=== PATIENT | female | born 1940 | race Caucasian/White ===

== ENCOUNTER 2017-05-05 10:28 | Emergency (ER) | payer MEDICARE ==
[2017-05-05 10:38] VITALS: BP 167/73
--- NOTE | 2017-05-05 14:04 | RAD ---
Indication: Cough. 2 views of the chest including dual energy PA views demonstrates cardiomegaly. Lung garza demonstrate no pleural fluid, pneumonia or pneumothorax. No changes noted since June 25, 2015. IMPRESSION: Cardiomegaly without evidence of active cardiopulmonary disease.
[2017-05-05 17:38] LABS: Calcium 8.8 mg/dL (8.6-10.3); EGFR African American 89.7 (>60); EGFR Non-African American 69.7 (>60); Potassium 3.8 mmol/L (3.5-5.0)
--- NOTE | 2017-05-16 18:06 | UC ---
Tree [employer] Angela, scribed for Sherrie Oneil DO on 05/05/17 at 1049 . General HPI - HPI Summary HPI Summary: This pt is a 76 y/o female presenting to [facility] c/o cough since last late Spring, for months. Pt reports her cough was worse yesterday and it wasn't too bad 2 days ago. Pt notes her cough is aggravated when talking and after eating. She has some productive cough with clear sputum, non-bloody. Pt states sometimes her cough wakes her up at night. She reports it can be worse when lying down at night. She notes she sneezes a lot after her cough. Pt denies sore throat, eye discharge, chest pain, SOB, nausea, vomiting, headache, rash. She notes her ankles are swollen specially during the evenings. Pt has taken diuretics in the past. Pt states she has chronic rosacea. She denies any reflux. Pt reports she had a "bad cough" 2 years ago and couldn't sleep or lay down secondary to cough. She notes she was given diuretics which alleviated her cough. PMHx includes atrial fibrillation, HTN. Pt is on anticoagulants, metoprolol. Pt' s PCP is Dr. Donohue. - History of Current Complaint Chief Complaint: UCRespiratory Stated Complaint: COUGH Time Seen by Provider: 05/05/17 10:44 Hx Obtained From: Patient Onset/Duration: Lasting Days, Still Present Timing: Constant Character: clear sputum Aggravating: talking and after eating Associated Signs & Symptoms: Positive: Cough, Edema - in bilateral ankles, Other - NEG: sore throat, eye discharge, headache, rash. Negative: Abdominal Pain, Chest Pain, Headache, Nausea, SOB, Vomiting - Allergy/Home Medications Allergies/Adverse Reactions: Allergies Allergy/AdvReac Type Severity Reaction Status Date / Time No Known Allergies Allergy Verified 05/05/17 10:30 Home Medications: Home Medications traZODone TAB* [Desyrel TAB*] 50 mg PO DAILY 05/05/17 [History Confirmed ] PMH/Surg Hx/FS Hx/Imm Hx Other Endocrine History: DENIES: diabetes Cardiovascular History: Hypertension, Atrial Fibrillation - Surgical History Surgical History: None - Family History Known Family History: Positive: Cardiac Disease - Social History Alcohol Use: Rare Substance Use Type: None Smoking Status (MU): Never Smoked Tobacco Review of Systems Constitutional: Negative Skin: Other - chronic rosacea Eyes: Negative ENT: Negative Respiratory: Cough Cardiovascular: Negative Gastrointestinal: Negative Genitourinary: Negative Motor: Negative Neurovascular: Negative Musculoskeletal: Edema - in bilateral ankles Neurological: Negative Psychological: Negative Is Patient Immunocompromised?: No All Other Systems Reviewed And Are Negative: Yes Physical Exam Triage Information Reviewed: Yes Appearance: Well-Appearing, No Pain Distress, Well-Nourished Vital Signs: Initial Vital Signs Temp 98.6 F 05/05/17 10:36 Pulse 50 05/05/17 10:36 Resp 16 05/05/17 10:36 BP 167/73 05/05/17 10:36 Pulse Ox 100 05/05/17 10:36 Vital Signs Reviewed: Yes Eyes: Positive: Conjunctiva Clear. Negative: Discharge ENT: Positive: Hearing grossly normal, TMs normal, Other - nasal mucosa is pale and boggy. Negative: Tonsillar swelling, Tonsillar exudate, Trismus, Muffled voice, Hoarse voice Neck exam: Normal Neck: Positive: Supple Respiratory: Positive: Lungs clear, Normal breath sounds, No respiratory distress, No accessory muscle use Cardiovascular: Positive: RRR, No Murmur Musculoskeletal Exam: Normal Musculoskeletal: Positive: No Edema Neurological: Positive: Alert, Muscle Tone Normal Psychological Exam: Normal Psychological: Positive: Age Appropriate Behavior Skin Exam: Normal, Other - Warm, dy, normal color Diagnostics - Radiology Chest XR Xray Interpretation: No Acute Changes - IMPRESSION: cardiomegaly without evidence of active cardiopulmonary disease. ED physician has reviewed this radiology report and agrees. Radiology Interpretation Completed By: ED Physician - Chest XR is negative, per physician., Radiologist Course/Dx - Course Course Of Treatment: Medications reviewed this visit. High blood pressure noted. Chest XR, as read by me, is negative. Pt will be discharged home and was recommended to follow up with her PCP tomorrow. - Differential Dx - Multi-Symptom Provider Diagnoses: Chronic cough Discharge - Discharge Plan Condition: Stable Disposition: HOME Patient Education Materials: Chronic Cough (ED) Referrals: Garo Donohue MD [Primary Care Provider] - 1 Day Additional Instructions: I DID NOT SEE ANY EVIDENCE OF HEART FAILURE EXACERBATION OR LUNG INFECTION ON YOUR CHEST XRAY. YOUR COUGH IS LIKELY THE RESULT OF ALLERGIES OR GASTROESOPHAGEAL REFLUX. TO BE SAFE WE HAVE DRAWN LABS. YOU SHOULD FOLLOW UP WITH YOUR PCP TOMORROW TO GO OVER YOUR LABS AND FOR FURTHER EVALUATION OF YOUR CHRONIC COUGH. The documentation as recorded by the [employer] Angela accurately reflects the service I personally performed and the decisions made by , Sherrie Oneil DO.
== END 2017-05-05 12:51 | disposition home or self-care (01) ==
LOC: UCEAST 10:28
DX: R05 Cough (principal); R60.0 Localized edema; I51.7 Cardiomegaly; I10 Essential (primary) hypertension; I48.91 Unspecified atrial fibrillation
CPT/HCPCS: 36415; 71020; 80048; 83880; 99211; G0463

== ENCOUNTER 2018-05-22 11:16 | Emergency (ER) | payer MEDICARE ==
[2018-05-22 11:36] VITALS: BP 139/69
--- NOTE | 2018-05-22 12:04 | UC ---
Abdominal Pain Female HPI - HPI Summary HPI Summary: Patient presents to urgent care reporting 24 hours of urinary frequency, and stream burning, and hematuria yesterday. Patient states no hematuria today. Patient denies nausea vomiting. No back pain. No fevers, chills, rash. No vaginal discharge, itching, odor. Patient states she's had UTIs in the past and this feels similar. Patient without any recent antibiotics. Patient without any other complaints. Of note, patient is on warfarin and digoxin for A. fib. Patient's medications reviewed this visit - History of Current Complaint Chief Complaint: UCGU Stated Complaint: URINARY FREQUENCY Time Seen by Provider: 05/22/18 11:42 Hx Obtained From: Patient Onset/Duration: Sudden Onset Pain Intensity: 2 Allergies/Adverse Reactions: Allergies Allergy/AdvReac Type Severity Reaction Status Date / Time No Known Allergies Allergy Verified 05/22/18 11:36 Home Medications: Home Medications Amlodipine Besylate [Amlodipine 2.5 mg tab] 2.5 mg PO DAILY 05/22/18 [History Confirmed 05/22/18] PMH/Surg Hx/FS Hx/Imm Hx Cardiovascular History: Hypertension, Atrial Fibrillation - Surgical History Surgical History: Yes Surgery Procedure, Year, and Place: anal polyp removal. Tonsil removal - Family History Known Family History: Positive: Cardiac Disease, Non-Contributory - Social History Lives: With Family Alcohol Use: None Substance Use Type: None Smoking Status (MU): Never Smoked Tobacco Review of Systems All Other Systems Reviewed And Are Negative: Yes Constitutional: Positive: Negative Skin: Positive: Negative Genitourinary: Positive: Dysuria, Hematuria, Frequency, Urgency. Negative: Vaginal/Penile Discharge Physical Exam - Summary Physical Exam Summary: Vital Signs Reviewed: Yes A+Ox3, no distress Eyes: Conjunctiva Clear ENT: Hearing grossly normal neck: supple Respiratory: Positive: No respiratory distress, No accessory muscle use, CTA throughout - no w/r no increased WOB Cardiovascular: skin color reflect adequate perfusion, RRR nl s1 s2 no m/r abd soft + BS n o guarding no rebound no CVA Musculoskeletal Exam: CARO x 4 without difficulty Neurological: Positive: Alert, ambulatory without difficulty Psychological: Positive: Normal Response To Family Skin: Positive: no rash, no ecchymosis Triage Information Reviewed: Yes Vital Signs: Initial Vital Signs Temp 98.8 F 05/22/18 11:30 Pulse 63 05/22/18 11:30 Resp 18 05/22/18 11:30 BP 139/69 05/22/18 11:30 Pulse Ox 96 05/22/18 11:30 Abd Pain Female Course/Dx - Course Course Of Treatment: Patient presents for 24 hours with urinary frequency, and urine dysuria, and hematuria. Patient without other complaints. urinalysis reviewed. culture pending. rx keflex. pt states gets yeast infection - will rx diflucan x 1 dose prn. return precautions - Differential Dx/Diagnosis Provider Diagnosis: UTI (urinary tract infection) Discharge - Sign-Out/Discharge Documenting (check all that apply): Patient Departure All imaging exams completed and their final reports reviewed: No Studies - Discharge Plan Condition: Stable Disposition: HOME Prescriptions: Cephalexin CAP* [Keflex 500 CAP*] 500 mg PO BID #14 cap Fluconazole [Diflucan 150 MG (NF)] 150 mg PO ONCE PRN #1 tab PRN Reason: vaginal yeast infection Patient Education Materials: Urinary Tract Infection in Women (ED) Referrals: Garo Donohue MD [Primary Care Provider] - Additional Instructions: - stay well hydrated - drink plenty of non-alcoholic, non caffinated beverages - your urine will be further tested - if you require any changes to your treatment, we will contact you - this usually take 2 days - Contact your primary doctor to arrange a follow-up appointment next week. Contact your doctor or return with questions or concerns - Take your antibiotics exactly as prescribed until gone - you have been given the 1 time treatment for vaginal yeast infection - okay to take if you develop a yeast infection following the antibiotic use. - Okay to take Tylenol every 6-8 hours for as needed for pain. Take with food - Call your doctor or return with questions or concerns - Billing Disposition and Condition Condition: STABLE Disposition: Home
--- NOTE | 2018-05-23 15:34 | UC ---
- Progress Note Progress Note: 05/23/2018 Uirne culture positive for E.coli Pt Rx Keflex PO awaiting for final sensitivity report No Change. Belén Michelle PA-C Course/Dx - Diagnoses Provider Diagnoses: UTI (urinary tract infection) Discharge - Sign-Out/Discharge Documenting (check all that apply): Patient Departure - d/c home All imaging exams completed and their final reports reviewed: No Studies - Discharge Plan Condition: Stable Disposition: HOME Prescriptions: Cephalexin CAP* [Keflex 500 CAP*] 500 mg PO BID #14 cap Fluconazole [Diflucan 150 MG (NF)] 150 mg PO ONCE PRN #1 tab PRN Reason: vaginal yeast infection Patient Education Materials: Urinary Tract Infection in Women (ED) Referrals: Garo Donohue MD [Primary Care Provider] - Additional Instructions: - stay well hydrated - drink plenty of non-alcoholic, non caffinated beverages - your urine will be further tested - if you require any changes to your treatment, we will contact you - this usually take 2 days - Contact your primary doctor to arrange a follow-up appointment next week. Contact your doctor or return with questions or concerns - Take your antibiotics exactly as prescribed until gone - you have been given the 1 time treatment for vaginal yeast infection - okay to take if you develop a yeast infection following the antibiotic use. - Okay to take Tylenol every 6-8 hours for as needed for pain. Take with food - Call your doctor or return with questions or concerns - Billing Disposition and Condition Condition: STABLE Disposition: Home
== END 2018-05-22 12:20 | disposition home or self-care (01) ==
LOC: UCEAST 11:16
DX: N39.0 Urinary tract infection, site not specified (principal); B96.20 Unspecified Escherichia coli [E. coli] as the cause of diseases classified elsewhere; Z16.11 Resistance to penicillins; Z79.01 Long term (current) use of anticoagulants; I10 Essential (primary) hypertension
CPT/HCPCS: 81003; 87077; 87086; 87186; 99212; G0463

== ENCOUNTER 2018-07-11 05:42 | Inpatient (IN) | payer MEDICARE ==
--- NOTE | 2018-07-05 12:48 | HP ---
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 HISTORY OF PRESENT ILLNESS: Ms. Cummins is a 78-year-old female who has been followed by Dr. Mahajan for ongoing pain in the right knee due to osteoarthritis. She has failed conservative treatment including cortisone injections, activity modification, physical therapy, and anti-inflammatories. She is interested in surgical intervention at this time for correction of the problem. PAST MEDICAL HISTORY: Atrial fibrillation and hypertension. PAST SURGICAL HISTORY: Pilonidal cyst excision, D and C x2, tonsillectomy. She reports no complications with anesthesia with any of those procedures. CURRENT MEDICATIONS: 1. Digoxin 250 mcg 1 tablet p.o. daily. 2. Losartan potassium 50 mg 1 tablet p.o. daily. 3. Metoprolol tartrate 100 mg 1 p.o. b.i.d. 4. Trazodone 50 mg 1 tablet at bedtime. 5. Warfarin 5 mg as directed by primary care. 6. Amlodipine besylate 2.5 mg daily. ALLERGIES: No known drug allergies. FAMILY HISTORY: Noncontributory. SOCIAL HISTORY: The patient is retired. She lives with her . She denies tobacco or alcoholic beverage use. She exercises occasionally. REVIEW OF SYSTEMS: Constitutional: Negative for recent hospitalizations, fevers, chills, night sweats or unexplained weight loss. Head: Negative for headaches, lightheadedness, or balance problems. Cardiovascular: Negative for chest or arm pain with exertion, history of heart attack, heart murmur. Positive for heart palpitations due to atrial fibrillation. Positive for high blood pressure. Negative for embolism or deep vein thrombosis. Respiratory: Negative for chronic cough, shortness of breath with exertion, asthma or COPD. Gastrointestinal: Negative for recent heartburn, nausea, vomiting, diarrhea, constipation. Negative for history of GERD. Genitourinary: Positive for recent urinary tract infections treated in May. Negative for urinary frequency or kidney problems. Musculoskeletal: Negative for chronic back or neck pain or recent fractures. Skin: Negative for rashes, lesions, lumps, or sores. Neurologic: Negative for seizure, stroke, epilepsy, depression, or anxiety. Endocrine: Negative for diabetes or thyroid problems. Hematology: Positive for easy bleeding and bruising due to the warfarin. Negative for history of DVT. PHYSICAL EXAMINATION GENERAL: She is a well-developed, well-nourished pleasant female, in no acute distress at rest. She is alert and oriented x3 with appropriate mood and affect. VITAL SIGNS: The patient is 5 feet 3 inches, 188 pounds. Blood pressure 118/70 , pulse 68, temperature 98.4. HEENT: Normocephalic, atraumatic. Her hearing and vision are grossly intact. NECK: Her trachea is midline. RESPIRATORY: Lungs are clear to auscultation bilaterally. No wheezes, rales, or rhonchi. CARDIOVASCULAR: Irregular rate and irregular rhythm. No murmurs, rubs, or gallops. ABDOMEN: Soft, nondistended, nontender. Normal bowel sounds. EXTREMITIES: Exam of the right lower extremity: Skin is intact without abrasions or open wounds. She has a mild joint effusion with an overall valgus alignment. She has 0 to 100 degrees of motion. She has diffuse tenderness to the anterior medial and lateral joint lines. There is slight instability of the MCL. She is nontender in the posterior aspect of the knee. Her thigh and calves are soft and nontender. She has full dorsiflexion and plantarflexion strength at the ankle. Her sensation to light touch is intact. She has a 2+ dorsalis pedis pulse. IMPRESSION: Severe osteoarthritis of the right knee. PLAN: The patient is to undergo a right total knee arthroplasty by Dr. Mahajan on 07/11/18. The risks, benefits, and postoperative course were discussed with the patient at length and she would like to proceed. The patient was cleared by Dr. Ellsworth in Cardiology and we will stop her Coumadin 5 days preoperatively with a Lovenox bridging not felt to be necessary. She will restart her Coumadin postoperatively. All of the patient's questions were answered to her full satisfaction. She will follow up in the office in the postoperative phase. JUS HAY [id number]/[facility] #: [id number] DARYL
[~2018-07-11 05:42] MED LIST: Buffered Lidocaine 1% SYRIN* 1 ML/SYRINGE INTRADERM ONE; Tranexamic Acid 1,000 MG in NS 0.9% 50 ML* (outpatient use) IV SCH
--- OUTSIDE RECORDS SUMMARY | 2018-07-11 05:46 | XMS REPORT | Continuity of Care Document ---
:1940 External Reference #:[id number] Author Name Garo Donohue M.D. 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 Active Onset: 02/06/2016 Persistent atrial fibrillation Garo Donohue M.D. Active Onset: 02/06/2016 Rosacea Garo Donohue M.D. Active Onset: 02/06/2016 History of polyp of colon Garo Donohue M.D. Active Onset: 02/06/2016 Adult health examination Garo Donohue M.D. Active Onset: 02/06/2016 Cardiomyopathy Garo Donohue M.D. Active Onset: 08/24/2016 Persistent insomnia Garo Donohue M.D. Active Onset: 12/14/2016 Symptom of skin and integumentary Garo Donohue M.D. Active tissue Onset: 06/16/2017 Cough Garo Donohue M.D. Active Onset: 12/15/2017 Allergic arthritis Garo Donohue M.D. Active Family History Date Family Member(s) Problem(s) Comments Father Cancer Mother Cardiomyopathy Grandfather Lung Cancer Uncle Breast Cancer Aunt Breast Cancer Social History Type Date Description Comments Sex Unknown Tobacco Use Start: Unknown Never Smoked Cigarettes ETOH Use Never used alcohol Tobacco Use Start: Unknown Nonsmoker Smoking Status Reviewed: 08/24/16 Nonsmoker Allergies, Adverse Reactions, Alerts Description No Known Drug Allergies Medications Medication Date Status Form Strength Qnty SIG Indications Ordering Provider Jantoven Active Tablets 5mg 90tabs 1 po qd Garo F. 019 Toney Donohue Mometasone Active Cream 0.1% 45gm apply Garo F. Furoate 019 three Shallish, times a M.D. day as needed Amlodipine Active Tablets 2.5mg 90tabs 1 by mouth Garo F. Besylate 018 daily Toney Donohue Losartan Active Tablets 50mg 90tabs take 1 tab Anna Potassium 017 daily [facility] Trazodone HCL Active Tablets 50mg 180tabs 2 po qhs Garo F. 017 Toney Donohue Metoprolol Active Tablets 100mg 180tabs 1 by mouth Anna Tartrate 000 twice a [facility], [facility] day Digoxin Active Tablets 250mcg 90tabs 1 by mouth Garo F. 000 every day Toney Donohue Furosemide Hx Tablets 20mg 90tabs 1 by mouth Garo F. 017 - every day Gardeniaish Toney 018 Losartan Hx Tablets 100mg 90tabs take 1 Garo F. Potassium 017 - tablet by Jayde, mouth one JamelDYessenia 017 time daily Losartan Hx Tablets 50mg 1 by mouth Unknown Potassium 000 - every day 017 Warfarin Hx Tablets 5mg 90tabs 1 by mouth Garo F. Sodium 000 - every day Jayde, Toney 019 Furosemide Hx Tablets 40mg 1 by mouth Unknown 000 - every morning 016 Vitamin B-12 /0 Hx Tablets 1 by mouth Unknown 000 - every day 017 Immunizations CPT Code Status Date Vaccine Lot # [id number] Given 02/19/2018 High-Dose, Influenza Virus Vacccine-fluzone 65 and older [id number] Given 06/16/2017 Pneumococcal Immunization [id number] Given 03/03/2017 High-Dose, Influenza Virus Vacccine-fluzone 65 and [id number] older 58134 Given 02/06/2016 Tdap Tetanus, W Pertussis [id number] 86157 Given 02/06/2016 Pneumococcal Conjugate Vacc-13 [id number] 62904 Given 02/06/2016 High-Dose, Influenza Virus Vacccine-fluzone 65 and [id number] older Vital Signs Date Vital Result Comment 06/15/2018 4:14pm BP Systolic 130 mmHg BP Diastolic 74 mmHg Heart Rate 58 /min Body Temperature 98.4 F Respiratory Rate 16 /min Height 63 inches 5'3" Weight 187.00 lb BMI (Body Mass Index) 33.1 kg/m2 05/08/2018 10:30am BP Systolic 140 mmHg BP Diastolic 84 mmHg Heart Rate 68 /min Body Temperature 99.0 F Respiratory Rate 16 /min Height 63 inches 5'3" Weight 182.00 lb BMI (Body Mass Index) 32.2 kg/m2 03/29/2018 10:25am BP Systolic 152 mmHg BP Diastolic 78 mmHg Heart Rate 64 /min Body Temperature 97.9 F Respiratory Rate 14 /min Height 63 inches 5'3" Weight 167.00 lb BMI (Body Mass Index) 29.6 kg/m2 12/15/2017 11:39am BP Systolic 172 mmHg BP Diastolic 82 mmHg Heart Rate 60 /min Irr Body Temperature 97.7 F Height 63 inches 5'3" Weight 188.00 lb BMI (Body Mass Index) 33.3 kg/m2 06/16/2017 10:08am BP Systolic 138 mmHg BP Diastolic 78 mmHg Heart Rate 64 /min Body Temperature 99.0 F Height 63 inches 5'3" Weight 189.38 lb BMI (Body Mass Index) 33.5 kg/m2 12/14/2016 6:39pm BP Systolic 146 mmHg BP Diastolic 86 mmHg Heart Rate 74 /min Body Temperature 99.0 F Respiratory Rate 16 /min Height 62.75 inches 5'2.75" Weight 192.00 lb BMI (Body Mass Index) 34.3 kg/m2 09/07/2016 8:06pm BP Systolic 138 mmHg BP Diastolic 84 mmHg Heart Rate 60 /min Body Temperature 99.3 F Respiratory Rate 16 /min Height 62.75 inches 5'2.75" Weight 194.00 lb BMI (Body Mass Index) 34.6 kg/m2 08/24/2016 8:14pm BP Systolic 150 mmHg BP Diastolic 80 mmHg Heart Rate 60 /min Body Temperature 98.1 F Height 62.75 inches 5'2.75" Weight 193.00 lb BMI (Body Mass Index) 34.5 kg/m2 02/06/2016 8:01am BP Systolic 120 mmHg BP Diastolic 80 mmHg Heart Rate 60 /min Body Temperature 98.3 F Respiratory Rate 16 /min Height 62.75 inches 5'2.75" Weight 187.00 lb BMI (Body Mass Index) 33.4 kg/m2 Results Test Date Facility Test Result H/L Range Note Laboratory test [facility] ([facility]) 2.0 2.0-3.0 finding 9 (607)- - Laboratory test [facility] ([facility]) 2.2 High 0.9-1.1 finding 8 (607)- - Urine Culture And [facility] Urine SEE RESULT 1, 2 Sensitivities 8 Culture BELOW Poc Urinalysis [facility] Poc Glucose, Trace Abnormal Negative 8 Urine Poc Bilirubin, Urine Negative Negative Poc Ketone, Urine Negative Negative Poc Specific [place], Urine 1.015 N 1.010-1.030 Poc Blood, Urine 2+ Abnormal Negative Poc pH, Urine 5.5 N 5-9 Poc Protein, Urine 2+ Abnormal Negative Poc Urobilinogen, Urine 1.0 Negative Poc Nitrite, Urine Positive Abnormal Negative Poc Leukocytes, Urine Trace Abnormal Negative Poc Color, Urine Yellow Poc Clarity, Urine Clear 3 Laboratory test 05/17/2018 [facility] ([facility]) 1.7 Low 2.0-3.0 finding (607)- - Laboratory test 05/11/2018 [facility] Surgical SEE RESULT 4, 5 finding Interface BELOW Order Laboratory test 05/08/2018 [facility] ([facility]) 1.8 Low 2.0-3.0 finding (607)- - Laboratory test 04/06/2018 [facility] Medicine Inr (Fma) 3.1 High 2-3 finding (607)- - Laboratory test 03/02/2018 [facility] (a) 2.6 2.0-3.0 finding (607)- - Laboratory test 01/26/2018 [facility] (a) 2.4 2-3 finding (607)- - Laboratory test 01/05/2018 [facility] ([facility]) 1.7 Low 2.0-3.0 finding (607)- - Comprehensive 12/15/2017 Tenorio Janice ([facility]) Sodium 136 mEq/L 134-149 Metabolic Prof Potassium 3.9 mEq/L 3.6-5.5 Chloride 101 mEq/L 94-112 Carbon Dioxide 30 mEq/L 21-32 Glucose 93 mg/dL 70-105 BUN 13 mg/dL 6-26 Creatinine 0.8 mg/dL 0.6-1.4 BUN/Creat Ratio 16.3 CALC 8.0-36.0 Calcium 9.2 mg/dL 8.6-10.2 Total Protein 7.0 g/dL 6.4-8.3 Albumin 4.3 g/dL 3.8-5.5 Globulin 2.7 g/dL 2.0-4.8 A/G Ratio 1.6 CALC 0.6-2.3 Alk. Phosphatase 67 U/L 30-110 Alt (SGPT) 25 U/L 7-35 Ast (Sgot) 21 U/L 5-34 Total Bilirubin 1.1 mg/dL 0.2-1.3 GFR Non- >60 ml/min/1.73m^ >=60 GFR >60 ml/min/1.73m^ >=60 Laboratory test 12/15/2017 Tenorio Janice ([facility]) Free T4 1.13 ng/dL 0.75- 1.54 finding Lipid Profile 12/15/2017 Tenorio Janice (a) Cholesterol 174 mg/dL 120- 200 Triglycerides 113 mg/dL 30-200 HDL Cholesterol 44 mg/dL 30-85 LDL (Calculated) 107 CALC 0-129 VLDL Cholesterol 23 mg/dL 0-50 HDL Risk Factor 4.0 CALC 0.0-4.4 CBC Electronic [facility]ma 12/15/2017 Ten[facility] Janice (a) WBC 8.8 x10^3/UL 4.0- 10.0 RBC 5.12 x10^6/UL 3.93-6.00 HGB 16.4 g/dL 12.0-17.0 HCT 48 % 35-50 MCV 93.6 fL 80.0-95.0 MCH 32.0 pg 25.6-32.2 MCHC 34.2 g/dL 32.2-36.0 RDW-CV 12.6 % 11.6-14.4 PLT 225 x10^3/UL 163-400 MPV 11.5 fL 9.4-12.4 Kateryna# 5.66 x10^3/UL 1.56-6.13 Lymph# 2.34 x10^3/UL 1.18-3.74 [place]# 0.62 x10^3/UL 0.24-0.82 Eos # 0.1 x10^3/UL 0.0-0.5 Baso # 0.04 x10^3/UL 0.01-0.08 Kateryna% 64.3 % 34.0-70.0 Lymph % 26.6 % 20.0-52.0 [place]% 7.1 % 5.0-12.0 Eos% 1.4 % 0.7-7.0 Baso% 0.5 % 0.1-1.2 Laboratory test 12/15/2017 [facility] Digoxin, Serum 0.8 ng/mL 0.5-0.9 6, 7 finding [address] [place] [address] (607)- - Laboratory test 12/01/2017 [facility] ([facility]ma) 1.9 Low 2-3 finding (607)- - Laboratory test 11/03/2017 [facility] ([facility]) 2.0 2.0-3.0 finding (607)- - Laboratory test 10/20/2017 [facility] ([facility]) 1.6 Low 2-3 finding (607)- - Ict Hemoccult 09/09/2017 Family Medicine Ict Hemoccult 08/16/17 (Fma) (607)- - (1) neg Ict Hemoccult-(2) 08/20/17 neg Ict-Hemoccult (3) 08/22/17 neg Laboratory test 09/08/2017 [facility] ([facility]) 2.1 2-3 finding (607)- - Laboratory test 08/11/2017 [facility] ([facility]) 2.0 2-3 finding (607)- - Laboratory test 07/14/2017 [facility] ([facility]) 1.8 Low 2.0-3.0 finding (607)- - Complete Blood Count 06/16/2017 Jona Camacho ([facility]) WBC 9.2 x10^3/UL 3.6-9.6 RBC 5.13 x10^6/UL 3.90-5.70 HGB 16.5 g/dL 12.1-17.2 HCT 49 % 36-50 MCV 96.0 fL 82.2-97.4 MCH 32.2 pg 27.6-33.3 MCHC 33.5 g/dL 33.0-35.5 RDW 14.0 % High 11.6-13.7 PLT 222 x10^3/UL 150-400 MPV 8.7 fL 7.4-10.4 Gran # 6.2 x10^3/UL 1.5-7.2 Lymph# 2.6 x10^3/UL 0.7-4.9 [place]# 0.4 x10^3/UL 0.1-0.9 Gran % 66.6 % 42.2-75.2 Lymph % 28.5 % 20.5-51.1 [place]% 4.9 % 1.7-9.3 Comprehensive Metabolic 06/16/2017 Tenorio Flora ([facility]) Sodium 143 mEq/L 134-149 Prof Potassium 4.1 mEq/L 3.6-5.5 Chloride 103 mEq/L 94-112 Carbon Dioxide 31 mEq/L 21-32 Glucose 95 mg/dL 70-105 BUN 16 mg/dL 6-26 Creatinine 0.7 mg/dL 0.6-1.4 BUN/Creat Ratio 22.9 CALC 8.0-36.0 Calcium 9.0 mg/dL 8.6-10.2 Total Protein 6.8 g/dL 6.4-8.3 Albumin 4.2 g/dL 3.8-5.5 Globulin 2.6 g/dL 2.0-4.8 A/G Ratio 1.6 CALC 0.6-2.3 Alk. Phosphatase 61 U/L 30-110 Alt (SGPT) 20 U/L 7-35 Ast (Sgot) 20 U/L 5-34 Total Bilirubin 1.0 mg/dL 0.2-1.3 GFR Non- >60 ml/min/1.73m^ >=60 GFR >60 ml/min/1.73m^ >=60 Lipid Profile 06/16/2017 Jona Camacho (a) Cholesterol 160 mg/dL 120- 200 Triglycerides 116 mg/dL 30-200 HDL Cholesterol 45 mg/dL 30-85 LDL (Calculated) 92 CALC 0-129 VLDL Cholesterol 23 mg/dL 0-50 HDL Risk Factor 3.6 CALC 0.0-4.4 Laboratory test 06/16/2017 Jona Camacho (a) Free T4 1.21 ng/dL 0.75- 1.54 finding TSH 2.25 mIU/L 0.50-6.00 Ua - Non Micro (a) 06/16/2017 [facility] Medicine Appearance clear (607)- - Color yellow Glucose, Urine ([facility]/CTX) neg Bilirubin neg Ketones neg SP Grav 1.020 Blood neg PH 7.0 Protein ssa neg Urobil 2.0 Nitrite neg Leukocytes (a/[facility]/Centrex) neg Laboratory test 06/16/2017 [facility] Digoxin 0.8 ng/ml N 0.8-2.0 8 finding Laboratory test 2017 [facility] (a) 2.2 2.0-3.0 finding (607)- - Laboratory test 05/05/2017 [facility] (a) 1.9 Low 2.0-3.0 finding (607)- - Laboratory test 05/05/2017 [facility] B-Type 146 pg/mL High 9 finding Natriuretic Peptide BNP Basic Metabolic 05/05/2017 [facility] Sodium 140 mmol/L N 133-145 Panel Potassium 3.8 mmol/L N 3.5-5.0 Chloride 100 mmol/L Low 101-111 Co2 Carbon Dioxide 34 mmol/L High 22-32 Anion Gap 6 mmol/L N 2-11 Glucose 94 mg/dL N 70-100 Blood Urea Nitrogen 16 mg/dL N 6-24 Creatinine 0.80 mg/dL N 0.51-0.95 BUN/Creatinine Ratio 20.0 N 8-20 Calcium 8.8 mg/dL N 8.6-10.3 Egfr Non- 69.7 >60 Egfr 89.7 >60 10 Laboratory test finding 03/31/2017 [facility] ([facility]) 2.0 2.0- 3.0 (607)- - Laboratory test finding 03/03/2017 [facility] ([facility]) 2.1 2.0- 3.0 (607)- - Laboratory test finding 02/03/2017 [facility] ([facility]) 2.4 2.0- 3.0 (607)- - Laboratory test finding 01/13/2017 [facility] ([facility]) 2.8 2.0- 3.0 (607)- - Laboratory test finding 12/23/2016 [facility] ([facility]) 1.8 Low 2.0- 3.0 (607)- - Laboratory test finding 12/09/2016 [facility] ([facility]) 1.5 Low 2.0- 3.0 (607)- - Laboratory test finding 11/04/2016 [facility] ([facility]) 1.9 Low 2.0- 3.0 (607)- - Laboratory test finding 09/30/2016 [facility] ([facility]) 2.0 2-3 (607)- - Laboratory test finding 08/26/2016 [facility] ([facility]) 2.1 2.0- 3.0 (607)- - Laboratory test finding 07/22/2016 [facility] ([facility]) 2.5 2.0- 3.0 (607)- - Laboratory test finding 06/17/2016 [facility] ([facility]) 2.3 2-3 (607)- - Laboratory test finding 05/13/2016 [facility] ([facility]) 2.2 2.0- 3.0 (607)- - Laboratory test finding 04/08/2016 [facility] ([facility]ma) 2.1 2-3 (607)- - Laboratory test finding 03/04/2016 [facility] ([facility]ma) 2.1 2-3 (607)- - Laboratory test finding 02/06/2016 [facility] ([facility]) 1.8 Low 2.0- 3.0 (607)- - Ua - Non Micro (Fma) 02/06/2016 [facility] Appearance CLEAR (607)- - Color YELLOW Glucose, Urine ([facility]/CTX) NEG Bilirubin NEG Ketones NEG SP Grav >=1.030 Blood NEG PH 6.0 Protein NEG Urobil 0.2 Nitrite NEG Leukocytes ([facility]/Centrex) NEG Laboratory test 02/06/2016 [facility] Digoxin, Serum 0.8 ng/mL Low 0.9-2.0 11 finding [address] [place] [address] (889)- - PDF [id number] SEE IMAGE Laboratory test 02/06/2016 Tenorio Flora ([facility]) Free T4 0.94 ng/dL 0.75- 1.54 finding TSH 1.71 mIU/L 0.50-6.00 Complete Blood Count 02/06/2016 Tenorio Flora ([facility]) WBC 8.7 x10^3/UL 3.6-9.6 RBC 4.95 x10^6/UL 3.90-5.70 HGB 16.4 g/dL 12.1-17.2 HCT 48 % 36-50 MCV 97.0 fL 82.2-97.4 MCH 33.1 pg 27.6-33.3 MCHC 34.0 g/dL 33.0-35.5 RDW 13.7 % 11.6-13.7 PLT 200 x10^3/UL 150-400 MPV 8.7 fL 7.4-10.4 Gran # 6.2 x10^3/UL 1.5-7.2 Lymph# 2.1 x10^3/UL 0.7-4.9 [place]# 0.4 x10^3/UL 0.1-0.9 Gran % 70.5 % 42.2-75.2 Lymph % 24.8 % 20.5-51.1 [place]% 4.7 % 1.7-9.3 Lipid Profile 02/06/2016 Tenorio Flora (a) Cholesterol 154 mg/dL 120- 200 Triglycerides 114 mg/dL 30-200 HDL Cholesterol 49 mg/dL 30-85 LDL (Calculated) 82 CALC 0-129 VLDL Cholesterol 23 mg/dL 0-50 HDL Risk Factor 3.1 CALC 0.0-4.4 Comprehensive Metabolic 02/06/2016 Tenorio Flora ([facility]) Sodium 139 mEq/L 134-149 Prof Potassium 3.6 mEq/L 3.6-5.5 Chloride 99 mEq/L 94-112 Carbon Dioxide 26 mEq/L 21-32 Glucose 88 mg/dL 70-105 BUN 19 mg/dL 6-26 Creatinine 0.7 mg/dL 0.6-1.4 BUN/Creat Ratio 27.1 CALC 8.0-36.0 Calcium 8.6 mg/dL 8.6-10.2 Total Protein 7.0 g/dL 6.4-8.3 Albumin 4.2 g/dL 3.8-5.5 Globulin 2.8 g/dL 2.0-4.8 A/G Ratio 1.5 CALC 0.6-2.3 Alk. Phosphatase 58 U/L 30-110 Alt (SGPT) 22 U/L 7-35 Ast (Sgot) 27 U/L 5-34 Total Bilirubin 0.9 mg/dL 0.2-1.3 GFR Non- >60 ml/min/1.73m^ >=60 GFR >60 ml/min/1.73m^ >=60 Laboratory test 01/16/2016 [facility] Surgical Interface SEE RESULT BELOW , 13 finding Order 1 [id number] SEE RESULT BELOW Name: NANCY CUMMINS Angel : [address]: Debbie Luciano MD Acct: [id number] Unit: [id number] AGE: 77 Location: [facility] Re05/22/18 SEX: F Status: DEP ER SPEC: [id number] MINDY: 05/22/18-[address]: Debbie Luciano MD REQ: [id number] RECD: 05/22/18 STATUS: COMP OTHR DR: Garo Donohue MD _ SOURCE: URINE [facility]: ORDERED: Urine Culture COMMENTS: [id number] Procedure Result Reported Site Urine Culture Final 05/24/18- 0758 ML Organism 1 ESCHERICHIA COLI [place] Count >100,000 (Many) CFU/ML 1. ESCHERICHIA COLI M.I.C. RX --------- ------ Ampicillin >=32 R Cefazolin <=4 S Cefepime <=1 S Ceftriaxone <=1 S Ciprofloxacin <=0.25 S Gentamicin <=1 S Levofloxacin <=0.12 S Meropenem <=0.25 S Nitrofurantoin <=16 S Tetracycline <=1 S Pipercillin/Tazobactam <=4 S Trimethoprim/Sulfamethoxazole <=20 S Amoxicillin/Clavulanic Acid 16 I Aztreonam <=1 S Contact the Microbiology Department for any additional antibiotic reporting. * ML - Main Lab . END OF REPORT DEPARTMENT OF PATHOLOGY, [address] [place] [address] Oswald Coto M.D. Director [facility] # [id number] Clinical Massage Therapist: [id number] SEE RESULT BELOW Name: NANCY CUMMINS : [address]: Odalys Greer MD Acct: [id number] Unit: [id number] AGE: 77 Location: [facility] Re05/11/18 SEX: F Status: DEP REF SPEC: [id number] MINDY: 05/11/18-[address] [facility] [address]: Odalys Dominguez MD REQ: [id number] RECD: 05/11/18-161 STATUS: MATHEW SUMNER DR: Garo Donohue MD _ ORDERED: LEVEL 4 COMMENTS: [id number] FINAL DIAGNOSIS Colon, hepatic flexure, biopsy: -- Tubular adenomas. -- No high grade dysplasia or malignancy. CLINICAL HISTORY History of polyps POST-OPERATIVE DIAGNOSIS Colonoscopy: cecal polyp 3 mm - tip of snare; hepatic flexure - (3) 1 to 1.5 cm status post snare cautery clip (4); diverticulosis; small internal hemorrhoids GROSS DESCRIPTION The specimen is received in formalin labeled, Hepatic Flexure Polyps, and consists of a 1.2 x 0.8 x 0.3 cm aggregate of torre-pink irregular to polypoid soft tissue fragments which is submitted entirely in one cassette. Signed by and Reported on: Anna John MD 05/12/18 1658 END OF REPORT DEPARTMENT OF PATHOLOGY, [address] [place] [address] Oswald Coto M.D. Director [facility] # [id number] 6 1 POURED OFF SERUM FROM RE D TOP TUBE 7 Concentrations above 2.0 ng/mL are generally considered toxic. Some overlap of toxic and non-toxic values have been reported. Detection Limit=0.4 ng/mL Therapeutic range is derived from 2013 ACCF/AHA Guidelines for the Management of Heart Failure. 8 1 SERUM POUR OFF FROM RED TOP 9 >100 to <200 pg/mL: likely compensated congestive heart failure (CHF) 200 to 400 pg/mL: likely moderate CHF >400 pg/mL: likely moderate to severe CHF 10 Because ethnic data is not always readily available, this report includes an eGFR for both -Americans and non- Americans. The National Kidney Disease Education Program (NKDEP) does not endorse the use of the MDRD equation for patients that are not between the ages of 18 and 70, are , have extremes of body size, muscle mass, or nutritional status, or are non- or non-. According to the National Kidney Foundation, irrespective of diagnosis, the stage of the disease is based on the level of kidney function: Stage Description GFR(mL/min/1.73 m(2)) 1 Kidney damage with normal or decreased GFR 90 2 Kidney damage with mild decrease in GFR 60-89 3 Moderate decrease in GFR 30-59 4 Severe decrease in GFR 15-29 5 Kidney failure <15 (or dialysis) 11 Concentrations above 2.0 ng/mL are generally considered toxic. Some overlap of toxic and non-toxic values have been reported. Detection Limit=0.4 ng/mL 12 [id number] 13 SEE RESULT BELOW Name: NANCY CUMMINS : [address]: Jose Li MD Acct: [id number] Unit: [id number] AGE: 75 Location: [facility] Re01/16/16 SEX: F Status: REG REF SPEC: [id number] MINDY: 01/16/16-[address] [facility] [address]: Jose Li MD REQ: [id number] RECD: 01/16/16160 STATUS: MATHEW SUMNER DR: Garo Donohue MD _ ORDERED: LEVEL IV/2 COMMENTS: [id number] FINAL DIAGNOSIS 1. Colon, cecum, biopsy: -- Tubulovillous adenomas. -- No high-grade dysplasia identified. 2. Colon, ascending, biopsy: -- Tubular adenomas. -- No high grade dysplasia or malignancy. CLINICAL HISTORY History of colon polyps 2010 PRE-OPERATIVE DIAGNOSIS I POST-OPERATIVE DIAGNOSIS Colonoscopy to cecum - tortuous sigmoid with divertics; 4 small colon polyps - 2 in cecum, 2 in ascending colon snare cautery polypectomies with hemostatic clip applicated x2 otherwise negative. Conclusions/Plan: Colon polyps, diverticules; repeat colonoscopy 2 years GROSS DESCRIPTION 1. The specimen is received in formalin labeled, Cecal Polyps, and consists of a 1.0 x 0.7 x 0.5 cm torre-brown sessile polyp, which is inked and serially sectioned. Received separately in the same container is a 0.8 x 0.8 x 0.1 cm aggregate of torre- white irregular to polypoid soft tissue fragments. The specimen is entirely submitted in one cassette. 2. The specimen is received in formalin labeled, Ascending Colon Polyps, and consists of a 1.6 x 0.8 x 0.3 cm aggregate of torre-white irregular to polypoid soft tissue fragments, which CONTINUED ON NEXT PAGE * ML=Testing performed at Main Lab DEPARTMENT OF PATHOLOGY, [address] [place] [address] Oswald Coto M.D. Director [facility] # [id number] RUN DATE: 01/19/16 [facility] LAB LIVE PAGE 2 Patient: TASHINANCY Angel [id number] (Continued) GROSS DESCRIPTION (Continued) GROSS DESCRIPTION (Continued) is entirely submitted in one cassette. Signed (signature on file) Oswald Coto MD 1500 END OF REPORT * ML=Testing performed at Main Lab DEPARTMENT OF PATHOLOGY, [address] [place] [address] Oswald Coto M.D. Director [facility] # [id number] Procedures Date Code Description Status 05/06/2019 [id number] Colonoscopy Completed 05/27/2018 92123 Finger Or Heel Stick Completed 05/17/2018 66033 Finger Or Heel Stick Completed 05/11/2018 [id number] Colonoscopy Completed 05/08/2018 83424 Finger Or Heel Stick Completed 04/06/2018 02121 Finger Or Heel Stick Completed 03/27/2018 [id number] Mammogram Completed 03/02/2018 75394 Finger Or Heel Stick Completed 01/26/2018 39999 Finger Or Heel Stick Completed 01/05/2018 09609 Finger Or Heel Stick Completed 12/01/2017 05659 Finger Or Heel Stick Completed 11/03/2017 37885 Finger Or Heel Stick Completed 10/20/2017 89739 Finger Or Heel Stick Completed 09/08/2017 29397 Finger Or Heel Stick Completed 08/11/2017 06386 Finger Or Heel Stick Completed 07/14/2017 91285 Finger Or Heel Stick Completed 2017 78485 Finger Or Heel Stick Completed 05/05/2017 82259 Finger Or Heel Stick Completed 03/31/2017 20365 Finger Or Heel Stick Completed 03/18/2017 [id number] Mammogram Completed 03/03/2017 21976 Finger Or Heel Stick Completed 02/03/2017 57073 Finger Or Heel Stick Completed 01/13/2017 78643 Finger Or Heel Stick Completed 12/23/2016 83208 Finger Or Heel Stick Completed 12/09/2016 25933 Finger Or Heel Stick Completed 11/04/2016 26629 Finger Or Heel Stick Completed 09/30/2016 21780 Finger Or Heel Stick Completed 08/26/2016 68653 Finger Or Heel Stick Completed 07/22/2016 42568 Finger Or Heel Stick Completed 06/17/2016 86467 Finger Or Heel Stick Completed 05/13/2016 49677 Finger Or Heel Stick Completed 04/08/2016 84169 Finger Or Heel Stick Completed 03/04/2016 34064 Finger Or Heel Stick Completed 02/11/2016 [id number] Mammogram Completed Encounters Type Date Location Provider Dx Diagnosis Office Visit 05/08/2018 [facility] Office Anna I10 Essential (primary) 10:15a GRZEGORZ Skinner hypertension Office Visit 05/08/2018 [facility] Office Garo Bustos 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 (primary) hypertension Office Visit 03/29/2018 10:30a [facility] Office Anna I10 Essential GRZEGORZ Skinner (primary) hypertension Office Visit 12/15/2017 11:00a Main Office Garo Bustos I48.1 Persistent atrial Toney Donohue fibrillation Z86.010 Personal history of colonic polyps M13.861 Other specified arthritis, right knee I10 Essential (primary) hypertension Office Visit 06/16/2017 10:00a Main Office Garo Donohue I48.1 Persistent atrial M.D. fibrillation L71.8 Other rosacea R23.8 Other skin changes G47.09 Other insomnia Z86.010 Personal history of colonic polyps Z00.00 Encntr for general adult medical exam w/o abnormal findings R05 Cough Z23 Encounter for immunization I10 Essential (primary) hypertension Office Visit 12/14/2016 6:00p Main Office Garo Donohue I48.1 Persistent atrial M.D. fibrillation I10 Essential (primary) hypertension G47.09 Other insomnia R23.8 Other skin changes Office Visit 09/07/2016 7:20p Main Office Garo Bustos I42.8 Other cardiomyopathies Toney Donohue I48.1 Persistent atrial fibrillation L71.8 Other rosacea I10 Essential (primary) hypertension Office Visit 08/24/2016 7:40p Main Office Garo Donohue I10 Essential (primary) M.DYessenia hypertension I48.1 Persistent atrial fibrillation G47.09 Other insomnia Office Visit 02/06/2016 8:00a [facility] Garo MylesYessenia ElielJohn Essential ( primary) Toney Donohue hypertension I48.1 Persistent atrial fibrillation L71.8 Other rosacea Z86.010 Personal history of colonic polyps I42.8 Other cardiomyopathies Z00.00 Encntr for general adult medical exam w/o abnormal findings Z23 Encounter for immunization Z79.01 [facility] (current) use of anticoagulants Plan of Treatment 06/15/2018 - Garo Donohue M.D.I48.1 Persistent atrial fibrillationNew Labs: CBC Electronic-[facility], Ordered: 06/15/18Comp Metabolic-[facility] , Ordered: 06/15/18Free T4 ([facility]), Ordered: 06/15/18TSH ([facility]ma/[facility]) , Ordered: 06/15/18Digoxin, Ordered: 06/15/18Comments:Patient to continue present medication and continue followup with cardiology , patient to obtain preoperative lab work at [facility], I told the patient she would need to hold her warfarin 5 days prior to the procedure, in the past for a colonoscopy Dr. Ellsworth did not feel that she needed Lovenox [id number] Essential (primary) hypertensionNew Labs:CBC Electronic-[facility], Ordered: 06/15/18Comp Metabolic-[facility], Ordered: 06/15/18Free T4 ([facility]), Ordered: 03/24TSH ([facility]), Ordered: 06/15/18Lipid Panel-[facility], Ordered: 06/15/18Comments:continue current medication, call if bp elevation is persistent above 150/90 , to call with blood pressure odftvohfK23.010 Personal history of colonic polypsComments:Repeat colonoscopy in one yearM13.861 Other specified arthritis, right kneeComments:I feel the patient is medically clear for the planned total knee replacement by Dr. MahajanR23.8 Other skin changesComments:continue with DhgypipojmrQ84.818 Encounter for other preprocedural examinationAllNew Medication:Jantoven 5 mg - 1 po qdMometasone Furoate 0.1 % - apply three times a day as needed
--- OUTSIDE RECORDS SUMMARY | 2018-07-11 05:46 | XMS REPORT | Continuity of Care Document ---
:1940 External Reference #:[id number] Author Name Lynette Villatoro Care Team Providers Name Role Phone Garo Donohue MD Primary Care Physician Unavailable Payers Type Date Identification Numbers Payment Provider Subscriber Policy Number: [id number] [employer] Nancy Cummins Group Number: [id number] [address] PayID: [id number] [place] [address] Effective: 2005 Policy Number: [id number] Medicare Nancy Cummins Expires: 2016 PayID: [id number] [address] [place] [address] Expires: 2016 Policy Number: [id number] [employer] Nancy Cummins Group Number: [id number] [address] Group Name: [place] [address] PayID: [id number] Advance Directives Description No Information Available Problems Date Description Provider Status Onset: 06/21/2018 Essential hypertension Davonte Ellsworth M.D., [facility], Active CADY Onset: 09/24/2015 Dyspnea Davonte Ellsworth M.D., [facility], Active FASGISELA Onset: 03/19/2015 Chronic atrial fibrillation Davonte Ellsworth M.D., [facility], Active CADY Onset: 02/18/2014 Atrial fibrillation Davonte Ellsworth M.D., [facility], Active CADY Family History Description No Information Available Social History Type Date Description Comments Sex Unknown Marital Status Occupation Retired Tobacco Use Start: Unknown Never Smoked Cigarettes Pt denies ever smoking cigar, pipe, e-cigarettes, or using chewing tobacco. Smoking Status Reviewed: 06/28/18 Never Smoked Cigarettes Pt denies ever smoking cigar, pipe, e-cigarettes, or using chewing tobacco. ETOH Use Denies alcohol use Tobacco Use Start: Unknown Patient has never smoked Recreational Drug Use Denies Drug Use Exercise Type/Frequency Exercises rarely Allergies, Adverse Reactions, Alerts Description No Known Drug Allergies Medications Medication Date Status Form Strength Qnty SIG Indications Ordering Provider Lasix Active Tablets 20mg 30tabs 1 by mouth Other 019 every day Ordering prn Provider Digoxin Active Tablets 250mcg 90tabs 1 tab by Davonte Guido 014 mouth Ellsworth, every day M.D., FACC, FASNC Losartan Active Tablets 50mg 90tabs 1 tab by Davonte Guido Potassium 013 mouth Ellsworth, every day M.D., FACC, FASNC Metoprolol Active Tablets 100mg 180tab 1 tab by Davonte Guido Tartrate 013 s mouth Seng, twice a M.D., day FACC, FASNC Trazodone HCL Active Tablets 50mg 1 tablet Unknown 000 at bedtime as needed Jantoven Active Tablets 5mg as Unknown [address] donohue Amlodipine Active Tablets 2.5mg 1 by mouth Unknown Besylate 000 every day Furosemide Hx Tablets 20mg one by Davonte Guido 017 - mouth Ellsworth, every day M.D., 019 prn FACC, FASNC Furosemide Hx Tablets 40mg 90tabs 1 by mouth Davonte Guido 016 - every Ellsworth, morning M.D., 019 prn FACC, FASNC Magnesium Hx Tablets 250mg 30tabs 1 by mouth Davonte Guido Oxide 016 - every day Ellsworth, prn (pt M.D., 018 takes only FACC, with FASNC furosemide ) Klor-Con M20 Hx Tablets ER 20Meq 180tab 1 by mouth Davonte Guido 016 - s twice Ellsworth, daily prn M.D., 019 (Pt states FACC, she takes FASNC only when taking furosemide , which is rare) Digoxin Hx Tablets 0.25mg 30tabs 1 po qd Davonte Guido 013 - Ellsworth, M.D., 014 FACC, FASNC Coumadin /0 Hx 5mg as Unknown 000 - directed 017 Zolpidem 0 Hx Tablets 5mg 10tabs 1 tab at Unknown Tartrate 000 - bedtime as needed for 015 sleep Melatonin 0 Hx Capsules 3mg 1 by mouth Unknown 000 - every night as 017 needed for sleep Vitamin B 12 0 Hx 3 times Unknown 000 - per week 018 Furosemide 0 Hx Tablets 20mg 1 by mouth Unknown 000 - every morning as 016 needed Medications Administered in Office Medication Date Status Form Strength Qnty SIG Indications Ordering Provider Inj, Administered Injection Davonte Guido Regadenoson, 019 Ellsworth, 0.1 MG M.D., FACC, FASNC Technetium TC Administered Injection Davonte Guido 99M 019 Bony Ellsworth M.D., FACC, Per Unit Dose FASNC Up To 40 Millicuries No Injection Administered Injection Dirk Keyshawn, 018 M.D. Depomedrol Administered Injection Dirk Keyshawn, 40MG 018 M.D. Inj, Administered Injection Davonte Guido Regadenoson, 016 Ellsworth, 0.1 MG M.D., FACC, FASNC Technetium TC Administered Injection Davonte Guido 99M 016 Bony Ellsworth M.D., FACC, Per Unit Dose FASNC Up To 40 Millicuries Technetium TC Administered Injection Davontesammy Guido 99M 013 Bony Ellsworth M.D., FACC, Per Unit Dose FASNC Up To 40 Millicuries Immunizations Description No Information Available Vital Signs Date Vital Result Comment 06/28/2018 9:35am Height 64 inches 5'4" Weight 188.00 lb Heart Rate 68 /min BP Systolic 118 mmHg BP Diastolic 70 mmHg Respiratory Rate 12 /min Body Temperature 98.4 F Pain Level 0 BMI (Body Mass Index) 32.3 kg/m2 06/21/2018 10:52am Height 64 inches 5'4" Weight 186.00 lb no shoes Heart Rate 68 /min BP Systolic Sitting 118 mmHg lue reg cuff BP Diastolic Sitting 68 mmHg lue reg cuff BP Systolic Standing 136 mmHg lue reg cuff BP Diastolic Standing 70 mmHg lue reg cuff BMI (Body Mass Index) 31.9 kg/m2 Ejection Fraction 60-65% echo. 05/23/18 04/17/2018 11:09am Height 64 inches 5'4" Heart Rate 61 /min BP Systolic 122 mmHg BP Diastolic 68 mmHg Respiratory Rate 18 /min Body Temperature 98.3 F Pain Level 5 03/01/2018 1:57pm Heart Rate 56 /min BP Systolic Sitting 166 mmHg BP Diastolic Sitting 90 mmHg Respiratory Rate 18 /min Pain Level 6 01/02/2018 3:29pm Height 64 inches 5'4" Weight 189.00 lb Heart Rate 63 /min BP Systolic 146 mmHg BP Diastolic 86 mmHg Body Temperature 97.7 F BMI (Body Mass Index) 32.4 kg/m2 11/16/2017 10:31am Height 63 inches 5'3" Weight 188.00 lb Heart Rate 60 /min BP Systolic Sitting 122 mmHg BP Diastolic Sitting 82 mmHg Respiratory Rate 17 /min BMI (Body Mass Index) 33.3 kg/m2 Ejection Fraction 60-65% 08/22/2015 echo 11/23/2016 12:52pm Height 63 inches 5'3" Weight 192.00 lb Heart Rate 56 /min BP Systolic Sitting 142 mmHg Lue large cuff BP Diastolic Sitting 88 mmHg Lue large cuff BP Systolic Standing 140 mmHg Lue BP Diastolic Standing 90 mmHg Lue Respiratory Rate 16 /min BMI (Body Mass Index) 34.0 kg/m2 Ejection Fraction 60-65% 08/22/15 11/26/2015 10:29am Height 63 inches 5'3" Weight 189.00 lb w/o shoes Heart Rate 54 /min irreg BP Systolic Sitting 150 mmHg Lue, lg cuff BP Diastolic Sitting 90 mmHg Lue, lg cuff BP Systolic Standing 146 mmHg Lue BP Diastolic Standing 94 mmHg Lue Respiratory Rate 16 /min BMI (Body Mass Index) 33.5 kg/m2 Ejection Fraction 60-65% as of 08/22/15 echo 09/24/2015 10:05am Height 63 inches 5'3" Weight 189.31 lb without shoes Heart Rate 62 /min BP Systolic Sitting 146 mmHg Ra reg cuff BP Diastolic Sitting 90 mmHg Ra reg cuff BP Systolic Standing 146 mmHg Ra reg cuff BP Diastolic Standing 94 mmHg Ra reg cuff Respiratory Rate 16 /min BMI (Body Mass Index) 33.5 kg/m2 Ejection Fraction 60-65% date 08/22/15 ECHO 03/19/2015 10:06am Height 63 inches 5'3" Weight 192.00 lb w/o shoes Heart Rate 64 /min BP Systolic Sitting 146 mmHg Lue, reg cuff BP Diastolic Sitting 98 mmHg Lue, reg cuff BP Systolic Standing 146 mmHg Lue BP Diastolic Standing 102 mmHg Lue Respiratory Rate 18 /min BMI (Body Mass Index) 34.0 kg/m2 Ejection Fraction 60-65% as of 02/25/15 echo 02/18/2014 1:35pm Height 63 inches 5'3" Weight 197.00 lb with shoes Heart Rate 70 /min BP Systolic Sitting 134 mmHg Ra lg cuff BP Diastolic Sitting 96 mmHg Ra lg cuff BP Systolic Standing 122 mmHg Ra lg cuff BP Diastolic Standing 90 mmHg Ra lg cuff Respiratory Rate 16 /min BMI (Body Mass Index) 34.9 kg/m2 Results Test Date Facility Test Result H/L Range Note Laboratory test 06/22/2016 [facility] Magnesium 1.9 mg/dL N 1.9-2.7 finding [address] [place] [address] [phone] Digoxin 0.8 ng/ml N 0.8-2.0 Basic Metabolic Panel 06/22/2016 [facility] Sodium 140 mmol/L N 133-145 [address] [place] [address] [phone] Potassium 3.8 mmol/L N 3.5-5.0 Chloride 102 mmol/L N 101-111 Co2 Carbon Dioxide 34 mmol/L High 22-32 Anion Gap 4 mmol/L N 2-11 Glucose 89 mg/dL N 70-100 Blood Urea Nitrogen 20 mg/dL N 6-24 Creatinine 0.79 mg/dL N 0.51-0.95 BUN/Creatinine Ratio 25.3 High 8-20 Calcium 8.9 mg/dL N 8.6-10.3 Egfr Non- 70.8 N >60 Egfr 91.0 N >60 1 Laboratory test 10/10/2015 [facility] Magnesium 2.0 mg/dL N 1.9-2.7 2 finding [address] [place] [address] [phone] Basic Metabolic 10/10/2015 [facility] Sodium 138 mmol/L N 133- 145 Panel [address] [place] [address] [phone] Potassium 4.4 mmol/L N 3.5-5.0 Chloride 105 mmol/L N 101-111 Co2 Carbon Dioxide 28 mmol/L N 22-32 Anion Gap 5 mmol/L N 2-11 Glucose 84 mg/dL N 70-100 Blood Urea Nitrogen 20 mg/dL N 6-24 Creatinine 0.72 mg/dL N 0.51-0.95 BUN/Creatinine Ratio 27.8 High 8-20 Calcium 9.0 mg/dL N 8.6-10.3 Egfr Non- 79.0 N >60 Egfr 101.6 N >60 3 Order 09/22/2015 [facility] In-House Stress Test, <pending> Exercise Nuclear Laboratory test 09/15/2015 [facility] Magnesium 1.9 mg/dL N 1.9-2.7 4 finding [address] [place] [address] [phone] Basic Metabolic 09/15/2015 [facility] Sodium 140 mmol/L N 133- 145 Panel [address] [place] [address] [phone] Potassium 4.1 mmol/L N 3.5-5.0 Chloride 103 mmol/L N 101-111 Co2 Carbon Dioxide 34 mmol/L High 22-32 Anion Gap 3 mmol/L N 2-11 Glucose 88 mg/dL N 70-100 Blood Urea Nitrogen 22 mg/dL N 6-24 Creatinine 0.84 mg/dL N 0.51-0.95 BUN/Creatinine Ratio 26.2 High 8-20 Calcium 9.1 mg/dL N 8.6-10.3 Egfr Non- 66.1 N >60 Egfr 85.0 N >60 5 Laboratory test 08/27/2015 [facility] Magnesium 1.9 mg/dL N 1.9-2.7 finding [address] [place] [address] [phone] Basic Metabolic 08/27/2015 [facility] Sodium 140 mmol/L N 133- 145 Panel [address] [place] [address] [phone] Potassium 3.9 mmol/L N 3.5-5.0 Chloride 102 mmol/L N 101-111 Co2 Carbon Dioxide 33 mmol/L High 22-32 Anion Gap 5 mmol/L N 2-11 Glucose 117 mg/dL High 70-100 Blood Urea Nitrogen 21 mg/dL N 6-24 Creatinine 0.79 mg/dL N 0.51-0.95 BUN/Creatinine Ratio 26.6 High 8-20 Calcium 8.9 mg/dL N 8.6-10.3 Egfr Non- 70.9 N >60 Egfr 91.2 N >60 6 Laboratory test 08/06/2015 [facility] B-Type 119 pg/mL High [address] [place] [address] Peptide BNP [phone] Laboratory test 05/08/2015 [facility] Digoxin 0.7 ng/ml Low 0.8- 8, [address] [place] [address] [phone] Basic Metabolic 05/08/2015 [facility] Sodium 142 mmol/L N 133 - Panel [address] [place] [address] [phone] Potassium 4.0 mmol/L N 3.5-5.0 Chloride 103 mmol/L N 101-111 Co2 Carbon Dioxide 33 mmol/L High 22-32 Anion Gap 6 mmol/L N 2-11 Glucose 101 mg/dL High 70-100 Blood Urea Nitrogen 17 mg/dL N 6-24 Creatinine 0.77 mg/dL N 0.51-0.95 BUN/Creatinine Ratio 22.1 High 8-20 Calcium 8.9 mg/dL N 8.6-10.3 Egfr Non- 73.3 N >60 Egfr 94.2 N >60 10 Basic Metabolic Panel 04/18/2014 [facility] Sodium 141 mmol/L N 133-[address] [place] [address] [phone] Potassium 3.9 mmol/L N 3.5-5.0 11 Chloride 102 mmol/L N 101-111 Co2 Carbon Dioxide 33 mmol/L High 22-32 Anion Gap 6 mmol/L N 2-11 Glucose 98 mg/dL N 70-100 Blood Urea Nitrogen 18 mg/dL N 6-24 Creatinine 0.75 mg/dL N 0.51-0.95 BUN/Creatinine Ratio 24.0 High 8-20 Calcium 8.9 mg/dL N 8.6-10.3 Egfr Non- 75.7 N >60 Egfr 97.4 N >60 12 Laboratory test 12/10/2013 Digoxin 0.7 ng/ml Low 0.8-2.0 13, 14 finding Basic Metabolic 12/22/2012 [facility] Sodium 139 mmol/L 133- 145 Panel [address] [place] [address] [phone] Potassium 4.3 mmol/L 3.5-5.0 Chloride 103 mmol/L 101-111 Co2 Carbon Dioxide 32.0 mmol/L 22-32 Anion Gap 4.0 mmol/L 2-11 Glucose 89 mg/dL 70-100 Blood Urea Nitrogen 16 mg/dL 6-24 Creatinine 0.70 mg/dL 0.50-1.40 BUN/Creatinine Ratio 22.9 High 8-20 Calcium 8.8 mg/dL 8.1-9.9 Egfr Non- 82.3 >60 Egfr 105.8 >60 15 Laboratory test 12/22/2012 [facility] Digoxin 0.6 ng/mL 0.5- 1.5 16 finding [address] [place] [address] [phone] 1 Because ethnic data is not always readily [...] 15-29 5 Kidney failure <15 (or dialysis) 2 do in one week 3 Because ethnic data is not always readily [...] 15-29 5 Kidney failure <15 (or dialysis) 4 draw in 3 weeks 5 Because ethnic data is not always readily [...] 15-29 5 Kidney failure <15 (or dialysis) 6 Because ethnic data is not always readily [...] 15-29 5 Kidney failure <15 (or dialysis) 7 >100 to <200 pg/mL: likely compensated congestive heart failure (CHF) 200 to 400 pg/mL: likely moderate CHF >400 pg/mL: likely moderate to severe CHF 8 Draw 1-2 hours prior to digoxin use 9 Draw 1-2 hours prior to digoxin use 10 Because ethnic data is not always [...] 5 Kidney failure <15 (or dialysis) 11 Potassium reference range changed effective 04/07/14 12 Because ethnic data is not always readily [...] 15-29 5 Kidney failure <15 (or dialysis) 13 draw within 4-6 hours of last dose of Digoxin 14 draw within 4-6 hours of last dose of Digoxin 15 Because ethnic data is not always readily [...] 15-29 5 Kidney failure <15 (or dialysis) 16 Levels at the lower end of the range may be needed for symptomatic heart failure and levels at the higher end of the range for rate control. Procedures Date Code Description Status 06/21/2018 46425 EKG Tracing & Interpretation Completed 06/12/2018 62617 Stress Test Completed 06/12/2018 03330 Myocardial Perfusion Imaging Tomographic (Spect) Multiple Completed Studies 05/23/2018 94737 ECHO Transthoracic, Real-Time 2D With Doppler And Color Completed Flow 05/23/2018 45281 ECHO Transthoracic, Real-Time 2D With Doppler And Color Completed Flow 03/01/2018 86255 Inject/Drain Joint/Bursa Major W/O US Completed 11/16/2017 89372 EKG Tracing & Interpretation Completed 11/23/2016 63514 EKG Tracing & Interpretation Completed 09/22/2015 29437 Myocardial Perfusion Imaging Tomographic (Spect) Multiple Completed Studies 09/22/2015 89264 Stress Test Completed 08/22/2015 83097 ECHO Transthoracic, Real-Time 2D With Doppler And Color Completed Flow 03/19/2015 25228 EKG Tracing & Interpretation Completed 02/25/2015 39635 ECHO Transthoracic, Real-Time 2D With Doppler And Color Completed Flow 02/18/2014 32253 EKG Tracing & Interpretation Completed 01/12/2013 88513 Stress Test Completed 01/12/2013 09346 Myocardial Perfusion Imaging Tomographic (Spect) Multiple Completed Studies 01/08/2013 61240 EKG Tracing & Interpretation Completed 01/05/2013 75173 ECHO Transthoracic, Real-Time 2D With Doppler And Color Completed Flow Encounters Type Date Location Provider Dx Diagnosis Office Visit 06/21/2018 [facility] Davonte Hay I48.2 Chronic atrial 11:00a Of Jeannie Ellsworth M.D., fibrillation FACC, FASNC I10 Essential (primary) hypertension Z01.810 Encounter for preprocedural cardiovascular examination M17.11 Unilateral primary osteoarthritis, right knee Office Visit 04/17/2018 Orthopedic Dipak Mahajan, M17.11 Unilateral primary 11:00a Services Of M.DYessenia osteoarthritis, right C.M.A. knee Office Visit 03/01/2018 Orthopedic Dipak Mahajan, M17.11 Unilateral primary 1:45p Services Of M.DYessenia osteoarthritis, right C.M.A. knee M21.061 Valgus deformity, not elsewhere classified, right knee M25.461 Effusion, right knee Office Visit 01/02/2018 Orthopedic Dipak Mahajan, M17.11 Unilateral primary 3:00p Services Of C.Ann Ziegler osteoarthritis, right knee Office Visit 11/16/2017 [facility] Davonte Hay I48.2 Chronic atrial 10:45a Of Jeannie Ellsworth M.D., fibrillation FACC, FASNC Office Visit 11/23/2016 [facility] Davonte Hay I48.2 Chronic atrial 1:00p Of Jeannie Ellsworth M.D., fibrillation FACC, FASNC Office Visit 11/26/2015 [facility] Davonte Hay I48.2 Chronic atrial 10:45a Of Jeannie Ellsworth M.D., fibrillation FACC, FASNC Office Visit 09/24/2015 [facility] Davonte Hay R06.02 Shortness of breath 10:15a Of Jeannie Ellsworth M.D., FACC, FASNC Office Visit 03/19/2015 [facility] Davonte Guido I48.2 Chronic atrial 10:15a Of Jeannie Ellsworth M.D., fibrillation FACC, FASNC Office Visit 02/18/2014 [facility] Davonte Hay 427.31 Atrial Fibrillation 1:30p Of Jeannie Ellsworth M.D., FACC, FASNC Office Visit 01/08/2013 [facility] Davontesammy Guido 425.4 Cardiomyopathy Other 9:45a Of Jeannie Ellsworth M.D., Prim FACC, FASNC Office Visit 02/11/2009 Neurosurgery George Mccullough 847.0 Sprains & Strains 1:00p Services Of Jeannie Ramos M.D. Neck 723.1 Cervicalgia Plan of Treatment Future Appointment(s):08/21/2018 10:15 am - Dipak Mahajan M.D. at [facility].07/11/2018 7:30 am - JUS Segura at [facility].07/11/2018 7:30 am - Dipak Mahajan M.D. at [facility].06/28/2018 - Dipak Mahajan M.D.M17.11 Unilateral primary osteoarthritis, right kneeFollow up:6 weeks post op
[2018-07-11] MEDS ORDERED: Acetaminophen TAB* 325 MG PO ONE (06:00)
[2018-07-11] MEDS ORDERED: Gabapentin CAP(*) 300 MG PO ONE (06:00)
[2018-07-11] MEDS ORDERED: Famotidine IV* 10 MG/ML 2 ML (20 mg) IV ONE (06:00)
[2018-07-11] MEDS ORDERED: Lactated Ringers 1000 ML Bag* 1,000 ML IV SCH ×2 (06:00→12:00)
[2018-07-11] MEDS ORDERED: Gabapentin CAP(*) 300 MG ONE (06:08)
[2018-07-11] MEDS ORDERED: ceFAZolin 2 GM PREMIX in ORs 2 GM/50 ML BAG IVPB ONE (06:08)
[2018-07-11] MEDS ORDERED: Acetaminophen TAB* 325 MG ONE (06:08)
[2018-07-11] MEDS ORDERED: Famotidine IV* 10 MG/ML 2 ML (20 mg) ONE (06:08)
[2018-07-11] MEDS ORDERED: Lidocaine 2% PF * 5 ML VIAL ONE ×2 (06:43→08:14)
[2018-07-11] MEDS ORDERED: fentaNYL* 50 MCG/ML 2 ML VIAL (100 MCG VIAL) ONE (06:43)
[2018-07-11] MEDS ORDERED: Ondansetron INJ* 2 MG/ML VIAL ONE (06:43)
[2018-07-11] MEDS ORDERED: ROPIVACAINE 5 MG/ML 30 ML BTL (0.5%) ONE ×2 (06:43→06:49)
[2018-07-11] MEDS ORDERED: Propofol* 10 MG/ML 20 ML BTL ONE (06:43)
[2018-07-11] MEDS ORDERED: Dexamethasone IV* 4 MG/ML 1 ML (4 MG) ONE (06:43)
[2018-07-11] MEDS ORDERED: Ketorolac INJ* 30 MG/ML 1 ML VIAL ONE (06:43)
[2018-07-11] MEDS ORDERED: KETAMINE HCL* 50 MG/ML 10 ML VIAL ONE (06:44)
[2018-07-11] MEDS ORDERED: Midazolam* 1 MG/ML 10 ML VIAL (10 MG) ONE (06:44)
[2018-07-11] MEDS ORDERED: Phenylephrine INJ* 10 MG/ML 1 ML VIAL (10 MG) ONE (06:44)
[2018-07-11 06:56] LABS: Activated Partial Thrombo Time 26.1 seconds (26.0-36.3); INR 1.02 (0.77-1.02)
[2018-07-11] MEDS ORDERED: Bupivacaine 0.5% W/EPI SDV* 30 ML VIAL ONE (07:10)
[2018-07-11] MEDS ORDERED: fentaNYL* 50 MCG/ML 5 ML VIAL (250 MCG VIAL) ONE (08:10)
[2018-07-11] MEDS ORDERED: Propofol* 500 MG/50 ML BTL ONE (08:15)
[2018-07-11] MEDS ORDERED: traMADol TAB* 50 MG PO PRN ×2 (11:15→12:38)
[2018-07-11] MEDS ORDERED: diPHENhydraMINE PO* 25 MG PO PRN (11:15)
[2018-07-11] MEDS ORDERED: Morphine INJ* 2 MG/ML 1 ML SYRINGE (TWO MG - NEW SYRINGE VERSION) IV PRN (11:15)
[2018-07-11] MEDS ORDERED: Ondansetron INJ* 2 MG/ML VIAL IV PRN ×2 (11:15→11:35)
[2018-07-11] MEDS ORDERED: oxyCODONE TAB* 5 MG TAB PO PRN ×2 (11:15→12:38)
[2018-07-11] MEDS ORDERED: Ondansetron ODT TAB* 4 MG PO PRN (11:15)
[2018-07-11] MEDS ORDERED: Magnesium Hydroxide LIQ* 30 ML UDC PO PRN (11:15)
[2018-07-11] MEDS ORDERED: Docusate CAP* 100 MG PO PRN (11:15)
[2018-07-11] MEDS ORDERED: diPHENhydraMINE IV* 50 MG/ML 1 ml VIAL (BENADRYL) IV PRN (11:15)
[2018-07-11] MEDS ORDERED: Cyclobenzaprine TAB* 10 MG PO PRN (11:15)
[2018-07-11] MEDS ORDERED: Fluconazole 150 MG TAB PO PRN (11:22)
[2018-07-11] MEDS ORDERED: Magnesium Oxide TAB* 400 MG PO PRN (11:22)
[2018-07-11] MEDS ORDERED: Potassium Chlor TAB* 20 MEQ TAB.ER PO PRN (11:22)
[2018-07-11] MEDS ORDERED: Melatonin 3 MG TAB PO PRN (11:22)
[2018-07-11] MEDS ORDERED: Zolpidem TAB* 5 MG PO PRN (11:22)
[2018-07-11] MEDS ORDERED: Naloxone* 0.4 MG/ML 1 ML VIAL IV PRN (11:35)
[2018-07-11] MEDS ORDERED: fentaNYL* 50 MCG/ML 2 ML VIAL (100 MCG VIAL) IV PRN (11:35)
[2018-07-11] MEDS ORDERED: Warfarin TAB(*) 1 MG PO SCH (12:00)
[2018-07-11] MEDS ORDERED: Warfarin TAB(*) 5 MG PO SCH ×2 (12:00→17:00)
[2018-07-11] MEDS ORDERED: celeCOXIB CAP* 200 MG PO PRN (12:38)
--- NOTE | 2018-07-11 12:43 | OP ---
DATE OF OPERATION: 07/11/18 - ROOM #333 DATE OF : 40 SURGEON: Dr. Mahajan. LINE PREP COOK: Monique Davis, the assistant athletic trainer; and Vincenzo, the registered nurse , was our second assist. ANESTHESIOLOGIST: Dr. Horace Cifuentes. ANESTHESIA: Right femoral block and LMA general. PRE-OP DIAGNOSIS: Severe arthritis of the right knee with valgus malalignment and instability. POST-OP DIAGNOSIS: Severe arthritis of the right knee with valgus malalignment and instability. OPERATIVE PROCEDURE: Right total knee replacement. Marjorie Persona knee was utilized with the adjustment for more stability for the medial collateral ligament with a larger Cam on the tibial articular surface and a little larger cutout on the femoral box. COMPLICATIONS: There were no complications. DRAINS: Two drains, right knee, at the end of the case. Tourniquet control was utilized just in the cleanup and cementing phase of the case for about 30 minutes. CONDITION: Stable to recovery room. INDICATIONS: Severe arthritis of the right knee with a valgus instability. DESCRIPTION OF PROCEDURE: The patient was brought to the operating room and placed on the operating table in a supine position following the administration of the anesthetic. The right proximal thigh was wrapped with a tourniquet. The right leg was then given a preliminary chlorhexidine prep and then prepped and draped formally from the tourniquet to the tips of the toes with ChloraPrep. After prepping, draping, and sealing off, we did our universal protocol time-out confirming Nancy Stolow and a plan for right total knee replacement. We all agreed and we proceeded. The surgical care was done with hip and knee acutely, flexed with the right foot on a padded foot piece. The skin incision went from the medial aspect of the tibial tubercle to 2 fingerbreadths proximal to the superior pole of the patella. Skin and subQ divided down to the prepatellar bursa. The prepatellar bursa was traversed. The knee was then entered medial parapatellar, dividing the quad tendon at the junction of the rectus femoris and the vastus medialis, staying as close to the vastus medialis as possible and then anteromedial soft tissues on the tibia were divided down to the bone 2 cm medial to the tibial tubercle going up to the joint line. The medial tissues on the tibia were elevated subperiosteally going around to the deep MCL. The remains of the anterior horn of medial meniscus and some of the anteromedial synovium was excised. The patella was made so it could be everted. The inferior patellar fat pad was removed. The lateral meniscus was carefully excised. The intercondylar osteophytes were removed and the ACL and PCL were uplifted from their femoral origins. The tibia was made so that it could be subluxated forward more to the femur. The distal anterior femur was exposed subperiosteally for referencing and measuring. The knee had no flexion contracture. The proximal tibial cut was made first in this. Our goal with this cut was to have a tibial surface that would have a slight posterior slope and be perpendicular to the long axis of the tibia. Later in the case, when we were tight in extension and flexion, the tibia was recut by 4 mm. After this, the femoral intramedullary drill was utilized and the femoral canal was re-suctioned to discourage embolization. The distal femoral cutting guide was applied on 0 with 6 degrees of valgus and the distal femoral cut was completed. We were tight on our extension gap at this stage. The femur was measured for a size 7. The anterior, posterior, and chamfering cuts were completed. We then finished removal of the posterior horn of lateral meniscus, PCL, posterior horn medial meniscus, and at this stage, we were tight in flexion as well, so the tibia was recut. After recutting, we had nice ligamentous balance in full extension and 90 degrees of flexion with a 10 mm block. The femur was completed with the intercondylar cutout for the more constrained articular surface and we decided to use a narrow femur. The tibia was completed for a size D. The knee was articulated and extended with a size D tibia, 10 articular surface, and the size 7 femur and this was done after cleaning the femoral canal x7 with saline and suctioning it empty and inserting a bone block. With the trial components in place, full knee extension and stable ligaments on extension and stable ligaments at 90 degrees of flexion. The patella was cut flat, a 32 we had chosen. Three drill holes were made. These were undercut and a lateral release was not necessary. The knee was cleaned in extension with several liters of pulse saline irrigation. The leg was exsanguinated. The tourniquet was elevated to 275 and the knee was then cleaned in flexion with pulse saline and all surfaces were dried. The cement was mixed and the components were cemented into the position in the patella followed by the tibia, followed by the femur. Each was impacted. Excess cement was removed and the knee was articulated and extended during the final hardening. After hardening, the tourniquet was deflated, hemostasis checked and achieved using electrocautery during closure. We utilized Marcaine with epinephrine posteromedially, approximately 15 to 20 mL and medially and laterally. We then proceeded with a careful closure. We irrigated with saline several times during closure. The quad mechanism closed with interrupted figure -of-eight #1 Vicryl sutures. The same with the immediate retinaculum, more distally we used 0 Vicryl. Deep subQ and deep fascia closed with interrupted 0 Vicryl, superficial subQ closed with 3-0 Vicryl, and the skin was closed with trenton. The skin was washed and dried and then covered with Betadine-soaked release followed by sterile gauze, sterile Webril, cryotherapy cuff. Two drains were brought out the superolateral suprapatellar pouch. These were incorporated into the dressing and that will be removed on 07/12/18. The neurovascular flow was intact at the end of the case. We flexed the knee and extended it completely several times during closure, extension 0 and flexion approaching 130. The dressing incorporated with cryotherapy cuff, ABD pads, and a 6-inch Rai bandage, and the patient was returned to the recovery room in stable and satisfactory condition having tolerated the procedure very well. [id number]/[facility] #: [id number] DARYL
[2018-07-11] MEDS: Acetaminophen TAB* 325 MG PO SCH ×2 (14:25→22:12)
--- NOTE | 2018-07-11 15:39 | CONS ---
CONSULTATION REPORT: DATE OF CONSULT: 07/11/18 CONSULTING PROVIDER: Claudio Ba MD. REFERRING PHYSICIAN: Dr. Mahajan, Orthopedics. REASON FOR CONSULT: Medical management of AFib, CHF, hypertension, cardiomyopathy. CHIEF COMPLAINT: End-stage right knee osteoarthritis, now status post total right knee replacement. HISTORY OF PRESENT ILLNESS: Nancy Cummins is a 78-year-old female with past medical history of persistent atrial fibrillation, on Coumadin and digoxin; hypertension; diastolic CHF; osteoarthritis. She has failed conservative treatment with cortisone injections, activity modification, physical therapy, antiinflammatories, and presented today 07/11/18, for elective right total knee replacement. She is recovering well in the PACU currently, currently heavily sedated, not able to contribute to review of systems or HPI. PAST MEDICAL HISTORY: Atrial fibrillation; hypertension; diastolic heart failure; osteoarthritis; left ear hearing loss, followed up with Dr. Ricci; colonic polyps on colonoscopy, May 2019; diffuse actinic keratosis, following up with Dr. Abraham. MEDICATIONS: 1. Digoxin 250 mcg daily. 2. Losartan 50 mg daily. 3. Metoprolol tartrate 100 mg p.o. b.i.d. 4. Trazodone 50 mg daily. 5. Usually on warfarin 5 mg daily, this has been ceased 5 days prior to the surgery. 6. Amlodipine 2.5 mg daily. ALLERGIES: No known drug allergies. FAMILY HISTORY: Not obtainable on at this time, but per Dr. Donohue's outpatient records, mother had cardiopathy, grandfather with lung cancer, aunt with breast cancer, uncle with breast cancer, and father with cancer. SOCIAL HISTORY: Per prior notes, the patient is retired. Denied alcohol or drug use. Lives with her . REVIEW OF SYSTEMS: A 14-point review of systems was not obtainable at this time due to heavy sedation in the PACU. PHYSICAL EXAM: General Appearance: No acute distress, currently asleep, but arouses with strong voice. Vital Signs: Temperature 97.2, pulse rate 61, satting 96% on 3 L, blood pressure 157/82. HEENT: Normocephalic, atraumatic. Moist mucous membranes. Lungs: Anteriorly clear to auscultation bilaterally. Regular rate and rhythm. No murmurs, rubs, or gallops. Distal Extremities: Warm, well perfused. ASSESSMENT AND PLAN: Nancy Cummins is a 78-year-old female with diastolic dysfunction; atrial fibrillation, on Coumadin and digoxin; and hypertension, presented for total right knee replacement, which had no complications. For her atrial fibrillation, we will continue digoxin 0.25 mg daily. She is being restarted on warfarin. We will track INRs daily. For her hypertension, continue the metoprolol tartrate 100 mg p.o. daily (this is also for her atrial fibrillation) along with losartan 50 mg daily, and amlodipine 2.5 mg daily. For DVT prophylaxis, the patient will be started on warfarin. Defer to Orthopedics for Lovenox. She is also getting Lovenox 40 mg q.24 for the bridge until the warfarin (goal 2-3) is therapeutic. We appreciate this interesting consult. We will continue to follow along. [id number]/[facility] #: [id number] MTDGilbert
[2018-07-11] MEDS: ceFAZolin 1 GM ADVAN(*) 1 GM in NS 0.9% 50 ML* 50 ML IVPB SCH (16:50)
[2018-07-11] MEDS ORDERED: Warfarin TAB(*) 6 MG PO ONE (17:00)
[2018-07-11] MEDS ORDERED: Digoxin TAB* 0.25 MG PO SCH (18:00)
[2018-07-11] MEDS: Metoprolol Tartrate TAB* 100 MG TAB PO SCH (22:12)
[2018-07-11] MEDS: traZODone TAB* 50 MG TAB PO SCH (22:13)
[2018-07-12] MEDS: ceFAZolin 1 GM ADVAN(*) 1 GM in NS 0.9% 50 ML* 50 ML IVPB SCH ×2 (00:01→08:47)
[2018-07-12] MEDS: Acetaminophen TAB* 325 MG PO SCH ×4 (06:08→21:09)
[2018-07-12 06:44] LABS: Hematocrit 41 % (35-47); Hemoglobin 13.8 g/dl (12.0-16.0); Mean Platelet Volume 9.3 fL (7.4-10.4); Platelet Count 192 10^3/ul (150-450)
[2018-07-12 06:49] LABS: INR 1.14 (0.77-1.02)
[2018-07-12 07:00] LABS: Calcium 8.2 mg/dL (8.6-10.3); EGFR African American 114.8 (>60); EGFR Non-African American 94.9 (>60); Magnesium 1.7 mg/dL (1.9-2.7); Potassium 3.5 mmol/L (3.5-5.0)
--- NOTE | 2018-07-12 08:24 | PN ---
Progress Note - Progress Note Date of Service: 07/12/18 SOAP: Subjective: []Pt seen at bedside today. She is POD [address] Mahajan 07/11. She feels well without knee pain. Denies CP, SOB, dizziness, nausea. She was also seen by Dr Mahajan this morning and drains were removed. Objective: She is well appearing, thigh is soft, DF/PF intact, Sensation intact to light touch distally, DP2+. Assessment: POD 1 sp RTK Plan []WBAT PT/OT Takes coumadin at home alternating between 2.5 and 5 mg tabs. While achieving therapeutic INR will give 5 mg daily until INR is 1.8. Therafter will resume normal dosing. During the bridge she will take 30 mg sq lovenox POD 1 and 40 mg sq lovenox qd thereafter until therapeutic. Plan for DC tomorrow Vital Signs Temp 98.4 F 07/12/18 07:24 Pulse 71 07/12/18 07:24 Resp 17 07/12/18 07:24 BP 146/66 07/12/18 07:24 Pulse Ox 99 07/12/18 07:24 Intake & Output 07/11/18 07/12/18 07/12/18 18:59 06:59 18:59 Intake Total 1740 895 Output Total 275 2400 Balance 1465 -1505 Intake: IV Fluids 1500 55 ABX - CEFAZOLIN 55 LR 1400 NS 50ML, Cefazolin 2G 50 TRANEXAMIC ACID 1GM IV 50 Oral 240 840 Output: Urine 1100 [place] 275 1300 Other: # Bowel Movements 0 Laboratory Last Values Hgb 13.8 g/dl (12.0-16.0) 07/12/18 06:03 Hct 41 % (35-47) 07/12/18 06:03 Plt Count 192 10^3/ul (150-450) 07/12/18 06:03 MPV 9.3 fL (7.4-10.4) 07/12/18 06:03 INR (Anticoag Therapy) 1.14 (0.77-1.02) H 07/12/18 06:03 APTT 26.1 seconds (26.0-36.3) 07/11/18 06:37 Sodium 139 mmol/L (135-145) 07/12/18 06:00 Potassium 3.5 mmol/L (3.5-5.0) 07/12/18 06:00 Chloride 104 mmol/L (101-111) 07/12/18 06:00 Carbon Dioxide 29 mmol/L (22-32) 07/12/18 06:00 Anion Gap 6 mmol/L (2-11) 07/12/18 06:00 BUN 11 mg/dL (6-24) 07/12/18 06:00 Creatinine 0.61 mg/dL (0.51-0.95) 07/12/18 06:00 Est GFR ( Amer) 114.8 (>60) 07/12/18 06:00 Est GFR (Non-Af Amer) 94.9 (>60) 07/12/18 06:00 BUN/Creatinine Ratio 18.0 (8-20) 07/12/18 06:00 Glucose 142 mg/dL (70-100) H 07/12/18 06:00 Calcium 8.2 mg/dL (8.6-10.3) L 07/12/18 06:00 Magnesium 1.7 mg/dL (1.9-2.7) L 07/12/18 06:00
[2018-07-12] MEDS ORDERED: Furosemide TAB* 20 MG PO SCH (09:00)
[2018-07-12] MEDS: amLODIPine TAB* 5 MG PO SCH (09:01)
[2018-07-12] MEDS: Metoprolol Tartrate TAB* 100 MG TAB PO SCH (09:01)
[2018-07-12] MEDS: Losartan TAB* 25 MG PO SCH (09:02)
--- NOTE | 2018-07-12 11:18 | PN ---
Progress Note - Progress Note Date of Service: 07/12/18 Note: POD #1 VSStable. Hct is 41%. I and O are both about 2700ml. X-ray after surgery all satisfactory. Awake, responsive, cooperative and comfortable appearing. I saw her at 0700 today. Breathing easily. 2 drains removed right knee. Can almost leg raise right. Dressing is dry. Right DP pulse is 2 plus. Exercising both ankles with active movements up, down, in, and out. Impression: Stable. Her Hct of 41% is unusual and could be related to the intraoperative use of tranexamic acid 1 gram at the start of surgery. Plans: Up with the walker, drinking, and using the incentive spirometer.
[2018-07-12] MEDS ORDERED: Magnesium Sulfate 1 GM IV* 1 GM/100 ML BAG IV ONE (11:53)
[2018-07-12] MEDS ORDERED: Enoxaparin(*) 30 MG/0.3 ML SYR SUBCUT ONE (12:00)
--- NOTE | 2018-07-12 12:00 | PN ---
Subjective Date of Service: 07/12/18 Interval History: Pt is doing well, stating that her knee feels "better than expected." States that her pain is well controlled with Tylenol. She denies CP, SOB, cough, fever /chills, abdominal pain, n/v/d/c, extremity pain, weakness, cramping, or calf tenderness. States that her RLE is swollen, but nontender. Objective Active Medications: Acetaminophen (Tylenol Tab*) 975 mg PO Q8H LUZ MRAIA Amlodipine Besylate (Norvasc Tab*) 2.5 mg PO QAM LUZ MARIA Bisacodyl (Dulcolax Supp*) 10 mg [place] DAILY PRN Celecoxib (Celebrex Cap*) 200 mg PO BID PRN Cyclobenzaprine HCl (Flexeril Tab*) 5 mg PO TID PRN Digoxin (Lanoxin Tab*) 0.25 mg PO QPM LUZ MARIA Diphenhydramine HCl (Benadryl Iv*) 25 mg IV Q6H PRN Diphenhydramine HCl (Benadryl Po*) 25 mg PO Q6H PRN Docusate Sodium (Colace Cap*) 100 mg PO BID PRN Enoxaparin Sodium (Lovenox(*)) 30 mg SUBCUT ONCE ONE Enoxaparin Sodium (Lovenox(*)) 40 mg SUBCUT Q24H LUZ MARIA Fluconazole (Diflucan 150 Mg Tab*) 150 mg PO ONCE PRN Furosemide (Lasix Tab*) 20 mg PO QAM [facility] Lactated Ringer's (Lactated Ringers 1000 Ml Bag*) 1,000 mls @ 75 mls/hr IV PER RATE LUZ MARIA Magnesium Sulfate/Dextrose (Magnesium Sulfate 1 Gm Iv*) 1 gm in 100 mls @ 200 mls/hr IV ONCE ONE Losartan Potassium (Cozaar Tab*) 50 mg PO QAM LUZ MARIA Magnesium Hydroxide (Milk Of Magnesia Liq*) 30 ml PO Q6H PRN Magnesium Oxide (Magox 400 Tab*) 400 mg PO DAILY PRN Melatonin (Melatonin) 3 mg PO BEDTIME PRN; Protocol Metoprolol Tartrate (Lopressor Tab*) 100 mg PO BID LUZ MARIA Morphine Sulfate (Morphine Inj ((Syringe))*) 0.5 mg IV Q2H PRN Ondansetron HCl (Zofran Inj*) 4 mg IV Q6H PRN Ondansetron HCl (Zofran Odt Tab*) 4 mg PO Q6H PRN Oxycodone HCl (Roxycodone Tab*) 2.5 mg PO Q4H PRN Potassium Chloride (Klor Con Er Tab*) 20 meq PO DAILY PRN Tramadol HCl (Ultram*) 25 mg PO Q6H PRN Trazodone HCl (Desyrel Tab*) 50 mg PO BEDTIME LUZ MARIA Warfarin Sodium (Coumadin Tab(*)) 5 mg PO ONCE@1700 ONE; Protocol Zolpidem Tartrate (Ambien Tab*) 5 mg PO BEDTIME PRN Vital Signs: Temp Pulse Resp BP Pulse Ox 97.7 F 51 17 134/57 97 07/12/18 11:20 07/12/18 11:20 07/12/18 11:20 07/12/18 11:20 07/12/18 11:20 Oxygen Devices in Use Now: Nasal Cannula Appearance: Pt is sitting up in bed with HOB elevated. She appears comfortable , well, and in no acute distress. Eyes: No Scleral Icterus, PERRLA Ears/Nose/Mouth/Throat: NL Teeth, Lips, Gums, Clear Oropharnyx, Mucous Membranes Moist Neck: NL Appearance and Movements; NL JVP, Trachea Midline Respiratory: Symmetrical Chest Expansion and Respiratory Effort, Clear to Auscultation Cardiovascular: NL Sounds; No Murmurs; No JVD, RRR Abdominal: NL Sounds; No Tenderness; No Distention, No Hepatosplenomegaly Extremities: No Clubbing, Cyanosis, - - RLE slight edema; radial and pedal pulses 2+ b/l Neurological: Alert and Oriented x 3, NL Sensation Result Diagrams: 07/12/18 06:03 07/12/18 06:00 Assess/Plan/Problems-Billing Assessment: Pt is a 78yof with PMHx diastolic HF, AF, HTN who is s/p RTKA. - Patient Problems (1) Status post total right knee replacement Comment: -Management per ortho team (2) Atrial fibrillation Comment: -Tele with rate in 60's, irregular rhythm, and 2 short episodes of mio into 40 's. -Hold metoprolol for now, d/t occasional bradycardia -Lovenox-Coumadin bridge until INR therapeutic -Check INR daily -Continue home medications coumadin, dig (3) Hypertension Comment: -Continue home medications losartan, amlodipine -Metoprolol held d/t bradycardia (4) Hypomagnesemia Comment: -Mg 1g IV given -Recheck in a.m. (5) Diastolic heart failure Comment: -No s/s fluid overload -Continue home medications (6) DVT prophylaxis Comment: -Lovenox-Coumadin bridge (7) Full code status Status and Disposition: Inpatient. Discharge per ortho.
[2018-07-12] MEDS ORDERED: Warfarin TAB(*) 5 MG PO ONE (17:00)
[2018-07-12] MEDS: traZODone TAB* 50 MG TAB PO SCH (21:10)
[2018-07-13] MEDS: Acetaminophen TAB* 325 MG PO SCH ×2 (04:28→13:43)
[2018-07-13 06:21] LABS: Hematocrit 38 % (35-47); Hemoglobin 13.1 g/dl (12.0-16.0); Mean Corpuscular HGB Conc 35 g/dl (31-36); Mean Corpuscular Hemoglobin 33 pg (27-31); Mean Corpuscular Volume 94 fL (80-97); Mean Platelet Volume 9.3 fL (7.4-10.4); Platelet Count 179 10^3/ul (150-450); Red Cell Distribution Width 13 % (10.5-15); White Blood Count 9.8 10^3/ul (3.5-10.8)
[2018-07-13 06:36] LABS: BUN/Creatinine Ratio 23.1 (8-20); Calcium 8.1 mg/dL (8.6-10.3); EGFR African American 106.7 (>60); EGFR Non-African American 88.2 (>60); Magnesium 1.7 mg/dL (1.9-2.7); Potassium 2.9 mmol/L (3.5-5.0)
[2018-07-13 06:40] LABS: INR 1.38 (0.77-1.02)
[2018-07-13] MEDS ORDERED: Magnesium Sulfate IV* 3 GM in NS 0.9% 100 ML* 100 ML IVPB ONE (08:09)
--- NOTE | 2018-07-13 08:27 | PN ---
Subjective Date of Service: 07/13/18 Interval History: Pt is in a little more discomfort today than yesterday, but states it is tolerable. She states that she worked with PT recently. She denies CP, SOB, cough, fever, abd pain, n/v/d/c, numbness/tingling/loss of sensation in extremities. She c/o R knee pain and RLE swelling, which she has had for years. Pt continues to have potassium and magnesium electrolyte abnormalities. She denies palpitations, paresthesias. Overnight telemetry showed 5 beat run of PVC x2 and irregular rhythm, rate controlled- pt has know AF, for which she is being treated. Objective Active Medications: Acetaminophen (Tylenol Tab*) 975 mg PO 0600,1400,2200 LUZ MARIA Amlodipine Besylate (Norvasc Tab*) 2.5 mg PO QAM LUZ MARIA Bisacodyl (Dulcolax Supp*) 10 mg [place] DAILY PRN Celecoxib (Celebrex Cap*) 200 mg PO BID PRN Cyclobenzaprine HCl (Flexeril Tab*) 5 mg PO TID PRN Diphenhydramine HCl (Benadryl Iv*) 25 mg IV Q6H PRN Diphenhydramine HCl (Benadryl Po*) 25 mg PO Q6H PRN Docusate Sodium (Colace Cap*) 100 mg PO BID PRN Enoxaparin Sodium (Lovenox(*)) 40 mg SUBCUT Q24H LUZ MARIA Fluconazole (Diflucan 150 Mg Tab*) 150 mg PO ONCE PRN Lactated Ringer's (Lactated Ringers 1000 Ml Bag*) 1,000 mls @ 75 mls/hr IV PER RATE LUZ MARIA Magnesium Sulfate 3 gm/ Sodium (Chloride) 106 mls @ 53 mls/hr IVPB ONCE ONE Potassium Chloride (Potassium Chloride 20 Meq/100 Ml Ivpremix*) 20 meq in 100 mls @ 50 mls/hr IV Q2H LUZ MARIA Losartan Potassium (Cozaar Tab*) 50 mg PO QAM LUZ MARIA Magnesium Hydroxide (Milk Of Magnesia Liq*) 30 ml PO Q6H PRN Magnesium Oxide (Magox 400 Tab*) 400 mg PO DAILY PRN Melatonin (Melatonin) 3 mg PO BEDTIME PRN; Protocol Morphine Sulfate (Morphine Inj ((Syringe))*) 0.5 mg IV Q2H PRN Ondansetron HCl (Zofran Inj*) 4 mg IV Q6H PRN Ondansetron HCl (Zofran Odt Tab*) 4 mg PO Q6H PRN Oxycodone HCl (Roxycodone Tab*) 2.5 mg PO Q4H PRN Potassium Chloride (Klor Con Er Tab*) 20 meq PO DAILY PRN Tramadol HCl (Ultram*) 25 mg PO Q6H PRN Trazodone HCl (Desyrel Tab*) 50 mg PO BEDTIME LUZ MARIA Zolpidem Tartrate (Ambien Tab*) 5 mg PO BEDTIME PRN Vital Signs: Temp Pulse Resp BP Pulse Ox 98.8 F 66 18 145/50 92 07/13/18 03:44 07/13/18 08:14 07/13/18 08:14 07/13/18 08:14 07/13/18 03:44 Oxygen Devices in Use Now: None Appearance: Pt is sitting up in bed eating breakfast. She appears well, comfortable, and in no acute distress. Eyes: No Scleral Icterus, PERRLA Ears/Nose/Mouth/Throat: NL Teeth, Lips, Gums, Clear Oropharnyx, Mucous Membranes Moist Neck: NL Appearance and Movements; NL JVP, Trachea Midline, No Thyroid Enlargement, Masses Respiratory: Symmetrical Chest Expansion and Respiratory Effort, Clear to Auscultation Cardiovascular: NL Sounds; No Murmurs; No JVD, No Edema - Irregular rhythm, rate controlled Abdominal: NL Sounds; No Tenderness; No Distention, No Hepatosplenomegaly Lymphatic: No Cervical Adenopathy Extremities: No Clubbing, Cyanosis, - - R knee dressing CDI. R LE 1+ pitting edema. B/l calves nontender to palpation, negative Cassie's, pedal pulses 2+, sensation intact to light touch. Neurological: Alert and Oriented x 3, NL Sensation Result Diagrams: 07/13/18 05:43 07/13/18 05:43 Assess/Plan/Problems-Billing Assessment: Pt is a 78yof with PMHx diastolic HF, AF, HTN who is s/p RTKA. - Patient Problems (1) Status post total right knee replacement Comment: -Management per ortho team (2) Electrolyte abnormality Comment: -K 2.9: give 20mEq IV now, 20 mEq PO q2h until discharge -Mg 1.7: give 3g IV now -Recheck K, Mg after replacement -Recheck BMP, Mg in 3-5 days and send results to PCP Jayde (3) Atrial fibrillation Comment: -Tele shows continued irregular rhythm, rate controlled. 5 beat run PVC x2 this morning. -Restart Metoprolol at 50 mg BID (home dose is 100 BID) -Lovenox-Coumadin bridge until INR therapeutic -Check INR daily -Continue home medications coumadin, dig (4) Hypertension Comment: -SBP 128-150 -Continue home medications losartan, amlodipine -Restart metoprolol at 50 (5) Diastolic heart failure Comment: -No s/s fluid overload -Continue home medications (6) DVT prophylaxis Comment: -Lovenox-Coumadin bridge (7) Full code status Status and Disposition: Inpatient. Discharge per ortho.
[2018-07-13] MEDS ORDERED: Metoprolol Tartrate TAB* 100 MG TAB PO SCH (09:00)
[2018-07-13] MEDS ORDERED: Metoprolol Tartrate TAB* 50 mg PO SCH (09:00)
[2018-07-13] MEDS ORDERED: KCL 20 MEQ/100 ML IVPREMIX* 20 MEQ/100 ML BAG IV SCH (09:00)
--- NOTE | 2018-07-13 09:06 | PN ---
Progress Note - Progress Note Date of Service: 07/13/18 Note: POD #2 VSStable Hct 38%. K+ is 2.9 (replacement is ordered) Awake, responsive and cooperative, breathing easily. She can almost straight leg raise on the right. Right knee dressing is bloody and was changed entirely, all washed soap and water. There is one drop of sanguinous drainage at the distal end of the surgery. Redressed with telfa/betadine solution. Impression : Stable and doing well, Hypokalemia for replacement. Continue rehab and home soon.
[2018-07-13] MEDS: Potassium Chlor TAB* 20 MEQ TAB.ER PO SCH ×2 (09:34→13:43)
[2018-07-13] MEDS: Losartan TAB* 25 MG PO SCH (09:34)
[2018-07-13] MEDS: amLODIPine TAB* 5 MG PO SCH (09:34)
[2018-07-13] MEDS ORDERED: Bisacodyl SUPP* 10 MG SUPP PR PRN (11:15)
[2018-07-13] MEDS ORDERED: Enoxaparin(*) 40 MG/0.4 ML SYR SUBCUT SCH (12:00)
[2018-07-13 13:50] VITALS: BP 156/76
[2018-07-13 16:23] LABS: Magnesium 2.3 mg/dL (1.9-2.7); Potassium 3.2 mmol/L (3.5-5.0)
[2018-07-13] MEDS ORDERED: Warfarin TAB(*) 2.5 MG PO SCH (17:00)
--- NOTE | 2018-07-13 17:08 | PN ---
Hospitalist Progress Note Called about patient's electrolyte abnormality. K improved to 3.2 and Magnesium improved to 2.3. This is not a barrier to discharge. Would give her 60mg po kdur tonight before discharge.
[2018-07-13] MEDS ORDERED: Potassium Chlor TAB* 20 MEQ TAB.ER PO ONE (17:10)
--- NOTE | 2018-07-13 20:44 | DS ---
DISCHARGE SUMMARY: DATE OF ADMISSION: 07/11/18 DATE OF DISCHARGE: 07/13/18 PROVIDER: Dr. Dipak Mahajan. * (DICTATED BY JUS JO) PREOPERATIVE DIAGNOSIS: Severe arthritis of the right knee with valgus malalignment and instability. OPERATIVE PROCEDURE: Right total knee replacement. HISTORY: Ms. Cummins is a 78-year-old female with severe right knee arthritis, who has failed conservative management and elected to undergo a right total knee arthroplasty. HOSPITAL COURSE: The patient was admitted to [facility] on . She underwent right total knee arthroplasty without complication. Postop day 1, she was well appearing. Thigh is soft. Dorsiflexion and plantarflexion intact. Sensation is intact to light touch distally. She was seen by our hospitalist service during her stay. She was tele monitored. She did have electrolyte abnormalities including low potassium of 2.9, for which 20 mEq of IV potassium as well as 20 mEq p.o. q.2 hours until discharge were given as well as given 3 g IV magnesium. Labs were redrawn prior to discharge and the patient was instructed to have a repeat BMP and magnesium in 3 days with forwarding to Dr. Donohue. The patient's metoprolol was decreased to 50 mg p.o. b.i.d. The patient will continue home dose of Coumadin with bridging of Lovenox until INR is therapeutic. Dressing was changed on 07/13/18. Incision clean, dry, and intact. There was bloody discharge on the dressing. Knee was washed with soap and water. The patient was deemed to be medically and orthopedically stable for discharge home. Vital Signs: Temperature 99.5, pulse rate 70, respiratory rate 17, oxygen 96% on room air, blood pressure 156/76. Lab Studies: Hemoglobin 13.1, hematocrit 38. INR 1.38. Sodium 140. Potassium 2.9, magnesium 1.7. Potassium and Magnesium will be repeated just before discharge to ensure trending towards normal level DISCHARGE MEDICATIONS: 1. Resume home dose of warfarin, which is 5 mg Tuesday, Tuesday, Tuesday; 2.5 mg Tuesday, , Tuesday, Tuesday. 2. Trazodone 50 to 100 mg p.o. at bedtime. 3. Digoxin 0.25 mg p.o. q.p.m. 4. Furosemide 20 mg p.o. q.a.m. 5. Losartan 50 mg p.o. q.a.m. 6. Amlodipine 2.5 mg p.o. q.a.m. 7. Fluconazole 150 mg once p.r.n. 8. Zolpidem 5 mg at bedtime p.r.n. 9. Melatonin 2 mg p.o. at bedtime p.r.n. 10. Vitamin B12 1 tab every other day. 11. Potassium chloride 20 mEq p.o. daily p.r.n. 12. Magnesium oxide 250 mg p.o. daily p.r.n. 13. Metoprolol 100 mg p.o. b.i.d. 14. Metoprolol tartrate 50 mg p.o. b.i.d. 15. Lovenox 40 mg subcu q.24 hours until INR has reached at least 1.8, optimally between 2 and 3. DISCHARGE PLAN: The patient will be discharged to home. She will be weightbearing as tolerated. She may shower. Do not submerge wound. Visiting nurse to remove trenton in 10 to 12 days and do wound checks. Coumadin, resume home dosing. The patient will take Lovenox 40 mg subcu daily injections until INR is therapeutic between 2 and 3. Values to be sent to [facility], Dr. Mahajan. Additionally, please draw INRs on Mondays and . In addition, the patient will need an INR on 07/15/18 to determine if she continues to need Lovenox. If INR is at least 1.8, Lovenox can be stopped. Needs BMP and magnesium lab draw, 07/16/18. Results to be sent to PCP, Dr. Donohue. Dose of beta-megha decrease, metoprolol tartrate 50 mg every 12 hours. Follow up with PCP within the week. Pain control with Tylenol 650 mg every 4 hours as needed for pain, max 4000 mg from all sources per day. Follow up with Dr. Mahajan in 4 to 6 weeks for first postop appointment, sooner with any concerns. 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 She is discharged to home. JUS JO [id number]/[facility] #: [id number] DARYL
== END 2018-07-13 18:30 | disposition home health service (06) | DRG 470 ==
LOC: AA 05:42 → SSU 13:54
PROVIDERS: ADMIT Orthopaedic Surgery; ATTEND Orthopaedic Surgery
PROC: 0SRC0J9 Replacement of Right Knee Joint with Synthetic Substitute, Cemented, Open Approach (ICD-10-PCS; principal; 2018-07-11 07:30)
DX: M17.11 Unilateral primary osteoarthritis, right knee (principal); I42.9 Cardiomyopathy, unspecified; I48.1 Persistent atrial fibrillation; I50.32 Chronic diastolic (congestive) heart failure; M21.061 Valgus deformity, not elsewhere classified, right knee; M25.761 Osteophyte, right knee; I11.0 Hypertensive heart disease with heart failure; I08.1 Rheumatic disorders of both mitral and tricuspid valves; H91.92 Unspecified hearing loss, left ear; I27.20 Pulmonary hypertension, unspecified; L57.0 Actinic keratosis; H26.9 Unspecified cataract; J45.909 Unspecified asthma, uncomplicated; E66.3 Overweight; I48.2 Chronic atrial fibrillation; I77.819 Aortic ectasia, unspecified site; L71.9 Rosacea, unspecified; G47.00 Insomnia, unspecified; R00.1 Bradycardia, unspecified; E83.42 Hypomagnesemia; E87.6 Hypokalemia; Z86.010 Personal history of colon polyps; Z80.1 Family history of malignant neoplasm of trachea, bronchus and lung; Z80.3 Family history of malignant neoplasm of breast; Z82.49 Family history of ischemic heart disease and other diseases of the circulatory system; Z79.01 Long term (current) use of anticoagulants; Z87.440 Personal history of urinary (tract) infections; Z68.33 Body mass index [BMI] 33.0-33.9, adult
CPT/HCPCS: 36415; 80048; 80162; 83735; 84132; 85014; 85018; 85027; 85049; 85610; 85730; 88305; 88311; A9270-GY; C1776; G8978-GP-CJ; G8979-GP-CI; G8987-GO-CJ; G8988-GO-CJ; G8989-GO-CJ; J0690; J1100; J1650; J1885; J2250; J2405; J2704; J2795; J3010; J3475; J3480

== ENCOUNTER 2019-02-21 09:17 | Day surgery (SDC) | payer MEDICARE ==
[~2019-02-21 09:17] MED LIST changes: -Tranexamic Acid 1,000 MG in NS 0.9% 50 ML* (outpatient use) IV SCH
[2019-02-21] MEDS ORDERED: Neomycin/Polymy/Dex OPTH.SUSP* MAXITROL 0.1% 5 ML ONE (10:43)
[2019-02-21] MEDS ORDERED: Ketorolac 0.5% OPHTH (NF) 0.5 % 5 ML BTL ONE (10:43)
[2019-02-21] MEDS ORDERED: Cyclopentolate 1% OPTH.SOL* 2 ML BTL ONE (10:43)
[2019-02-21] MEDS ORDERED: Phenylephrine OPHTH SOL 2.5%* 2 ML ONE (10:43)
[2019-02-21] MEDS ORDERED: Proparacaine 0.5% OPHTH.SOL* 15 ML BTL ONE (10:43)
[2019-02-21] MEDS ORDERED: Lidocaine 2% w/ EPI 1:200,000* 20 ML SDV VIAL ONE (10:43)
[2019-02-21] MEDS ORDERED: Lidocaine 1% MPF ** 5 ML VIAL ONE (10:43)
[2019-02-21] MEDS ORDERED: acetaZOLAMIDE TAB* 250 MG ONE (10:43)
[2019-02-21] MEDS ORDERED: Povidone Iodine 5% OPTH* 30 ML BTL ONE (10:43)
[2019-02-21] MEDS ORDERED: Midazolam* 1 MG/ML 2 ML VIAL (2 MG) ONE (11:46)
[2019-02-21 12:32] VITALS: BP 147/57
--- NOTE | 2019-02-21 15:40 | OP ---
DATE OF OPERATION: 02/21/19 [facility] DATE OF : 40 SURGEON: Giorgi Jennings M.D. PREOPERATIVE DIAGNOSIS: Cataract right eye. POSTOPERATIVE DIAGNOSIS: Cataract right eye. OPERATIVE PROCEDURE: Extracapsular cataract extraction with intraocular lens implant right eye. DESCRIPTION OF PROCEDURE: The patient was brought to the operating room after being given 1/2% Alcaine with epinephrine drops in the preoperative area. The eye was prepped and draped in the usual sterile fashion. Sterile drape and eyelid speculum were placed. Again, topical 1/2% Alcaine with epinephrine was given. A paracentesis incision was made at the 9 o'clock position with the No.75 blade. Clear cornea incision 2.2 x 2.2-mm was created at the 12 o'clock position starting at the anterior limbus using the 2.2-mm keratome. The anterior chamber was irrigated with 0.4 mL of 1% non-preservative intracameral lidocaine and filled with DisCoVisc. A capsulorrhexis was completed using the cystotome and the Utrata forceps. Hydrodissection was performed with balanced salt solution. The lens nucleus was removed with the Phacoemulsification handpiece without incident. Cortex was removed with the irrigation-aspiration handpiece. The capsular bag was re-inflated using DisCoVisc and an [id number] 16.5 implant was inserted with the shooter. The irrigation-aspiration handpiece was used to remove all residual DisCoVisc. The eye was refilled with balanced salt solution and the wound checked and found to be watertight. Topical Maxitrol drops were given. [id number]/[facility] #: [id number] MTDD
== END 2019-02-21 12:45 | disposition home or self-care (01) ==
LOC: OREAST 09:17
PROVIDERS: ATTEND Specialist
DX: H25.11 Age-related nuclear cataract, right eye (principal); H16.223 Keratoconjunctivitis sicca, not specified as Sjogren's, bilateral; I48.91 Unspecified atrial fibrillation; I10 Essential (primary) hypertension; M19.90 Unspecified osteoarthritis, unspecified site; Z79.01 Long term (current) use of anticoagulants
CPT/HCPCS: A9270-GY; J2250; V2632

== ENCOUNTER 2019-02-28 09:06 | Day surgery (SDC) | payer MEDICARE ==
[~2019-02-28 09:06] MED LIST changes: +Acetaminophen TAB* 325 MG PO PRN
[2019-02-28] MEDS ORDERED: fentaNYL* 50 MCG/ML 2 ML VIAL (100 MCG VIAL) ONE (10:06)
[2019-02-28] MEDS ORDERED: Midazolam* 1 MG/ML 5 ML VIAL (5 MG) ONE (10:06)
[2019-02-28] MEDS ORDERED: Proparacaine 0.5% OPHTH.SOL* 15 ML BTL ONE (12:52)
[2019-02-28] MEDS ORDERED: Cyclopentolate 1% OPTH.SOL* 2 ML BTL ONE (12:52)
[2019-02-28] MEDS ORDERED: Neomycin/Polymy/Dex OPTH.SUSP* MAXITROL 0.1% 5 ML ONE (12:52)
[2019-02-28] MEDS ORDERED: Povidone Iodine 5% OPTH* 30 ML BTL ONE (12:52)
[2019-02-28] MEDS ORDERED: acetaZOLAMIDE TAB* 250 MG ONE (12:52)
[2019-02-28] MEDS ORDERED: Lidocaine 1% MPF ** 5 ML VIAL ONE (12:52)
[2019-02-28] MEDS ORDERED: Lidocaine 2% w/ EPI 1:200,000* 20 ML SDV VIAL ONE (12:52)
[2019-02-28] MEDS ORDERED: Ketorolac 0.5% OPHTH (NF) 0.5 % 5 ML BTL ONE (12:52)
[2019-02-28] MEDS ORDERED: Phenylephrine OPHTH SOL 2.5%* 2 ML ONE (12:52)
[2019-02-28 12:57] VITALS: BP 150/77
--- NOTE | 2019-02-28 20:05 | OP ---
DATE OF OPERATION: 02/28/[address] [facility] DATE OF : 40 SURGEON: Giorgi Jennings M.D. PREOPERATIVE DIAGNOSIS: Cataract, left eye. POSTOPERATIVE DIAGNOSIS: Cataract, left eye. OPERATIVE PROCEDURE: Extracapsular cataract extraction with intraocular lens implant left eye. DESCRIPTION OF PROCEDURE: The patient was brought to the operating room after being given 1/2% Alcaine with epinephrine drops in the preoperative area. The eye was prepped and draped in the usual sterile fashion. Sterile drape and eyelid speculum were placed. Again, topical 1/2% Alcaine with epinephrine was given. A paracentesis incision was made at the 3 o'clock position with the No.75 blade. Clear cornea incision 2.2 x 2.2-mm was created at the 6 o'clock position starting at the anterior limbus using the 2.2-mm keratome. The anterior chamber was irrigated with 0.4 mL of 1% non-preservative intracameral lidocaine and filled with DisCoVisc. A capsulorrhexis was completed using the cystotome and the Utrata forceps. Hydrodissection was performed with balanced salt solution. The lens nucleus was removed with the Phacoemulsification handpiece without incident. Cortex was removed with the irrigation-aspiration handpiece. The capsular bag was re-inflated using DisCoVisc and an [id number] 16 implant was inserted with the shooter. The irrigation-aspiration handpiece was used to remove all residual DisCoVisc. The eye was refilled with balanced salt solution and the wound checked and found to be watertight. Topical Maxitrol drops were given. [id number]/[facility] #: [id number] [facility]
== END 2019-02-28 12:12 | disposition home or self-care (01) ==
LOC: OREAST 09:06
PROVIDERS: ATTEND Specialist
DX: Z01.818 Encounter for other preprocedural examination (principal); H25.12 Age-related nuclear cataract, left eye; H16.223 Keratoconjunctivitis sicca, not specified as Sjogren's, bilateral; Z96.1 Presence of intraocular lens; I48.1 Persistent atrial fibrillation; I10 Essential (primary) hypertension; Z86.010 Personal history of colon polyps; H25.89 Other age-related cataract
CPT/HCPCS: A9270-GY; J2250; J3010; V2632

== ENCOUNTER 2019-04-01 14:24 | Emergency (ER) | payer MEDICARE ==
--- OUTSIDE RECORDS SUMMARY | 2019-04-01 14:39 | XMS REPORT | Continuity of Care Document ---
:1940 External Reference #:[id number] Author Name Giorgi Jennings M.D. Address [address] [place] [address] Care Team Providers Name Role Phone Jose Li M.D. - Gastroenterology Care Team Information [phone] Box Estimator Garo Donohue M.D. - Internal Medicine Care Team Information Box Estimator Dipak Mahajan M.D. - Neuromusculoskeletal Care Team Information Medicine & OMM Box Estimator Davonte Ellsworth M.D. - Cardiovascular Care Team Information [phone] Disease Box Estimator Problems Active Problems Provider Date Atrial fibrillation Onset: Essential hypertension Onset: Arthritis Onset: Presence of intraocular lens Giorgi Jennings M.D. Onset: 02/22/2019 Keratoconjunctivitis sicca (excluding Sjogren Giorgi Jennings M.D. Onset: syndrome) Keratoconjunctivitis sicca (excluding Sjogren Giorgi Jennings M.D. Onset: syndrome) Vitreous degeneration Giorgi Jennings M.D. Onset: 03/11/2015 Nuclear senile cataract Giorgi Jennings M.D. Onset: 03/11/2015 Social History Type Date Description Comments Sex Unknown ETOH Use Denies alcohol use Tobacco Use Start: Unknown Patient has never smoked Recreational Drug Use Denies Drug Use Smoking Status Reviewed: 03/01/19 Patient has never smoked Allergies, Adverse Reactions, Alerts Description No Known Drug Allergies Medications Active Medications SIG Qnty Indications Ordering Provider Date Artificial Tears Giorgi Jennings, 02/21/2019 1-0.3% M.D. Solution Ciprofloxacin HCL 1 drop left eye 5ml Giorgi Jennings, 01/30/2019 0.3% three times a M.D. Solution day Ketorolac Tromethamine 1 drop right 10ml Giorgi Jennings, 01/30/2019 0.5% eye twice a day M.D. Solution left eye three times a day Prednisolone Acetate 1 drop right 10ml Giorgi Jennings, 01/30/2019 1% eye twice a day M.D. Suspension left eye three times a day Digoxin Unknown 250mcg Tablets Amlodipine Besylate Shalldestinee, Garo M.D. 2.5mg Tablets Metoprolol Tartrate Brody, Anna 100mg F.N.P Tablets Losartan Potassium Brody, Anna 50mg F.N.P Tablets Trazodone HCL Shallish, Grao M.D. 50mg Tablets Jantoven Shallish, Garo M.D. 5mg Tablets Immunizations Description No Information Available Vital Signs Description No Information Available Results Description No Information Available Procedures Date Code Description Status 02/28/2019 85244 Extracapsular Cataract Extraction W/Intraocular Lens Completed 02/21/2019 15800 Extracapsular Cataract Extraction W/Intraocular Lens Completed 01/30/2019 23503 Ophthalmic Biometry Completed 01/30/2019 36182 Ophthalmic Biometry Completed 01/30/2019 89321 Scanning Computerized Opthalmic Diagnostic Posterior Seg Completed Retina 01/30/2019 96769 Computerized Corneal Topography Completed 01/30/2019 36619 Est Patient Intermediate Exam Completed 12/29/2018 99197 Est Patient Comprehensive Exam Completed Medical Devices Description No Information Available Encounters Description No Information Available Assessments Date Code Description Provider 03/01/2019 Z96.1 Presence of intraocular lens Giorgi Jennings M.D. 03/01/2019 H16.223 Keratoconjunctivitis sicca, not specified as Giorgi Jennings M.D. Sjogren's, bilateral 02/28/2019 H25.12 Age-related nuclear cataract, left eye Giorgi Jennings M.D. 02/22/2019 H25.12 Age-related nuclear cataract, left eye Giorgi Jennings M.D. 02/22/2019 H16.223 Keratoconjunctivitis sicca, not specified as Giorgi Jennings M.D. Sjogren's, bilateral 02/22/2019 Z96.1 Presence of intraocular lens Giorgi Jennings M.D. 02/21/2019 H25.11 Age-related nuclear cataract, right eye Giorgi Jennings M.D. 01/30/2019 H25.11 Age-related nuclear cataract, right eye Giorgi Jennings M.D. 01/30/2019 H16.223 Keratoconjunctivitis sicca, not specified as Giorgi Jennings M.D. Sjogren's, bilateral 01/30/2019 H25.12 Age-related nuclear cataract, left eye Giorgi Jennings M.D. 12/29/2018 H25.13 Age-related nuclear cataract, bilateral Giorgi Jennings M.D. 12/29/2018 H43.813 Vitreous degeneration, bilateral Giorgi Jennings M.D. Plan of Treatment Future Appointment(s):03/16/2019 10:30 am - Liseth Tenorio O.D. at Giorgi Jennings MD, 03/01/2019 - Giorgi Jennings M.D.Z96.1 Presence of intraocular lensComments:Smoking can increase the risk of developing or worsening any eye related disease, as well as affect your overall health. If you are a smoker, we strongly recommend that you quit.If you are not a smoker, we strongly recommend that you do not start. The artifical lens implant in your left eye appears to be stable. Since this is the first day after surgery, your left eye is still dilated and the vision will still be slightly blurry. The dilation will go down over the next day or two. Continue taking your eye drops as directed on the surgical calendar. If you have any questions, please call our office.H16.223 Keratoconjunctivitis sicca, not specified as Sjogren's, bilateralFollow up:2 Year Follow Up You can expect to have your eyes dilated at your next visit. If Dr. Jennings orders any additional testing, it may require extra time. We recommend that you bring sunglasses, as dilationdrops often make you light sensitive until they wear off. We always recommend you bring someone to drive you home if you are uncomfortable driving with your eyes dilated. If you have any questions before your next visit, feel free to call our office at . Functional Status Description No Information Available Mental Status Description No Information Available Referrals Description No Information Available
--- OUTSIDE RECORDS SUMMARY | 2019-04-01 14:39 | XMS REPORT | Continuity of Care Document ---
:1940 External Reference #:[id number] Author Name Liseth Tenorio O.D. Address [address] [place] [address] Care Team Providers Name Role Phone Jose Li M.D. - Gastroenterology Care Team Information [phone] Crust Sorter Garo Donohue M.D. - Internal Medicine Care Team Information Crust Sorter Dipak Mahajan M.D. - Neuromusculoskeletal Care Team Information Medicine & OMM Crust Sorter Davonte Ellsworth M.D. - Cardiovascular Care Team Information [phone] Disease Crust Sorter Problems Active Problems Provider Date Atrial fibrillation [...] Use Denies Drug Use Smoking Status Reviewed: 03/16/19 Patient has never smoked Allergies, Adverse Reactions, Alerts Description No Known Drug Allergies Medications Active Medications SIG Qnty Indications Ordering Provider Date Artificial Tears Giorgi Jennings M.D. 02/21/2019 1-0.3% Solution Digoxin Unknown 250mcg Tablets Amlodipine Besylate Shallish, Garo M.D. 2.5mg Tablets Metoprolol Tartrate Anna Skinner F.N.P 100mg Tablets Losartan Potassium Anna Skinner F.N.P 50mg Tablets Trazodone HCL Shallish, Garo M.D. 50mg Tablets Jantoven Shallish, Garo M.D. 5mg Tablets History Medications Ciprofloxacin HCL 1 drop left eye 5ml Giorgi Jennings, 01/30/2019 - 0.3% three times a M.D. 03/15/2019 Solution day Ketorolac Tromethamine 1 drop right eye 10ml Giorgi Jennings, 01/30/2019 - 0.5% twice a day left M.D. 03/15/2019 Solution eye three times a day Prednisolone Acetate 1 drop right eye 10ml Giorgi Jennings, 01/30/2019 - 1% twice a day left M.D. 03/15/2019 Suspension eye three times a day Immunizations Description No Information Available Vital Signs Description No Information Available Results Description No Information Available Procedures Date Code Description Status 02/28/2019 69592 Extracapsular Cataract Extraction W/Intraocular Lens Completed 02/21/2019 87913 Extracapsular Cataract Extraction W/Intraocular Lens Completed 01/30/2019 71800 Ophthalmic Biometry Completed 01/30/2019 27549 Ophthalmic Biometry Completed 01/30/2019 58699 Scanning Computerized Opthalmic Diagnostic Posterior Seg Completed Retina 01/30/2019 92944 Computerized Corneal Topography Completed 01/30/2019 68931 Est Patient Intermediate Exam Completed 12/29/2018 67482 Est Patient Comprehensive Exam Completed Medical Devices Description No Information Available Encounters Description No Information Available Assessments Date Code Description Provider 03/16/2019 Z96.1 Presence of intraocular lens Liseth Tenorio O.D. 03/01/2019 Z96.1 Presence of intraocular lens Giorgi [...] sicca, not specified as Giorgi Jennings M.D. Sjogrgalilea's, bilateral 01/30/2019 H25.12 Age-related nuclear cataract, left eye Giorgi Jennings M.D. 12/29/2018 H25.13 Age-related nuclear cataract, bilateral Giorgi Jennings M.D. 12/29/2018 H43.813 Vitreous degeneration, bilateral Giorgi Jennings M.D. Plan of Treatment 03/16/2019 - Liseth Tenorio O.D.Z96.1 Presence of intraocular lensComments: Smoking can increase the risk of developing or worsening any eye related disease , as well as affect your overall health. If you are a smoker, we strongly recommend that you quit.If you are not a smoker, we strongly recommend that you do not start. Your lens implant looks stable in both eyes at this time. You should be done, or almost done with your drops at this time according to your surgical calendar. I have given you a prescription for glasses. If you have any questions, please feel free to call our office at .Follow up: 2 YEARS You can expect to have your eyes dilated at your next visit. If Dr. Tenorio orders any additional testing, it may require extra time. We recommend that you bring sunglasses, as dilation drops often make you light sensitive until they wear off. We always recommend you bring someone to drive youhome if you are uncomfortable driving with your eyes dilated. If you have any questions before your next visit, feel free to call our office at . Functional Status Description No Information Available Mental Status Description No Information Available Referrals Description No Information Available
--- OUTSIDE RECORDS SUMMARY | 2019-04-01 14:39 | XMS REPORT | Continuity of Care Document ---
:1940 External Reference #:[id number] Author Name Giorgi Jennings M.D. Address [address] [place] [address] Care Team Providers Name Role Phone Jose Li M.D. - Gastroenterology Care Team Information [phone] Tennis Ball Cover Cementer Garo Donohue M.D. - Internal Medicine Care Team Information Tennis Ball Cover Cementer Dipak Mahajan M.D. - Neuromusculoskeletal Care Team Information [phone] Medicine & OMM Tennis Ball Cover Cementer Davonte Ellsworth M.D. - Cardiovascular Care Team Information [phone] Disease Tennis Ball Cover Cementer Problems Active Problems Provider Date Atrial fibrillation [...] Use Denies Drug Use Smoking Status Reviewed: 02/22/19 Patient has never smoked Allergies, Adverse Reactions, Alerts Description No Known Drug Allergies Medications Active Medications SIG Qnty Indications Ordering Provider Date Artificial Tears Giorgi Jennings, 02/21/2019 1-0.3% M.D. Solution Ciprofloxacin HCL instill one drop 5ml Giorgi Jennings, 01/30/2019 0.3% in the right eye M.D. Solution three times a day, start the day before surgery Ketorolac Tromethamine use one drop in 10ml Giorgi Jennings, 01/30/2019 the right eye M.D. 0.5% Solution three times a day, start the day before surgery Prednisolone Acetate 1 drops right eye 10ml Giorgi Jennings, 01/30/2019 1% three times a M.D. Suspension day. taper as directed Digoxin Unknown 250mcg Tablets Amlodipine Besylate Shallish, Garo 2.5mg M.D. Tablets Metoprolol Tartrate Brody, Anna 100mg F.N.P Tablets Losartan Potassium Brody, Anna 50mg F.N.P Tablets Trazodone HCL Shallish, Garo 50mg M.D. Tablets Jantoven Shallish, Garo 5mg Tablets M.D. Immunizations Description No Information Available Vital Signs Description No Information Available Results Description No Information Available Procedures Date Code Description Status 02/21/2019 36968 Extracapsular Cataract Extraction W/Intraocular Lens Completed 01/30/2019 25977 Ophthalmic Biometry Completed 01/30/2019 74558 Ophthalmic Biometry Completed 01/30/2019 76467 Scanning Computerized Opthalmic Diagnostic Posterior Seg Completed Retina 01/30/2019 77123 Computerized Corneal Topography Completed 01/30/2019 08631 Est Patient Intermediate Exam Completed 12/29/2018 04637 Est Patient Comprehensive Exam Completed Medical Devices Description No Information Available Encounters Description No Information Available Assessments Date Code Description Provider 02/22/2019 H25.12 Age-related nuclear cataract, left eye [...] Tenorio O.D. at Giorgi Jennings MD, 03/01/2019 10:45 am - Giorgi Jennings M.D. at Giorgi Jennings MD, 02/28/2019 7:00 am - Giorgi Jennings M.D. at Giorgi Jennings MD, 2018 - Giorgi Jennings M.D.H25.12 Age-related nuclear cataract, left eyeComments:Smoking can increase the risk of developing or worsening any eye related disease, as well as affect your overall health. If you are a smoker, we strongly recommend that you quit.If you are not a smoker, we strongly recommend that you do not start. Dense cataract in the left eye.Follow up:For surgery. Please keep post op appointments as scheduled.H16.223 Keratoconjunctivitis sicca, not specified as Sjogren's, [id number] Presence of intraocular lensComments:The artifical lens implant in your right eye appears to be stable. Since this is the first day after surgery, your right eye is still dilated and the vision will still be slightly blurry. The dilation will go down over the next day or two. Continue taking your eye drops as directed on the surgical calendar. If you have any questions, please call our office. Functional Status Description No Information Available Mental Status Description No Information Available Referrals Description No Information Available
--- OUTSIDE RECORDS SUMMARY | 2019-04-01 14:39 | XMS REPORT | Continuity of Care Document ---
:1940 External Reference #:[id number] Author Name Garo Donohue M.D. Address [address] [place] [address] Care Team Providers Name Role Phone Gaor Donohue MD - Family Medicine Care Team Information Emt I/85 [phone] Odalys Greer MD - Care Team Information Emt I/85 [phone] Gastroenterology Problems Active Problems Provider Date Essential hypertension Garo Donohue M.D. Onset: 02/06/2016 Persistent atrial fibrillation Garo Donohue M.D. Onset: 02/06/2016 Rosacea Garo Donohue M.D. Onset: 02/06/2016 History of polyp of colon Garo Donohue M.D. Onset: 02/06/2016 Adult health examination Garo Donohue M.D. Onset: 02/06/2016 Cardiomyopathy Garo Donohue M.D. Onset: 02/06/2016 Persistent insomnia Garo Donohue M.D. Onset: 08/24/2016 Symptom of skin and integumentary tissue Garo Donohue M.D. Onset: 2016 Cough Garo Donohue M.D. Onset: 06/16/2017 Combined form of senile cataract Garo Donohue M.D. Onset: 02/16/2019 Allergic arthritis Garo Donohue M.D. Onset: 12/15/2017 Social History Type Date Description Comments Sex Unknown Tobacco Use Start: Unknown Never Smoked Cigarettes ETOH Use Never used alcohol Tobacco Use Start: Unknown Nonsmoker Smoking Status Reviewed: 02/16/19 Nonsmoker Allergies, Adverse Reactions, Alerts Description No Known Drug Allergies Medications Active Medications SIG Qnty Indications Ordering Provider Date Amoxicillin 4 before dental 8caps Garogolden Donohue, 02/16/2019 500mg cleaning M.D. Capsules Jantoven 1 by mouth every 90tabs Garo Akash Donohue, 06/15/2018 5mg Tablets day M.D. Mometasone Furoate apply three times 45gm Garo Akash Donohue, 06/15/2018 a day as needed M.D. 0.1% Cream Amlodipine Besylate 1 by mouth daily 90tabs Garo MylesYessenia Jayde, 03/29/2018 M.D. 2.5mg Tablets Losartan Potassium take 1 tab daily 90tabs Anna 09/07/2016 Brody, DAIRY EQUIPMENT INSTALLER 50mg Tablets Trazodone HCL 2 by mouth every 180tabs Garo Akash Donohue, 08/24/2016 50mg night at bedtime M.D. Tablets Metoprolol Tartrate 1 by mouth twice 180tabs Anna a day Brody, DAIRY EQUIPMENT INSTALLER 100mg Tablets Digoxin 1 by mouth every 90tabs Garo Akash Donohue, 250mcg day M.D. Tablets Immunizations CPT Code Status Date Vaccine Lot # [id number] Given 02/19/2018 High-Dose, Influenza Virus Vacccine-fluzone 65 and older [id number] Given 06/16/2017 Pneumococcal Immunization [id number] 04125 Given 03/03/2017 High-Dose, Influenza Virus Vacccine-fluzone 65 and [id number] older 09389 Given 02/06/2016 Tdap Tetanus, W Pertussis [id number] 32178 Given 02/06/2016 Pneumococcal Conjugate Vacc-13 [id number] 24654 Given 02/06/2016 High-Dose, Influenza Virus Vacccine-fluzone 65 and [id number] older Vital Signs Date Vital Result Comment 02/16/2019 3:01pm BP Systolic 140 mmHg BP Diastolic 70 mmHg Heart Rate 60 /min Body Temperature 98.1 F Respiratory Rate 12 /min Height 63 inches 5'3" measured Weight 185.00 lb BMI (Body Mass Index) 32.8 kg/m2 06/15/2018 4:14pm BP Systolic 130 mmHg BP Diastolic 74 mmHg Heart Rate 58 /min Body Temperature 98.4 F Respiratory Rate 16 /min Height 63 inches 5'3" Weight 187.00 lb BMI (Body Mass Index) 33.1 kg/m2 Results Test Date Facility Test Result H/L Range Note Laboratory test 02/16/2019 [facility]) Free T4 <pending> 0.75- 1.54 finding TSH <pending> 0.5-5.0 Laboratory test 02/16/2019 [facility] (Fma) 1.5 Low 2.0-3.0 finding (607)- - Laboratory test 01/18/2019 [facility] ([facility]) 1.6 Low 2.0-3.0 finding (607)- - Laboratory test 12/21/2018 [facility] (F[facility]) 2.1 2.0-3.0 finding (607)- - Laboratory test 11/24/2018 [facility] SEE RESULT 1, 2 finding Pathology BELOW Laboratory test 11/21/2018 [facility] (Fma) 2.0 2-3 finding (607)- - Laboratory test 11/02/2018 [facility] (Fma) 2.0 2-3 finding (607)- - Laboratory test 10/12/2018 [facility] Inr (Fma) 1.9 Low 2-3 finding (607)- - Laboratory test 09/14/2018 [facility] Medicine Inr (Fma) 2.2 2.0-3.0 finding (607)- - 1 3854-A:Morphology: pink papule with small telangiectasias. ;DDX: Basal Cell Carcinoma;Location: l 2 SEE RESULT BELOW Name: NANCY CUMMINS : [address]: Cari Montilla MD Acct: [id number] Unit: [id number] AGE: 78 Location: [facility] Re11/24/18 SEX: F Status: REG REF SPEC: [id number] MINDY: 11/24/18-1030 [facility] DR: Cari Montilla MD REQ: [id number] RECD: 11/24/[id number] STATUS: MATHEW SUMNER DR: Garo Donohue MD _ ORDERED: LEVEL 4 COMMENTS: [id number] FINAL DIAGNOSIS Skin, left lower jaw, biopsy: -- Basal cell carcinoma, superficial and nodular type. -- Lesional cells extend to the biopsy base. PRE-OPERATIVE DIAGNOSIS [place]ptos papule with small telangiectasias; basal cell carcinoma GROSS DESCRIPTION The specimen is received in formalin labeled, Left Lower Jaw, and consists of a 0.6 x 0.5 cm torre-white ovoid skin shave with a central 0.4 x 0.3 cm focally erythematous slightly raised lesion with scant adherent red-brown blood clot. The specimen is inked, bisected and submitted entirely in one cassette. Signed by and Reported on: Anna John MD 11/27/18 0958 END OF REPORT DEPARTMENT OF PATHOLOGY, [address] [place] [id number] Oswald Coto M.D. Director [facility] # [id number] Procedures Date Code Description Status 05/06/2019 [id number] Colonoscopy Completed 01/18/2019 80782 Finger Or Heel Stick Completed 12/21/2018 03981 Finger Or Heel Stick Completed 11/21/2018 46458 Finger Or Heel Stick Completed 11/02/2018 99608 Finger Or Heel Stick Completed 10/12/2018 42168 Finger Or Heel Stick Completed 09/14/2018 91803 Finger Or Heel Stick Completed 05/11/2018 [id number] Colonoscopy Completed 03/27/2018 [id number] Mammogram Completed 03/18/2017 [id number] Mammogram Completed 02/11/2016 [id number] Mammogram Completed Medical Devices Description No Information Available Encounters Description No Information Available Assessments Date Code Description Provider 02/16/2019 I48.1 Persistent atrial fibrillation Garo Donohue M.D. 02/16/2019 I10 Essential (primary) hypertension Garo Donohue M.D. 02/16/2019 Z86.010 Personal history of colonic polyps Garo Donohue M.D. 02/16/2019 H25.89 Other age-related cataract Garo Donohue M.D. 02/16/2019 Z01.818 Encounter for other preprocedural Garo Donohue M.D. examination 01/18/2019 Z79.01 technician terminal and repeater (current) use of anticoagulants Garo Donohue M.D. 01/18/2019 I48.1 Persistent atrial fibrillation Garo Donohue M.D. 12/21/2018 Z79.01 residential (current) use of anticoagulants Garo Donohue M.D. 12/21/2018 I48.1 Persistent atrial fibrillation Garo Donohue M.D. 11/21/2018 Z79.01 technician terminal and repeater (current) use of anticoagulants Garo Donohue M.D. 11/21/2018 I48.1 Persistent atrial fibrillation Garo Donohue M.D. 11/02/2018 Z79.01 technician terminal and repeater (current) use of anticoagulants Garo Donohue M.D. 11/02/2018 I48.1 Persistent atrial fibrillation Garo Donohue M.D. 10/12/2018 Z79.01 residential (current) use of anticoagulants Garo Donohue M.D. 10/12/2018 I48.1 Persistent atrial fibrillation Garo Donohue M.D. 09/14/2018 Z79.01 technician terminal and repeater (current) use of anticoagulants Garo Donohue M.D. 09/14/2018 I48.1 Persistent atrial fibrillation Garo Donohue M.D. Plan of Treatment Future Appointment(s):03/02/2019 2:00 pm - Garo Donohue M.D. at [facility] Wkkezy8402/16/2019 - Garo Donohue M.D.I48.1 Persistent atrial fibrillationNew Labs:Digoxin (Fma/CMC/Centrex), Ordered: 02/16/19Comments: Patient to continue present medication and continue followup with cardiology , continue [id number] Essential (primary) hypertensionComments:continue current medication, call if bp elevation is persistent above 150/90 , to call with blood pressure [id number] Personal history of colonic polypsComments: Repeat colonoscopy in 05/2019H25.89 Other age-related cataractComments:I feel she is medically clear for the planned cataract surgery by Dr Shaffer01.818 Encounter for other preprocedural examinationAllNew Medication:Amoxicillin 500 mg - 4 before dental cleaningComments:advised Shingrix vaccine Functional Status Description No Information Available Mental Status Description No Information Available Referrals Description No Information Available
[2019-04-01] MEDS ORDERED: Acetaminophen TAB* 325 MG PO ONE (15:42)
[2019-04-01 16:01] LABS: ABS Basophils 0.1 10^3/ul (0-0.2); ABS Eosinophils 0.2 10^3/ul (0-0.6); ABS Lymphocytes 2.3 10^3/ul (1.0-4.8); ABS Monocytes 0.8 10^3/ul (0-0.8); ABS Neutrophils 6.6 10^3/ul (1.5-7.7); Eosinophil % 1.7 %; Hematocrit 40 % (35-47); Hemoglobin 13.2 g/dL (12.0-16.0); Lymphocyte % 23.2 %; Mean Corpuscular HGB Conc 33 g/dL (31-36); Mean Corpuscular Hemoglobin 32 pg (27-31); Mean Corpuscular Volume 96 fL (80-97); Mean Platelet Volume 9.1 fL (7.4-10.4); Platelet Count 225 10^3/uL (150-450); Red Blood Count 4.15 10^6 /uL (3.70-4.87); Red Cell Distribution Width 14 % (10-15); White Blood Count 9.9 10^3/uL (3.5-10.8)
[2019-04-01 16:08] LABS: Activated Partial Thrombo Time 36.1 seconds (26.0-38.0); INR 1.81 (0.82-1.09)
--- NOTE | 2019-04-01 17:10 | ED ---
Lower Extremity - HPI Summary HPI Summary: 78 year old female presents to the ED with a chief complaint of right knee pain. 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 The knee pain has gotten worse and worse over the last several days (pain severity 7/10 now), and now has back discomfort as well as difficulty ambulating. She walks with a limp. She reports ecchymosis around her knee that has worsened severely since 6 days ago. She denies recent falls, fever , chills, diaphoresis, erythema of eyes, sore throat, CP, SOB, cough, abdominal pain, N/V, dysuria, hematuria, rash, or dizziness. Patient takes Warfarin. - History of Current Complaint Chief Complaint: EDExtremityLower Stated Complaint: RT KNEE PAIN PER PT Time Seen by Provider: 04/01/19 15:31 Hx Obtained From: Patient Mechanism Of Injury: Unknown Onset of Pain: Days Onset/Duration: Still Present Severity Initially: Mild Severity Currently: Severe Pain Intensity: 7 Pain Scale Used: 0-10 Numeric Timing: Constant, Lasting Days Location: Is Discrete @ - right knee Associated Signs And Symptoms: Positive: Bruising, Knee Pain Able to Bear Weight: Yes - Allergies/Home Medications Allergies/Adverse Reactions: Allergies Allergy/AdvReac Type Severity Reaction Status Date / Time No Known Allergies Allergy Verified 04/01/19 15:41 PMH/Surg Hx/FS Hx/Imm Hx Previously Healthy: Yes Endocrine/Hematology History: Denies: Hx Diabetes, Hx Thyroid Disease Cardiovascular History: Reports: Hx Congestive Heart Failure - 8 yrs ago, Hx Coronary Artery Disease, Hx Hypertension, Other Cardiovascular Problems/ Disorders - a fib Denies: Hx Pacemaker/ICD Respiratory History: Denies: Hx Asthma, Hx Chronic Obstructive Pulmonary Disease (COPD), Hx Pulmonary Embolism, Other Respiratory Problems/Disorders GI History: Denies: Hx Ulcer Musculoskeletal History: Reports: Hx Arthritis - right knee, Hx Osteoporosis Denies: Other Musculoskeletal History Sensory History: Reports: Hx Cataracts - BILAT, Hx Contacts or Glasses - glasses Denies: Hx Glaucoma, Hx Hearing Aid Opthamlomology History: Reports: Hx Cataracts - BILAT, Hx Contacts or Glasses - glasses Denies: Hx Glaucoma Neurological History: Denies: Other Neuro Impairments/Disorders Psychiatric History: Denies: Other Psychiatric Issues/Disorders - Surgical History Surgery Procedure, Year, and Place: anal polyp removal. Tonsil removal Hx Anesthesia Reactions: No Infectious Disease History: No Infectious Disease History: Denies: Hx Clostridium Difficile, Hx Hepatitis, Hx Human Immunodeficiency Virus (HIV), Hx of Known/Suspected MRSA, Hx Shingles, Hx Tuberculosis, Hx Known/ Suspected VRE, Hx Known/Suspected VRSA, History Other Infectious Disease, Traveled Outside the [place] in Last 30 Days - Family History Known Family History: Positive: None, Cardiac Disease, Non-Contributory - Social History Alcohol Use: None Alcohol Amount: 2 drinks per year Substance Use Type: Reports: None Smoking Status (MU): Never Smoked Tobacco Review of Systems Negative: Fever, Chills, Skin Diaphoresis Negative: Erythema Negative: Sore Throat Negative: Chest Pain Negative: Shortness Of Breath, Cough Negative: Abdominal Pain, Vomiting, Nausea Negative: dysuria, hematuria Positive: Arthralgia, Myalgia - back discomfort Positive: Bruising. Negative: Rash Neurological: Negative - neg dizziness All Other Systems Reviewed And Are Negative: Yes Physical Exam - Summary Physical Exam Summary: Constitutional: Well-developed, Well-nourished, Alert. (-) Distressed Skin: Warm, Dry. Ecchymosis 15 cm x 5 cm on right medial thigh. HENT: Normocephalic; Atraumatic Eyes: Conjunctiva normal Neck: Musculoskeletal ROM normal neck. (-) JVD, (-) Stridor, (-) Tracheal deviation Cardio: Rhythm regular, rate normal, Heart sounds normal; Intact distal pulses; The pedal pulses are 2+ and symmetric. Radial pulses are 2+ and symmetric. (-) Murmur Pulmonary/Chest wall: Effort normal. (-) Respiratory distress, (-) Wheezes, (-) Rales Abd: Soft, (-) tenderness, (-) Distension, (-) Guarding, (-) Rebound Musculoskeletal: (-) Edema. Full ROM on right knee joint. No knee tenderness or effusion. Lymph: (-) Cervical adenopathy Neuro: Alert, Oriented x3 Psych: Mood and affect Normal Triage Information Reviewed: Yes Vital Signs On Initial Exam: Initial Vitals Temp Pulse Resp BP Pulse Ox 98.3 F 72 16 141/72 98 04/01/19 14:28 04/01/19 14:28 04/01/19 14:28 04/01/19 14:28 04/01/19 14:28 Vital Signs Reviewed: Yes Procedures - Sedation Patient Received Moderate/Deep Sedation with Procedure: No Diagnostics - Vital Signs Vital Signs Temp Pulse Resp BP Pulse Ox 04/01/19 14:28 98.3 F 72 16 141/72 98 - Laboratory Lab Results: Lab Results 04/01/19 04/01/19 Range/Units 15:44 15:44 WBC 9.9 (3.5-10.8) 10^3/uL RBC 4.15 (3.70-4.87) 10^6 /uL Hgb 13.2 (12.0-16.0) g/dL Hct 40 (35-47) % MCV 96 (80-97) fL MCH 32 H (27-31) pg MCHC 33 (31-36) g/dL RDW 14 (10-15) % Plt Count 225 (150-450) 10^3/uL MPV 9.1 (7.4-10.4) fL Neut % (Auto) 66.6 % Lymph % (Auto) 23.2 % [place] % (Auto) 7.9 % Eos % (Auto) 1.7 % Baso % (Auto) 0.6 % Absolute Neuts (auto) 6.6 (1.5-7.7) 10^3/ul Absolute Lymphs (auto) 2.3 (1.0-4.8) 10^3/ul Absolute Monos (auto) 0.8 (0-0.8) 10^3/ul Absolute Eos (auto) 0.2 (0-0.6) 10^3/ul Absolute Basos (auto) 0.1 (0-0.2) 10^3/ul Absolute Nucleated RBC 0.0 10^3/ul Nucleated RBC % 0.0 INR (Anticoag Therapy) 1.81 H (0.82-1.09) APTT 36.1 (26.0-38.0) seconds Result Diagrams: 04/01/19 15:44 04/01/19 15:44 Lab Statement: Any lab studies that have been ordered have been reviewed, and results considered in the medical decision making process. - Radiology Knee XR Radiology Interpretation Completed By: Radiologist Summary of Radiographic Findings: STATUS POST RIGHT KNEE ARTHROPLASTY. NO ACUTE OSSEOUS INJURY. IF SYMPTOMS PERSIST, RECOMMEND REPEAT IMAGING. An ED physician has reviewed this report. Re-Evaluation - Re-Evaluation First Eval Re-Evaluation Time: 18:54 Change: Improved Comment: Discussed with patient the remote possibility of infection. Her labs do not support this. A strain is much more likely. No evidence of DVT no joint effusion. Significant relief with Tylenol. 1-2 day follow up with PCP and ortho. Lower Extremity Course/Dx - Course Course Of Treatment: 78 year old female reports to the ED with right knee pain and bruising. She had a knee replacement in July but did not have pain until 6 days ago. She takes Warfarin, and reports no recent falls or trauma. She also reports back discomfort and difficulty ambulating. Physical exam is normal except ecchymosis 15 cm x 5 cm on right medial thigh. Full ROM of knee joint. No knee tenderness or effusion. Knee XR shows the following: STATUS POST RIGHT KNEE ARTHROPLASTY. NO ACUTE OSSEOUS INJURY. Lab results show MCH 32 , INR 1.81, BUN/creatinine ratio 25.3, total bilirubin 1.10, and C-reactive protein 26.11. Diagnosis is right knee strain. At 18:54 I discussed with the patient the remote possibility of an infection, secondary to her concern for an infection. Her labs do not support this. It is far more likely to be a strain. No evidence of DVT no joint effusion. Significant relief with Tylenol. I recommended her to follow up with her PCP and Dr. Underwood, Ortho, in 1-2 days. She should return to the ED if symptoms worsen. Patient will be discharged - Diagnoses Provider Diagnoses: Strain of knee and leg, right Discharge ED - Sign-Out/Discharge Documenting (check all that apply): Patient Departure - discharge - Discharge Plan Condition: Stable Disposition: HOME Patient Education Materials: Knee Pain (ED) Referrals: Garo Donohue MD [Primary Care Provider] - Elizabeth Underwood MD [Medical Doctor] - Additional Instructions: Follow up with your primary care provider and Dr. Underwood, Orthopedics, in 1-2 days. Return to the Emergency department if symptoms worsen or change. - Attestation Statements Document Initiated by Scribe: Yes Documenting Scribe: Rickie Jerry Provider For Whom Scribe is Documenting (Include Credential): Lazarus Moreno MD. Scribe Attestation: I, Rickie Jerry, scribed for Lazarus Moreno MD. on 04/01/19 at 1900. Status of Scribe Document: Ready
[2019-04-01 17:21] LABS: Albumin 3.9 g/dL (3.2-5.2); Albumin/Globulin Ratio 1.4 (1-3); BUN/Creatinine Ratio 25.3 (8-20); C Reactive Protein 26.11 mg/L (<8.01); EGFR African American 90.4 (>60); EGFR Non-African American 74.7 (>60); Globulin 2.8 g/dL (2-4); Potassium 4.2 mmol/L (3.5-5.0); Total Bilirubin 1.1 mg/dL (0.2-1.0); Total Protein 6.7 g/dL (6.4-8.9)
[2019-04-01 19:09] VITALS: BP 148/76
== END 2019-04-01 19:08 | disposition home or self-care (01) ==
LOC: ED 14:24
DX: S86.911A Strain of unspecified muscle(s) and tendon(s) at lower leg level, right leg, initial encounter (principal); S70.11XA Contusion of right thigh, initial encounter; X58.XXXA Exposure to other specified factors, initial encounter; Y92.9 Unspecified place or not applicable; I25.10 Atherosclerotic heart disease of native coronary artery without angina pectoris; I11.0 Hypertensive heart disease with heart failure; I48.91 Unspecified atrial fibrillation; Z79.01 Long term (current) use of anticoagulants; Z96.651 Presence of right artificial knee joint
CPT/HCPCS: 36415; 80053; 83605; 85025; 85610; 85730; 86140; 99283; A9270-GY

== ENCOUNTER 2019-05-19 20:38 | Emergency (ER) | payer MEDICARE ==
--- OUTSIDE RECORDS SUMMARY | 2019-05-19 20:50 | XMS REPORT ---
:1940 Author Organization [facility] Care Team Providers Name Role Phone Unavailable Unavailable Unavailable Problems This patient has no known problems. Allergies, Adverse Reactions, Alerts Allergy Allergy Type Status Severity Reaction(s) Onset Inactive Treating Comments Name Date Date Clinician latex Base Active Unknown Reaction 2018-07 Interface Ingredient Medications Ordered Filled Start Stop Current Ordering Indication Dosage Frequency Signature Comments Components Medication Medication Date Date Medication? Clinician (SIG) Name Name Warfarin Warfarin No Unknown Unknown Unknown Sodium Sodium 07-21 Warfarin Warfarin No Unknown Unknown Unknown Tab(*) Tab(*) 01-15 traZODone traZODone 2016-06 No Unknown Unknown Unknown 50 mg 50 mg - tablet tablet digoxin 250 digoxin 250 2017-06 No Unknown Unknown Unknown mcg tablet mcg tablet 07-09 furosemide furosemide 2017-06 No Unknown Unknown Unknown 20 mg 20 mg 2-03 tablet tablet losartan 25 losartan 25 2017-06 No Unknown Unknown Unknown mg tablet mg tablet 07-12 Fluconazole Fluconazole 2017-06 No Unknown Unknown Unknown 07-23 Amlodipine Amlodipine 2017-06 No Unknown Unknown Unknown Besylate Besylate 07-23 Potassium Potassium No Unknown Unknown Unknown Chlor Tab* Chlor Tab* 06-28 zolpidem 5 zolpidem 5 No Unknown Unknown Unknown mg tablet mg tablet 06-28 metoprolol metoprolol No Unknown Unknown Unknown tartrate tartrate 06-28 100 mg 100 mg tablet tablet Magnesium Magnesium No Unknown Unknown Unknown Oxide Oxide 06-28 Melatonin Melatonin No Unknown Unknown Unknown 06-28 Vitamin B12 Vitamin B12 No Unknown Unknown Unknown TAB* TAB* 06-28 Vital Signs Vital Name Observation Time Observation Value Comments SYSTOLIC mm[Hg] 2019-01-17 18:07:19 134 mm[Hg] mm[Hg] Method: Sit DIASTOLIC mm[Hg] 2019-01-17 18:07:19 57 mm[Hg] mm[Hg] Method: Sit PULSE 2019-01-17 18:07:19 51 /min /min RESP RATE 2019-01-17 18:07:19 17 /min /min TEMP 2019-01-17 18:07:19 97.7 [degF] Procedures This patient has no known procedures. Results Test Description Test Time Test Comments Text Results Atomic Results Result Comments Laboratory Studies 2018-07-12 06:03:00 Identifier [id number] Result Time Unknown 2018-07-12 06:03:00 Test Item Value Reference Range Comments Unknown (test code = 19776-3) 1.14 Unknown 0.77-1.02 F Ordering Physician UnknownLaboratory Wtfzhra1470-12-95 06:03:00Identifier [id number]- 6 Result Time 2018-07-12 06:03:00Unknown Test Item Value Reference Range Comments Unknown (test code = 777-3) 192 10^3/ul Unknown 150-450 F Ordering Physician UnknownLaboratory Hwravkm4214-81-21 06:03:00Identifier 67789- 6 Result Time 2018-07-12 06:03:00Unknown Test Item Value Reference Range Comments Unknown (test code = 17307-9) 9.3 fL Unknown 7.4-10.4 F Ordering Physician UnknownLaboratory Vnqfsxv5718-58-50 06:03:00Identifier 33664- 6 Result Time 2018-07-12 06:03:00Unknown Test Item Value Reference Range Comments Unknown (test code = 718-7) 13.8 g/dl Unknown 12.0-16.0 F Ordering Physician UnknownLaboratory Xzmzjno0433-21-81 06:03:00Identifier 35064- 6 Result Time 2018-07-12 06:03:00Unknown Test Item Value Reference Range Comments Unknown (test code = 4544-3) 41 % Unknown 35-47 F Ordering Physician UnknownLaboratory Wqbypqd0544-10-96 06:00:00Identifier 08474- 6 Result Time 2018-07-12 06:00:00Unknown Test Item Value Reference Range Comments Unknown (test code = 2951-2) 139 mmol/L Unknown 135-145 F Ordering Physician UnknownLaboratory Oegekge0610-21-10 06:00:00Identifier 11412- 6 Result Time 2018-07-12 06:00:00Unknown Test Item Value Reference Range Comments Unknown (test code = 2823-3) 3.5 mmol/L Unknown 3.5-5.0 F Ordering Physician UnknownLaboratory Achpghe3836-49-67 06:00:00Identifier 86839- 6 Result Time 2018-07-12 06:00:00Unknown Test Item Value Reference Range Comments Unknown (test code = 52016-6) 1.7 mg/dL Unknown 1.9-2.7 F Ordering Physician UnknownLaboratory Vlqvjad2891-90-67 06:00:00Identifier 93885- 6 Result Time 2018-07-12 06:00:00Unknown Test Item Value Reference Range Comments Unknown (test code = 2345-7) 142 mg/dL Unknown 70-100 F Ordering Physician UnknownLaboratory Nnbjbce0796-16-64 06:00:00Identifier 57429- 6 Result Time 2018-07-12 06:00:00Unknown Test Item Value Reference Range Comments Unknown (test code = 75097-0) 94.9 Unknown Unknown F Ordering Physician UnknownLaboratory Ekkasza1737-76-73 06:00:00Identifier 46365- 6 Result Time 2018-07-12 06:00:00Unknown Test Item Value Reference Range Comments Unknown (test code = NullTestCode) 114.8 Unknown Unknown F Ordering Physician UnknownLaboratory Jcqnzso8819-91-45 06:00:00Identifier 94294- 6 Result Time 2018-07-12 06:00:00Unknown Test Item Value Reference Range Comments Unknown (test code = 2160-0) 0.61 mg/dL Unknown 0.51-0.95 F Ordering Physician UnknownLaboratory Pfwuvkr1117-86-56 06:00:00Identifier 79392- 6 Result Time 2018-07-12 06:00:00Unknown Test Item Value Reference Range Comments Unknown (test code = 2075-0) 104 mmol/L Unknown 101-111 F Ordering Physician UnknownLaboratory Pqhoaku2472-51-73 06:00:00Identifier 72477- 6 Result Time 2018-07-12 06:00:00Unknown Test Item Value Reference Range Comments Unknown (test code = 2028-9) 29 mmol/L Unknown 22-32 F Ordering Physician UnknownLaboratory Psjkyja8507-97-11 06:00:00Identifier 87086- 6 Result Time 2018-07-12 06:00:00Unknown Test Item Value Reference Range Comments Unknown (test code = 41686-1) 8.2 mg/dL Unknown 8.6-10.3 F Ordering Physician UnknownLaboratory Rdhklxo6542-60-73 06:00:00Identifier 33157- 6 Result Time 2018-07-12 06:00:00Unknown Test Item Value Reference Range Comments Unknown (test code = 3094-0) 11 mg/dL Unknown 6-24 F Ordering Physician UnknownLaboratory Waupaxw6022-82-07 06:00:00Identifier 16870- 6 Result Time 2018-07-12 06:00:00Unknown Test Item Value Reference Range Comments Unknown (test code = 3097-3) 18.0 Unknown 8-20 F Ordering Physician UnknownLaboratory Ompvrce3792-13-53 06:00:00Identifier 10822- 6 Result Time 2018-07-12 06:00:00Unknown Test Item Value Reference Range Comments Unknown (test code = 17250-9) 6 mmol/L Unknown 2-11 F Ordering Physician UnknownLaboratory Erbkvhw5205-19-95 06:37:00Identifier 34456- 6 Result Time 2018-07-11 06:37:00Unknown Test Item Value Reference Range Comments Unknown (test code = 63695-2) 26.1 seconds Unknown 26.0-36.3 F Ordering Physician UnknownLaboratory Fekzxtr4740-05-67 12:51:00Identifier 25518- 6 Result Time 2018-06-28 12:51:00Unknown Test Item Value Reference Range Comments Unknown (test code = 3024-7) 0.82 ng/dL Unknown 0.61-1.12 F Ordering Physician UnknownLaboratory Egqvhfv9188-94-35 12:51:00Identifier 77142- 6 Result Time 2018-06-28 12:51:00Unknown Test Item Value Reference Range Comments Unknown (test code = 3016-3) 2.01 mcIU/mL Unknown 0.34-5.60 F Ordering Physician UnknownLaboratory Vyqucul2432-00-25 12:51:00Identifier 23762- 6 Result Time 2018-06-28 12:51:00Unknown Test Item Value Reference Range Comments Unknown (test code = 58212-1) 0.7 ng/ml Unknown 0.8-2.0 F Ordering Physician UnknownLaboratory Hrursfq2093-08-39 12:51:00Identifier 91496- 6 Result Time 2018-06-28 12:51:00Unknown Test Item Value Reference Range Comments Unknown (test code = 2571-8) 113 mg/dL Unknown Unknown F Ordering Physician UnknownLaboratory Aujtvun4640-96-98 12:51:00Identifier 42551- 6 Result Time 2018-06-28 12:51:00Unknown Test Item Value Reference Range Comments Unknown (test code = 2885-2) 6.6 g/dL Unknown 6.4-8.9 F Ordering Physician UnknownLaboratory Jtozbsk7012-47-97 12:51:00Identifier 49972- 6 Result Time 2018-06-28 12:51:00Unknown Test Item Value Reference Range Comments Unknown (test code = 1975-2) 0.80 mg/dL Unknown 0.2-1.0 F Ordering Physician UnknownLaboratory Bmyigog6558-41-59 12:51:00Identifier 86459- 6 Result Time 2018-06-28 12:51:00Unknown Test Item Value Reference Range Comments Unknown (test code = 2089-1) 97 mg/dL Unknown Unknown F Ordering Physician UnknownLaboratory Fyfclzc0511-07-58 12:51:00Identifier 32812- 6 Result Time 2018-06-28 12:51:00Unknown Test Item Value Reference Range Comments Unknown (test code = 2085-9) 45.9 mg/dL Unknown Unknown F Ordering Physician UnknownLaboratory Jgezpsw6652-66-00 12:51:00Identifier 62440- 6 Result Time 2018-06-28 12:51:00Unknown Test Item Value Reference Range Comments Unknown (test code = NullTestCode) 2.7 g/dL Unknown 2-4 F Ordering Physician UnknownLaboratory Cvzukbf4187-61-54 12:51:00Identifier 21303- 6 Result Time 2018-06-28 12:51:00Unknown Test Item Value Reference Range Comments Unknown (test code = 2093-3) 165 mg/dL Unknown Unknown F Ordering Physician UnknownLaboratory Wyvkbnf5107-26-56 12:51:00Identifier 52965- 6 Result Time 2018-06-28 12:51:00Unknown Test Item Value Reference Range Comments Unknown (test code = 1920-8) 20 U/L Unknown 13-39 F Ordering Physician UnknownLaboratory Hdlurzc1599-29-81 12:51:00Identifier 05990- 6 Result Time 2018-06-28 12:51:00Unknown Test Item Value Reference Range Comments Unknown (test code = 6768-6) 72 U/L Unknown 34-104 F Ordering Physician UnknownLaboratory Ltpckdj7139-76-77 12:51:00Identifier 54957- 6 Result Time 2018-06-28 12:51:00Unknown Test Item Value Reference Range Comments Unknown (test code = 1759-0) 1.4 Unknown 1-3 F Ordering Physician UnknownLaboratory Ewkftar8684-65-02 12:51:00Identifier 00953- 6 Result Time 2018-06-28 12:51:00Unknown Test Item Value Reference Range Comments Unknown (test code = 44016-0) 3.9 g/dL Unknown 3.2-5.2 F Ordering Physician UnknownLaboratory Pcbyajc3856-68-89 12:51:00Identifier 54727- 6 Result Time 2018-06-28 12:51:00Unknown Test Item Value Reference Range Comments Unknown (test code = 1742-6) 18 U/L Unknown 7-52 F Ordering Physician UnknownLaboratory Dcfxctd9217-58-81 12:51:00Identifier 90779- 6 Result Time 2018-06-28 12:51:00Unknown Test Item Value Reference Range Comments Unknown (test code = NullTestCode) 6.0 Unknown 5-9 F Ordering Physician UnknownLaboratory Mqlywmm7692-11-86 12:51:00Identifier 23293- 6 Result Time 2018-06-28 12:51:00Unknown Test Item Value Reference Range Comments Unknown (test code = 65606-2) 1.020 Unknown 1.010-1.030 F Ordering Physician UnknownLaboratory Pjwzbwy6684-61-07 12:51:00Identifier 60498- 6 Result Time 2018-06-28 12:51:00Unknown Test Item Value Reference Range Comments Unknown (test code = 99158-1) 9.5 10^3/ul Unknown 3.5-10.8 F Ordering Physician UnknownLaboratory Tqxldnl6094-43-95 12:51:00Identifier 92464- 6 Result Time 2018-06-28 12:51:00Unknown Test Item Value Reference Range Comments Unknown (test code = 788-0) 13 % Unknown 10.5-15 F Ordering Physician UnknownLaboratory Ubfwlhg1071-21-82 12:51:00Identifier 89607- 6 Result Time 2018-06-28 12:51:00Unknown Test Item Value Reference Range Comments Unknown (test code = 789-8) 4.97 10^6/ul Unknown 4.00-5.40 F Ordering Physician UnknownLaboratory Lbpwbbx0112-21-66 12:51:00Identifier 40603- 6 Result Time 2018-06-28 12:51:00Unknown Test Item Value Reference Range Comments Unknown (test code = 40276-7) 0 Unknown Unknown F Ordering Physician UnknownLaboratory Agmzgmx7801-49-83 12:51:00Identifier 04320- 6 Result Time 2018-06-28 12:51:00Unknown Test Item Value Reference Range Comments Unknown (test code = 771-6) 0 10^3/ul Unknown Unknown F Ordering Physician UnknownLaboratory Resvdef6181-96-81 12:51:00Identifier 75296- 6 Result Time 2018-06-28 12:51:00Unknown Test Item Value Reference Range Comments Unknown (test code = 770-8) 64.5 % Unknown Unknown F Ordering Physician UnknownLaboratory Mltgpmi7930-49-31 12:51:00Identifier 98006- 6 Result Time 2018-06-28 12:51:00Unknown Test Item Value Reference Range Comments Unknown (test code = 5905-5) 6.6 % Unknown Unknown F Ordering Physician UnknownLaboratory Llqwavg3458-84-84 12:51:00Identifier 74135- 6 Result Time 2018-06-28 12:51:00Unknown Test Item Value Reference Range Comments Unknown (test code = 787-2) 94 fL Unknown 80-97 F Ordering Physician UnknownLaboratory Dtcoehl8238-15-99 12:51:00Identifier 73477- 6 Result Time 2018-06-28 12:51:00Unknown Test Item Value Reference Range Comments Unknown (test code = 786-4) 34 g/dl Unknown 31-36 F Ordering Physician UnknownLaboratory Vdvkrcl6789-05-52 12:51:00Identifier 32052- 6 Result Time 2018-06-28 12:51:00Unknown Test Item Value Reference Range Comments Unknown (test code = 785-6) 32 pg Unknown 27-31 F Ordering Physician UnknownLaboratory Cofgqzv4506-42-27 12:51:00Identifier 59451- 6 Result Time 2018-06-28 12:51:00Unknown Test Item Value Reference Range Comments Unknown (test code = 736-9) 27.1 % Unknown Unknown F Ordering Physician UnknownLaboratory Spvrsot7052-67-73 12:51:00Identifier 35515- 6 Result Time 2018-06-28 12:51:00Unknown Test Item Value Reference Range Comments Unknown (test code = 713-8) 1.3 % Unknown Unknown F Ordering Physician UnknownLaboratory Zixsdcl1656-44-74 12:51:00Identifier 76711- 6 Result Time 2018-06-28 12:51:00Unknown Test Item Value Reference Range Comments Unknown (test code = 706-2) 0.5 % Unknown Unknown F Ordering Physician UnknownLaboratory Vaoxrfk0543-49-95 12:51:00Identifier 84149- 6 Result Time 2018-06-28 12:51:00Unknown Test Item Value Reference Range Comments Unknown (test code = 751-8) 6.1 10^3/ul Unknown 1.5-7.7 F Ordering Physician UnknownLaboratory Dxmippi7413-91-23 12:51:00Identifier 38242- 6 Result Time 2018-06-28 12:51:00Unknown Test Item Value Reference Range Comments Unknown (test code = 742-7) 0.6 10^3/ul Unknown 0-0.8 F Ordering Physician UnknownLaboratory Efxwlbx4891-10-75 12:51:00Identifier 43657- 6 Result Time 2018-06-28 12:51:00Unknown Test Item Value Reference Range Comments Unknown (test code = 731-0) 2.6 10^3/ul Unknown 1.0-4.8 F Ordering Physician UnknownLaboratory Xkgsnnb4204-82-43 12:51:00Identifier 21689- 6 Result Time 2018-06-28 12:51:00Unknown Test Item Value Reference Range Comments Unknown (test code = 711-2) 0.1 10^3/ul Unknown 0-0.6 F Ordering Physician UnknownLaboratory Kbjutui4445-12-17 12:51:00Identifier 55177- 6 Result Time 2018-06-28 12:51:00Unknown Test Item Value Reference Range Comments Unknown (test code = 704-7) 0 10^3/ul Unknown 0-0.2 F Ordering Physician Unknown
--- OUTSIDE RECORDS SUMMARY | 2019-05-19 20:50 | XMS REPORT ---
:1940 Author Organization [facility] Care Team Providers Name Role Phone Unavailable [...] Result Comments Laboratory Studies 2018-07-12 06:03:00 Identifier [id number] Result Time Unknown 2018-07-12 06:03:00 Test Item Value Reference Range Comments Unknown (test code = 42010-5) 1.14 Unknown 0.77-1.02 F Ordering Physician UnknownLaboratory Glnqsib9899-53-13 06:03:00Identifier 29714- 6 Result Time 2018-07-12 06:03:00Unknown Test Item Value Reference Range Comments Unknown (test code = 777-3) 192 10^3/ul Unknown 150-450 F Ordering Physician UnknownLaboratory Omwnznk2248-37-58 06:03:00Identifier 13116- 6 Result Time 2018-07-12 06:03:00Unknown Test Item Value Reference Range Comments Unknown (test code = 83695-4) 9.3 fL Unknown 7.4-10.4 F Ordering Physician UnknownLaboratory Dxrpvvb7419-24-20 06:03:00Identifier 36038- 6 Result Time 2018-07-12 06:03:00Unknown Test Item Value Reference Range Comments Unknown (test code = 718-7) 13.8 g/dl Unknown 12.0-16.0 F Ordering Physician UnknownLaboratory Kceyrrt7359-31-16 06:03:00Identifier 01041- 6 Result Time 2018-07-12 06:03:00Unknown Test Item Value Reference Range Comments Unknown (test code = 4544-3) 41 % Unknown 35-47 F Ordering Physician UnknownLaboratory Fhyqxjf7833-29-20 06:00:00Identifier 14796- 6 Result Time 2018-07-12 06:00:00Unknown Test Item Value Reference Range Comments Unknown (test code = 2951-2) 139 mmol/L Unknown 135-145 F Ordering Physician UnknownLaboratory Qwllekl3989-35-37 06:00:00Identifier 99927- 6 Result Time 2018-07-12 06:00:00Unknown Test Item Value Reference Range Comments Unknown (test code = 2823-3) 3.5 mmol/L Unknown 3.5-5.0 F Ordering Physician UnknownLaboratory Veqbqcx5769-26-82 06:00:00Identifier 21116- 6 Result Time 2018-07-12 06:00:00Unknown Test Item Value Reference Range Comments Unknown (test code = 92769-2) 1.7 mg/dL Unknown 1.9-2.7 F Ordering Physician UnknownLaboratory Bevnidw3580-04-50 06:00:00Identifier 61462- 6 Result Time 2018-07-12 06:00:00Unknown Test Item Value Reference Range Comments Unknown (test code = 2345-7) 142 mg/dL Unknown 70-100 F Ordering Physician UnknownLaboratory Qkctmor0504-25-59 06:00:00Identifier 45534- 6 Result Time 2018-07-12 06:00:00Unknown Test Item Value Reference Range Comments Unknown (test code = 57850-8) 94.9 Unknown Unknown F Ordering Physician UnknownLaboratory Gxfgoag2186-01-43 06:00:00Identifier 05877- 6 Result Time 2018-07-12 06:00:00Unknown Test Item Value Reference Range Comments Unknown (test code = NullTestCode) 114.8 Unknown Unknown F Ordering Physician UnknownLaboratory Etmveox9108-39-58 06:00:00Identifier 30763- 6 Result Time 2018-07-12 06:00:00Unknown Test Item Value Reference Range Comments Unknown (test code = 2160-0) 0.61 mg/dL Unknown 0.51-0.95 F Ordering Physician UnknownLaboratory Xhcqeeh3798-07-18 06:00:00Identifier 96061- 6 Result Time 2018-07-12 06:00:00Unknown Test Item Value Reference Range Comments Unknown (test code = 2075-0) 104 mmol/L Unknown 101-111 F Ordering Physician UnknownLaboratory Agztaza6212-66-31 06:00:00Identifier 00660- 6 Result Time 2018-07-12 06:00:00Unknown Test Item Value Reference Range Comments Unknown (test code = 2028-9) 29 mmol/L Unknown 22-32 F Ordering Physician UnknownLaboratory Wiybvwv7283-64-38 06:00:00Identifier 69780- 6 Result Time 2018-07-12 06:00:00Unknown Test Item Value Reference Range Comments Unknown (test code = 72729-7) 8.2 mg/dL Unknown 8.6-10.3 F Ordering Physician UnknownLaboratory Oiljgmw7254-78-42 06:00:00Identifier 12278- 6 Result Time 2018-07-12 06:00:00Unknown Test Item Value Reference Range Comments Unknown (test code = 3094-0) 11 mg/dL Unknown 6-24 F Ordering Physician UnknownLaboratory Spnlssx1927-99-28 06:00:00Identifier 64651- 6 Result Time 2018-07-12 06:00:00Unknown Test Item Value Reference Range Comments Unknown (test code = 3097-3) 18.0 Unknown 8-20 F Ordering Physician UnknownLaboratory Yqhvhrq4830-77-24 06:00:00Identifier 22035- 6 Result Time 2018-07-12 06:00:00Unknown Test Item Value Reference Range Comments Unknown (test code = 14344-5) 6 mmol/L Unknown 2-11 F Ordering Physician UnknownLaboratory Eatqlfc3759-07-68 06:37:00Identifier 84520- 6 Result Time 2018-07-11 06:37:00Unknown Test Item Value Reference Range Comments Unknown (test code = 75787-6) 26.1 seconds Unknown 26.0-36.3 F Ordering Physician UnknownLaboratory Fiivxhy9238-17-78 12:51:00Identifier 75416- 6 Result Time 2018-06-28 12:51:00Unknown Test Item Value Reference Range Comments Unknown (test code = 3024-7) 0.82 ng/dL Unknown 0.61-1.12 F Ordering Physician UnknownLaboratory Uhtqryi0116-70-38 12:51:00Identifier 94329- 6 Result Time 2018-06-28 12:51:00Unknown Test Item Value Reference Range Comments Unknown (test code = 3016-3) 2.01 mcIU/mL Unknown 0.34-5.60 F Ordering Physician UnknownLaboratory Cuonhnd6305-09-55 12:51:00Identifier 67339- 6 Result Time 2018-06-28 12:51:00Unknown Test Item Value Reference Range Comments Unknown (test code = 74390-0) 0.7 ng/ml Unknown 0.8-2.0 F Ordering Physician UnknownLaboratory Brvamfe0695-84-77 12:51:00Identifier 06586- 6 Result Time 2018-06-28 12:51:00Unknown Test Item Value Reference Range Comments Unknown (test code = 2571-8) 113 mg/dL Unknown Unknown F Ordering Physician UnknownLaboratory Bxpecdn1660-23-53 12:51:00Identifier 78189- 6 Result Time 2018-06-28 12:51:00Unknown Test Item Value Reference Range Comments Unknown (test code = 2885-2) 6.6 g/dL Unknown 6.4-8.9 F Ordering Physician UnknownLaboratory Gdmqxfy7251-88-20 12:51:00Identifier 78902- 6 Result Time 2018-06-28 12:51:00Unknown Test Item Value Reference Range Comments Unknown (test code = 1975-2) 0.80 mg/dL Unknown 0.2-1.0 F Ordering Physician UnknownLaboratory Umulceq3528-20-34 12:51:00Identifier 98571- 6 Result Time 2018-06-28 12:51:00Unknown Test Item Value Reference Range Comments Unknown (test code = 2089-1) 97 mg/dL Unknown Unknown F Ordering Physician UnknownLaboratory Zhfdqgd3737-60-58 12:51:00Identifier 22381- 6 Result Time 2018-06-28 12:51:00Unknown Test Item Value Reference Range Comments Unknown (test code = 2085-9) 45.9 mg/dL Unknown Unknown F Ordering Physician UnknownLaboratory Jgdrmxx4186-30-81 12:51:00Identifier 05365- 6 Result Time 2018-06-28 12:51:00Unknown Test Item Value Reference Range Comments Unknown (test code = NullTestCode) 2.7 g/dL Unknown 2-4 F Ordering Physician UnknownLaboratory Taguhmu3450-97-15 12:51:00Identifier 57234- 6 Result Time 2018-06-28 12:51:00Unknown Test Item Value Reference Range Comments Unknown (test code = 2093-3) 165 mg/dL Unknown Unknown F Ordering Physician UnknownLaboratory Jgfbaye5943-38-61 12:51:00Identifier 04678- 6 Result Time 2018-06-28 12:51:00Unknown Test Item Value Reference Range Comments Unknown (test code = 1920-8) 20 U/L Unknown 13-39 F Ordering Physician UnknownLaboratory Zanejof0137-05-82 12:51:00Identifier 21304- 6 Result Time 2018-06-28 12:51:00Unknown Test Item Value Reference Range Comments Unknown (test code = 6768-6) 72 U/L Unknown 34-104 F Ordering Physician UnknownLaboratory Kzlgfes6443-58-97 12:51:00Identifier 35530- 6 Result Time 2018-06-28 12:51:00Unknown Test Item Value Reference Range Comments Unknown (test code = 1759-0) 1.4 Unknown 1-3 F Ordering Physician UnknownLaboratory Ndrtqjj1104-61-37 12:51:00Identifier 37879- 6 Result Time 2018-06-28 12:51:00Unknown Test Item Value Reference Range Comments Unknown (test code = 34229-3) 3.9 g/dL Unknown 3.2-5.2 F Ordering Physician UnknownLaboratory Ztazoyv3656-92-41 12:51:00Identifier 81711- 6 Result Time 2018-06-28 12:51:00Unknown Test Item Value Reference Range Comments Unknown (test code = 1742-6) 18 U/L Unknown 7-52 F Ordering Physician UnknownLaboratory Ktwuwzv6728-39-16 12:51:00Identifier 23016- 6 Result Time 2018-06-28 12:51:00Unknown Test Item Value Reference Range Comments Unknown (test code = NullTestCode) 6.0 Unknown 5-9 F Ordering Physician UnknownLaboratory Xuoeaic3423-93-18 12:51:00Identifier 40046- 6 Result Time 2018-06-28 12:51:00Unknown Test Item Value Reference Range Comments Unknown (test code = 05114-7) 1.020 Unknown 1.010-1.030 F Ordering Physician UnknownLaboratory Vqrihef3308-04-37 12:51:00Identifier 47861- 6 Result Time 2018-06-28 12:51:00Unknown Test Item Value Reference Range Comments Unknown (test code = 38426-4) 9.5 10^3/ul Unknown 3.5-10.8 F Ordering Physician UnknownLaboratory Qvlmuez1956-66-36 12:51:00Identifier 45181- 6 Result Time 2018-06-28 12:51:00Unknown Test Item Value Reference Range Comments Unknown (test code = 788-0) 13 % Unknown 10.5-15 F Ordering Physician UnknownLaboratory Xmoejyu2477-65-17 12:51:00Identifier 51215- 6 Result Time 2018-06-28 12:51:00Unknown Test Item Value Reference Range Comments Unknown (test code = 789-8) 4.97 10^6/ul Unknown 4.00-5.40 F Ordering Physician UnknownLaboratory Pgbdghm8592-25-30 12:51:00Identifier 56260- 6 Result Time 2018-06-28 12:51:00Unknown Test Item Value Reference Range Comments Unknown (test code = 72482-0) 0 Unknown Unknown F Ordering Physician UnknownLaboratory Jzgpobx0460-25-26 12:51:00Identifier 83478- 6 Result Time 2018-06-28 12:51:00Unknown Test Item Value Reference Range Comments Unknown (test code = 771-6) 0 10^3/ul Unknown Unknown F Ordering Physician UnknownLaboratory Xycynxj8638-89-14 12:51:00Identifier 25029- 6 Result Time 2018-06-28 12:51:00Unknown Test Item Value Reference Range Comments Unknown (test code = 770-8) 64.5 % Unknown Unknown F Ordering Physician UnknownLaboratory Umanuyn8817-10-06 12:51:00Identifier 00684- 6 Result Time 2018-06-28 12:51:00Unknown Test Item Value Reference Range Comments Unknown (test code = 5905-5) 6.6 % Unknown Unknown F Ordering Physician UnknownLaboratory Wrotuam9696-85-94 12:51:00Identifier 96857- 6 Result Time 2018-06-28 12:51:00Unknown Test Item Value Reference Range Comments Unknown (test code = 787-2) 94 fL Unknown 80-97 F Ordering Physician UnknownLaboratory Tgoboum2336-82-61 12:51:00Identifier 30222- 6 Result Time 2018-06-28 12:51:00Unknown Test Item Value Reference Range Comments Unknown (test code = 786-4) 34 g/dl Unknown 31-36 F Ordering Physician UnknownLaboratory Uiardgq7885-49-61 12:51:00Identifier 49757- 6 Result Time 2018-06-28 12:51:00Unknown Test Item Value Reference Range Comments Unknown (test code = 785-6) 32 pg Unknown 27-31 F Ordering Physician UnknownLaboratory Qkwhofu3711-95-71 12:51:00Identifier 91976- 6 Result Time 2018-06-28 12:51:00Unknown Test Item Value Reference Range Comments Unknown (test code = 736-9) 27.1 % Unknown Unknown F Ordering Physician UnknownLaboratory Ptnvewv6461-92-85 12:51:00Identifier 48962- 6 Result Time 2018-06-28 12:51:00Unknown Test Item Value Reference Range Comments Unknown (test code = 713-8) 1.3 % Unknown Unknown F Ordering Physician UnknownLaboratory Sxvlxip6106-58-71 12:51:00Identifier 88566- 6 Result Time 2018-06-28 12:51:00Unknown Test Item Value Reference Range Comments Unknown (test code = 706-2) 0.5 % Unknown Unknown F Ordering Physician UnknownLaboratory Grtyxem8814-71-06 12:51:00Identifier 87246- 6 Result Time 2018-06-28 12:51:00Unknown Test Item Value Reference Range Comments Unknown (test code = 751-8) 6.1 10^3/ul Unknown 1.5-7.7 F Ordering Physician UnknownLaboratory Wcbnhuf9820-36-09 12:51:00Identifier 34137- 6 Result Time 2018-06-28 12:51:00Unknown Test Item Value Reference Range Comments Unknown (test code = 742-7) 0.6 10^3/ul Unknown 0-0.8 F Ordering Physician UnknownLaboratory Awxyxrt4923-54-33 12:51:00Identifier 83506- 6 Result Time 2018-06-28 12:51:00Unknown Test Item Value Reference Range Comments Unknown (test code = 731-0) 2.6 10^3/ul Unknown 1.0-4.8 F Ordering Physician UnknownLaboratory Kixwwll3719-05-51 12:51:00Identifier 98232- 6 Result Time 2018-06-28 12:51:00Unknown Test Item Value Reference Range Comments Unknown (test code = 711-2) 0.1 10^3/ul Unknown 0-0.6 F Ordering Physician UnknownLaboratory Znzgych8484-52-03 12:51:00Identifier 57027- 6 Result Time 2018-06-28 12:51:00Unknown Test Item Value Reference Range Comments Unknown (test code = 704-7) 0 10^3/ul Unknown 0-0.2 F Ordering Physician Unknown
--- OUTSIDE RECORDS SUMMARY | 2019-05-19 20:50 | XMS REPORT ---
:1940 Author Organization [facility] Care Team Providers Name Role Phone Unavailable [...] Result Comments Laboratory Studies 2018-07-12 06:03:00 Identifier 81376-3 Result Time Unknown 2018-07-12 06:03:00 Test Item Value Reference Range Comments Unknown (test code = 21807-4) 1.14 Unknown 0.77-1.02 F Ordering Physician UnknownLaboratory Gtnkmrq5709-64-94 06:03:00Identifier 38260- 6 Result Time 2018-07-12 06:03:00Unknown Test Item Value Reference Range Comments Unknown (test code = 777-3) 192 10^3/ul Unknown 150-450 F Ordering Physician UnknownLaboratory Jaxuhoo8311-97-10 06:03:00Identifier 40223- 6 Result Time 2018-07-12 06:03:00Unknown Test Item Value Reference Range Comments Unknown (test code = 21220-6) 9.3 fL Unknown 7.4-10.4 F Ordering Physician UnknownLaboratory Qiybdcb1015-49-06 06:03:00Identifier 29581- 6 Result Time 2018-07-12 06:03:00Unknown Test Item Value Reference Range Comments Unknown (test code = 718-7) 13.8 g/dl Unknown 12.0-16.0 F Ordering Physician UnknownLaboratory Uzrxacu4177-82-74 06:03:00Identifier 05082- 6 Result Time 2018-07-12 06:03:00Unknown Test Item Value Reference Range Comments Unknown (test code = 4544-3) 41 % Unknown 35-47 F Ordering Physician UnknownLaboratory Ppvglza8447-67-23 06:00:00Identifier 96382- 6 Result Time 2018-07-12 06:00:00Unknown Test Item Value Reference Range Comments Unknown (test code = 2951-2) 139 mmol/L Unknown 135-145 F Ordering Physician UnknownLaboratory Dlgecop4416-86-09 06:00:00Identifier 86037- 6 Result Time 2018-07-12 06:00:00Unknown Test Item Value Reference Range Comments Unknown (test code = 2823-3) 3.5 mmol/L Unknown 3.5-5.0 F Ordering Physician UnknownLaboratory Jlftnmt5883-40-08 06:00:00Identifier 69339- 6 Result Time 2018-07-12 06:00:00Unknown Test Item Value Reference Range Comments Unknown (test code = 29460-6) 1.7 mg/dL Unknown 1.9-2.7 F Ordering Physician UnknownLaboratory Irxnetj9781-57-88 06:00:00Identifier 87201- 6 Result Time 2018-07-12 06:00:00Unknown Test Item Value Reference Range Comments Unknown (test code = 2345-7) 142 mg/dL Unknown 70-100 F Ordering Physician UnknownLaboratory Arsgnll4429-70-60 06:00:00Identifier 54455- 6 Result Time 2018-07-12 06:00:00Unknown Test Item Value Reference Range Comments Unknown (test code = 47045-2) 94.9 Unknown Unknown F Ordering Physician UnknownLaboratory Ofknvsv2546-43-33 06:00:00Identifier 56005- 6 Result Time 2018-07-12 06:00:00Unknown Test Item Value Reference Range Comments Unknown (test code = NullTestCode) 114.8 Unknown Unknown F Ordering Physician UnknownLaboratory Mgkeqym6216-54-60 06:00:00Identifier 73262- 6 Result Time 2018-07-12 06:00:00Unknown Test Item Value Reference Range Comments Unknown (test code = 2160-0) 0.61 mg/dL Unknown 0.51-0.95 F Ordering Physician UnknownLaboratory Hmflbsu0529-97-77 06:00:00Identifier 45205- 6 Result Time 2018-07-12 06:00:00Unknown Test Item Value Reference Range Comments Unknown (test code = 2075-0) 104 mmol/L Unknown 101-111 F Ordering Physician UnknownLaboratory Lcqkvsp7294-34-81 06:00:00Identifier 60755- 6 Result Time 2018-07-12 06:00:00Unknown Test Item Value Reference Range Comments Unknown (test code = 2028-9) 29 mmol/L Unknown 22-32 F Ordering Physician UnknownLaboratory Ffjyfyz8396-62-76 06:00:00Identifier 75661- 6 Result Time 2018-07-12 06:00:00Unknown Test Item Value Reference Range Comments Unknown (test code = 62744-4) 8.2 mg/dL Unknown 8.6-10.3 F Ordering Physician UnknownLaboratory Wdstxom4346-36-44 06:00:00Identifier 64335- 6 Result Time 2018-07-12 06:00:00Unknown Test Item Value Reference Range Comments Unknown (test code = 3094-0) 11 mg/dL Unknown 6-24 F Ordering Physician UnknownLaboratory Xpbbjrp3747-46-97 06:00:00Identifier 45084- 6 Result Time 2018-07-12 06:00:00Unknown Test Item Value Reference Range Comments Unknown (test code = 3097-3) 18.0 Unknown 8-20 F Ordering Physician UnknownLaboratory Ihlbwju8632-63-13 06:00:00Identifier 09761- 6 Result Time 2018-07-12 06:00:00Unknown Test Item Value Reference Range Comments Unknown (test code = 46593-9) 6 mmol/L Unknown 2-11 F Ordering Physician UnknownLaboratory Evtyryz0674-90-44 06:37:00Identifier 13568- 6 Result Time 2018-07-11 06:37:00Unknown Test Item Value Reference Range Comments Unknown (test code = 73531-2) 26.1 seconds Unknown 26.0-36.3 F Ordering Physician UnknownLaboratory Nozlnoy3695-48-32 12:51:00Identifier 24020- 6 Result Time 2018-06-28 12:51:00Unknown Test Item Value Reference Range Comments Unknown (test code = 3024-7) 0.82 ng/dL Unknown 0.61-1.12 F Ordering Physician UnknownLaboratory Fccrmlt3101-87-34 12:51:00Identifier 89602- 6 Result Time 2018-06-28 12:51:00Unknown Test Item Value Reference Range Comments Unknown (test code = 3016-3) 2.01 mcIU/mL Unknown 0.34-5.60 F Ordering Physician UnknownLaboratory Pjabhpw7480-98-12 12:51:00Identifier 04188- 6 Result Time 2018-06-28 12:51:00Unknown Test Item Value Reference Range Comments Unknown (test code = 71822-0) 0.7 ng/ml Unknown 0.8-2.0 F Ordering Physician UnknownLaboratory Btmnbhh6013-13-55 12:51:00Identifier 82473- 6 Result Time 2018-06-28 12:51:00Unknown Test Item Value Reference Range Comments Unknown (test code = 2571-8) 113 mg/dL Unknown Unknown F Ordering Physician UnknownLaboratory Nhnfrxz0684-13-70 12:51:00Identifier 07434- 6 Result Time 2018-06-28 12:51:00Unknown Test Item Value Reference Range Comments Unknown (test code = 2885-2) 6.6 g/dL Unknown 6.4-8.9 F Ordering Physician UnknownLaboratory Qoeqokh4125-92-20 12:51:00Identifier 19701- 6 Result Time 2018-06-28 12:51:00Unknown Test Item Value Reference Range Comments Unknown (test code = 1975-2) 0.80 mg/dL Unknown 0.2-1.0 F Ordering Physician UnknownLaboratory Xtrqqdc4939-77-59 12:51:00Identifier 92013- 6 Result Time 2018-06-28 12:51:00Unknown Test Item Value Reference Range Comments Unknown (test code = 2089-1) 97 mg/dL Unknown Unknown F Ordering Physician UnknownLaboratory Fosqetd4099-66-25 12:51:00Identifier 48215- 6 Result Time 2018-06-28 12:51:00Unknown Test Item Value Reference Range Comments Unknown (test code = 2085-9) 45.9 mg/dL Unknown Unknown F Ordering Physician UnknownLaboratory Qfcxwza8671-75-62 12:51:00Identifier 75230- 6 Result Time 2018-06-28 12:51:00Unknown Test Item Value Reference Range Comments Unknown (test code = NullTestCode) 2.7 g/dL Unknown 2-4 F Ordering Physician UnknownLaboratory Zyluqne9779-76-84 12:51:00Identifier 39540- 6 Result Time 2018-06-28 12:51:00Unknown Test Item Value Reference Range Comments Unknown (test code = 2093-3) 165 mg/dL Unknown Unknown F Ordering Physician UnknownLaboratory Kecrsjy5260-79-17 12:51:00Identifier 71060- 6 Result Time 2018-06-28 12:51:00Unknown Test Item Value Reference Range Comments Unknown (test code = 1920-8) 20 U/L Unknown 13-39 F Ordering Physician UnknownLaboratory Fpgpttu2108-47-87 12:51:00Identifier 52385- 6 Result Time 2018-06-28 12:51:00Unknown Test Item Value Reference Range Comments Unknown (test code = 6768-6) 72 U/L Unknown 34-104 F Ordering Physician UnknownLaboratory Xujgugy2821-20-16 12:51:00Identifier 05304- 6 Result Time 2018-06-28 12:51:00Unknown Test Item Value Reference Range Comments Unknown (test code = 1759-0) 1.4 Unknown 1-3 F Ordering Physician UnknownLaboratory Ajtdxme6793-48-67 12:51:00Identifier 36007- 6 Result Time 2018-06-28 12:51:00Unknown Test Item Value Reference Range Comments Unknown (test code = 63929-5) 3.9 g/dL Unknown 3.2-5.2 F Ordering Physician UnknownLaboratory Blfacnf2448-24-46 12:51:00Identifier 33880- 6 Result Time 2018-06-28 12:51:00Unknown Test Item Value Reference Range Comments Unknown (test code = 1742-6) 18 U/L Unknown 7-52 F Ordering Physician UnknownLaboratory Mstqhxf7327-73-75 12:51:00Identifier 69074- 6 Result Time 2018-06-28 12:51:00Unknown Test Item Value Reference Range Comments Unknown (test code = NullTestCode) 6.0 Unknown 5-9 F Ordering Physician UnknownLaboratory Ezgddwh8447-37-97 12:51:00Identifier 92979- 6 Result Time 2018-06-28 12:51:00Unknown Test Item Value Reference Range Comments Unknown (test code = 72073-9) 1.020 Unknown 1.010-1.030 F Ordering Physician UnknownLaboratory Ssqqfbq1824-10-22 12:51:00Identifier 46599- 6 Result Time 2018-06-28 12:51:00Unknown Test Item Value Reference Range Comments Unknown (test code = 59222-1) 9.5 10^3/ul Unknown 3.5-10.8 F Ordering Physician UnknownLaboratory Xbejlyy4863-94-41 12:51:00Identifier 96283- 6 Result Time 2018-06-28 12:51:00Unknown Test Item Value Reference Range Comments Unknown (test code = 788-0) 13 % Unknown 10.5-15 F Ordering Physician UnknownLaboratory Dmayfpc9303-86-22 12:51:00Identifier 85809- 6 Result Time 2018-06-28 12:51:00Unknown Test Item Value Reference Range Comments Unknown (test code = 789-8) 4.97 10^6/ul Unknown 4.00-5.40 F Ordering Physician UnknownLaboratory Rxrdrfn7862-53-79 12:51:00Identifier 56139- 6 Result Time 2018-06-28 12:51:00Unknown Test Item Value Reference Range Comments Unknown (test code = 35211-9) 0 Unknown Unknown F Ordering Physician UnknownLaboratory Rrzqokz9964-30-01 12:51:00Identifier 88852- 6 Result Time 2018-06-28 12:51:00Unknown Test Item Value Reference Range Comments Unknown (test code = 771-6) 0 10^3/ul Unknown Unknown F Ordering Physician UnknownLaboratory Fgvtvtj4431-22-21 12:51:00Identifier 16312- 6 Result Time 2018-06-28 12:51:00Unknown Test Item Value Reference Range Comments Unknown (test code = 770-8) 64.5 % Unknown Unknown F Ordering Physician UnknownLaboratory Kmfgfti9557-99-42 12:51:00Identifier 99592- 6 Result Time 2018-06-28 12:51:00Unknown Test Item Value Reference Range Comments Unknown (test code = 5905-5) 6.6 % Unknown Unknown F Ordering Physician UnknownLaboratory Ssoqfge4795-75-04 12:51:00Identifier 87935- 6 Result Time 2018-06-28 12:51:00Unknown Test Item Value Reference Range Comments Unknown (test code = 787-2) 94 fL Unknown 80-97 F Ordering Physician UnknownLaboratory Dumgqwq9579-02-59 12:51:00Identifier 16581- 6 Result Time 2018-06-28 12:51:00Unknown Test Item Value Reference Range Comments Unknown (test code = 786-4) 34 g/dl Unknown 31-36 F Ordering Physician UnknownLaboratory Osulbpl7635-51-42 12:51:00Identifier 57785- 6 Result Time 2018-06-28 12:51:00Unknown Test Item Value Reference Range Comments Unknown (test code = 785-6) 32 pg Unknown 27-31 F Ordering Physician UnknownLaboratory Hrvkezf2546-94-67 12:51:00Identifier 19922- 6 Result Time 2018-06-28 12:51:00Unknown Test Item Value Reference Range Comments Unknown (test code = 736-9) 27.1 % Unknown Unknown F Ordering Physician UnknownLaboratory Kwjbgnv5378-79-91 12:51:00Identifier 07291- 6 Result Time 2018-06-28 12:51:00Unknown Test Item Value Reference Range Comments Unknown (test code = 713-8) 1.3 % Unknown Unknown F Ordering Physician UnknownLaboratory Bmjjnhq7320-13-46 12:51:00Identifier 04489- 6 Result Time 2018-06-28 12:51:00Unknown Test Item Value Reference Range Comments Unknown (test code = 706-2) 0.5 % Unknown Unknown F Ordering Physician UnknownLaboratory Zeaepwx8876-82-23 12:51:00Identifier 71681- 6 Result Time 2018-06-28 12:51:00Unknown Test Item Value Reference Range Comments Unknown (test code = 751-8) 6.1 10^3/ul Unknown 1.5-7.7 F Ordering Physician UnknownLaboratory Cfeofjn3591-43-66 12:51:00Identifier 79766- 6 Result Time 2018-06-28 12:51:00Unknown Test Item Value Reference Range Comments Unknown (test code = 742-7) 0.6 10^3/ul Unknown 0-0.8 F Ordering Physician UnknownLaboratory Wxeeijj2786-22-69 12:51:00Identifier 17374- 6 Result Time 2018-06-28 12:51:00Unknown Test Item Value Reference Range Comments Unknown (test code = 731-0) 2.6 10^3/ul Unknown 1.0-4.8 F Ordering Physician UnknownLaboratory Dpddlbb7102-96-65 12:51:00Identifier 10411- 6 Result Time 2018-06-28 12:51:00Unknown Test Item Value Reference Range Comments Unknown (test code = 711-2) 0.1 10^3/ul Unknown 0-0.6 F Ordering Physician UnknownLaboratory Iborwpr7680-97-38 12:51:00Identifier 73666- 6 Result Time 2018-06-28 12:51:00Unknown Test Item Value Reference Range Comments Unknown (test code = 704-7) 0 10^3/ul Unknown 0-0.2 F Ordering Physician Unknown
--- OUTSIDE RECORDS SUMMARY | 2019-05-19 20:50 | XMS REPORT ---
:1940 Author Organization [facility] Care Team Providers Name Role Phone Unavailable [...] Result Comments Laboratory Studies 2018-07-12 06:03:00 Identifier [id number] Result Time Unknown 2018-07-12 06:03:00 Test Item Value Reference Range Comments Unknown (test code = 31877-1) 1.14 Unknown 0.77-1.02 F Ordering Physician UnknownLaboratory Uhrtauy3529-27-74 06:03:00Identifier 86388- 6 Result Time 2018-07-12 06:03:00Unknown Test Item Value Reference Range Comments Unknown (test code = 777-3) 192 10^3/ul Unknown 150-450 F Ordering Physician UnknownLaboratory Bzeagem6609-79-79 06:03:00Identifier 90285- 6 Result Time 2018-07-12 06:03:00Unknown Test Item Value Reference Range Comments Unknown (test code = 83359-0) 9.3 fL Unknown 7.4-10.4 F Ordering Physician UnknownLaboratory Tebmbqq0764-39-23 06:03:00Identifier 68128- 6 Result Time 2018-07-12 06:03:00Unknown Test Item Value Reference Range Comments Unknown (test code = 718-7) 13.8 g/dl Unknown 12.0-16.0 F Ordering Physician UnknownLaboratory Yuzxkjp5304-72-59 06:03:00Identifier 10110- 6 Result Time 2018-07-12 06:03:00Unknown Test Item Value Reference Range Comments Unknown (test code = 4544-3) 41 % Unknown 35-47 F Ordering Physician UnknownLaboratory Vksandw3574-64-58 06:00:00Identifier 96042- 6 Result Time 2018-07-12 06:00:00Unknown Test Item Value Reference Range Comments Unknown (test code = 2951-2) 139 mmol/L Unknown 135-145 F Ordering Physician UnknownLaboratory Wqnclwq7810-83-53 06:00:00Identifier 92123- 6 Result Time 2018-07-12 06:00:00Unknown Test Item Value Reference Range Comments Unknown (test code = 2823-3) 3.5 mmol/L Unknown 3.5-5.0 F Ordering Physician UnknownLaboratory Nlejhfx4466-76-37 06:00:00Identifier 37298- 6 Result Time 2018-07-12 06:00:00Unknown Test Item Value Reference Range Comments Unknown (test code = 07089-7) 1.7 mg/dL Unknown 1.9-2.7 F Ordering Physician UnknownLaboratory Xcgaioc5545-52-78 06:00:00Identifier 43293- 6 Result Time 2018-07-12 06:00:00Unknown Test Item Value Reference Range Comments Unknown (test code = 2345-7) 142 mg/dL Unknown 70-100 F Ordering Physician UnknownLaboratory Hwpwnot4176-79-53 06:00:00Identifier 58094- 6 Result Time 2018-07-12 06:00:00Unknown Test Item Value Reference Range Comments Unknown (test code = 66765-3) 94.9 Unknown Unknown F Ordering Physician UnknownLaboratory Wurasfr9013-85-33 06:00:00Identifier 82597- 6 Result Time 2018-07-12 06:00:00Unknown Test Item Value Reference Range Comments Unknown (test code = NullTestCode) 114.8 Unknown Unknown F Ordering Physician UnknownLaboratory Nnhkecv7264-74-01 06:00:00Identifier 51672- 6 Result Time 2018-07-12 06:00:00Unknown Test Item Value Reference Range Comments Unknown (test code = 2160-0) 0.61 mg/dL Unknown 0.51-0.95 F Ordering Physician UnknownLaboratory Kxcjtya4946-25-40 06:00:00Identifier 21498- 6 Result Time 2018-07-12 06:00:00Unknown Test Item Value Reference Range Comments Unknown (test code = 2075-0) 104 mmol/L Unknown 101-111 F Ordering Physician UnknownLaboratory Jmizgxk9241-56-37 06:00:00Identifier 84126- 6 Result Time 2018-07-12 06:00:00Unknown Test Item Value Reference Range Comments Unknown (test code = 2028-9) 29 mmol/L Unknown 22-32 F Ordering Physician UnknownLaboratory Nridvhb1947-14-55 06:00:00Identifier 53796- 6 Result Time 2018-07-12 06:00:00Unknown Test Item Value Reference Range Comments Unknown (test code = 49405-6) 8.2 mg/dL Unknown 8.6-10.3 F Ordering Physician UnknownLaboratory Jfblxbq1077-57-78 06:00:00Identifier 72051- 6 Result Time 2018-07-12 06:00:00Unknown Test Item Value Reference Range Comments Unknown (test code = 3094-0) 11 mg/dL Unknown 6-24 F Ordering Physician UnknownLaboratory Gkptwub9838-57-84 06:00:00Identifier 53301- 6 Result Time 2018-07-12 06:00:00Unknown Test Item Value Reference Range Comments Unknown (test code = 3097-3) 18.0 Unknown 8-20 F Ordering Physician UnknownLaboratory Fafivgq6134-87-65 06:00:00Identifier 97444- 6 Result Time 2018-07-12 06:00:00Unknown Test Item Value Reference Range Comments Unknown (test code = 37171-2) 6 mmol/L Unknown 2-11 F Ordering Physician UnknownLaboratory Asqydqz9518-85-47 06:37:00Identifier 23780- 6 Result Time 2018-07-11 06:37:00Unknown Test Item Value Reference Range Comments Unknown (test code = 09990-4) 26.1 seconds Unknown 26.0-36.3 F Ordering Physician UnknownLaboratory Gbngpgy8843-62-23 12:51:00Identifier 08629- 6 Result Time 2018-06-28 12:51:00Unknown Test Item Value Reference Range Comments Unknown (test code = 3024-7) 0.82 ng/dL Unknown 0.61-1.12 F Ordering Physician UnknownLaboratory Dppvbns6157-05-69 12:51:00Identifier 17066- 6 Result Time 2018-06-28 12:51:00Unknown Test Item Value Reference Range Comments Unknown (test code = 3016-3) 2.01 mcIU/mL Unknown 0.34-5.60 F Ordering Physician UnknownLaboratory Lbedqrh7118-17-34 12:51:00Identifier 86715- 6 Result Time 2018-06-28 12:51:00Unknown Test Item Value Reference Range Comments Unknown (test code = 71937-9) 0.7 ng/ml Unknown 0.8-2.0 F Ordering Physician UnknownLaboratory Ehjcqif0388-62-54 12:51:00Identifier 21054- 6 Result Time 2018-06-28 12:51:00Unknown Test Item Value Reference Range Comments Unknown (test code = 2571-8) 113 mg/dL Unknown Unknown F Ordering Physician UnknownLaboratory Ietdksv5266-89-11 12:51:00Identifier 11595- 6 Result Time 2018-06-28 12:51:00Unknown Test Item Value Reference Range Comments Unknown (test code = 2885-2) 6.6 g/dL Unknown 6.4-8.9 F Ordering Physician UnknownLaboratory Avwknvp3380-41-67 12:51:00Identifier 07152- 6 Result Time 2018-06-28 12:51:00Unknown Test Item Value Reference Range Comments Unknown (test code = 1975-2) 0.80 mg/dL Unknown 0.2-1.0 F Ordering Physician UnknownLaboratory Cijpqrx2517-94-87 12:51:00Identifier 51156- 6 Result Time 2018-06-28 12:51:00Unknown Test Item Value Reference Range Comments Unknown (test code = 2089-1) 97 mg/dL Unknown Unknown F Ordering Physician UnknownLaboratory Qoulogh3932-73-06 12:51:00Identifier 96101- 6 Result Time 2018-06-28 12:51:00Unknown Test Item Value Reference Range Comments Unknown (test code = 2085-9) 45.9 mg/dL Unknown Unknown F Ordering Physician UnknownLaboratory Epxjsge4258-02-22 12:51:00Identifier 38400- 6 Result Time 2018-06-28 12:51:00Unknown Test Item Value Reference Range Comments Unknown (test code = NullTestCode) 2.7 g/dL Unknown 2-4 F Ordering Physician UnknownLaboratory Zhlfwrm2433-68-78 12:51:00Identifier 77774- 6 Result Time 2018-06-28 12:51:00Unknown Test Item Value Reference Range Comments Unknown (test code = 2093-3) 165 mg/dL Unknown Unknown F Ordering Physician UnknownLaboratory Sdkxahb8189-82-99 12:51:00Identifier 70791- 6 Result Time 2018-06-28 12:51:00Unknown Test Item Value Reference Range Comments Unknown (test code = 1920-8) 20 U/L Unknown 13-39 F Ordering Physician UnknownLaboratory Vgptiva8792-80-19 12:51:00Identifier 35802- 6 Result Time 2018-06-28 12:51:00Unknown Test Item Value Reference Range Comments Unknown (test code = 6768-6) 72 U/L Unknown 34-104 F Ordering Physician UnknownLaboratory Wlrxsax8939-08-29 12:51:00Identifier 50129- 6 Result Time 2018-06-28 12:51:00Unknown Test Item Value Reference Range Comments Unknown (test code = 1759-0) 1.4 Unknown 1-3 F Ordering Physician UnknownLaboratory Agavaxd7267-71-02 12:51:00Identifier 09710- 6 Result Time 2018-06-28 12:51:00Unknown Test Item Value Reference Range Comments Unknown (test code = 84216-3) 3.9 g/dL Unknown 3.2-5.2 F Ordering Physician UnknownLaboratory Wpgzfuh2405-33-52 12:51:00Identifier 12945- 6 Result Time 2018-06-28 12:51:00Unknown Test Item Value Reference Range Comments Unknown (test code = 1742-6) 18 U/L Unknown 7-52 F Ordering Physician UnknownLaboratory Yhkiaqw9749-92-93 12:51:00Identifier 74919- 6 Result Time 2018-06-28 12:51:00Unknown Test Item Value Reference Range Comments Unknown (test code = NullTestCode) 6.0 Unknown 5-9 F Ordering Physician UnknownLaboratory Wytsbys7552-55-89 12:51:00Identifier 91180- 6 Result Time 2018-06-28 12:51:00Unknown Test Item Value Reference Range Comments Unknown (test code = 05517-2) 1.020 Unknown 1.010-1.030 F Ordering Physician UnknownLaboratory Sdxvsvm7302-94-70 12:51:00Identifier 96899- 6 Result Time 2018-06-28 12:51:00Unknown Test Item Value Reference Range Comments Unknown (test code = 33867-2) 9.5 10^3/ul Unknown 3.5-10.8 F Ordering Physician UnknownLaboratory Gjamkwz8516-01-20 12:51:00Identifier 40774- 6 Result Time 2018-06-28 12:51:00Unknown Test Item Value Reference Range Comments Unknown (test code = 788-0) 13 % Unknown 10.5-15 F Ordering Physician UnknownLaboratory Etvfekb4844-45-32 12:51:00Identifier 66864- 6 Result Time 2018-06-28 12:51:00Unknown Test Item Value Reference Range Comments Unknown (test code = 789-8) 4.97 10^6/ul Unknown 4.00-5.40 F Ordering Physician UnknownLaboratory Kywliya3388-80-10 12:51:00Identifier 32522- 6 Result Time 2018-06-28 12:51:00Unknown Test Item Value Reference Range Comments Unknown (test code = 46706-7) 0 Unknown Unknown F Ordering Physician UnknownLaboratory Ukvxtoa8392-52-54 12:51:00Identifier 72412- 6 Result Time 2018-06-28 12:51:00Unknown Test Item Value Reference Range Comments Unknown (test code = 771-6) 0 10^3/ul Unknown Unknown F Ordering Physician UnknownLaboratory Mjuqtnu8477-17-79 12:51:00Identifier 37166- 6 Result Time 2018-06-28 12:51:00Unknown Test Item Value Reference Range Comments Unknown (test code = 770-8) 64.5 % Unknown Unknown F Ordering Physician UnknownLaboratory Otsrbdw3343-44-64 12:51:00Identifier 88807- 6 Result Time 2018-06-28 12:51:00Unknown Test Item Value Reference Range Comments Unknown (test code = 5905-5) 6.6 % Unknown Unknown F Ordering Physician UnknownLaboratory Xywgwyn0389-60-36 12:51:00Identifier 29283- 6 Result Time 2018-06-28 12:51:00Unknown Test Item Value Reference Range Comments Unknown (test code = 787-2) 94 fL Unknown 80-97 F Ordering Physician UnknownLaboratory Igprbry2024-84-84 12:51:00Identifier 29430- 6 Result Time 2018-06-28 12:51:00Unknown Test Item Value Reference Range Comments Unknown (test code = 786-4) 34 g/dl Unknown 31-36 F Ordering Physician UnknownLaboratory Ainxdae0597-34-00 12:51:00Identifier 27237- 6 Result Time 2018-06-28 12:51:00Unknown Test Item Value Reference Range Comments Unknown (test code = 785-6) 32 pg Unknown 27-31 F Ordering Physician UnknownLaboratory Wefucoa8314-19-14 12:51:00Identifier 38928- 6 Result Time 2018-06-28 12:51:00Unknown Test Item Value Reference Range Comments Unknown (test code = 736-9) 27.1 % Unknown Unknown F Ordering Physician UnknownLaboratory Vpuwnga5243-56-96 12:51:00Identifier 92534- 6 Result Time 2018-06-28 12:51:00Unknown Test Item Value Reference Range Comments Unknown (test code = 713-8) 1.3 % Unknown Unknown F Ordering Physician UnknownLaboratory Elgclfy7916-23-65 12:51:00Identifier 05566- 6 Result Time 2018-06-28 12:51:00Unknown Test Item Value Reference Range Comments Unknown (test code = 706-2) 0.5 % Unknown Unknown F Ordering Physician UnknownLaboratory Iqoyhjq2978-36-94 12:51:00Identifier 55143- 6 Result Time 2018-06-28 12:51:00Unknown Test Item Value Reference Range Comments Unknown (test code = 751-8) 6.1 10^3/ul Unknown 1.5-7.7 F Ordering Physician UnknownLaboratory Hocvzqe0305-08-89 12:51:00Identifier 22794- 6 Result Time 2018-06-28 12:51:00Unknown Test Item Value Reference Range Comments Unknown (test code = 742-7) 0.6 10^3/ul Unknown 0-0.8 F Ordering Physician UnknownLaboratory Ohvikpg9516-92-07 12:51:00Identifier 65852- 6 Result Time 2018-06-28 12:51:00Unknown Test Item Value Reference Range Comments Unknown (test code = 731-0) 2.6 10^3/ul Unknown 1.0-4.8 F Ordering Physician UnknownLaboratory Yxkqnii5569-10-83 12:51:00Identifier 45720- 6 Result Time 2018-06-28 12:51:00Unknown Test Item Value Reference Range Comments Unknown (test code = 711-2) 0.1 10^3/ul Unknown 0-0.6 F Ordering Physician UnknownLaboratory Kgbfwdd2192-76-53 12:51:00Identifier 80079- 6 Result Time 2018-06-28 12:51:00Unknown Test Item Value Reference Range Comments Unknown (test code = 704-7) 0 10^3/ul Unknown 0-0.2 F Ordering Physician Unknown
--- OUTSIDE RECORDS SUMMARY | 2019-05-19 20:50 | XMS REPORT ---
:1940 Author Organization [facility] Care Team Providers Name Role Phone Unavailable [...] Unknown Unknown Unknown 20 mg 20 mg 203 tablet tablet losartan 25 losartan 25 2017-06 [...] Result Comments Laboratory Studies 2018-07-12 06:03:00 Identifier [id number] Result Time Unknown 2018-07-12 06:03:00 Test Item Value Reference Range Comments Unknown (test code = 24546-1) 1.14 Unknown 0.77-1.02 F Ordering Physician UnknownLaboratory Gmbkxhs9402-42-59 06:03:00Identifier 74713- 6 Result Time 2018-07-12 06:03:00Unknown Test Item Value Reference Range Comments Unknown (test code = 777-3) 192 10^3/ul Unknown 150-450 F Ordering Physician UnknownLaboratory Xsleesi6375-60-95 06:03:00Identifier 27011- 6 Result Time 2018-07-12 06:03:00Unknown Test Item Value Reference Range Comments Unknown (test code = 15210-4) 9.3 fL Unknown 7.4-10.4 F Ordering Physician UnknownLaboratory Eomcwwy6696-44-83 06:03:00Identifier 56028- 6 Result Time 2018-07-12 06:03:00Unknown Test Item Value Reference Range Comments Unknown (test code = 718-7) 13.8 g/dl Unknown 12.0-16.0 F Ordering Physician UnknownLaboratory Upxbiqq4480-63-43 06:03:00Identifier 37671- 6 Result Time 2018-07-12 06:03:00Unknown Test Item Value Reference Range Comments Unknown (test code = 4544-3) 41 % Unknown 35-47 F Ordering Physician UnknownLaboratory Ergnxxg2243-76-85 06:00:00Identifier 60328- 6 Result Time 2018-07-12 06:00:00Unknown Test Item Value Reference Range Comments Unknown (test code = 2951-2) 139 mmol/L Unknown 135-145 F Ordering Physician UnknownLaboratory Pucvvot0158-35-27 06:00:00Identifier 81040- 6 Result Time 2018-07-12 06:00:00Unknown Test Item Value Reference Range Comments Unknown (test code = 2823-3) 3.5 mmol/L Unknown 3.5-5.0 F Ordering Physician UnknownLaboratory Sizejzd8653-30-69 06:00:00Identifier 07954- 6 Result Time 2018-07-12 06:00:00Unknown Test Item Value Reference Range Comments Unknown (test code = 30079-6) 1.7 mg/dL Unknown 1.9-2.7 F Ordering Physician UnknownLaboratory Onasmvu0571-71-87 06:00:00Identifier 20377- 6 Result Time 2018-07-12 06:00:00Unknown Test Item Value Reference Range Comments Unknown (test code = 2345-7) 142 mg/dL Unknown 70-100 F Ordering Physician UnknownLaboratory Mvwbjgm6128-38-77 06:00:00Identifier 75422- 6 Result Time 2018-07-12 06:00:00Unknown Test Item Value Reference Range Comments Unknown (test code = 61800-2) 94.9 Unknown Unknown F Ordering Physician UnknownLaboratory Ztaccaa7609-73-50 06:00:00Identifier 46078- 6 Result Time 2018-07-12 06:00:00Unknown Test Item Value Reference Range Comments Unknown (test code = NullTestCode) 114.8 Unknown Unknown F Ordering Physician UnknownLaboratory Bcbaegy9349-75-46 06:00:00Identifier 04687- 6 Result Time 2018-07-12 06:00:00Unknown Test Item Value Reference Range Comments Unknown (test code = 2160-0) 0.61 mg/dL Unknown 0.51-0.95 F Ordering Physician UnknownLaboratory Ydmcmos9638-23-23 06:00:00Identifier 49910- 6 Result Time 2018-07-12 06:00:00Unknown Test Item Value Reference Range Comments Unknown (test code = 2075-0) 104 mmol/L Unknown 101-111 F Ordering Physician UnknownLaboratory Cwmzdkf6238-55-33 06:00:00Identifier 37930- 6 Result Time 2018-07-12 06:00:00Unknown Test Item Value Reference Range Comments Unknown (test code = 2028-9) 29 mmol/L Unknown 22-32 F Ordering Physician UnknownLaboratory Tiqpdbd9884-15-83 06:00:00Identifier 39931- 6 Result Time 2018-07-12 06:00:00Unknown Test Item Value Reference Range Comments Unknown (test code = 31409-0) 8.2 mg/dL Unknown 8.6-10.3 F Ordering Physician UnknownLaboratory Ptrtbkz8601-61-21 06:00:00Identifier 17817- 6 Result Time 2018-07-12 06:00:00Unknown Test Item Value Reference Range Comments Unknown (test code = 3094-0) 11 mg/dL Unknown 6-24 F Ordering Physician UnknownLaboratory Qwpnegf7647-12-37 06:00:00Identifier 14847- 6 Result Time 2018-07-12 06:00:00Unknown Test Item Value Reference Range Comments Unknown (test code = 3097-3) 18.0 Unknown 8-20 F Ordering Physician UnknownLaboratory Awfglii3055-35-49 06:00:00Identifier 32833- 6 Result Time 2018-07-12 06:00:00Unknown Test Item Value Reference Range Comments Unknown (test code = 50082-2) 6 mmol/L Unknown 2-11 F Ordering Physician UnknownLaboratory Lbegsmr8279-53-47 06:37:00Identifier 72048- 6 Result Time 2018-07-11 06:37:00Unknown Test Item Value Reference Range Comments Unknown (test code = 23699-8) 26.1 seconds Unknown 26.0-36.3 F Ordering Physician UnknownLaboratory Cvtzqmg4726-40-80 12:51:00Identifier 24730- 6 Result Time 2018-06-28 12:51:00Unknown Test Item Value Reference Range Comments Unknown (test code = 3024-7) 0.82 ng/dL Unknown 0.61-1.12 F Ordering Physician UnknownLaboratory Tppidcp5587-24-39 12:51:00Identifier 00154- 6 Result Time 2018-06-28 12:51:00Unknown Test Item Value Reference Range Comments Unknown (test code = 3016-3) 2.01 mcIU/mL Unknown 0.34-5.60 F Ordering Physician UnknownLaboratory Aesnkxb8214-86-60 12:51:00Identifier 68160- 6 Result Time 2018-06-28 12:51:00Unknown Test Item Value Reference Range Comments Unknown (test code = 51838-3) 0.7 ng/ml Unknown 0.8-2.0 F Ordering Physician UnknownLaboratory Mlyhllx6713-88-37 12:51:00Identifier 06002- 6 Result Time 2018-06-28 12:51:00Unknown Test Item Value Reference Range Comments Unknown (test code = 2571-8) 113 mg/dL Unknown Unknown F Ordering Physician UnknownLaboratory Yvdrxty8940-02-04 12:51:00Identifier 55455- 6 Result Time 2018-06-28 12:51:00Unknown Test Item Value Reference Range Comments Unknown (test code = 2885-2) 6.6 g/dL Unknown 6.4-8.9 F Ordering Physician UnknownLaboratory Vakuioc0742-88-62 12:51:00Identifier 51840- 6 Result Time 2018-06-28 12:51:00Unknown Test Item Value Reference Range Comments Unknown (test code = 1975-2) 0.80 mg/dL Unknown 0.2-1.0 F Ordering Physician UnknownLaboratory Pvtunzh8458-61-11 12:51:00Identifier 13852- 6 Result Time 2018-06-28 12:51:00Unknown Test Item Value Reference Range Comments Unknown (test code = 2089-1) 97 mg/dL Unknown Unknown F Ordering Physician UnknownLaboratory Sxyaozj1185-82-88 12:51:00Identifier 50762- 6 Result Time 2018-06-28 12:51:00Unknown Test Item Value Reference Range Comments Unknown (test code = 2085-9) 45.9 mg/dL Unknown Unknown F Ordering Physician UnknownLaboratory Yohppjm4042-68-04 12:51:00Identifier 12499- 6 Result Time 2018-06-28 12:51:00Unknown Test Item Value Reference Range Comments Unknown (test code = NullTestCode) 2.7 g/dL Unknown 2-4 F Ordering Physician UnknownLaboratory Jzaprcd4619-70-09 12:51:00Identifier 09415- 6 Result Time 2018-06-28 12:51:00Unknown Test Item Value Reference Range Comments Unknown (test code = 2093-3) 165 mg/dL Unknown Unknown F Ordering Physician UnknownLaboratory Jdqxcyp5771-16-79 12:51:00Identifier 94761- 6 Result Time 2018-06-28 12:51:00Unknown Test Item Value Reference Range Comments Unknown (test code = 1920-8) 20 U/L Unknown 13-39 F Ordering Physician UnknownLaboratory Qswybvc2968-70-02 12:51:00Identifier 85334- 6 Result Time 2018-06-28 12:51:00Unknown Test Item Value Reference Range Comments Unknown (test code = 6768-6) 72 U/L Unknown 34-104 F Ordering Physician UnknownLaboratory Cwzqagh8310-75-30 12:51:00Identifier 45739- 6 Result Time 2018-06-28 12:51:00Unknown Test Item Value Reference Range Comments Unknown (test code = 1759-0) 1.4 Unknown 1-3 F Ordering Physician UnknownLaboratory Pzisihy4424-72-26 12:51:00Identifier 39296- 6 Result Time 2018-06-28 12:51:00Unknown Test Item Value Reference Range Comments Unknown (test code = 24407-7) 3.9 g/dL Unknown 3.2-5.2 F Ordering Physician UnknownLaboratory Fwqvhje0109-58-53 12:51:00Identifier 33469- 6 Result Time 2018-06-28 12:51:00Unknown Test Item Value Reference Range Comments Unknown (test code = 1742-6) 18 U/L Unknown 7-52 F Ordering Physician UnknownLaboratory Mvdkcrh4189-23-98 12:51:00Identifier 16642- 6 Result Time 2018-06-28 12:51:00Unknown Test Item Value Reference Range Comments Unknown (test code = NullTestCode) 6.0 Unknown 5-9 F Ordering Physician UnknownLaboratory Dpckazv8844-34-64 12:51:00Identifier 10467- 6 Result Time 2018-06-28 12:51:00Unknown Test Item Value Reference Range Comments Unknown (test code = 07176-9) 1.020 Unknown 1.010-1.030 F Ordering Physician UnknownLaboratory Hlrsgrv0799-60-25 12:51:00Identifier 36642- 6 Result Time 2018-06-28 12:51:00Unknown Test Item Value Reference Range Comments Unknown (test code = 54479-9) 9.5 10^3/ul Unknown 3.5-10.8 F Ordering Physician UnknownLaboratory Tubklmw0434-84-88 12:51:00Identifier 28361- 6 Result Time 2018-06-28 12:51:00Unknown Test Item Value Reference Range Comments Unknown (test code = 788-0) 13 % Unknown 10.5-15 F Ordering Physician UnknownLaboratory Xzxtkoq1384-35-38 12:51:00Identifier 90349- 6 Result Time 2018-06-28 12:51:00Unknown Test Item Value Reference Range Comments Unknown (test code = 789-8) 4.97 10^6/ul Unknown 4.00-5.40 F Ordering Physician UnknownLaboratory Pbsigyj5540-38-96 12:51:00Identifier 27392- 6 Result Time 2018-06-28 12:51:00Unknown Test Item Value Reference Range Comments Unknown (test code = 77150-2) 0 Unknown Unknown F Ordering Physician UnknownLaboratory Tkznkiy3125-69-03 12:51:00Identifier 54560- 6 Result Time 2018-06-28 12:51:00Unknown Test Item Value Reference Range Comments Unknown (test code = 771-6) 0 10^3/ul Unknown Unknown F Ordering Physician UnknownLaboratory Ddxgbag1342-95-03 12:51:00Identifier 55438- 6 Result Time 2018-06-28 12:51:00Unknown Test Item Value Reference Range Comments Unknown (test code = 770-8) 64.5 % Unknown Unknown F Ordering Physician UnknownLaboratory Yrbrxue5424-23-04 12:51:00Identifier 26800- 6 Result Time 2018-06-28 12:51:00Unknown Test Item Value Reference Range Comments Unknown (test code = 5905-5) 6.6 % Unknown Unknown F Ordering Physician UnknownLaboratory Csrhvvg8424-62-82 12:51:00Identifier 01985- 6 Result Time 2018-06-28 12:51:00Unknown Test Item Value Reference Range Comments Unknown (test code = 787-2) 94 fL Unknown 80-97 F Ordering Physician UnknownLaboratory Ziufyfr2494-02-91 12:51:00Identifier 01159- 6 Result Time 2018-06-28 12:51:00Unknown Test Item Value Reference Range Comments Unknown (test code = 786-4) 34 g/dl Unknown 31-36 F Ordering Physician UnknownLaboratory Prtqwja7273-52-71 12:51:00Identifier 32188- 6 Result Time 2018-06-28 12:51:00Unknown Test Item Value Reference Range Comments Unknown (test code = 785-6) 32 pg Unknown 27-31 F Ordering Physician UnknownLaboratory Ncftrva8171-22-84 12:51:00Identifier 43536- 6 Result Time 2018-06-28 12:51:00Unknown Test Item Value Reference Range Comments Unknown (test code = 736-9) 27.1 % Unknown Unknown F Ordering Physician UnknownLaboratory Klbfxeo5995-27-58 12:51:00Identifier 36566- 6 Result Time 2018-06-28 12:51:00Unknown Test Item Value Reference Range Comments Unknown (test code = 713-8) 1.3 % Unknown Unknown F Ordering Physician UnknownLaboratory Sfkqnea3697-96-26 12:51:00Identifier 92499- 6 Result Time 2018-06-28 12:51:00Unknown Test Item Value Reference Range Comments Unknown (test code = 706-2) 0.5 % Unknown Unknown F Ordering Physician UnknownLaboratory Jgjlbia0010-57-36 12:51:00Identifier 39659- 6 Result Time 2018-06-28 12:51:00Unknown Test Item Value Reference Range Comments Unknown (test code = 751-8) 6.1 10^3/ul Unknown 1.5-7.7 F Ordering Physician UnknownLaboratory Hqycbrn4711-19-81 12:51:00Identifier 12023- 6 Result Time 2018-06-28 12:51:00Unknown Test Item Value Reference Range Comments Unknown (test code = 742-7) 0.6 10^3/ul Unknown 0-0.8 F Ordering Physician UnknownLaboratory Voyjtia8250-75-31 12:51:00Identifier 08150- 6 Result Time 2018-06-28 12:51:00Unknown Test Item Value Reference Range Comments Unknown (test code = 731-0) 2.6 10^3/ul Unknown 1.0-4.8 F Ordering Physician UnknownLaboratory Crkiyny8462-78-02 12:51:00Identifier 21136- 6 Result Time 2018-06-28 12:51:00Unknown Test Item Value Reference Range Comments Unknown (test code = 711-2) 0.1 10^3/ul Unknown 0-0.6 F Ordering Physician UnknownLaboratory Vjwoncw4527-57-44 12:51:00Identifier 18530- 6 Result Time 2018-06-28 12:51:00Unknown Test Item Value Reference Range Comments Unknown (test code = 704-7) 0 10^3/ul Unknown 0-0.2 F Ordering Physician Unknown
--- OUTSIDE RECORDS SUMMARY | 2019-05-19 20:50 | XMS REPORT ---
:1940 Author Organization [facility] Care Team Providers Name Role Phone Unavailable [...] Unknown Unknown Unknown 20 mg 20 mg 2- tablet tablet losartan 25 losartan 25 2017-06 [...] Result Comments Laboratory Studies 2018-07-12 06:03:00 Identifier [id number] Result Time Unknown 2018-07-12 06:03:00 Test Item Value Reference Range Comments Unknown (test code = 47014-1) 1.14 Unknown 0.77-1.02 F Ordering Physician UnknownLaboratory Krxosjv4994-54-71 06:03:00Identifier 14220- 6 Result Time 2018-07-12 06:03:00Unknown Test Item Value Reference Range Comments Unknown (test code = 777-3) 192 10^3/ul Unknown 150-450 F Ordering Physician UnknownLaboratory Edcdjix7318-41-88 06:03:00Identifier 67702- 6 Result Time 2018-07-12 06:03:00Unknown Test Item Value Reference Range Comments Unknown (test code = 16603-2) 9.3 fL Unknown 7.4-10.4 F Ordering Physician UnknownLaboratory Vrvered4021-11-59 06:03:00Identifier 04836- 6 Result Time 2018-07-12 06:03:00Unknown Test Item Value Reference Range Comments Unknown (test code = 718-7) 13.8 g/dl Unknown 12.0-16.0 F Ordering Physician UnknownLaboratory Gfesbbs9041-23-37 06:03:00Identifier 09723- 6 Result Time 2018-07-12 06:03:00Unknown Test Item Value Reference Range Comments Unknown (test code = 4544-3) 41 % Unknown 35-47 F Ordering Physician UnknownLaboratory Nudyozp6959-07-93 06:00:00Identifier 83883- 6 Result Time 2018-07-12 06:00:00Unknown Test Item Value Reference Range Comments Unknown (test code = 2951-2) 139 mmol/L Unknown 135-145 F Ordering Physician UnknownLaboratory Fjdnewr0348-58-25 06:00:00Identifier 88246- 6 Result Time 2018-07-12 06:00:00Unknown Test Item Value Reference Range Comments Unknown (test code = 2823-3) 3.5 mmol/L Unknown 3.5-5.0 F Ordering Physician UnknownLaboratory Rjuyqrn9160-18-59 06:00:00Identifier 58665- 6 Result Time 2018-07-12 06:00:00Unknown Test Item Value Reference Range Comments Unknown (test code = 16604-8) 1.7 mg/dL Unknown 1.9-2.7 F Ordering Physician UnknownLaboratory Ngsxcuf3575-98-04 06:00:00Identifier 80197- 6 Result Time 2018-07-12 06:00:00Unknown Test Item Value Reference Range Comments Unknown (test code = 2345-7) 142 mg/dL Unknown 70-100 F Ordering Physician UnknownLaboratory Oqzdxoy8615-17-25 06:00:00Identifier 86094- 6 Result Time 2018-07-12 06:00:00Unknown Test Item Value Reference Range Comments Unknown (test code = 00505-3) 94.9 Unknown Unknown F Ordering Physician UnknownLaboratory Oiutqtx5561-69-92 06:00:00Identifier 00942- 6 Result Time 2018-07-12 06:00:00Unknown Test Item Value Reference Range Comments Unknown (test code = NullTestCode) 114.8 Unknown Unknown F Ordering Physician UnknownLaboratory Edqkbmc0640-89-93 06:00:00Identifier 39230- 6 Result Time 2018-07-12 06:00:00Unknown Test Item Value Reference Range Comments Unknown (test code = 2160-0) 0.61 mg/dL Unknown 0.51-0.95 F Ordering Physician UnknownLaboratory Kxhiirh1632-25-53 06:00:00Identifier 41319- 6 Result Time 2018-07-12 06:00:00Unknown Test Item Value Reference Range Comments Unknown (test code = 2075-0) 104 mmol/L Unknown 101-111 F Ordering Physician UnknownLaboratory Eyjcfac3804-10-21 06:00:00Identifier 29664- 6 Result Time 2018-07-12 06:00:00Unknown Test Item Value Reference Range Comments Unknown (test code = 2028-9) 29 mmol/L Unknown 22-32 F Ordering Physician UnknownLaboratory Rdhbotc7023-31-25 06:00:00Identifier 52609- 6 Result Time 2018-07-12 06:00:00Unknown Test Item Value Reference Range Comments Unknown (test code = 32824-4) 8.2 mg/dL Unknown 8.6-10.3 F Ordering Physician UnknownLaboratory Gijjjwf3759-97-86 06:00:00Identifier 21291- 6 Result Time 2018-07-12 06:00:00Unknown Test Item Value Reference Range Comments Unknown (test code = 3094-0) 11 mg/dL Unknown 6-24 F Ordering Physician UnknownLaboratory Hjuoryq9177-87-88 06:00:00Identifier 09585- 6 Result Time 2018-07-12 06:00:00Unknown Test Item Value Reference Range Comments Unknown (test code = 3097-3) 18.0 Unknown 8-20 F Ordering Physician UnknownLaboratory Ozmptst9971-22-64 06:00:00Identifier 28819- 6 Result Time 2018-07-12 06:00:00Unknown Test Item Value Reference Range Comments Unknown (test code = 97506-6) 6 mmol/L Unknown 2-11 F Ordering Physician UnknownLaboratory Canyyuu4696-40-54 06:37:00Identifier 54207- 6 Result Time 2018-07-11 06:37:00Unknown Test Item Value Reference Range Comments Unknown (test code = 98043-8) 26.1 seconds Unknown 26.0-36.3 F Ordering Physician UnknownLaboratory Xuggdap9187-17-95 12:51:00Identifier 67299- 6 Result Time 2018-06-28 12:51:00Unknown Test Item Value Reference Range Comments Unknown (test code = 3024-7) 0.82 ng/dL Unknown 0.61-1.12 F Ordering Physician UnknownLaboratory Yzdklnk2441-26-26 12:51:00Identifier 79797- 6 Result Time 2018-06-28 12:51:00Unknown Test Item Value Reference Range Comments Unknown (test code = 3016-3) 2.01 mcIU/mL Unknown 0.34-5.60 F Ordering Physician UnknownLaboratory Ljkxpil0044-03-47 12:51:00Identifier 59983- 6 Result Time 2018-06-28 12:51:00Unknown Test Item Value Reference Range Comments Unknown (test code = 24250-4) 0.7 ng/ml Unknown 0.8-2.0 F Ordering Physician UnknownLaboratory Zyaxwip4237-56-81 12:51:00Identifier 55184- 6 Result Time 2018-06-28 12:51:00Unknown Test Item Value Reference Range Comments Unknown (test code = 2571-8) 113 mg/dL Unknown Unknown F Ordering Physician UnknownLaboratory Iemyqfn5273-05-17 12:51:00Identifier 85946- 6 Result Time 2018-06-28 12:51:00Unknown Test Item Value Reference Range Comments Unknown (test code = 2885-2) 6.6 g/dL Unknown 6.4-8.9 F Ordering Physician UnknownLaboratory Nxqazmv9004-34-13 12:51:00Identifier 84753- 6 Result Time 2018-06-28 12:51:00Unknown Test Item Value Reference Range Comments Unknown (test code = 1975-2) 0.80 mg/dL Unknown 0.2-1.0 F Ordering Physician UnknownLaboratory Jcxccie8986-66-83 12:51:00Identifier 44768- 6 Result Time 2018-06-28 12:51:00Unknown Test Item Value Reference Range Comments Unknown (test code = 2089-1) 97 mg/dL Unknown Unknown F Ordering Physician UnknownLaboratory Lfsbuor0107-74-70 12:51:00Identifier 50926- 6 Result Time 2018-06-28 12:51:00Unknown Test Item Value Reference Range Comments Unknown (test code = 2085-9) 45.9 mg/dL Unknown Unknown F Ordering Physician UnknownLaboratory Blctwuf8989-77-21 12:51:00Identifier 13677- 6 Result Time 2018-06-28 12:51:00Unknown Test Item Value Reference Range Comments Unknown (test code = NullTestCode) 2.7 g/dL Unknown 2-4 F Ordering Physician UnknownLaboratory Ycyrfus5298-91-34 12:51:00Identifier 54880- 6 Result Time 2018-06-28 12:51:00Unknown Test Item Value Reference Range Comments Unknown (test code = 2093-3) 165 mg/dL Unknown Unknown F Ordering Physician UnknownLaboratory Mgvtcgh5363-09-96 12:51:00Identifier 04981- 6 Result Time 2018-06-28 12:51:00Unknown Test Item Value Reference Range Comments Unknown (test code = 1920-8) 20 U/L Unknown 13-39 F Ordering Physician UnknownLaboratory Yjubgtz0483-23-31 12:51:00Identifier 29723- 6 Result Time 2018-06-28 12:51:00Unknown Test Item Value Reference Range Comments Unknown (test code = 6768-6) 72 U/L Unknown 34-104 F Ordering Physician UnknownLaboratory Iugxvnl2951-23-19 12:51:00Identifier 35734- 6 Result Time 2018-06-28 12:51:00Unknown Test Item Value Reference Range Comments Unknown (test code = 1759-0) 1.4 Unknown 1-3 F Ordering Physician UnknownLaboratory Abzkazo5896-90-29 12:51:00Identifier 88876- 6 Result Time 2018-06-28 12:51:00Unknown Test Item Value Reference Range Comments Unknown (test code = 71219-1) 3.9 g/dL Unknown 3.2-5.2 F Ordering Physician UnknownLaboratory Yptqaap4010-20-12 12:51:00Identifier 49062- 6 Result Time 2018-06-28 12:51:00Unknown Test Item Value Reference Range Comments Unknown (test code = 1742-6) 18 U/L Unknown 7-52 F Ordering Physician UnknownLaboratory Ggiuvvm4783-73-42 12:51:00Identifier 22562- 6 Result Time 2018-06-28 12:51:00Unknown Test Item Value Reference Range Comments Unknown (test code = NullTestCode) 6.0 Unknown 5-9 F Ordering Physician UnknownLaboratory Vucjyyw1020-98-24 12:51:00Identifier 98185- 6 Result Time 2018-06-28 12:51:00Unknown Test Item Value Reference Range Comments Unknown (test code = 89008-1) 1.020 Unknown 1.010-1.030 F Ordering Physician UnknownLaboratory Cybjgoq4736-46-59 12:51:00Identifier 47224- 6 Result Time 2018-06-28 12:51:00Unknown Test Item Value Reference Range Comments Unknown (test code = 35554-7) 9.5 10^3/ul Unknown 3.5-10.8 F Ordering Physician UnknownLaboratory Pipeqmg9421-45-15 12:51:00Identifier 62704- 6 Result Time 2018-06-28 12:51:00Unknown Test Item Value Reference Range Comments Unknown (test code = 788-0) 13 % Unknown 10.5-15 F Ordering Physician UnknownLaboratory Dxzzvxq2199-87-48 12:51:00Identifier 26792- 6 Result Time 2018-06-28 12:51:00Unknown Test Item Value Reference Range Comments Unknown (test code = 789-8) 4.97 10^6/ul Unknown 4.00-5.40 F Ordering Physician UnknownLaboratory Qbqjhal3559-61-30 12:51:00Identifier 85279- 6 Result Time 2018-06-28 12:51:00Unknown Test Item Value Reference Range Comments Unknown (test code = 31932-2) 0 Unknown Unknown F Ordering Physician UnknownLaboratory Jqhincd8018-03-48 12:51:00Identifier 98295- 6 Result Time 2018-06-28 12:51:00Unknown Test Item Value Reference Range Comments Unknown (test code = 771-6) 0 10^3/ul Unknown Unknown F Ordering Physician UnknownLaboratory Gxrszxm8141-89-84 12:51:00Identifier 78852- 6 Result Time 2018-06-28 12:51:00Unknown Test Item Value Reference Range Comments Unknown (test code = 770-8) 64.5 % Unknown Unknown F Ordering Physician UnknownLaboratory Teisqox2596-53-48 12:51:00Identifier 62174- 6 Result Time 2018-06-28 12:51:00Unknown Test Item Value Reference Range Comments Unknown (test code = 5905-5) 6.6 % Unknown Unknown F Ordering Physician UnknownLaboratory Fqplplj1228-20-64 12:51:00Identifier 94501- 6 Result Time 2018-06-28 12:51:00Unknown Test Item Value Reference Range Comments Unknown (test code = 787-2) 94 fL Unknown 80-97 F Ordering Physician UnknownLaboratory Locsqxt0733-62-75 12:51:00Identifier 28357- 6 Result Time 2018-06-28 12:51:00Unknown Test Item Value Reference Range Comments Unknown (test code = 786-4) 34 g/dl Unknown 31-36 F Ordering Physician UnknownLaboratory Fbojmfq8217-36-07 12:51:00Identifier 38961- 6 Result Time 2018-06-28 12:51:00Unknown Test Item Value Reference Range Comments Unknown (test code = 785-6) 32 pg Unknown 27-31 F Ordering Physician UnknownLaboratory Zxyvcjw3295-27-67 12:51:00Identifier 24967- 6 Result Time 2018-06-28 12:51:00Unknown Test Item Value Reference Range Comments Unknown (test code = 736-9) 27.1 % Unknown Unknown F Ordering Physician UnknownLaboratory Amozxni7606-38-05 12:51:00Identifier 85036- 6 Result Time 2018-06-28 12:51:00Unknown Test Item Value Reference Range Comments Unknown (test code = 713-8) 1.3 % Unknown Unknown F Ordering Physician UnknownLaboratory Egvmpgk4255-15-45 12:51:00Identifier 56263- 6 Result Time 2018-06-28 12:51:00Unknown Test Item Value Reference Range Comments Unknown (test code = 706-2) 0.5 % Unknown Unknown F Ordering Physician UnknownLaboratory Douwonm2286-55-10 12:51:00Identifier 14036- 6 Result Time 2018-06-28 12:51:00Unknown Test Item Value Reference Range Comments Unknown (test code = 751-8) 6.1 10^3/ul Unknown 1.5-7.7 F Ordering Physician UnknownLaboratory Fsbfcbp4536-81-45 12:51:00Identifier 17085- 6 Result Time 2018-06-28 12:51:00Unknown Test Item Value Reference Range Comments Unknown (test code = 742-7) 0.6 10^3/ul Unknown 0-0.8 F Ordering Physician UnknownLaboratory Sgnjieh5494-46-97 12:51:00Identifier 83390- 6 Result Time 2018-06-28 12:51:00Unknown Test Item Value Reference Range Comments Unknown (test code = 731-0) 2.6 10^3/ul Unknown 1.0-4.8 F Ordering Physician UnknownLaboratory Cbbojas6422-56-98 12:51:00Identifier 17703- 6 Result Time 2018-06-28 12:51:00Unknown Test Item Value Reference Range Comments Unknown (test code = 711-2) 0.1 10^3/ul Unknown 0-0.6 F Ordering Physician UnknownLaboratory Nyiehof7491-48-24 12:51:00Identifier 36799- 6 Result Time 2018-06-28 12:51:00Unknown Test Item Value Reference Range Comments Unknown (test code = 704-7) 0 10^3/ul Unknown 0-0.2 F Ordering Physician Unknown
--- OUTSIDE RECORDS SUMMARY | 2019-05-19 20:50 | XMS REPORT ---
:1940 Author Organization [facility] Care Team Providers Name Role Phone Unavailable [...] Result Comments Laboratory Studies 2018-07-12 06:03:00 Identifier [id number] Result Time Unknown 2018-07-12 06:03:00 Test Item Value Reference Range Comments Unknown (test code = 84789-0) 1.14 Unknown 0.77-1.02 F Ordering Physician UnknownLaboratory Vmoozda1503-04-04 06:03:00Identifier 00365- 6 Result Time 2018-07-12 06:03:00Unknown Test Item Value Reference Range Comments Unknown (test code = 777-3) 192 10^3/ul Unknown 150-450 F Ordering Physician UnknownLaboratory Tfiyxve1144-79-82 06:03:00Identifier 51444- 6 Result Time 2018-07-12 06:03:00Unknown Test Item Value Reference Range Comments Unknown (test code = 72961-0) 9.3 fL Unknown 7.4-10.4 F Ordering Physician UnknownLaboratory Rdoppoa7779-18-42 06:03:00Identifier 99830- 6 Result Time 2018-07-12 06:03:00Unknown Test Item Value Reference Range Comments Unknown (test code = 718-7) 13.8 g/dl Unknown 12.0-16.0 F Ordering Physician UnknownLaboratory Hyrvpdk9882-93-81 06:03:00Identifier 94275- 6 Result Time 2018-07-12 06:03:00Unknown Test Item Value Reference Range Comments Unknown (test code = 4544-3) 41 % Unknown 35-47 F Ordering Physician UnknownLaboratory Oxfkgur4854-65-36 06:00:00Identifier 58721- 6 Result Time 2018-07-12 06:00:00Unknown Test Item Value Reference Range Comments Unknown (test code = 2951-2) 139 mmol/L Unknown 135-145 F Ordering Physician UnknownLaboratory Yehtvjd3267-31-72 06:00:00Identifier 37799- 6 Result Time 2018-07-12 06:00:00Unknown Test Item Value Reference Range Comments Unknown (test code = 2823-3) 3.5 mmol/L Unknown 3.5-5.0 F Ordering Physician UnknownLaboratory Dmxvwgv4230-24-38 06:00:00Identifier 10243- 6 Result Time 2018-07-12 06:00:00Unknown Test Item Value Reference Range Comments Unknown (test code = 11475-2) 1.7 mg/dL Unknown 1.9-2.7 F Ordering Physician UnknownLaboratory Illofrn1500-67-64 06:00:00Identifier 18721- 6 Result Time 2018-07-12 06:00:00Unknown Test Item Value Reference Range Comments Unknown (test code = 2345-7) 142 mg/dL Unknown 70-100 F Ordering Physician UnknownLaboratory Uxeeavs5554-98-65 06:00:00Identifier 51591- 6 Result Time 2018-07-12 06:00:00Unknown Test Item Value Reference Range Comments Unknown (test code = 77556-5) 94.9 Unknown Unknown F Ordering Physician UnknownLaboratory Loajxmm7892-27-12 06:00:00Identifier 11310- 6 Result Time 2018-07-12 06:00:00Unknown Test Item Value Reference Range Comments Unknown (test code = NullTestCode) 114.8 Unknown Unknown F Ordering Physician UnknownLaboratory Kxczqeo5711-62-02 06:00:00Identifier 09343- 6 Result Time 2018-07-12 06:00:00Unknown Test Item Value Reference Range Comments Unknown (test code = 2160-0) 0.61 mg/dL Unknown 0.51-0.95 F Ordering Physician UnknownLaboratory Ucqfuah6363-63-88 06:00:00Identifier 90482- 6 Result Time 2018-07-12 06:00:00Unknown Test Item Value Reference Range Comments Unknown (test code = 2075-0) 104 mmol/L Unknown 101-111 F Ordering Physician UnknownLaboratory Ktnbfdn3044-00-72 06:00:00Identifier 19639- 6 Result Time 2018-07-12 06:00:00Unknown Test Item Value Reference Range Comments Unknown (test code = 2028-9) 29 mmol/L Unknown 22-32 F Ordering Physician UnknownLaboratory Ljueeii1202-70-89 06:00:00Identifier 19217- 6 Result Time 2018-07-12 06:00:00Unknown Test Item Value Reference Range Comments Unknown (test code = 44944-4) 8.2 mg/dL Unknown 8.6-10.3 F Ordering Physician UnknownLaboratory Itiiwlv0561-09-09 06:00:00Identifier 54964- 6 Result Time 2018-07-12 06:00:00Unknown Test Item Value Reference Range Comments Unknown (test code = 3094-0) 11 mg/dL Unknown 6-24 F Ordering Physician UnknownLaboratory Iuzqdzv8097-45-51 06:00:00Identifier 63828- 6 Result Time 2018-07-12 06:00:00Unknown Test Item Value Reference Range Comments Unknown (test code = 3097-3) 18.0 Unknown 8-20 F Ordering Physician UnknownLaboratory Ghixkfo4451-05-72 06:00:00Identifier 27748- 6 Result Time 2018-07-12 06:00:00Unknown Test Item Value Reference Range Comments Unknown (test code = 56700-1) 6 mmol/L Unknown 2-11 F Ordering Physician UnknownLaboratory Qwynftb0043-60-96 06:37:00Identifier 76834- 6 Result Time 2018-07-11 06:37:00Unknown Test Item Value Reference Range Comments Unknown (test code = 55232-3) 26.1 seconds Unknown 26.0-36.3 F Ordering Physician UnknownLaboratory Ethxehi4082-23-58 12:51:00Identifier 86886- 6 Result Time 2018-06-28 12:51:00Unknown Test Item Value Reference Range Comments Unknown (test code = 3024-7) 0.82 ng/dL Unknown 0.61-1.12 F Ordering Physician UnknownLaboratory Arfvemc4789-89-48 12:51:00Identifier 26830- 6 Result Time 2018-06-28 12:51:00Unknown Test Item Value Reference Range Comments Unknown (test code = 3016-3) 2.01 mcIU/mL Unknown 0.34-5.60 F Ordering Physician UnknownLaboratory Exqshyg8189-25-33 12:51:00Identifier 87826- 6 Result Time 2018-06-28 12:51:00Unknown Test Item Value Reference Range Comments Unknown (test code = 97393-0) 0.7 ng/ml Unknown 0.8-2.0 F Ordering Physician UnknownLaboratory Abvgaiy7950-19-10 12:51:00Identifier 38438- 6 Result Time 2018-06-28 12:51:00Unknown Test Item Value Reference Range Comments Unknown (test code = 2571-8) 113 mg/dL Unknown Unknown F Ordering Physician UnknownLaboratory Ebzzyol2026-48-87 12:51:00Identifier 17523- 6 Result Time 2018-06-28 12:51:00Unknown Test Item Value Reference Range Comments Unknown (test code = 2885-2) 6.6 g/dL Unknown 6.4-8.9 F Ordering Physician UnknownLaboratory Rzscemd7389-84-75 12:51:00Identifier 76955- 6 Result Time 2018-06-28 12:51:00Unknown Test Item Value Reference Range Comments Unknown (test code = 1975-2) 0.80 mg/dL Unknown 0.2-1.0 F Ordering Physician UnknownLaboratory Qksuhvn2480-33-83 12:51:00Identifier 00038- 6 Result Time 2018-06-28 12:51:00Unknown Test Item Value Reference Range Comments Unknown (test code = 2089-1) 97 mg/dL Unknown Unknown F Ordering Physician UnknownLaboratory Ifkgfdx8219-25-26 12:51:00Identifier 79414- 6 Result Time 2018-06-28 12:51:00Unknown Test Item Value Reference Range Comments Unknown (test code = 2085-9) 45.9 mg/dL Unknown Unknown F Ordering Physician UnknownLaboratory Sfliihm7245-55-22 12:51:00Identifier 94468- 6 Result Time 2018-06-28 12:51:00Unknown Test Item Value Reference Range Comments Unknown (test code = NullTestCode) 2.7 g/dL Unknown 2-4 F Ordering Physician UnknownLaboratory Wfhhmgj0687-69-96 12:51:00Identifier 51376- 6 Result Time 2018-06-28 12:51:00Unknown Test Item Value Reference Range Comments Unknown (test code = 2093-3) 165 mg/dL Unknown Unknown F Ordering Physician UnknownLaboratory Looaznm6299-53-03 12:51:00Identifier 31835- 6 Result Time 2018-06-28 12:51:00Unknown Test Item Value Reference Range Comments Unknown (test code = 1920-8) 20 U/L Unknown 13-39 F Ordering Physician UnknownLaboratory Hfczaag4510-41-70 12:51:00Identifier 46534- 6 Result Time 2018-06-28 12:51:00Unknown Test Item Value Reference Range Comments Unknown (test code = 6768-6) 72 U/L Unknown 34-104 F Ordering Physician UnknownLaboratory Pmvmydj2231-46-16 12:51:00Identifier 63551- 6 Result Time 2018-06-28 12:51:00Unknown Test Item Value Reference Range Comments Unknown (test code = 1759-0) 1.4 Unknown 1-3 F Ordering Physician UnknownLaboratory Ubrqmua1116-39-65 12:51:00Identifier 66952- 6 Result Time 2018-06-28 12:51:00Unknown Test Item Value Reference Range Comments Unknown (test code = 20358-5) 3.9 g/dL Unknown 3.2-5.2 F Ordering Physician UnknownLaboratory Xwguuna8439-90-95 12:51:00Identifier 85446- 6 Result Time 2018-06-28 12:51:00Unknown Test Item Value Reference Range Comments Unknown (test code = 1742-6) 18 U/L Unknown 7-52 F Ordering Physician UnknownLaboratory Xqlppdk7628-37-40 12:51:00Identifier 07815- 6 Result Time 2018-06-28 12:51:00Unknown Test Item Value Reference Range Comments Unknown (test code = NullTestCode) 6.0 Unknown 5-9 F Ordering Physician UnknownLaboratory Exewuxt2360-73-51 12:51:00Identifier 58732- 6 Result Time 2018-06-28 12:51:00Unknown Test Item Value Reference Range Comments Unknown (test code = 97331-0) 1.020 Unknown 1.010-1.030 F Ordering Physician UnknownLaboratory Auplamd9203-74-32 12:51:00Identifier 05708- 6 Result Time 2018-06-28 12:51:00Unknown Test Item Value Reference Range Comments Unknown (test code = 20026-2) 9.5 10^3/ul Unknown 3.5-10.8 F Ordering Physician UnknownLaboratory Nfezmjp6221-71-81 12:51:00Identifier 26829- 6 Result Time 2018-06-28 12:51:00Unknown Test Item Value Reference Range Comments Unknown (test code = 788-0) 13 % Unknown 10.5-15 F Ordering Physician UnknownLaboratory Mvickbd1419-90-29 12:51:00Identifier 18379- 6 Result Time 2018-06-28 12:51:00Unknown Test Item Value Reference Range Comments Unknown (test code = 789-8) 4.97 10^6/ul Unknown 4.00-5.40 F Ordering Physician UnknownLaboratory Fxffbqo3865-71-82 12:51:00Identifier 63896- 6 Result Time 2018-06-28 12:51:00Unknown Test Item Value Reference Range Comments Unknown (test code = 73694-9) 0 Unknown Unknown F Ordering Physician UnknownLaboratory Ifdzxcr6919-73-43 12:51:00Identifier 41307- 6 Result Time 2018-06-28 12:51:00Unknown Test Item Value Reference Range Comments Unknown (test code = 771-6) 0 10^3/ul Unknown Unknown F Ordering Physician UnknownLaboratory Onhzfzv6152-67-19 12:51:00Identifier 33172- 6 Result Time 2018-06-28 12:51:00Unknown Test Item Value Reference Range Comments Unknown (test code = 770-8) 64.5 % Unknown Unknown F Ordering Physician UnknownLaboratory Psglere1934-37-15 12:51:00Identifier 24513- 6 Result Time 2018-06-28 12:51:00Unknown Test Item Value Reference Range Comments Unknown (test code = 5905-5) 6.6 % Unknown Unknown F Ordering Physician UnknownLaboratory Ezuksjm4680-96-66 12:51:00Identifier 69236- 6 Result Time 2018-06-28 12:51:00Unknown Test Item Value Reference Range Comments Unknown (test code = 787-2) 94 fL Unknown 80-97 F Ordering Physician UnknownLaboratory Piqupse9976-74-57 12:51:00Identifier 59447- 6 Result Time 2018-06-28 12:51:00Unknown Test Item Value Reference Range Comments Unknown (test code = 786-4) 34 g/dl Unknown 31-36 F Ordering Physician UnknownLaboratory Ihsstdk5562-20-58 12:51:00Identifier 81574- 6 Result Time 2018-06-28 12:51:00Unknown Test Item Value Reference Range Comments Unknown (test code = 785-6) 32 pg Unknown 27-31 F Ordering Physician UnknownLaboratory Bqcfsxi8192-52-91 12:51:00Identifier 35060- 6 Result Time 2018-06-28 12:51:00Unknown Test Item Value Reference Range Comments Unknown (test code = 736-9) 27.1 % Unknown Unknown F Ordering Physician UnknownLaboratory Buygnis4202-07-09 12:51:00Identifier 23495- 6 Result Time 2018-06-28 12:51:00Unknown Test Item Value Reference Range Comments Unknown (test code = 713-8) 1.3 % Unknown Unknown F Ordering Physician UnknownLaboratory Plcgayn6377-67-02 12:51:00Identifier 66770- 6 Result Time 2018-06-28 12:51:00Unknown Test Item Value Reference Range Comments Unknown (test code = 706-2) 0.5 % Unknown Unknown F Ordering Physician UnknownLaboratory Sbwprvx9122-39-58 12:51:00Identifier 35734- 6 Result Time 2018-06-28 12:51:00Unknown Test Item Value Reference Range Comments Unknown (test code = 751-8) 6.1 10^3/ul Unknown 1.5-7.7 F Ordering Physician UnknownLaboratory Aagyavz0571-36-42 12:51:00Identifier 70681- 6 Result Time 2018-06-28 12:51:00Unknown Test Item Value Reference Range Comments Unknown (test code = 742-7) 0.6 10^3/ul Unknown 0-0.8 F Ordering Physician UnknownLaboratory Bsthjjd1982-69-70 12:51:00Identifier 22914- 6 Result Time 2018-06-28 12:51:00Unknown Test Item Value Reference Range Comments Unknown (test code = 731-0) 2.6 10^3/ul Unknown 1.0-4.8 F Ordering Physician UnknownLaboratory Uuisbky5899-25-40 12:51:00Identifier 18798- 6 Result Time 2018-06-28 12:51:00Unknown Test Item Value Reference Range Comments Unknown (test code = 711-2) 0.1 10^3/ul Unknown 0-0.6 F Ordering Physician UnknownLaboratory Eozbhvx4895-80-69 12:51:00Identifier 00771- 6 Result Time 2018-06-28 12:51:00Unknown Test Item Value Reference Range Comments Unknown (test code = 704-7) 0 10^3/ul Unknown 0-0.2 F Ordering Physician Unknown
--- OUTSIDE RECORDS SUMMARY | 2019-05-19 20:50 | XMS REPORT ---
:1940 Author Organization [facility] Care Team Providers Name Role Phone Unavailable [...] Unknown Unknown Unknown 20 mg 20 mg 2 tablet tablet losartan 25 losartan 25 2017-06 [...] Result Comments Laboratory Studies 2018-07-12 06:03:00 Identifier [id number] Result Time Unknown 2018-07-12 06:03:00 Test Item Value Reference Range Comments Unknown (test code = 45671-8) 1.14 Unknown 0.77-1.02 F Ordering Physician UnknownLaboratory Azbqhlt6750-56-69 06:03:00Identifier 16286- 6 Result Time 2018-07-12 06:03:00Unknown Test Item Value Reference Range Comments Unknown (test code = 777-3) 192 10^3/ul Unknown 150-450 F Ordering Physician UnknownLaboratory Infwyeh7788-18-56 06:03:00Identifier 38414- 6 Result Time 2018-07-12 06:03:00Unknown Test Item Value Reference Range Comments Unknown (test code = 67904-7) 9.3 fL Unknown 7.4-10.4 F Ordering Physician UnknownLaboratory Jdxevya1069-38-09 06:03:00Identifier 20308- 6 Result Time 2018-07-12 06:03:00Unknown Test Item Value Reference Range Comments Unknown (test code = 718-7) 13.8 g/dl Unknown 12.0-16.0 F Ordering Physician UnknownLaboratory Wercllw6595-44-95 06:03:00Identifier 20449- 6 Result Time 2018-07-12 06:03:00Unknown Test Item Value Reference Range Comments Unknown (test code = 4544-3) 41 % Unknown 35-47 F Ordering Physician UnknownLaboratory Vcitjlh1902-31-77 06:00:00Identifier 12250- 6 Result Time 2018-07-12 06:00:00Unknown Test Item Value Reference Range Comments Unknown (test code = 2951-2) 139 mmol/L Unknown 135-145 F Ordering Physician UnknownLaboratory Txmjwhf1402-78-07 06:00:00Identifier 41050- 6 Result Time 2018-07-12 06:00:00Unknown Test Item Value Reference Range Comments Unknown (test code = 2823-3) 3.5 mmol/L Unknown 3.5-5.0 F Ordering Physician UnknownLaboratory Slgduoo8882-28-57 06:00:00Identifier 70821- 6 Result Time 2018-07-12 06:00:00Unknown Test Item Value Reference Range Comments Unknown (test code = 92690-7) 1.7 mg/dL Unknown 1.9-2.7 F Ordering Physician UnknownLaboratory Qkekbhm1185-85-26 06:00:00Identifier 19319- 6 Result Time 2018-07-12 06:00:00Unknown Test Item Value Reference Range Comments Unknown (test code = 2345-7) 142 mg/dL Unknown 70-100 F Ordering Physician UnknownLaboratory Nvbwhjy5582-63-26 06:00:00Identifier 13637- 6 Result Time 2018-07-12 06:00:00Unknown Test Item Value Reference Range Comments Unknown (test code = 00965-4) 94.9 Unknown Unknown F Ordering Physician UnknownLaboratory Onngpdv3177-21-66 06:00:00Identifier 84204- 6 Result Time 2018-07-12 06:00:00Unknown Test Item Value Reference Range Comments Unknown (test code = NullTestCode) 114.8 Unknown Unknown F Ordering Physician UnknownLaboratory Xvjyici4423-06-99 06:00:00Identifier 83821- 6 Result Time 2018-07-12 06:00:00Unknown Test Item Value Reference Range Comments Unknown (test code = 2160-0) 0.61 mg/dL Unknown 0.51-0.95 F Ordering Physician UnknownLaboratory Cguuqnp2454-03-19 06:00:00Identifier 44052- 6 Result Time 2018-07-12 06:00:00Unknown Test Item Value Reference Range Comments Unknown (test code = 2075-0) 104 mmol/L Unknown 101-111 F Ordering Physician UnknownLaboratory Kxwjatt0542-93-83 06:00:00Identifier 36743- 6 Result Time 2018-07-12 06:00:00Unknown Test Item Value Reference Range Comments Unknown (test code = 2028-9) 29 mmol/L Unknown 22-32 F Ordering Physician UnknownLaboratory Pwpqyqz0388-51-72 06:00:00Identifier 52800- 6 Result Time 2018-07-12 06:00:00Unknown Test Item Value Reference Range Comments Unknown (test code = 62722-6) 8.2 mg/dL Unknown 8.6-10.3 F Ordering Physician UnknownLaboratory Eegfrxc2725-69-27 06:00:00Identifier 21253- 6 Result Time 2018-07-12 06:00:00Unknown Test Item Value Reference Range Comments Unknown (test code = 3094-0) 11 mg/dL Unknown 6-24 F Ordering Physician UnknownLaboratory Cnlytzr3358-10-56 06:00:00Identifier 83347- 6 Result Time 2018-07-12 06:00:00Unknown Test Item Value Reference Range Comments Unknown (test code = 3097-3) 18.0 Unknown 8-20 F Ordering Physician UnknownLaboratory Hnperxz4199-25-15 06:00:00Identifier 99674- 6 Result Time 2018-07-12 06:00:00Unknown Test Item Value Reference Range Comments Unknown (test code = 39463-4) 6 mmol/L Unknown 2-11 F Ordering Physician UnknownLaboratory Ycouxla3803-90-51 06:37:00Identifier 77096- 6 Result Time 2018-07-11 06:37:00Unknown Test Item Value Reference Range Comments Unknown (test code = 73378-8) 26.1 seconds Unknown 26.0-36.3 F Ordering Physician UnknownLaboratory Waworif7141-07-42 12:51:00Identifier 91461- 6 Result Time 2018-06-28 12:51:00Unknown Test Item Value Reference Range Comments Unknown (test code = 3024-7) 0.82 ng/dL Unknown 0.61-1.12 F Ordering Physician UnknownLaboratory Wxvzcrq0978-32-53 12:51:00Identifier 92844- 6 Result Time 2018-06-28 12:51:00Unknown Test Item Value Reference Range Comments Unknown (test code = 3016-3) 2.01 mcIU/mL Unknown 0.34-5.60 F Ordering Physician UnknownLaboratory Txlttgm2770-09-49 12:51:00Identifier 21388- 6 Result Time 2018-06-28 12:51:00Unknown Test Item Value Reference Range Comments Unknown (test code = 92065-2) 0.7 ng/ml Unknown 0.8-2.0 F Ordering Physician UnknownLaboratory Qugrzdy4695-16-34 12:51:00Identifier 85776- 6 Result Time 2018-06-28 12:51:00Unknown Test Item Value Reference Range Comments Unknown (test code = 2571-8) 113 mg/dL Unknown Unknown F Ordering Physician UnknownLaboratory Iqltqll3516-88-54 12:51:00Identifier 69933- 6 Result Time 2018-06-28 12:51:00Unknown Test Item Value Reference Range Comments Unknown (test code = 2885-2) 6.6 g/dL Unknown 6.4-8.9 F Ordering Physician UnknownLaboratory Bpeqayq1341-00-62 12:51:00Identifier 39235- 6 Result Time 2018-06-28 12:51:00Unknown Test Item Value Reference Range Comments Unknown (test code = 1975-2) 0.80 mg/dL Unknown 0.2-1.0 F Ordering Physician UnknownLaboratory Pajsmxm9972-86-07 12:51:00Identifier 62973- 6 Result Time 2018-06-28 12:51:00Unknown Test Item Value Reference Range Comments Unknown (test code = 2089-1) 97 mg/dL Unknown Unknown F Ordering Physician UnknownLaboratory Oswizor7531-20-65 12:51:00Identifier 63123- 6 Result Time 2018-06-28 12:51:00Unknown Test Item Value Reference Range Comments Unknown (test code = 2085-9) 45.9 mg/dL Unknown Unknown F Ordering Physician UnknownLaboratory Jpwxcoz5604-64-30 12:51:00Identifier 88912- 6 Result Time 2018-06-28 12:51:00Unknown Test Item Value Reference Range Comments Unknown (test code = NullTestCode) 2.7 g/dL Unknown 2-4 F Ordering Physician UnknownLaboratory Lfumfub3706-04-81 12:51:00Identifier 10577- 6 Result Time 2018-06-28 12:51:00Unknown Test Item Value Reference Range Comments Unknown (test code = 2093-3) 165 mg/dL Unknown Unknown F Ordering Physician UnknownLaboratory Srvxynw8186-55-57 12:51:00Identifier 79063- 6 Result Time 2018-06-28 12:51:00Unknown Test Item Value Reference Range Comments Unknown (test code = 1920-8) 20 U/L Unknown 13-39 F Ordering Physician UnknownLaboratory Bhifwhu7127-50-46 12:51:00Identifier 80208- 6 Result Time 2018-06-28 12:51:00Unknown Test Item Value Reference Range Comments Unknown (test code = 6768-6) 72 U/L Unknown 34-104 F Ordering Physician UnknownLaboratory Qmafoxn0220-10-38 12:51:00Identifier 96604- 6 Result Time 2018-06-28 12:51:00Unknown Test Item Value Reference Range Comments Unknown (test code = 1759-0) 1.4 Unknown 1-3 F Ordering Physician UnknownLaboratory Gejwroe5039-23-04 12:51:00Identifier 25141- 6 Result Time 2018-06-28 12:51:00Unknown Test Item Value Reference Range Comments Unknown (test code = 55885-9) 3.9 g/dL Unknown 3.2-5.2 F Ordering Physician UnknownLaboratory Yyizafh4557-19-32 12:51:00Identifier 94486- 6 Result Time 2018-06-28 12:51:00Unknown Test Item Value Reference Range Comments Unknown (test code = 1742-6) 18 U/L Unknown 7-52 F Ordering Physician UnknownLaboratory Inultaa2888-49-62 12:51:00Identifier 69410- 6 Result Time 2018-06-28 12:51:00Unknown Test Item Value Reference Range Comments Unknown (test code = NullTestCode) 6.0 Unknown 5-9 F Ordering Physician UnknownLaboratory Fmpgere5812-67-87 12:51:00Identifier 58033- 6 Result Time 2018-06-28 12:51:00Unknown Test Item Value Reference Range Comments Unknown (test code = 28165-7) 1.020 Unknown 1.010-1.030 F Ordering Physician UnknownLaboratory Dvezlyx3562-83-82 12:51:00Identifier 78226- 6 Result Time 2018-06-28 12:51:00Unknown Test Item Value Reference Range Comments Unknown (test code = 46645-0) 9.5 10^3/ul Unknown 3.5-10.8 F Ordering Physician UnknownLaboratory Iocubvd9604-39-25 12:51:00Identifier 82132- 6 Result Time 2018-06-28 12:51:00Unknown Test Item Value Reference Range Comments Unknown (test code = 788-0) 13 % Unknown 10.5-15 F Ordering Physician UnknownLaboratory Inkqzmv8888-89-05 12:51:00Identifier 55426- 6 Result Time 2018-06-28 12:51:00Unknown Test Item Value Reference Range Comments Unknown (test code = 789-8) 4.97 10^6/ul Unknown 4.00-5.40 F Ordering Physician UnknownLaboratory Kumovky5750-71-93 12:51:00Identifier 67373- 6 Result Time 2018-06-28 12:51:00Unknown Test Item Value Reference Range Comments Unknown (test code = 16145-6) 0 Unknown Unknown F Ordering Physician UnknownLaboratory Zzdipuv8175-85-59 12:51:00Identifier 17385- 6 Result Time 2018-06-28 12:51:00Unknown Test Item Value Reference Range Comments Unknown (test code = 771-6) 0 10^3/ul Unknown Unknown F Ordering Physician UnknownLaboratory Myqornr6801-37-49 12:51:00Identifier 18519- 6 Result Time 2018-06-28 12:51:00Unknown Test Item Value Reference Range Comments Unknown (test code = 770-8) 64.5 % Unknown Unknown F Ordering Physician UnknownLaboratory Nacwtwt3289-59-03 12:51:00Identifier 98900- 6 Result Time 2018-06-28 12:51:00Unknown Test Item Value Reference Range Comments Unknown (test code = 5905-5) 6.6 % Unknown Unknown F Ordering Physician UnknownLaboratory Fkjmuhp0951-40-58 12:51:00Identifier 80828- 6 Result Time 2018-06-28 12:51:00Unknown Test Item Value Reference Range Comments Unknown (test code = 787-2) 94 fL Unknown 80-97 F Ordering Physician UnknownLaboratory Mmefjxx6412-04-23 12:51:00Identifier 15070- 6 Result Time 2018-06-28 12:51:00Unknown Test Item Value Reference Range Comments Unknown (test code = 786-4) 34 g/dl Unknown 31-36 F Ordering Physician UnknownLaboratory Cwmgdop6809-34-21 12:51:00Identifier 45978- 6 Result Time 2018-06-28 12:51:00Unknown Test Item Value Reference Range Comments Unknown (test code = 785-6) 32 pg Unknown 27-31 F Ordering Physician UnknownLaboratory Fsdited8300-53-55 12:51:00Identifier 34724- 6 Result Time 2018-06-28 12:51:00Unknown Test Item Value Reference Range Comments Unknown (test code = 736-9) 27.1 % Unknown Unknown F Ordering Physician UnknownLaboratory Oidhtmn0521-72-19 12:51:00Identifier 91641- 6 Result Time 2018-06-28 12:51:00Unknown Test Item Value Reference Range Comments Unknown (test code = 713-8) 1.3 % Unknown Unknown F Ordering Physician UnknownLaboratory Bhrunno9200-44-04 12:51:00Identifier 45435- 6 Result Time 2018-06-28 12:51:00Unknown Test Item Value Reference Range Comments Unknown (test code = 706-2) 0.5 % Unknown Unknown F Ordering Physician UnknownLaboratory Jktjrrd6653-78-80 12:51:00Identifier 24154- 6 Result Time 2018-06-28 12:51:00Unknown Test Item Value Reference Range Comments Unknown (test code = 751-8) 6.1 10^3/ul Unknown 1.5-7.7 F Ordering Physician UnknownLaboratory Eyaneep1064-03-77 12:51:00Identifier 83669- 6 Result Time 2018-06-28 12:51:00Unknown Test Item Value Reference Range Comments Unknown (test code = 742-7) 0.6 10^3/ul Unknown 0-0.8 F Ordering Physician UnknownLaboratory Hiawkvr9369-09-25 12:51:00Identifier 84716- 6 Result Time 2018-06-28 12:51:00Unknown Test Item Value Reference Range Comments Unknown (test code = 731-0) 2.6 10^3/ul Unknown 1.0-4.8 F Ordering Physician UnknownLaboratory Wshyucx8702-16-55 12:51:00Identifier 32438- 6 Result Time 2018-06-28 12:51:00Unknown Test Item Value Reference Range Comments Unknown (test code = 711-2) 0.1 10^3/ul Unknown 0-0.6 F Ordering Physician UnknownLaboratory Yothcgo0375-53-63 12:51:00Identifier 12995- 6 Result Time 2018-06-28 12:51:00Unknown Test Item Value Reference Range Comments Unknown (test code = 704-7) 0 10^3/ul Unknown 0-0.2 F Ordering Physician Unknown
--- OUTSIDE RECORDS SUMMARY | 2019-05-19 20:50 | XMS REPORT ---
:1940 Author Organization [facility] Care Team Providers Name Role Phone Unavailable [...] Result Comments Laboratory Studies 2018-07-12 06:03:00 Identifier [id number] Result Time Unknown 2018-07-12 06:03:00 Test Item Value Reference Range Comments Unknown (test code = 16245-8) 1.14 Unknown 0.77-1.02 F Ordering Physician UnknownLaboratory Uubwmyu9683-93-85 06:03:00Identifier 68587- 6 Result Time 2018-07-12 06:03:00Unknown Test Item Value Reference Range Comments Unknown (test code = 777-3) 192 10^3/ul Unknown 150-450 F Ordering Physician UnknownLaboratory Akxorzj7718-59-33 06:03:00Identifier 73200- 6 Result Time 2018-07-12 06:03:00Unknown Test Item Value Reference Range Comments Unknown (test code = 90949-0) 9.3 fL Unknown 7.4-10.4 F Ordering Physician UnknownLaboratory Zdjvrjc3499-29-61 06:03:00Identifier 55541- 6 Result Time 2018-07-12 06:03:00Unknown Test Item Value Reference Range Comments Unknown (test code = 718-7) 13.8 g/dl Unknown 12.0-16.0 F Ordering Physician UnknownLaboratory Ygbndyr8839-84-57 06:03:00Identifier 60631- 6 Result Time 2018-07-12 06:03:00Unknown Test Item Value Reference Range Comments Unknown (test code = 4544-3) 41 % Unknown 35-47 F Ordering Physician UnknownLaboratory Tvsqluv7496-39-99 06:00:00Identifier 32957- 6 Result Time 2018-07-12 06:00:00Unknown Test Item Value Reference Range Comments Unknown (test code = 2951-2) 139 mmol/L Unknown 135-145 F Ordering Physician UnknownLaboratory Mqtupzv4896-74-45 06:00:00Identifier 12397- 6 Result Time 2018-07-12 06:00:00Unknown Test Item Value Reference Range Comments Unknown (test code = 2823-3) 3.5 mmol/L Unknown 3.5-5.0 F Ordering Physician UnknownLaboratory Bcpficb4205-92-38 06:00:00Identifier 84111- 6 Result Time 2018-07-12 06:00:00Unknown Test Item Value Reference Range Comments Unknown (test code = 35883-3) 1.7 mg/dL Unknown 1.9-2.7 F Ordering Physician UnknownLaboratory Caiqtto0854-61-57 06:00:00Identifier 24846- 6 Result Time 2018-07-12 06:00:00Unknown Test Item Value Reference Range Comments Unknown (test code = 2345-7) 142 mg/dL Unknown 70-100 F Ordering Physician UnknownLaboratory Pziyefw8676-87-27 06:00:00Identifier 16106- 6 Result Time 2018-07-12 06:00:00Unknown Test Item Value Reference Range Comments Unknown (test code = 26537-9) 94.9 Unknown Unknown F Ordering Physician UnknownLaboratory Eybqdqv2640-14-95 06:00:00Identifier 89505- 6 Result Time 2018-07-12 06:00:00Unknown Test Item Value Reference Range Comments Unknown (test code = NullTestCode) 114.8 Unknown Unknown F Ordering Physician UnknownLaboratory Teyylps5704-49-08 06:00:00Identifier 16117- 6 Result Time 2018-07-12 06:00:00Unknown Test Item Value Reference Range Comments Unknown (test code = 2160-0) 0.61 mg/dL Unknown 0.51-0.95 F Ordering Physician UnknownLaboratory Bgqmudf0978-27-13 06:00:00Identifier 13716- 6 Result Time 2018-07-12 06:00:00Unknown Test Item Value Reference Range Comments Unknown (test code = 2075-0) 104 mmol/L Unknown 101-111 F Ordering Physician UnknownLaboratory Watwfpr7261-96-52 06:00:00Identifier 90336- 6 Result Time 2018-07-12 06:00:00Unknown Test Item Value Reference Range Comments Unknown (test code = 2028-9) 29 mmol/L Unknown 22-32 F Ordering Physician UnknownLaboratory Wlpcwuf7455-39-92 06:00:00Identifier 63414- 6 Result Time 2018-07-12 06:00:00Unknown Test Item Value Reference Range Comments Unknown (test code = 08653-9) 8.2 mg/dL Unknown 8.6-10.3 F Ordering Physician UnknownLaboratory Vbutaxj4270-70-92 06:00:00Identifier 16399- 6 Result Time 2018-07-12 06:00:00Unknown Test Item Value Reference Range Comments Unknown (test code = 3094-0) 11 mg/dL Unknown 6-24 F Ordering Physician UnknownLaboratory Pagpcjy3293-55-50 06:00:00Identifier 38689- 6 Result Time 2018-07-12 06:00:00Unknown Test Item Value Reference Range Comments Unknown (test code = 3097-3) 18.0 Unknown 8-20 F Ordering Physician UnknownLaboratory Drgzvez3928-57-50 06:00:00Identifier 72126- 6 Result Time 2018-07-12 06:00:00Unknown Test Item Value Reference Range Comments Unknown (test code = 12383-5) 6 mmol/L Unknown 2-11 F Ordering Physician UnknownLaboratory Avgjvee9359-10-19 06:37:00Identifier 09739- 6 Result Time 2018-07-11 06:37:00Unknown Test Item Value Reference Range Comments Unknown (test code = 96972-6) 26.1 seconds Unknown 26.0-36.3 F Ordering Physician UnknownLaboratory Nvzusvd8624-96-83 12:51:00Identifier 97253- 6 Result Time 2018-06-28 12:51:00Unknown Test Item Value Reference Range Comments Unknown (test code = 3024-7) 0.82 ng/dL Unknown 0.61-1.12 F Ordering Physician UnknownLaboratory Nrjeyas6444-14-92 12:51:00Identifier 09015- 6 Result Time 2018-06-28 12:51:00Unknown Test Item Value Reference Range Comments Unknown (test code = 3016-3) 2.01 mcIU/mL Unknown 0.34-5.60 F Ordering Physician UnknownLaboratory Eyalfgf6764-09-82 12:51:00Identifier 26381- 6 Result Time 2018-06-28 12:51:00Unknown Test Item Value Reference Range Comments Unknown (test code = 10632-2) 0.7 ng/ml Unknown 0.8-2.0 F Ordering Physician UnknownLaboratory Hjdxbnj3550-40-54 12:51:00Identifier 05417- 6 Result Time 2018-06-28 12:51:00Unknown Test Item Value Reference Range Comments Unknown (test code = 2571-8) 113 mg/dL Unknown Unknown F Ordering Physician UnknownLaboratory Bymrkqv5741-68-87 12:51:00Identifier 57778- 6 Result Time 2018-06-28 12:51:00Unknown Test Item Value Reference Range Comments Unknown (test code = 2885-2) 6.6 g/dL Unknown 6.4-8.9 F Ordering Physician UnknownLaboratory Tfzxdmd9551-97-91 12:51:00Identifier 29801- 6 Result Time 2018-06-28 12:51:00Unknown Test Item Value Reference Range Comments Unknown (test code = 1975-2) 0.80 mg/dL Unknown 0.2-1.0 F Ordering Physician UnknownLaboratory Gsgfyzs2248-48-66 12:51:00Identifier 54044- 6 Result Time 2018-06-28 12:51:00Unknown Test Item Value Reference Range Comments Unknown (test code = 2089-1) 97 mg/dL Unknown Unknown F Ordering Physician UnknownLaboratory Dfjeiju6148-37-76 12:51:00Identifier 76224- 6 Result Time 2018-06-28 12:51:00Unknown Test Item Value Reference Range Comments Unknown (test code = 2085-9) 45.9 mg/dL Unknown Unknown F Ordering Physician UnknownLaboratory Nvgmgjq9468-13-48 12:51:00Identifier 64242- 6 Result Time 2018-06-28 12:51:00Unknown Test Item Value Reference Range Comments Unknown (test code = NullTestCode) 2.7 g/dL Unknown 2-4 F Ordering Physician UnknownLaboratory Xmqnmpo1331-80-73 12:51:00Identifier 16712- 6 Result Time 2018-06-28 12:51:00Unknown Test Item Value Reference Range Comments Unknown (test code = 2093-3) 165 mg/dL Unknown Unknown F Ordering Physician UnknownLaboratory Jrymata7171-09-55 12:51:00Identifier 00590- 6 Result Time 2018-06-28 12:51:00Unknown Test Item Value Reference Range Comments Unknown (test code = 1920-8) 20 U/L Unknown 13-39 F Ordering Physician UnknownLaboratory Pqfzatg9933-22-64 12:51:00Identifier 88172- 6 Result Time 2018-06-28 12:51:00Unknown Test Item Value Reference Range Comments Unknown (test code = 6768-6) 72 U/L Unknown 34-104 F Ordering Physician UnknownLaboratory Zfrazrw8771-76-27 12:51:00Identifier 80904- 6 Result Time 2018-06-28 12:51:00Unknown Test Item Value Reference Range Comments Unknown (test code = 1759-0) 1.4 Unknown 1-3 F Ordering Physician UnknownLaboratory Eqplpys4708-70-44 12:51:00Identifier 55659- 6 Result Time 2018-06-28 12:51:00Unknown Test Item Value Reference Range Comments Unknown (test code = 98132-7) 3.9 g/dL Unknown 3.2-5.2 F Ordering Physician UnknownLaboratory Ywbhycw4690-42-93 12:51:00Identifier 14429- 6 Result Time 2018-06-28 12:51:00Unknown Test Item Value Reference Range Comments Unknown (test code = 1742-6) 18 U/L Unknown 7-52 F Ordering Physician UnknownLaboratory Telyyxi3096-54-30 12:51:00Identifier 37603- 6 Result Time 2018-06-28 12:51:00Unknown Test Item Value Reference Range Comments Unknown (test code = NullTestCode) 6.0 Unknown 5-9 F Ordering Physician UnknownLaboratory Evxswmy6077-06-99 12:51:00Identifier 65094- 6 Result Time 2018-06-28 12:51:00Unknown Test Item Value Reference Range Comments Unknown (test code = 52696-0) 1.020 Unknown 1.010-1.030 F Ordering Physician UnknownLaboratory Phepluo4937-85-52 12:51:00Identifier 12483- 6 Result Time 2018-06-28 12:51:00Unknown Test Item Value Reference Range Comments Unknown (test code = 44023-1) 9.5 10^3/ul Unknown 3.5-10.8 F Ordering Physician UnknownLaboratory Raudreb9329-56-72 12:51:00Identifier 78180- 6 Result Time 2018-06-28 12:51:00Unknown Test Item Value Reference Range Comments Unknown (test code = 788-0) 13 % Unknown 10.5-15 F Ordering Physician UnknownLaboratory Tbvzztq2757-54-46 12:51:00Identifier 52295- 6 Result Time 2018-06-28 12:51:00Unknown Test Item Value Reference Range Comments Unknown (test code = 789-8) 4.97 10^6/ul Unknown 4.00-5.40 F Ordering Physician UnknownLaboratory Emdtgaz1977-24-16 12:51:00Identifier 59182- 6 Result Time 2018-06-28 12:51:00Unknown Test Item Value Reference Range Comments Unknown (test code = 20592-3) 0 Unknown Unknown F Ordering Physician UnknownLaboratory Oxmruia1698-59-07 12:51:00Identifier 25651- 6 Result Time 2018-06-28 12:51:00Unknown Test Item Value Reference Range Comments Unknown (test code = 771-6) 0 10^3/ul Unknown Unknown F Ordering Physician UnknownLaboratory Mpvazeg7323-97-72 12:51:00Identifier 66002- 6 Result Time 2018-06-28 12:51:00Unknown Test Item Value Reference Range Comments Unknown (test code = 770-8) 64.5 % Unknown Unknown F Ordering Physician UnknownLaboratory Khgdyxo8406-93-72 12:51:00Identifier 14188- 6 Result Time 2018-06-28 12:51:00Unknown Test Item Value Reference Range Comments Unknown (test code = 5905-5) 6.6 % Unknown Unknown F Ordering Physician UnknownLaboratory Upjnhcz4738-52-62 12:51:00Identifier 06482- 6 Result Time 2018-06-28 12:51:00Unknown Test Item Value Reference Range Comments Unknown (test code = 787-2) 94 fL Unknown 80-97 F Ordering Physician UnknownLaboratory Pquoosk6486-46-16 12:51:00Identifier 05498- 6 Result Time 2018-06-28 12:51:00Unknown Test Item Value Reference Range Comments Unknown (test code = 786-4) 34 g/dl Unknown 31-36 F Ordering Physician UnknownLaboratory Jakbjwx0245-10-15 12:51:00Identifier 59112- 6 Result Time 2018-06-28 12:51:00Unknown Test Item Value Reference Range Comments Unknown (test code = 785-6) 32 pg Unknown 27-31 F Ordering Physician UnknownLaboratory Cgtgrno3576-23-45 12:51:00Identifier 89050- 6 Result Time 2018-06-28 12:51:00Unknown Test Item Value Reference Range Comments Unknown (test code = 736-9) 27.1 % Unknown Unknown F Ordering Physician UnknownLaboratory Uzdmghl5294-90-93 12:51:00Identifier 41242- 6 Result Time 2018-06-28 12:51:00Unknown Test Item Value Reference Range Comments Unknown (test code = 713-8) 1.3 % Unknown Unknown F Ordering Physician UnknownLaboratory Shofalm5503-25-18 12:51:00Identifier 89502- 6 Result Time 2018-06-28 12:51:00Unknown Test Item Value Reference Range Comments Unknown (test code = 706-2) 0.5 % Unknown Unknown F Ordering Physician UnknownLaboratory Ctehcrb2148-64-38 12:51:00Identifier 39542- 6 Result Time 2018-06-28 12:51:00Unknown Test Item Value Reference Range Comments Unknown (test code = 751-8) 6.1 10^3/ul Unknown 1.5-7.7 F Ordering Physician UnknownLaboratory Gsjvzba6011-54-01 12:51:00Identifier 79594- 6 Result Time 2018-06-28 12:51:00Unknown Test Item Value Reference Range Comments Unknown (test code = 742-7) 0.6 10^3/ul Unknown 0-0.8 F Ordering Physician UnknownLaboratory Kfxxojh9119-13-22 12:51:00Identifier 18232- 6 Result Time 2018-06-28 12:51:00Unknown Test Item Value Reference Range Comments Unknown (test code = 731-0) 2.6 10^3/ul Unknown 1.0-4.8 F Ordering Physician UnknownLaboratory Ckggzow0858-07-52 12:51:00Identifier 96516- 6 Result Time 2018-06-28 12:51:00Unknown Test Item Value Reference Range Comments Unknown (test code = 711-2) 0.1 10^3/ul Unknown 0-0.6 F Ordering Physician UnknownLaboratory Zghwtuc1656-25-67 12:51:00Identifier 37049- 6 Result Time 2018-06-28 12:51:00Unknown Test Item Value Reference Range Comments Unknown (test code = 704-7) 0 10^3/ul Unknown 0-0.2 F Ordering Physician Unknown
--- OUTSIDE RECORDS SUMMARY | 2019-05-19 20:50 | XMS REPORT ---
:1940 Author Organization [facility] Care Team Providers Name Role Phone Unavailable [...] Result Comments Laboratory Studies 2018-07-12 06:03:00 Identifier [id number] Result Time Unknown 2018-07-12 06:03:00 Test Item Value Reference Range Comments Unknown (test code = 08623-4) 1.14 Unknown 0.77-1.02 F Ordering Physician UnknownLaboratory Xozbosr6976-84-56 06:03:00Identifier 40830- 6 Result Time 2018-07-12 06:03:00Unknown Test Item Value Reference Range Comments Unknown (test code = 777-3) 192 10^3/ul Unknown 150-450 F Ordering Physician UnknownLaboratory Ofxysje1446-46-67 06:03:00Identifier 31163- 6 Result Time 2018-07-12 06:03:00Unknown Test Item Value Reference Range Comments Unknown (test code = 16443-0) 9.3 fL Unknown 7.4-10.4 F Ordering Physician UnknownLaboratory Rgdkjgv4496-26-11 06:03:00Identifier 33671- 6 Result Time 2018-07-12 06:03:00Unknown Test Item Value Reference Range Comments Unknown (test code = 718-7) 13.8 g/dl Unknown 12.0-16.0 F Ordering Physician UnknownLaboratory Hnfcgan1852-82-56 06:03:00Identifier 44630- 6 Result Time 2018-07-12 06:03:00Unknown Test Item Value Reference Range Comments Unknown (test code = 4544-3) 41 % Unknown 35-47 F Ordering Physician UnknownLaboratory Mwlemoy2799-81-28 06:00:00Identifier 20538- 6 Result Time 2018-07-12 06:00:00Unknown Test Item Value Reference Range Comments Unknown (test code = 2951-2) 139 mmol/L Unknown 135-145 F Ordering Physician UnknownLaboratory Rchntqd6960-67-22 06:00:00Identifier 77932- 6 Result Time 2018-07-12 06:00:00Unknown Test Item Value Reference Range Comments Unknown (test code = 2823-3) 3.5 mmol/L Unknown 3.5-5.0 F Ordering Physician UnknownLaboratory Utjjhxy0956-93-05 06:00:00Identifier 01835- 6 Result Time 2018-07-12 06:00:00Unknown Test Item Value Reference Range Comments Unknown (test code = 07733-9) 1.7 mg/dL Unknown 1.9-2.7 F Ordering Physician UnknownLaboratory Ajtkxbm0451-03-48 06:00:00Identifier 11934- 6 Result Time 2018-07-12 06:00:00Unknown Test Item Value Reference Range Comments Unknown (test code = 2345-7) 142 mg/dL Unknown 70-100 F Ordering Physician UnknownLaboratory Dhmrzje7963-18-74 06:00:00Identifier 81321- 6 Result Time 2018-07-12 06:00:00Unknown Test Item Value Reference Range Comments Unknown (test code = 95058-6) 94.9 Unknown Unknown F Ordering Physician UnknownLaboratory Oifafwn3590-55-43 06:00:00Identifier 80615- 6 Result Time 2018-07-12 06:00:00Unknown Test Item Value Reference Range Comments Unknown (test code = NullTestCode) 114.8 Unknown Unknown F Ordering Physician UnknownLaboratory Uazprgo9492-40-90 06:00:00Identifier 46638- 6 Result Time 2018-07-12 06:00:00Unknown Test Item Value Reference Range Comments Unknown (test code = 2160-0) 0.61 mg/dL Unknown 0.51-0.95 F Ordering Physician UnknownLaboratory Ukevzfs6716-16-89 06:00:00Identifier 32694- 6 Result Time 2018-07-12 06:00:00Unknown Test Item Value Reference Range Comments Unknown (test code = 2075-0) 104 mmol/L Unknown 101-111 F Ordering Physician UnknownLaboratory Jtzdyqn5553-76-65 06:00:00Identifier 38951- 6 Result Time 2018-07-12 06:00:00Unknown Test Item Value Reference Range Comments Unknown (test code = 2028-9) 29 mmol/L Unknown 22-32 F Ordering Physician UnknownLaboratory Gehuiwn5055-51-40 06:00:00Identifier 65485- 6 Result Time 2018-07-12 06:00:00Unknown Test Item Value Reference Range Comments Unknown (test code = 25044-5) 8.2 mg/dL Unknown 8.6-10.3 F Ordering Physician UnknownLaboratory Pllrftj4387-30-44 06:00:00Identifier 28437- 6 Result Time 2018-07-12 06:00:00Unknown Test Item Value Reference Range Comments Unknown (test code = 3094-0) 11 mg/dL Unknown 6-24 F Ordering Physician UnknownLaboratory Fatfhvc0266-63-22 06:00:00Identifier 24013- 6 Result Time 2018-07-12 06:00:00Unknown Test Item Value Reference Range Comments Unknown (test code = 3097-3) 18.0 Unknown 8-20 F Ordering Physician UnknownLaboratory Qmbkoim4413-13-41 06:00:00Identifier 78638- 6 Result Time 2018-07-12 06:00:00Unknown Test Item Value Reference Range Comments Unknown (test code = 84636-5) 6 mmol/L Unknown 2-11 F Ordering Physician UnknownLaboratory Vnvcvoo4909-70-70 06:37:00Identifier 27783- 6 Result Time 2018-07-11 06:37:00Unknown Test Item Value Reference Range Comments Unknown (test code = 07669-5) 26.1 seconds Unknown 26.0-36.3 F Ordering Physician UnknownLaboratory Fstrdnw5068-44-31 12:51:00Identifier 28516- 6 Result Time 2018-06-28 12:51:00Unknown Test Item Value Reference Range Comments Unknown (test code = 3024-7) 0.82 ng/dL Unknown 0.61-1.12 F Ordering Physician UnknownLaboratory Knvoiol3421-00-30 12:51:00Identifier 84491- 6 Result Time 2018-06-28 12:51:00Unknown Test Item Value Reference Range Comments Unknown (test code = 3016-3) 2.01 mcIU/mL Unknown 0.34-5.60 F Ordering Physician UnknownLaboratory Hbzckwu4221-92-20 12:51:00Identifier 87007- 6 Result Time 2018-06-28 12:51:00Unknown Test Item Value Reference Range Comments Unknown (test code = 08690-2) 0.7 ng/ml Unknown 0.8-2.0 F Ordering Physician UnknownLaboratory Oyumypm1711-79-74 12:51:00Identifier 67807- 6 Result Time 2018-06-28 12:51:00Unknown Test Item Value Reference Range Comments Unknown (test code = 2571-8) 113 mg/dL Unknown Unknown F Ordering Physician UnknownLaboratory Fpjplxh0135-05-52 12:51:00Identifier 44720- 6 Result Time 2018-06-28 12:51:00Unknown Test Item Value Reference Range Comments Unknown (test code = 2885-2) 6.6 g/dL Unknown 6.4-8.9 F Ordering Physician UnknownLaboratory Hukuiec6923-08-51 12:51:00Identifier 45514- 6 Result Time 2018-06-28 12:51:00Unknown Test Item Value Reference Range Comments Unknown (test code = 1975-2) 0.80 mg/dL Unknown 0.2-1.0 F Ordering Physician UnknownLaboratory Vwxweju0121-19-68 12:51:00Identifier 26708- 6 Result Time 2018-06-28 12:51:00Unknown Test Item Value Reference Range Comments Unknown (test code = 2089-1) 97 mg/dL Unknown Unknown F Ordering Physician UnknownLaboratory Gtspeez9018-48-78 12:51:00Identifier 29489- 6 Result Time 2018-06-28 12:51:00Unknown Test Item Value Reference Range Comments Unknown (test code = 2085-9) 45.9 mg/dL Unknown Unknown F Ordering Physician UnknownLaboratory Cctkoch6320-27-89 12:51:00Identifier 38601- 6 Result Time 2018-06-28 12:51:00Unknown Test Item Value Reference Range Comments Unknown (test code = NullTestCode) 2.7 g/dL Unknown 2-4 F Ordering Physician UnknownLaboratory Nizryxu9813-36-36 12:51:00Identifier 22944- 6 Result Time 2018-06-28 12:51:00Unknown Test Item Value Reference Range Comments Unknown (test code = 2093-3) 165 mg/dL Unknown Unknown F Ordering Physician UnknownLaboratory Apiwsen4393-82-46 12:51:00Identifier 99955- 6 Result Time 2018-06-28 12:51:00Unknown Test Item Value Reference Range Comments Unknown (test code = 1920-8) 20 U/L Unknown 13-39 F Ordering Physician UnknownLaboratory Lxdpqaa7296-50-45 12:51:00Identifier 25309- 6 Result Time 2018-06-28 12:51:00Unknown Test Item Value Reference Range Comments Unknown (test code = 6768-6) 72 U/L Unknown 34-104 F Ordering Physician UnknownLaboratory Wbzgnbq3012-59-87 12:51:00Identifier 71615- 6 Result Time 2018-06-28 12:51:00Unknown Test Item Value Reference Range Comments Unknown (test code = 1759-0) 1.4 Unknown 1-3 F Ordering Physician UnknownLaboratory Xhzneee1618-08-93 12:51:00Identifier 73898- 6 Result Time 2018-06-28 12:51:00Unknown Test Item Value Reference Range Comments Unknown (test code = 93792-1) 3.9 g/dL Unknown 3.2-5.2 F Ordering Physician UnknownLaboratory Lbvloxe7218-41-54 12:51:00Identifier 60761- 6 Result Time 2018-06-28 12:51:00Unknown Test Item Value Reference Range Comments Unknown (test code = 1742-6) 18 U/L Unknown 7-52 F Ordering Physician UnknownLaboratory Jbpuoyg1652-65-63 12:51:00Identifier 38301- 6 Result Time 2018-06-28 12:51:00Unknown Test Item Value Reference Range Comments Unknown (test code = NullTestCode) 6.0 Unknown 5-9 F Ordering Physician UnknownLaboratory Fsbarry8300-49-37 12:51:00Identifier 84276- 6 Result Time 2018-06-28 12:51:00Unknown Test Item Value Reference Range Comments Unknown (test code = 88998-1) 1.020 Unknown 1.010-1.030 F Ordering Physician UnknownLaboratory Qsiomsv0796-11-89 12:51:00Identifier 06120- 6 Result Time 2018-06-28 12:51:00Unknown Test Item Value Reference Range Comments Unknown (test code = 72138-5) 9.5 10^3/ul Unknown 3.5-10.8 F Ordering Physician UnknownLaboratory Bfvocvd6481-16-09 12:51:00Identifier 84422- 6 Result Time 2018-06-28 12:51:00Unknown Test Item Value Reference Range Comments Unknown (test code = 788-0) 13 % Unknown 10.5-15 F Ordering Physician UnknownLaboratory Myktfwk1445-54-21 12:51:00Identifier 59156- 6 Result Time 2018-06-28 12:51:00Unknown Test Item Value Reference Range Comments Unknown (test code = 789-8) 4.97 10^6/ul Unknown 4.00-5.40 F Ordering Physician UnknownLaboratory Oglpqar5143-67-61 12:51:00Identifier 91203- 6 Result Time 2018-06-28 12:51:00Unknown Test Item Value Reference Range Comments Unknown (test code = 42105-4) 0 Unknown Unknown F Ordering Physician UnknownLaboratory Sqzxjih4372-45-16 12:51:00Identifier 67721- 6 Result Time 2018-06-28 12:51:00Unknown Test Item Value Reference Range Comments Unknown (test code = 771-6) 0 10^3/ul Unknown Unknown F Ordering Physician UnknownLaboratory Hbpovjm7349-96-33 12:51:00Identifier 07651- 6 Result Time 2018-06-28 12:51:00Unknown Test Item Value Reference Range Comments Unknown (test code = 770-8) 64.5 % Unknown Unknown F Ordering Physician UnknownLaboratory Mcmgnyp7486-24-25 12:51:00Identifier 42945- 6 Result Time 2018-06-28 12:51:00Unknown Test Item Value Reference Range Comments Unknown (test code = 5905-5) 6.6 % Unknown Unknown F Ordering Physician UnknownLaboratory Jeqxmom5606-33-72 12:51:00Identifier 03258- 6 Result Time 2018-06-28 12:51:00Unknown Test Item Value Reference Range Comments Unknown (test code = 787-2) 94 fL Unknown 80-97 F Ordering Physician UnknownLaboratory Osmgjxl2412-67-19 12:51:00Identifier 16539- 6 Result Time 2018-06-28 12:51:00Unknown Test Item Value Reference Range Comments Unknown (test code = 786-4) 34 g/dl Unknown 31-36 F Ordering Physician UnknownLaboratory Qbjlzkg0306-07-08 12:51:00Identifier 51555- 6 Result Time 2018-06-28 12:51:00Unknown Test Item Value Reference Range Comments Unknown (test code = 785-6) 32 pg Unknown 27-31 F Ordering Physician UnknownLaboratory Vmyubrz0220-41-41 12:51:00Identifier 46794- 6 Result Time 2018-06-28 12:51:00Unknown Test Item Value Reference Range Comments Unknown (test code = 736-9) 27.1 % Unknown Unknown F Ordering Physician UnknownLaboratory Asamwbx2891-80-42 12:51:00Identifier 15055- 6 Result Time 2018-06-28 12:51:00Unknown Test Item Value Reference Range Comments Unknown (test code = 713-8) 1.3 % Unknown Unknown F Ordering Physician UnknownLaboratory Zpalaei4283-32-49 12:51:00Identifier 96551- 6 Result Time 2018-06-28 12:51:00Unknown Test Item Value Reference Range Comments Unknown (test code = 706-2) 0.5 % Unknown Unknown F Ordering Physician UnknownLaboratory Mtvwpff0173-34-77 12:51:00Identifier 01119- 6 Result Time 2018-06-28 12:51:00Unknown Test Item Value Reference Range Comments Unknown (test code = 751-8) 6.1 10^3/ul Unknown 1.5-7.7 F Ordering Physician UnknownLaboratory Inznzuz3796-72-50 12:51:00Identifier 12815- 6 Result Time 2018-06-28 12:51:00Unknown Test Item Value Reference Range Comments Unknown (test code = 742-7) 0.6 10^3/ul Unknown 0-0.8 F Ordering Physician UnknownLaboratory Htboapf1720-08-97 12:51:00Identifier 33787- 6 Result Time 2018-06-28 12:51:00Unknown Test Item Value Reference Range Comments Unknown (test code = 731-0) 2.6 10^3/ul Unknown 1.0-4.8 F Ordering Physician UnknownLaboratory Lxxljvk3714-90-97 12:51:00Identifier 93702- 6 Result Time 2018-06-28 12:51:00Unknown Test Item Value Reference Range Comments Unknown (test code = 711-2) 0.1 10^3/ul Unknown 0-0.6 F Ordering Physician UnknownLaboratory Pvrkugj8010-94-01 12:51:00Identifier 19887- 6 Result Time 2018-06-28 12:51:00Unknown Test Item Value Reference Range Comments Unknown (test code = 704-7) 0 10^3/ul Unknown 0-0.2 F Ordering Physician Unknown
--- OUTSIDE RECORDS SUMMARY | 2019-05-19 20:50 | XMS REPORT ---
:1940 Author Organization [facility] Care Team Providers Name Role Phone Unavailable [...] Result Comments Laboratory Studies 2018-07-12 06:03:00 Identifier [id number] Result Time Unknown 2018-07-12 06:03:00 Test Item Value Reference Range Comments Unknown (test code = 70533-3) 1.14 Unknown 0.77-1.02 F Ordering Physician UnknownLaboratory Gmogyml1786-94-62 06:03:00Identifier 82958- 6 Result Time 2018-07-12 06:03:00Unknown Test Item Value Reference Range Comments Unknown (test code = 777-3) 192 10^3/ul Unknown 150-450 F Ordering Physician UnknownLaboratory Kazuwff0724-47-45 06:03:00Identifier 03128- 6 Result Time 2018-07-12 06:03:00Unknown Test Item Value Reference Range Comments Unknown (test code = 65180-9) 9.3 fL Unknown 7.4-10.4 F Ordering Physician UnknownLaboratory Tpqcknv1898-43-23 06:03:00Identifier 45327- 6 Result Time 2018-07-12 06:03:00Unknown Test Item Value Reference Range Comments Unknown (test code = 718-7) 13.8 g/dl Unknown 12.0-16.0 F Ordering Physician UnknownLaboratory Pwnrdmh2465-74-37 06:03:00Identifier 45650- 6 Result Time 2018-07-12 06:03:00Unknown Test Item Value Reference Range Comments Unknown (test code = 4544-3) 41 % Unknown 35-47 F Ordering Physician UnknownLaboratory Wxgmtiz8424-59-93 06:00:00Identifier 46607- 6 Result Time 2018-07-12 06:00:00Unknown Test Item Value Reference Range Comments Unknown (test code = 2951-2) 139 mmol/L Unknown 135-145 F Ordering Physician UnknownLaboratory Tykybjz8157-93-81 06:00:00Identifier 36629- 6 Result Time 2018-07-12 06:00:00Unknown Test Item Value Reference Range Comments Unknown (test code = 2823-3) 3.5 mmol/L Unknown 3.5-5.0 F Ordering Physician UnknownLaboratory Tmbodbx7113-04-83 06:00:00Identifier 67769- 6 Result Time 2018-07-12 06:00:00Unknown Test Item Value Reference Range Comments Unknown (test code = 24242-2) 1.7 mg/dL Unknown 1.9-2.7 F Ordering Physician UnknownLaboratory Frovarp1168-58-71 06:00:00Identifier 25056- 6 Result Time 2018-07-12 06:00:00Unknown Test Item Value Reference Range Comments Unknown (test code = 2345-7) 142 mg/dL Unknown 70-100 F Ordering Physician UnknownLaboratory Vwxzvoj0170-84-86 06:00:00Identifier 59645- 6 Result Time 2018-07-12 06:00:00Unknown Test Item Value Reference Range Comments Unknown (test code = 32090-0) 94.9 Unknown Unknown F Ordering Physician UnknownLaboratory Iqlklvm3425-83-21 06:00:00Identifier 55596- 6 Result Time 2018-07-12 06:00:00Unknown Test Item Value Reference Range Comments Unknown (test code = NullTestCode) 114.8 Unknown Unknown F Ordering Physician UnknownLaboratory Mhxfsga4495-10-47 06:00:00Identifier 89737- 6 Result Time 2018-07-12 06:00:00Unknown Test Item Value Reference Range Comments Unknown (test code = 2160-0) 0.61 mg/dL Unknown 0.51-0.95 F Ordering Physician UnknownLaboratory Izxbxgq6879-29-49 06:00:00Identifier 46007- 6 Result Time 2018-07-12 06:00:00Unknown Test Item Value Reference Range Comments Unknown (test code = 2075-0) 104 mmol/L Unknown 101-111 F Ordering Physician UnknownLaboratory Gbilbbg7296-54-15 06:00:00Identifier 09486- 6 Result Time 2018-07-12 06:00:00Unknown Test Item Value Reference Range Comments Unknown (test code = 2028-9) 29 mmol/L Unknown 22-32 F Ordering Physician UnknownLaboratory Bpcehax9208-09-73 06:00:00Identifier 04388- 6 Result Time 2018-07-12 06:00:00Unknown Test Item Value Reference Range Comments Unknown (test code = 71511-0) 8.2 mg/dL Unknown 8.6-10.3 F Ordering Physician UnknownLaboratory Slqfdnu8608-21-96 06:00:00Identifier 39546- 6 Result Time 2018-07-12 06:00:00Unknown Test Item Value Reference Range Comments Unknown (test code = 3094-0) 11 mg/dL Unknown 6-24 F Ordering Physician UnknownLaboratory Vdqijjo1734-51-13 06:00:00Identifier 18716- 6 Result Time 2018-07-12 06:00:00Unknown Test Item Value Reference Range Comments Unknown (test code = 3097-3) 18.0 Unknown 8-20 F Ordering Physician UnknownLaboratory Rzwbasq4876-28-20 06:00:00Identifier 65664- 6 Result Time 2018-07-12 06:00:00Unknown Test Item Value Reference Range Comments Unknown (test code = 83706-7) 6 mmol/L Unknown 2-11 F Ordering Physician UnknownLaboratory Pirrdpn6769-23-94 06:37:00Identifier 42338- 6 Result Time 2018-07-11 06:37:00Unknown Test Item Value Reference Range Comments Unknown (test code = 77370-4) 26.1 seconds Unknown 26.0-36.3 F Ordering Physician UnknownLaboratory Pxaocar8593-78-07 12:51:00Identifier 35868- 6 Result Time 2018-06-28 12:51:00Unknown Test Item Value Reference Range Comments Unknown (test code = 3024-7) 0.82 ng/dL Unknown 0.61-1.12 F Ordering Physician UnknownLaboratory Vnxwuyr3131-78-51 12:51:00Identifier 38270- 6 Result Time 2018-06-28 12:51:00Unknown Test Item Value Reference Range Comments Unknown (test code = 3016-3) 2.01 mcIU/mL Unknown 0.34-5.60 F Ordering Physician UnknownLaboratory Kcgvdkk5703-65-14 12:51:00Identifier 89588- 6 Result Time 2018-06-28 12:51:00Unknown Test Item Value Reference Range Comments Unknown (test code = 93736-5) 0.7 ng/ml Unknown 0.8-2.0 F Ordering Physician UnknownLaboratory Sayyojl5938-61-03 12:51:00Identifier 30604- 6 Result Time 2018-06-28 12:51:00Unknown Test Item Value Reference Range Comments Unknown (test code = 2571-8) 113 mg/dL Unknown Unknown F Ordering Physician UnknownLaboratory Aljsicw1414-18-33 12:51:00Identifier 61463- 6 Result Time 2018-06-28 12:51:00Unknown Test Item Value Reference Range Comments Unknown (test code = 2885-2) 6.6 g/dL Unknown 6.4-8.9 F Ordering Physician UnknownLaboratory Ubwtsty6098-11-82 12:51:00Identifier 43122- 6 Result Time 2018-06-28 12:51:00Unknown Test Item Value Reference Range Comments Unknown (test code = 1975-2) 0.80 mg/dL Unknown 0.2-1.0 F Ordering Physician UnknownLaboratory Mjaqzcc8071-80-13 12:51:00Identifier 59778- 6 Result Time 2018-06-28 12:51:00Unknown Test Item Value Reference Range Comments Unknown (test code = 2089-1) 97 mg/dL Unknown Unknown F Ordering Physician UnknownLaboratory Gnbtjcu4383-32-31 12:51:00Identifier 26153- 6 Result Time 2018-06-28 12:51:00Unknown Test Item Value Reference Range Comments Unknown (test code = 2085-9) 45.9 mg/dL Unknown Unknown F Ordering Physician UnknownLaboratory Jeomlnz9537-79-95 12:51:00Identifier 23320- 6 Result Time 2018-06-28 12:51:00Unknown Test Item Value Reference Range Comments Unknown (test code = NullTestCode) 2.7 g/dL Unknown 2-4 F Ordering Physician UnknownLaboratory Fayxcmb6412-15-14 12:51:00Identifier 72469- 6 Result Time 2018-06-28 12:51:00Unknown Test Item Value Reference Range Comments Unknown (test code = 2093-3) 165 mg/dL Unknown Unknown F Ordering Physician UnknownLaboratory Katjrhm7050-73-16 12:51:00Identifier 56260- 6 Result Time 2018-06-28 12:51:00Unknown Test Item Value Reference Range Comments Unknown (test code = 1920-8) 20 U/L Unknown 13-39 F Ordering Physician UnknownLaboratory Wllcdny9668-91-54 12:51:00Identifier 86961- 6 Result Time 2018-06-28 12:51:00Unknown Test Item Value Reference Range Comments Unknown (test code = 6768-6) 72 U/L Unknown 34-104 F Ordering Physician UnknownLaboratory Dfiryti0513-52-25 12:51:00Identifier 98781- 6 Result Time 2018-06-28 12:51:00Unknown Test Item Value Reference Range Comments Unknown (test code = 1759-0) 1.4 Unknown 1-3 F Ordering Physician UnknownLaboratory Dcienjr7145-09-06 12:51:00Identifier 16795- 6 Result Time 2018-06-28 12:51:00Unknown Test Item Value Reference Range Comments Unknown (test code = 38541-2) 3.9 g/dL Unknown 3.2-5.2 F Ordering Physician UnknownLaboratory Zequpgs4947-11-61 12:51:00Identifier 82684- 6 Result Time 2018-06-28 12:51:00Unknown Test Item Value Reference Range Comments Unknown (test code = 1742-6) 18 U/L Unknown 7-52 F Ordering Physician UnknownLaboratory Movzzfj5135-35-08 12:51:00Identifier 78834- 6 Result Time 2018-06-28 12:51:00Unknown Test Item Value Reference Range Comments Unknown (test code = NullTestCode) 6.0 Unknown 5-9 F Ordering Physician UnknownLaboratory Bkhczgy2550-20-99 12:51:00Identifier 65329- 6 Result Time 2018-06-28 12:51:00Unknown Test Item Value Reference Range Comments Unknown (test code = 66519-3) 1.020 Unknown 1.010-1.030 F Ordering Physician UnknownLaboratory Tktrgdq4047-93-30 12:51:00Identifier 08723- 6 Result Time 2018-06-28 12:51:00Unknown Test Item Value Reference Range Comments Unknown (test code = 37623-7) 9.5 10^3/ul Unknown 3.5-10.8 F Ordering Physician UnknownLaboratory Ggwpqhu7176-74-62 12:51:00Identifier 63510- 6 Result Time 2018-06-28 12:51:00Unknown Test Item Value Reference Range Comments Unknown (test code = 788-0) 13 % Unknown 10.5-15 F Ordering Physician UnknownLaboratory Pqlniuw8714-17-68 12:51:00Identifier 62535- 6 Result Time 2018-06-28 12:51:00Unknown Test Item Value Reference Range Comments Unknown (test code = 789-8) 4.97 10^6/ul Unknown 4.00-5.40 F Ordering Physician UnknownLaboratory Dsffbka6516-10-75 12:51:00Identifier 65664- 6 Result Time 2018-06-28 12:51:00Unknown Test Item Value Reference Range Comments Unknown (test code = 25015-3) 0 Unknown Unknown F Ordering Physician UnknownLaboratory Pjncazh3670-21-65 12:51:00Identifier 57851- 6 Result Time 2018-06-28 12:51:00Unknown Test Item Value Reference Range Comments Unknown (test code = 771-6) 0 10^3/ul Unknown Unknown F Ordering Physician UnknownLaboratory Clwqmap9133-08-99 12:51:00Identifier 57252- 6 Result Time 2018-06-28 12:51:00Unknown Test Item Value Reference Range Comments Unknown (test code = 770-8) 64.5 % Unknown Unknown F Ordering Physician UnknownLaboratory Mnjuurq2040-26-65 12:51:00Identifier 94828- 6 Result Time 2018-06-28 12:51:00Unknown Test Item Value Reference Range Comments Unknown (test code = 5905-5) 6.6 % Unknown Unknown F Ordering Physician UnknownLaboratory Athlzxt1777-67-94 12:51:00Identifier 87921- 6 Result Time 2018-06-28 12:51:00Unknown Test Item Value Reference Range Comments Unknown (test code = 787-2) 94 fL Unknown 80-97 F Ordering Physician UnknownLaboratory Zyxapas2050-25-78 12:51:00Identifier 48566- 6 Result Time 2018-06-28 12:51:00Unknown Test Item Value Reference Range Comments Unknown (test code = 786-4) 34 g/dl Unknown 31-36 F Ordering Physician UnknownLaboratory Kgauabg2878-96-22 12:51:00Identifier 59519- 6 Result Time 2018-06-28 12:51:00Unknown Test Item Value Reference Range Comments Unknown (test code = 785-6) 32 pg Unknown 27-31 F Ordering Physician UnknownLaboratory Ccjhwap4494-08-62 12:51:00Identifier 76726- 6 Result Time 2018-06-28 12:51:00Unknown Test Item Value Reference Range Comments Unknown (test code = 736-9) 27.1 % Unknown Unknown F Ordering Physician UnknownLaboratory Dkynwzy0540-80-43 12:51:00Identifier 53694- 6 Result Time 2018-06-28 12:51:00Unknown Test Item Value Reference Range Comments Unknown (test code = 713-8) 1.3 % Unknown Unknown F Ordering Physician UnknownLaboratory Pizwpix9628-04-56 12:51:00Identifier 51095- 6 Result Time 2018-06-28 12:51:00Unknown Test Item Value Reference Range Comments Unknown (test code = 706-2) 0.5 % Unknown Unknown F Ordering Physician UnknownLaboratory Rytskhs4278-25-39 12:51:00Identifier 73281- 6 Result Time 2018-06-28 12:51:00Unknown Test Item Value Reference Range Comments Unknown (test code = 751-8) 6.1 10^3/ul Unknown 1.5-7.7 F Ordering Physician UnknownLaboratory Ihuuwjy2002-79-68 12:51:00Identifier 82664- 6 Result Time 2018-06-28 12:51:00Unknown Test Item Value Reference Range Comments Unknown (test code = 742-7) 0.6 10^3/ul Unknown 0-0.8 F Ordering Physician UnknownLaboratory Rwgtefr4035-83-58 12:51:00Identifier 64133- 6 Result Time 2018-06-28 12:51:00Unknown Test Item Value Reference Range Comments Unknown (test code = 731-0) 2.6 10^3/ul Unknown 1.0-4.8 F Ordering Physician UnknownLaboratory Gkulwnn6416-64-26 12:51:00Identifier 19444- 6 Result Time 2018-06-28 12:51:00Unknown Test Item Value Reference Range Comments Unknown (test code = 711-2) 0.1 10^3/ul Unknown 0-0.6 F Ordering Physician UnknownLaboratory Xmsrzhd1135-85-65 12:51:00Identifier 05127- 6 Result Time 2018-06-28 12:51:00Unknown Test Item Value Reference Range Comments Unknown (test code = 704-7) 0 10^3/ul Unknown 0-0.2 F Ordering Physician Unknown
--- OUTSIDE RECORDS SUMMARY | 2019-05-19 20:50 | XMS REPORT ---
:1940 Author Organization [facility] Care Team Providers Name Role Phone Unavailable [...] Result Comments Laboratory Studies 2018-07-12 06:03:00 Identifier 13215-8 Result Time Unknown 2018-07-12 06:03:00 Test Item Value Reference Range Comments Unknown (test code = 66852-1) 1.14 Unknown 0.77-1.02 F Ordering Physician UnknownLaboratory Lnzxfku1965-22-69 06:03:00Identifier 73209- 6 Result Time 2018-07-12 06:03:00Unknown Test Item Value Reference Range Comments Unknown (test code = 777-3) 192 10^3/ul Unknown 150-450 F Ordering Physician UnknownLaboratory Mhlpity5728-16-77 06:03:00Identifier 67347- 6 Result Time 2018-07-12 06:03:00Unknown Test Item Value Reference Range Comments Unknown (test code = 73040-8) 9.3 fL Unknown 7.4-10.4 F Ordering Physician UnknownLaboratory Yigiogi7139-18-72 06:03:00Identifier 01952- 6 Result Time 2018-07-12 06:03:00Unknown Test Item Value Reference Range Comments Unknown (test code = 718-7) 13.8 g/dl Unknown 12.0-16.0 F Ordering Physician UnknownLaboratory Glmaxgd6716-12-90 06:03:00Identifier 64551- 6 Result Time 2018-07-12 06:03:00Unknown Test Item Value Reference Range Comments Unknown (test code = 4544-3) 41 % Unknown 35-47 F Ordering Physician UnknownLaboratory Vxybymj6252-66-28 06:00:00Identifier 50946- 6 Result Time 2018-07-12 06:00:00Unknown Test Item Value Reference Range Comments Unknown (test code = 2951-2) 139 mmol/L Unknown 135-145 F Ordering Physician UnknownLaboratory Dsfhwmj1829-87-90 06:00:00Identifier 03051- 6 Result Time 2018-07-12 06:00:00Unknown Test Item Value Reference Range Comments Unknown (test code = 2823-3) 3.5 mmol/L Unknown 3.5-5.0 F Ordering Physician UnknownLaboratory Rccadiz8028-32-07 06:00:00Identifier 42729- 6 Result Time 2018-07-12 06:00:00Unknown Test Item Value Reference Range Comments Unknown (test code = 87639-7) 1.7 mg/dL Unknown 1.9-2.7 F Ordering Physician UnknownLaboratory Cxwneyy7471-86-88 06:00:00Identifier 28438- 6 Result Time 2018-07-12 06:00:00Unknown Test Item Value Reference Range Comments Unknown (test code = 2345-7) 142 mg/dL Unknown 70-100 F Ordering Physician UnknownLaboratory Rnequuu0899-49-22 06:00:00Identifier 05387- 6 Result Time 2018-07-12 06:00:00Unknown Test Item Value Reference Range Comments Unknown (test code = 54390-0) 94.9 Unknown Unknown F Ordering Physician UnknownLaboratory Yjsueus4090-18-60 06:00:00Identifier 63907- 6 Result Time 2018-07-12 06:00:00Unknown Test Item Value Reference Range Comments Unknown (test code = NullTestCode) 114.8 Unknown Unknown F Ordering Physician UnknownLaboratory Jfkzxdc8057-21-75 06:00:00Identifier 41361- 6 Result Time 2018-07-12 06:00:00Unknown Test Item Value Reference Range Comments Unknown (test code = 2160-0) 0.61 mg/dL Unknown 0.51-0.95 F Ordering Physician UnknownLaboratory Axwurrs0013-18-46 06:00:00Identifier 91616- 6 Result Time 2018-07-12 06:00:00Unknown Test Item Value Reference Range Comments Unknown (test code = 2075-0) 104 mmol/L Unknown 101-111 F Ordering Physician UnknownLaboratory Pgbtfwj2369-65-76 06:00:00Identifier 65337- 6 Result Time 2018-07-12 06:00:00Unknown Test Item Value Reference Range Comments Unknown (test code = 2028-9) 29 mmol/L Unknown 22-32 F Ordering Physician UnknownLaboratory Kgzzpjf2849-52-76 06:00:00Identifier 29639- 6 Result Time 2018-07-12 06:00:00Unknown Test Item Value Reference Range Comments Unknown (test code = 40545-1) 8.2 mg/dL Unknown 8.6-10.3 F Ordering Physician UnknownLaboratory Lxkjprq8981-13-90 06:00:00Identifier 88080- 6 Result Time 2018-07-12 06:00:00Unknown Test Item Value Reference Range Comments Unknown (test code = 3094-0) 11 mg/dL Unknown 6-24 F Ordering Physician UnknownLaboratory Wmflzor4693-91-92 06:00:00Identifier 02997- 6 Result Time 2018-07-12 06:00:00Unknown Test Item Value Reference Range Comments Unknown (test code = 3097-3) 18.0 Unknown 8-20 F Ordering Physician UnknownLaboratory Wqyzcoa0755-21-40 06:00:00Identifier 18823- 6 Result Time 2018-07-12 06:00:00Unknown Test Item Value Reference Range Comments Unknown (test code = 11244-5) 6 mmol/L Unknown 2-11 F Ordering Physician UnknownLaboratory Msjwtrt7059-64-46 06:37:00Identifier 87149- 6 Result Time 2018-07-11 06:37:00Unknown Test Item Value Reference Range Comments Unknown (test code = 21551-0) 26.1 seconds Unknown 26.0-36.3 F Ordering Physician UnknownLaboratory Bbcbsue7907-98-84 12:51:00Identifier 91558- 6 Result Time 2018-06-28 12:51:00Unknown Test Item Value Reference Range Comments Unknown (test code = 3024-7) 0.82 ng/dL Unknown 0.61-1.12 F Ordering Physician UnknownLaboratory Erhuesy0636-61-51 12:51:00Identifier 13275- 6 Result Time 2018-06-28 12:51:00Unknown Test Item Value Reference Range Comments Unknown (test code = 3016-3) 2.01 mcIU/mL Unknown 0.34-5.60 F Ordering Physician UnknownLaboratory Phzsftv1201-76-24 12:51:00Identifier 68558- 6 Result Time 2018-06-28 12:51:00Unknown Test Item Value Reference Range Comments Unknown (test code = 28342-7) 0.7 ng/ml Unknown 0.8-2.0 F Ordering Physician UnknownLaboratory Wzurkvb2890-01-45 12:51:00Identifier 46782- 6 Result Time 2018-06-28 12:51:00Unknown Test Item Value Reference Range Comments Unknown (test code = 2571-8) 113 mg/dL Unknown Unknown F Ordering Physician UnknownLaboratory Nkoqlvo6871-59-97 12:51:00Identifier 19908- 6 Result Time 2018-06-28 12:51:00Unknown Test Item Value Reference Range Comments Unknown (test code = 2885-2) 6.6 g/dL Unknown 6.4-8.9 F Ordering Physician UnknownLaboratory Fzvhyis7379-36-28 12:51:00Identifier 71731- 6 Result Time 2018-06-28 12:51:00Unknown Test Item Value Reference Range Comments Unknown (test code = 1975-2) 0.80 mg/dL Unknown 0.2-1.0 F Ordering Physician UnknownLaboratory Dcyonrn3371-48-28 12:51:00Identifier 58035- 6 Result Time 2018-06-28 12:51:00Unknown Test Item Value Reference Range Comments Unknown (test code = 2089-1) 97 mg/dL Unknown Unknown F Ordering Physician UnknownLaboratory Iwofgxp8714-16-98 12:51:00Identifier 24498- 6 Result Time 2018-06-28 12:51:00Unknown Test Item Value Reference Range Comments Unknown (test code = 2085-9) 45.9 mg/dL Unknown Unknown F Ordering Physician UnknownLaboratory Rczffbu6208-82-89 12:51:00Identifier 25900- 6 Result Time 2018-06-28 12:51:00Unknown Test Item Value Reference Range Comments Unknown (test code = NullTestCode) 2.7 g/dL Unknown 2-4 F Ordering Physician UnknownLaboratory Hcrgthj5449-74-77 12:51:00Identifier 15324- 6 Result Time 2018-06-28 12:51:00Unknown Test Item Value Reference Range Comments Unknown (test code = 2093-3) 165 mg/dL Unknown Unknown F Ordering Physician UnknownLaboratory Efszeme3415-54-97 12:51:00Identifier 88477- 6 Result Time 2018-06-28 12:51:00Unknown Test Item Value Reference Range Comments Unknown (test code = 1920-8) 20 U/L Unknown 13-39 F Ordering Physician UnknownLaboratory Ufzcbfu4936-22-96 12:51:00Identifier 78288- 6 Result Time 2018-06-28 12:51:00Unknown Test Item Value Reference Range Comments Unknown (test code = 6768-6) 72 U/L Unknown 34-104 F Ordering Physician UnknownLaboratory Mdquovm4608-36-81 12:51:00Identifier 11784- 6 Result Time 2018-06-28 12:51:00Unknown Test Item Value Reference Range Comments Unknown (test code = 1759-0) 1.4 Unknown 1-3 F Ordering Physician UnknownLaboratory Hdpwyim0227-83-94 12:51:00Identifier 09077- 6 Result Time 2018-06-28 12:51:00Unknown Test Item Value Reference Range Comments Unknown (test code = 01239-9) 3.9 g/dL Unknown 3.2-5.2 F Ordering Physician UnknownLaboratory Qrpfujq1859-39-53 12:51:00Identifier 04444- 6 Result Time 2018-06-28 12:51:00Unknown Test Item Value Reference Range Comments Unknown (test code = 1742-6) 18 U/L Unknown 7-52 F Ordering Physician UnknownLaboratory Rgqpfox0191-95-39 12:51:00Identifier 69751- 6 Result Time 2018-06-28 12:51:00Unknown Test Item Value Reference Range Comments Unknown (test code = NullTestCode) 6.0 Unknown 5-9 F Ordering Physician UnknownLaboratory Gmjyvhr3910-58-89 12:51:00Identifier 17009- 6 Result Time 2018-06-28 12:51:00Unknown Test Item Value Reference Range Comments Unknown (test code = 11921-4) 1.020 Unknown 1.010-1.030 F Ordering Physician UnknownLaboratory Gnmkbsy2947-49-65 12:51:00Identifier 90901- 6 Result Time 2018-06-28 12:51:00Unknown Test Item Value Reference Range Comments Unknown (test code = 93572-5) 9.5 10^3/ul Unknown 3.5-10.8 F Ordering Physician UnknownLaboratory Fekhqaz3101-58-12 12:51:00Identifier 33098- 6 Result Time 2018-06-28 12:51:00Unknown Test Item Value Reference Range Comments Unknown (test code = 788-0) 13 % Unknown 10.5-15 F Ordering Physician UnknownLaboratory Vulmmbt8358-05-02 12:51:00Identifier 66848- 6 Result Time 2018-06-28 12:51:00Unknown Test Item Value Reference Range Comments Unknown (test code = 789-8) 4.97 10^6/ul Unknown 4.00-5.40 F Ordering Physician UnknownLaboratory Qktkmed9608-35-71 12:51:00Identifier 00058- 6 Result Time 2018-06-28 12:51:00Unknown Test Item Value Reference Range Comments Unknown (test code = 09552-7) 0 Unknown Unknown F Ordering Physician UnknownLaboratory Fcwosxv2913-67-93 12:51:00Identifier 48052- 6 Result Time 2018-06-28 12:51:00Unknown Test Item Value Reference Range Comments Unknown (test code = 771-6) 0 10^3/ul Unknown Unknown F Ordering Physician UnknownLaboratory Jjtdugd9459-58-66 12:51:00Identifier 36527- 6 Result Time 2018-06-28 12:51:00Unknown Test Item Value Reference Range Comments Unknown (test code = 770-8) 64.5 % Unknown Unknown F Ordering Physician UnknownLaboratory Wvcmynz4752-85-18 12:51:00Identifier 17548- 6 Result Time 2018-06-28 12:51:00Unknown Test Item Value Reference Range Comments Unknown (test code = 5905-5) 6.6 % Unknown Unknown F Ordering Physician UnknownLaboratory Mdclqgs2592-69-50 12:51:00Identifier 57538- 6 Result Time 2018-06-28 12:51:00Unknown Test Item Value Reference Range Comments Unknown (test code = 787-2) 94 fL Unknown 80-97 F Ordering Physician UnknownLaboratory Knhmsha6369-39-02 12:51:00Identifier 80450- 6 Result Time 2018-06-28 12:51:00Unknown Test Item Value Reference Range Comments Unknown (test code = 786-4) 34 g/dl Unknown 31-36 F Ordering Physician UnknownLaboratory Uoeslfw4567-85-38 12:51:00Identifier 67161- 6 Result Time 2018-06-28 12:51:00Unknown Test Item Value Reference Range Comments Unknown (test code = 785-6) 32 pg Unknown 27-31 F Ordering Physician UnknownLaboratory Uggfwnm9983-02-26 12:51:00Identifier 57501- 6 Result Time 2018-06-28 12:51:00Unknown Test Item Value Reference Range Comments Unknown (test code = 736-9) 27.1 % Unknown Unknown F Ordering Physician UnknownLaboratory Dnkxmhy6040-43-86 12:51:00Identifier 79600- 6 Result Time 2018-06-28 12:51:00Unknown Test Item Value Reference Range Comments Unknown (test code = 713-8) 1.3 % Unknown Unknown F Ordering Physician UnknownLaboratory Psucqvy4098-87-84 12:51:00Identifier 50486- 6 Result Time 2018-06-28 12:51:00Unknown Test Item Value Reference Range Comments Unknown (test code = 706-2) 0.5 % Unknown Unknown F Ordering Physician UnknownLaboratory Rdvnczv3161-44-64 12:51:00Identifier 37689- 6 Result Time 2018-06-28 12:51:00Unknown Test Item Value Reference Range Comments Unknown (test code = 751-8) 6.1 10^3/ul Unknown 1.5-7.7 F Ordering Physician UnknownLaboratory Euqkfpo0972-59-29 12:51:00Identifier 32084- 6 Result Time 2018-06-28 12:51:00Unknown Test Item Value Reference Range Comments Unknown (test code = 742-7) 0.6 10^3/ul Unknown 0-0.8 F Ordering Physician UnknownLaboratory Zzgldsa3405-65-64 12:51:00Identifier 17295- 6 Result Time 2018-06-28 12:51:00Unknown Test Item Value Reference Range Comments Unknown (test code = 731-0) 2.6 10^3/ul Unknown 1.0-4.8 F Ordering Physician UnknownLaboratory Lhwqvhs6912-83-14 12:51:00Identifier 15698- 6 Result Time 2018-06-28 12:51:00Unknown Test Item Value Reference Range Comments Unknown (test code = 711-2) 0.1 10^3/ul Unknown 0-0.6 F Ordering Physician UnknownLaboratory Dhswhqy6256-95-55 12:51:00Identifier 55732- 6 Result Time 2018-06-28 12:51:00Unknown Test Item Value Reference Range Comments Unknown (test code = 704-7) 0 10^3/ul Unknown 0-0.2 F Ordering Physician Unknown
--- OUTSIDE RECORDS SUMMARY | 2019-05-19 20:50 | XMS REPORT ---
:1940 Author Organization [facility] Care Team Providers Name Role Phone Unavailable [...] Result Comments Laboratory Studies 2018-07-12 06:03:00 Identifier [id number] Result Time Unknown 2018-07-12 06:03:00 Test Item Value Reference Range Comments Unknown (test code = 92813-0) 1.14 Unknown 0.77-1.02 F Ordering Physician UnknownLaboratory Cvlmmlo8541-39-65 06:03:00Identifier 51019- 6 Result Time 2018-07-12 06:03:00Unknown Test Item Value Reference Range Comments Unknown (test code = 777-3) 192 10^3/ul Unknown 150-450 F Ordering Physician UnknownLaboratory Uxeqrlp8403-05-08 06:03:00Identifier 40925- 6 Result Time 2018-07-12 06:03:00Unknown Test Item Value Reference Range Comments Unknown (test code = 50355-5) 9.3 fL Unknown 7.4-10.4 F Ordering Physician UnknownLaboratory Etwcowa8506-39-57 06:03:00Identifier 74836- 6 Result Time 2018-07-12 06:03:00Unknown Test Item Value Reference Range Comments Unknown (test code = 718-7) 13.8 g/dl Unknown 12.0-16.0 F Ordering Physician UnknownLaboratory Zhiakzn6833-68-09 06:03:00Identifier 09373- 6 Result Time 2018-07-12 06:03:00Unknown Test Item Value Reference Range Comments Unknown (test code = 4544-3) 41 % Unknown 35-47 F Ordering Physician UnknownLaboratory Fclyfnp4378-32-99 06:00:00Identifier 51231- 6 Result Time 2018-07-12 06:00:00Unknown Test Item Value Reference Range Comments Unknown (test code = 2951-2) 139 mmol/L Unknown 135-145 F Ordering Physician UnknownLaboratory Udyiyyv4364-90-51 06:00:00Identifier 49510- 6 Result Time 2018-07-12 06:00:00Unknown Test Item Value Reference Range Comments Unknown (test code = 2823-3) 3.5 mmol/L Unknown 3.5-5.0 F Ordering Physician UnknownLaboratory Pqsypsx8636-32-54 06:00:00Identifier 29906- 6 Result Time 2018-07-12 06:00:00Unknown Test Item Value Reference Range Comments Unknown (test code = 10907-2) 1.7 mg/dL Unknown 1.9-2.7 F Ordering Physician UnknownLaboratory Tzvtcxz2372-85-15 06:00:00Identifier 25719- 6 Result Time 2018-07-12 06:00:00Unknown Test Item Value Reference Range Comments Unknown (test code = 2345-7) 142 mg/dL Unknown 70-100 F Ordering Physician UnknownLaboratory Vsflhzi9548-69-20 06:00:00Identifier 63017- 6 Result Time 2018-07-12 06:00:00Unknown Test Item Value Reference Range Comments Unknown (test code = 95166-9) 94.9 Unknown Unknown F Ordering Physician UnknownLaboratory Oezonrl8097-46-99 06:00:00Identifier 24127- 6 Result Time 2018-07-12 06:00:00Unknown Test Item Value Reference Range Comments Unknown (test code = NullTestCode) 114.8 Unknown Unknown F Ordering Physician UnknownLaboratory Zyljknm8483-43-69 06:00:00Identifier 29040- 6 Result Time 2018-07-12 06:00:00Unknown Test Item Value Reference Range Comments Unknown (test code = 2160-0) 0.61 mg/dL Unknown 0.51-0.95 F Ordering Physician UnknownLaboratory Psnpdrw5760-59-63 06:00:00Identifier 48421- 6 Result Time 2018-07-12 06:00:00Unknown Test Item Value Reference Range Comments Unknown (test code = 2075-0) 104 mmol/L Unknown 101-111 F Ordering Physician UnknownLaboratory Pncxrgo8318-42-12 06:00:00Identifier 78859- 6 Result Time 2018-07-12 06:00:00Unknown Test Item Value Reference Range Comments Unknown (test code = 2028-9) 29 mmol/L Unknown 22-32 F Ordering Physician UnknownLaboratory Cpfenrx8141-40-31 06:00:00Identifier 62586- 6 Result Time 2018-07-12 06:00:00Unknown Test Item Value Reference Range Comments Unknown (test code = 10313-0) 8.2 mg/dL Unknown 8.6-10.3 F Ordering Physician UnknownLaboratory Kxflgct7117-30-84 06:00:00Identifier 92121- 6 Result Time 2018-07-12 06:00:00Unknown Test Item Value Reference Range Comments Unknown (test code = 3094-0) 11 mg/dL Unknown 6-24 F Ordering Physician UnknownLaboratory Jygcpct3614-70-83 06:00:00Identifier 28547- 6 Result Time 2018-07-12 06:00:00Unknown Test Item Value Reference Range Comments Unknown (test code = 3097-3) 18.0 Unknown 8-20 F Ordering Physician UnknownLaboratory Ifihhca6384-35-05 06:00:00Identifier 25608- 6 Result Time 2018-07-12 06:00:00Unknown Test Item Value Reference Range Comments Unknown (test code = 85782-5) 6 mmol/L Unknown 2-11 F Ordering Physician UnknownLaboratory Hidfria9604-29-76 06:37:00Identifier 44288- 6 Result Time 2018-07-11 06:37:00Unknown Test Item Value Reference Range Comments Unknown (test code = 45214-2) 26.1 seconds Unknown 26.0-36.3 F Ordering Physician UnknownLaboratory Qtdntte8229-25-73 12:51:00Identifier 44057- 6 Result Time 2018-06-28 12:51:00Unknown Test Item Value Reference Range Comments Unknown (test code = 3024-7) 0.82 ng/dL Unknown 0.61-1.12 F Ordering Physician UnknownLaboratory Wmhlnud8852-09-62 12:51:00Identifier 21444- 6 Result Time 2018-06-28 12:51:00Unknown Test Item Value Reference Range Comments Unknown (test code = 3016-3) 2.01 mcIU/mL Unknown 0.34-5.60 F Ordering Physician UnknownLaboratory Anyvopi4588-71-79 12:51:00Identifier 21857- 6 Result Time 2018-06-28 12:51:00Unknown Test Item Value Reference Range Comments Unknown (test code = 02999-3) 0.7 ng/ml Unknown 0.8-2.0 F Ordering Physician UnknownLaboratory Nvpyluw2494-21-74 12:51:00Identifier 08080- 6 Result Time 2018-06-28 12:51:00Unknown Test Item Value Reference Range Comments Unknown (test code = 2571-8) 113 mg/dL Unknown Unknown F Ordering Physician UnknownLaboratory Ejaugdz1918-30-52 12:51:00Identifier 04886- 6 Result Time 2018-06-28 12:51:00Unknown Test Item Value Reference Range Comments Unknown (test code = 2885-2) 6.6 g/dL Unknown 6.4-8.9 F Ordering Physician UnknownLaboratory Jvsojmp7894-04-99 12:51:00Identifier 84696- 6 Result Time 2018-06-28 12:51:00Unknown Test Item Value Reference Range Comments Unknown (test code = 1975-2) 0.80 mg/dL Unknown 0.2-1.0 F Ordering Physician UnknownLaboratory Rnkfknx3961-91-98 12:51:00Identifier 25441- 6 Result Time 2018-06-28 12:51:00Unknown Test Item Value Reference Range Comments Unknown (test code = 2089-1) 97 mg/dL Unknown Unknown F Ordering Physician UnknownLaboratory Lgsyexh0927-71-41 12:51:00Identifier 34069- 6 Result Time 2018-06-28 12:51:00Unknown Test Item Value Reference Range Comments Unknown (test code = 2085-9) 45.9 mg/dL Unknown Unknown F Ordering Physician UnknownLaboratory Yetrkho6674-26-30 12:51:00Identifier 01613- 6 Result Time 2018-06-28 12:51:00Unknown Test Item Value Reference Range Comments Unknown (test code = NullTestCode) 2.7 g/dL Unknown 2-4 F Ordering Physician UnknownLaboratory Qsryeaf4233-49-61 12:51:00Identifier 79201- 6 Result Time 2018-06-28 12:51:00Unknown Test Item Value Reference Range Comments Unknown (test code = 2093-3) 165 mg/dL Unknown Unknown F Ordering Physician UnknownLaboratory Yfljzus4916-90-35 12:51:00Identifier 61853- 6 Result Time 2018-06-28 12:51:00Unknown Test Item Value Reference Range Comments Unknown (test code = 1920-8) 20 U/L Unknown 13-39 F Ordering Physician UnknownLaboratory Zofmlci7239-03-32 12:51:00Identifier 51333- 6 Result Time 2018-06-28 12:51:00Unknown Test Item Value Reference Range Comments Unknown (test code = 6768-6) 72 U/L Unknown 34-104 F Ordering Physician UnknownLaboratory Csohocw9447-40-43 12:51:00Identifier 04578- 6 Result Time 2018-06-28 12:51:00Unknown Test Item Value Reference Range Comments Unknown (test code = 1759-0) 1.4 Unknown 1-3 F Ordering Physician UnknownLaboratory Wsluivz3802-58-45 12:51:00Identifier 24164- 6 Result Time 2018-06-28 12:51:00Unknown Test Item Value Reference Range Comments Unknown (test code = 81076-6) 3.9 g/dL Unknown 3.2-5.2 F Ordering Physician UnknownLaboratory Ncmeobu9167-37-72 12:51:00Identifier 15032- 6 Result Time 2018-06-28 12:51:00Unknown Test Item Value Reference Range Comments Unknown (test code = 1742-6) 18 U/L Unknown 7-52 F Ordering Physician UnknownLaboratory Bobcvab4286-51-33 12:51:00Identifier 63482- 6 Result Time 2018-06-28 12:51:00Unknown Test Item Value Reference Range Comments Unknown (test code = NullTestCode) 6.0 Unknown 5-9 F Ordering Physician UnknownLaboratory Rgfbrdj3817-41-35 12:51:00Identifier 25720- 6 Result Time 2018-06-28 12:51:00Unknown Test Item Value Reference Range Comments Unknown (test code = 81971-5) 1.020 Unknown 1.010-1.030 F Ordering Physician UnknownLaboratory Onvoyeu1641-98-39 12:51:00Identifier 75425- 6 Result Time 2018-06-28 12:51:00Unknown Test Item Value Reference Range Comments Unknown (test code = 37911-8) 9.5 10^3/ul Unknown 3.5-10.8 F Ordering Physician UnknownLaboratory Ojwxqgf0341-31-21 12:51:00Identifier 02044- 6 Result Time 2018-06-28 12:51:00Unknown Test Item Value Reference Range Comments Unknown (test code = 788-0) 13 % Unknown 10.5-15 F Ordering Physician UnknownLaboratory Srncleb5870-86-14 12:51:00Identifier 94057- 6 Result Time 2018-06-28 12:51:00Unknown Test Item Value Reference Range Comments Unknown (test code = 789-8) 4.97 10^6/ul Unknown 4.00-5.40 F Ordering Physician UnknownLaboratory Xhpbyps4073-69-52 12:51:00Identifier 61375- 6 Result Time 2018-06-28 12:51:00Unknown Test Item Value Reference Range Comments Unknown (test code = 11546-8) 0 Unknown Unknown F Ordering Physician UnknownLaboratory Hpcqzmz8475-72-50 12:51:00Identifier 58393- 6 Result Time 2018-06-28 12:51:00Unknown Test Item Value Reference Range Comments Unknown (test code = 771-6) 0 10^3/ul Unknown Unknown F Ordering Physician UnknownLaboratory Zsgxsii6946-84-23 12:51:00Identifier 17159- 6 Result Time 2018-06-28 12:51:00Unknown Test Item Value Reference Range Comments Unknown (test code = 770-8) 64.5 % Unknown Unknown F Ordering Physician UnknownLaboratory Mrqrwel0167-96-58 12:51:00Identifier 92982- 6 Result Time 2018-06-28 12:51:00Unknown Test Item Value Reference Range Comments Unknown (test code = 5905-5) 6.6 % Unknown Unknown F Ordering Physician UnknownLaboratory Ovzcwij4335-81-86 12:51:00Identifier 61418- 6 Result Time 2018-06-28 12:51:00Unknown Test Item Value Reference Range Comments Unknown (test code = 787-2) 94 fL Unknown 80-97 F Ordering Physician UnknownLaboratory Jyrghec7969-45-88 12:51:00Identifier 34005- 6 Result Time 2018-06-28 12:51:00Unknown Test Item Value Reference Range Comments Unknown (test code = 786-4) 34 g/dl Unknown 31-36 F Ordering Physician UnknownLaboratory Spdvkym0278-87-21 12:51:00Identifier 98407- 6 Result Time 2018-06-28 12:51:00Unknown Test Item Value Reference Range Comments Unknown (test code = 785-6) 32 pg Unknown 27-31 F Ordering Physician UnknownLaboratory Udqtbml3363-32-19 12:51:00Identifier 41582- 6 Result Time 2018-06-28 12:51:00Unknown Test Item Value Reference Range Comments Unknown (test code = 736-9) 27.1 % Unknown Unknown F Ordering Physician UnknownLaboratory Sassjdm2443-63-40 12:51:00Identifier 44697- 6 Result Time 2018-06-28 12:51:00Unknown Test Item Value Reference Range Comments Unknown (test code = 713-8) 1.3 % Unknown Unknown F Ordering Physician UnknownLaboratory Alykbmt5313-44-83 12:51:00Identifier 04115- 6 Result Time 2018-06-28 12:51:00Unknown Test Item Value Reference Range Comments Unknown (test code = 706-2) 0.5 % Unknown Unknown F Ordering Physician UnknownLaboratory Vdkkiwt4128-02-79 12:51:00Identifier 03867- 6 Result Time 2018-06-28 12:51:00Unknown Test Item Value Reference Range Comments Unknown (test code = 751-8) 6.1 10^3/ul Unknown 1.5-7.7 F Ordering Physician UnknownLaboratory Xtwgypa7629-40-37 12:51:00Identifier 45835- 6 Result Time 2018-06-28 12:51:00Unknown Test Item Value Reference Range Comments Unknown (test code = 742-7) 0.6 10^3/ul Unknown 0-0.8 F Ordering Physician UnknownLaboratory Bxsctps6692-37-98 12:51:00Identifier 30960- 6 Result Time 2018-06-28 12:51:00Unknown Test Item Value Reference Range Comments Unknown (test code = 731-0) 2.6 10^3/ul Unknown 1.0-4.8 F Ordering Physician UnknownLaboratory Btfzvhd3659-67-82 12:51:00Identifier 70336- 6 Result Time 2018-06-28 12:51:00Unknown Test Item Value Reference Range Comments Unknown (test code = 711-2) 0.1 10^3/ul Unknown 0-0.6 F Ordering Physician UnknownLaboratory Ibehtgz9083-82-08 12:51:00Identifier 99103- 6 Result Time 2018-06-28 12:51:00Unknown Test Item Value Reference Range Comments Unknown (test code = 704-7) 0 10^3/ul Unknown 0-0.2 F Ordering Physician Unknown
--- OUTSIDE RECORDS SUMMARY | 2019-05-19 20:50 | XMS REPORT ---
:1940 Author Organization [facility] Care Team Providers Name Role Phone Unavailable [...] Result Comments Laboratory Studies 2018-07-12 06:03:00 Identifier [id number] Result Time Unknown 2018-07-12 06:03:00 Test Item Value Reference Range Comments Unknown (test code = 71128-7) 1.14 Unknown 0.77-1.02 F Ordering Physician UnknownLaboratory Qgochfk2138-02-45 06:03:00Identifier 71582- 6 Result Time 2018-07-12 06:03:00Unknown Test Item Value Reference Range Comments Unknown (test code = 777-3) 192 10^3/ul Unknown 150-450 F Ordering Physician UnknownLaboratory Hweqepz2259-01-20 06:03:00Identifier 48805- 6 Result Time 2018-07-12 06:03:00Unknown Test Item Value Reference Range Comments Unknown (test code = 98930-0) 9.3 fL Unknown 7.4-10.4 F Ordering Physician UnknownLaboratory Xmprhir5977-28-64 06:03:00Identifier 54878- 6 Result Time 2018-07-12 06:03:00Unknown Test Item Value Reference Range Comments Unknown (test code = 718-7) 13.8 g/dl Unknown 12.0-16.0 F Ordering Physician UnknownLaboratory Pmmyobu5694-60-14 06:03:00Identifier 97286- 6 Result Time 2018-07-12 06:03:00Unknown Test Item Value Reference Range Comments Unknown (test code = 4544-3) 41 % Unknown 35-47 F Ordering Physician UnknownLaboratory Clwlpvz5597-79-19 06:00:00Identifier 12872- 6 Result Time 2018-07-12 06:00:00Unknown Test Item Value Reference Range Comments Unknown (test code = 2951-2) 139 mmol/L Unknown 135-145 F Ordering Physician UnknownLaboratory Rexycmw6888-43-40 06:00:00Identifier 99709- 6 Result Time 2018-07-12 06:00:00Unknown Test Item Value Reference Range Comments Unknown (test code = 2823-3) 3.5 mmol/L Unknown 3.5-5.0 F Ordering Physician UnknownLaboratory Ssqtrdf1352-07-10 06:00:00Identifier 83458- 6 Result Time 2018-07-12 06:00:00Unknown Test Item Value Reference Range Comments Unknown (test code = 73475-8) 1.7 mg/dL Unknown 1.9-2.7 F Ordering Physician UnknownLaboratory Aoydhrn4154-62-57 06:00:00Identifier 95711- 6 Result Time 2018-07-12 06:00:00Unknown Test Item Value Reference Range Comments Unknown (test code = 2345-7) 142 mg/dL Unknown 70-100 F Ordering Physician UnknownLaboratory Jobzhzg2586-82-68 06:00:00Identifier 44919- 6 Result Time 2018-07-12 06:00:00Unknown Test Item Value Reference Range Comments Unknown (test code = 36978-6) 94.9 Unknown Unknown F Ordering Physician UnknownLaboratory Onkszbf5413-14-68 06:00:00Identifier 08206- 6 Result Time 2018-07-12 06:00:00Unknown Test Item Value Reference Range Comments Unknown (test code = NullTestCode) 114.8 Unknown Unknown F Ordering Physician UnknownLaboratory Agwblwm5246-72-23 06:00:00Identifier 30139- 6 Result Time 2018-07-12 06:00:00Unknown Test Item Value Reference Range Comments Unknown (test code = 2160-0) 0.61 mg/dL Unknown 0.51-0.95 F Ordering Physician UnknownLaboratory Iujipis2814-83-67 06:00:00Identifier 63153- 6 Result Time 2018-07-12 06:00:00Unknown Test Item Value Reference Range Comments Unknown (test code = 2075-0) 104 mmol/L Unknown 101-111 F Ordering Physician UnknownLaboratory Gbjxynp7034-07-73 06:00:00Identifier 31270- 6 Result Time 2018-07-12 06:00:00Unknown Test Item Value Reference Range Comments Unknown (test code = 2028-9) 29 mmol/L Unknown 22-32 F Ordering Physician UnknownLaboratory [place]6834-62-49 06:00:00Identifier 53950- 6 Result Time 2018-07-12 06:00:00Unknown Test Item Value Reference Range Comments Unknown (test code = 81611-7) 8.2 mg/dL Unknown 8.6-10.3 F Ordering Physician UnknownLaboratory Blfupwm0895-63-06 06:00:00Identifier 11950- 6 Result Time 2018-07-12 06:00:00Unknown Test Item Value Reference Range Comments Unknown (test code = 3094-0) 11 mg/dL Unknown 6-24 F Ordering Physician UnknownLaboratory Cdcrmtv1032-91-88 06:00:00Identifier 29847- 6 Result Time 2018-07-12 06:00:00Unknown Test Item Value Reference Range Comments Unknown (test code = 3097-3) 18.0 Unknown 8-20 F Ordering Physician UnknownLaboratory Uyxhnzs3290-87-99 06:00:00Identifier 48324- 6 Result Time 2018-07-12 06:00:00Unknown Test Item Value Reference Range Comments Unknown (test code = 54690-8) 6 mmol/L Unknown 2-11 F Ordering Physician UnknownLaboratory Zdpzdds7590-12-67 06:37:00Identifier 10825- 6 Result Time 2018-07-11 06:37:00Unknown Test Item Value Reference Range Comments Unknown (test code = 01193-7) 26.1 seconds Unknown 26.0-36.3 F Ordering Physician UnknownLaboratory Fcshdsg1990-23-44 12:51:00Identifier 13594- 6 Result Time 2018-06-28 12:51:00Unknown Test Item Value Reference Range Comments Unknown (test code = 3024-7) 0.82 ng/dL Unknown 0.61-1.12 F Ordering Physician UnknownLaboratory Tetpaje5656-90-01 12:51:00Identifier 10739- 6 Result Time 2018-06-28 12:51:00Unknown Test Item Value Reference Range Comments Unknown (test code = 3016-3) 2.01 mcIU/mL Unknown 0.34-5.60 F Ordering Physician UnknownLaboratory Yfrjqly9496-61-77 12:51:00Identifier 14749- 6 Result Time 2018-06-28 12:51:00Unknown Test Item Value Reference Range Comments Unknown (test code = 78866-2) 0.7 ng/ml Unknown 0.8-2.0 F Ordering Physician UnknownLaboratory Qjxluqy3515-94-88 12:51:00Identifier 13588- 6 Result Time 2018-06-28 12:51:00Unknown Test Item Value Reference Range Comments Unknown (test code = 2571-8) 113 mg/dL Unknown Unknown F Ordering Physician UnknownLaboratory Knopwgx3050-11-35 12:51:00Identifier 95034- 6 Result Time 2018-06-28 12:51:00Unknown Test Item Value Reference Range Comments Unknown (test code = 2885-2) 6.6 g/dL Unknown 6.4-8.9 F Ordering Physician UnknownLaboratory Cxiypwd7480-40-07 12:51:00Identifier 55880- 6 Result Time 2018-06-28 12:51:00Unknown Test Item Value Reference Range Comments Unknown (test code = 1975-2) 0.80 mg/dL Unknown 0.2-1.0 F Ordering Physician UnknownLaboratory Pxjwtry7221-00-58 12:51:00Identifier 12815- 6 Result Time 2018-06-28 12:51:00Unknown Test Item Value Reference Range Comments Unknown (test code = 2089-1) 97 mg/dL Unknown Unknown F Ordering Physician UnknownLaboratory Uqwtktj1975-83-55 12:51:00Identifier 67694- 6 Result Time 2018-06-28 12:51:00Unknown Test Item Value Reference Range Comments Unknown (test code = 2085-9) 45.9 mg/dL Unknown Unknown F Ordering Physician UnknownLaboratory Tpmfird1224-47-84 12:51:00Identifier 10077- 6 Result Time 2018-06-28 12:51:00Unknown Test Item Value Reference Range Comments Unknown (test code = NullTestCode) 2.7 g/dL Unknown 2-4 F Ordering Physician UnknownLaboratory Czpimfk2354-01-74 12:51:00Identifier 96206- 6 Result Time 2018-06-28 12:51:00Unknown Test Item Value Reference Range Comments Unknown (test code = 2093-3) 165 mg/dL Unknown Unknown F Ordering Physician UnknownLaboratory Qetvpbc9116-77-04 12:51:00Identifier 54017- 6 Result Time 2018-06-28 12:51:00Unknown Test Item Value Reference Range Comments Unknown (test code = 1920-8) 20 U/L Unknown 13-39 F Ordering Physician UnknownLaboratory Yqwptns5847-87-36 12:51:00Identifier 80821- 6 Result Time 2018-06-28 12:51:00Unknown Test Item Value Reference Range Comments Unknown (test code = 6768-6) 72 U/L Unknown 34-104 F Ordering Physician UnknownLaboratory Etamdpa0278-48-07 12:51:00Identifier 54648- 6 Result Time 2018-06-28 12:51:00Unknown Test Item Value Reference Range Comments Unknown (test code = 1759-0) 1.4 Unknown 1-3 F Ordering Physician UnknownLaboratory Naajxxg1423-43-60 12:51:00Identifier 81477- 6 Result Time 2018-06-28 12:51:00Unknown Test Item Value Reference Range Comments Unknown (test code = 39046-5) 3.9 g/dL Unknown 3.2-5.2 F Ordering Physician UnknownLaboratory Jkdbler1337-74-69 12:51:00Identifier 24927- 6 Result Time 2018-06-28 12:51:00Unknown Test Item Value Reference Range Comments Unknown (test code = 1742-6) 18 U/L Unknown 7-52 F Ordering Physician UnknownLaboratory Bczubdq6865-89-53 12:51:00Identifier 77110- 6 Result Time 2018-06-28 12:51:00Unknown Test Item Value Reference Range Comments Unknown (test code = NullTestCode) 6.0 Unknown 5-9 F Ordering Physician UnknownLaboratory Acklekk1558-69-84 12:51:00Identifier 04950- 6 Result Time 2018-06-28 12:51:00Unknown Test Item Value Reference Range Comments Unknown (test code = 99894-4) 1.020 Unknown 1.010-1.030 F Ordering Physician UnknownLaboratory Kbcdrzk8673-27-15 12:51:00Identifier 66380- 6 Result Time 2018-06-28 12:51:00Unknown Test Item Value Reference Range Comments Unknown (test code = 68118-3) 9.5 10^3/ul Unknown 3.5-10.8 F Ordering Physician UnknownLaboratory Lxkqhkr9482-90-71 12:51:00Identifier 05116- 6 Result Time 2018-06-28 12:51:00Unknown Test Item Value Reference Range Comments Unknown (test code = 788-0) 13 % Unknown 10.5-15 F Ordering Physician UnknownLaboratory Pqmnhdx2907-08-87 12:51:00Identifier 27504- 6 Result Time 2018-06-28 12:51:00Unknown Test Item Value Reference Range Comments Unknown (test code = 789-8) 4.97 10^6/ul Unknown 4.00-5.40 F Ordering Physician UnknownLaboratory Eappmdt1085-89-84 12:51:00Identifier 13027- 6 Result Time 2018-06-28 12:51:00Unknown Test Item Value Reference Range Comments Unknown (test code = 50825-8) 0 Unknown Unknown F Ordering Physician UnknownLaboratory Ssvlhyh8794-99-20 12:51:00Identifier 77738- 6 Result Time 2018-06-28 12:51:00Unknown Test Item Value Reference Range Comments Unknown (test code = 771-6) 0 10^3/ul Unknown Unknown F Ordering Physician UnknownLaboratory Peawjkj9823-60-55 12:51:00Identifier 84656- 6 Result Time 2018-06-28 12:51:00Unknown Test Item Value Reference Range Comments Unknown (test code = 770-8) 64.5 % Unknown Unknown F Ordering Physician UnknownLaboratory Mszaaba9365-17-24 12:51:00Identifier 38875- 6 Result Time 2018-06-28 12:51:00Unknown Test Item Value Reference Range Comments Unknown (test code = 5905-5) 6.6 % Unknown Unknown F Ordering Physician UnknownLaboratory Kcxxfwp3338-71-37 12:51:00Identifier 30443- 6 Result Time 2018-06-28 12:51:00Unknown Test Item Value Reference Range Comments Unknown (test code = 787-2) 94 fL Unknown 80-97 F Ordering Physician UnknownLaboratory Gpshpfd0213-74-43 12:51:00Identifier 26847- 6 Result Time 2018-06-28 12:51:00Unknown Test Item Value Reference Range Comments Unknown (test code = 786-4) 34 g/dl Unknown 31-36 F Ordering Physician UnknownLaboratory Ncbcmmx6465-52-68 12:51:00Identifier 19125- 6 Result Time 2018-06-28 12:51:00Unknown Test Item Value Reference Range Comments Unknown (test code = 785-6) 32 pg Unknown 27-31 F Ordering Physician UnknownLaboratory Kyarzlu2181-09-56 12:51:00Identifier 03662- 6 Result Time 2018-06-28 12:51:00Unknown Test Item Value Reference Range Comments Unknown (test code = 736-9) 27.1 % Unknown Unknown F Ordering Physician UnknownLaboratory Jyglqir3441-51-09 12:51:00Identifier 57553- 6 Result Time 2018-06-28 12:51:00Unknown Test Item Value Reference Range Comments Unknown (test code = 713-8) 1.3 % Unknown Unknown F Ordering Physician UnknownLaboratory Ivsdork1788-62-27 12:51:00Identifier 20622- 6 Result Time 2018-06-28 12:51:00Unknown Test Item Value Reference Range Comments Unknown (test code = 706-2) 0.5 % Unknown Unknown F Ordering Physician UnknownLaboratory Cfrwyhx5346-11-05 12:51:00Identifier 10522- 6 Result Time 2018-06-28 12:51:00Unknown Test Item Value Reference Range Comments Unknown (test code = 751-8) 6.1 10^3/ul Unknown 1.5-7.7 F Ordering Physician UnknownLaboratory Tahbjiy2259-95-66 12:51:00Identifier 17023- 6 Result Time 2018-06-28 12:51:00Unknown Test Item Value Reference Range Comments Unknown (test code = 742-7) 0.6 10^3/ul Unknown 0-0.8 F Ordering Physician UnknownLaboratory Svkwvph9412-44-60 12:51:00Identifier 62228- 6 Result Time 2018-06-28 12:51:00Unknown Test Item Value Reference Range Comments Unknown (test code = 731-0) 2.6 10^3/ul Unknown 1.0-4.8 F Ordering Physician UnknownLaboratory Uqiqvix6595-25-76 12:51:00Identifier 19937- 6 Result Time 2018-06-28 12:51:00Unknown Test Item Value Reference Range Comments Unknown (test code = 711-2) 0.1 10^3/ul Unknown 0-0.6 F Ordering Physician UnknownLaboratory Shimgpe1926-61-38 12:51:00Identifier 68397- 6 Result Time 2018-06-28 12:51:00Unknown Test Item Value Reference Range Comments Unknown (test code = 704-7) 0 10^3/ul Unknown 0-0.2 F Ordering Physician Unknown
--- OUTSIDE RECORDS SUMMARY | 2019-05-19 20:50 | XMS REPORT ---
:1940 Author Organization [facility] Care Team Providers Name Role Phone Unavailable [...] Result Comments Laboratory Studies 2018-07-12 06:03:00 Identifier [id number] Result Time Unknown 2018-07-12 06:03:00 Test Item Value Reference Range Comments Unknown (test code = 86452-3) 1.14 Unknown 0.77-1.02 F Ordering Physician UnknownLaboratory Fmgszkk9945-26-82 06:03:00Identifier 25093- 6 Result Time 2018-07-12 06:03:00Unknown Test Item Value Reference Range Comments Unknown (test code = 777-3) 192 10^3/ul Unknown 150-450 F Ordering Physician UnknownLaboratory Hplplxa8476-18-01 06:03:00Identifier 53281- 6 Result Time 2018-07-12 06:03:00Unknown Test Item Value Reference Range Comments Unknown (test code = 82828-2) 9.3 fL Unknown 7.4-10.4 F Ordering Physician UnknownLaboratory Nmrufni0682-68-26 06:03:00Identifier 32163- 6 Result Time 2018-07-12 06:03:00Unknown Test Item Value Reference Range Comments Unknown (test code = 718-7) 13.8 g/dl Unknown 12.0-16.0 F Ordering Physician UnknownLaboratory Bojpfyg2913-73-56 06:03:00Identifier 11402- 6 Result Time 2018-07-12 06:03:00Unknown Test Item Value Reference Range Comments Unknown (test code = 4544-3) 41 % Unknown 35-47 F Ordering Physician UnknownLaboratory Egdjyot3705-41-97 06:00:00Identifier 10624- 6 Result Time 2018-07-12 06:00:00Unknown Test Item Value Reference Range Comments Unknown (test code = 2951-2) 139 mmol/L Unknown 135-145 F Ordering Physician UnknownLaboratory Kvpnptz2754-17-57 06:00:00Identifier 07801- 6 Result Time 2018-07-12 06:00:00Unknown Test Item Value Reference Range Comments Unknown (test code = 2823-3) 3.5 mmol/L Unknown 3.5-5.0 F Ordering Physician UnknownLaboratory Ofapjrl8645-32-24 06:00:00Identifier 62384- 6 Result Time 2018-07-12 06:00:00Unknown Test Item Value Reference Range Comments Unknown (test code = 33450-7) 1.7 mg/dL Unknown 1.9-2.7 F Ordering Physician UnknownLaboratory Elhbqjm0213-54-65 06:00:00Identifier 69416- 6 Result Time 2018-07-12 06:00:00Unknown Test Item Value Reference Range Comments Unknown (test code = 2345-7) 142 mg/dL Unknown 70-100 F Ordering Physician UnknownLaboratory Mftkdia6205-39-15 06:00:00Identifier 91900- 6 Result Time 2018-07-12 06:00:00Unknown Test Item Value Reference Range Comments Unknown (test code = 35046-4) 94.9 Unknown Unknown F Ordering Physician UnknownLaboratory Cdgkfxa0741-70-14 06:00:00Identifier 33681- 6 Result Time 2018-07-12 06:00:00Unknown Test Item Value Reference Range Comments Unknown (test code = NullTestCode) 114.8 Unknown Unknown F Ordering Physician UnknownLaboratory Gtsxlsn5362-65-80 06:00:00Identifier 01306- 6 Result Time 2018-07-12 06:00:00Unknown Test Item Value Reference Range Comments Unknown (test code = 2160-0) 0.61 mg/dL Unknown 0.51-0.95 F Ordering Physician UnknownLaboratory Qzufzii3936-13-51 06:00:00Identifier 50531- 6 Result Time 2018-07-12 06:00:00Unknown Test Item Value Reference Range Comments Unknown (test code = 2075-0) 104 mmol/L Unknown 101-111 F Ordering Physician UnknownLaboratory Hbtciwa9007-72-04 06:00:00Identifier 23059- 6 Result Time 2018-07-12 06:00:00Unknown Test Item Value Reference Range Comments Unknown (test code = 2028-9) 29 mmol/L Unknown 22-32 F Ordering Physician UnknownLaboratory Direhga6669-71-08 06:00:00Identifier 43662- 6 Result Time 2018-07-12 06:00:00Unknown Test Item Value Reference Range Comments Unknown (test code = 36346-5) 8.2 mg/dL Unknown 8.6-10.3 F Ordering Physician UnknownLaboratory Tyfaxtt5862-34-58 06:00:00Identifier 16948- 6 Result Time 2018-07-12 06:00:00Unknown Test Item Value Reference Range Comments Unknown (test code = 3094-0) 11 mg/dL Unknown 6-24 F Ordering Physician UnknownLaboratory Jxbqqxg1872-39-32 06:00:00Identifier 01890- 6 Result Time 2018-07-12 06:00:00Unknown Test Item Value Reference Range Comments Unknown (test code = 3097-3) 18.0 Unknown 8-20 F Ordering Physician UnknownLaboratory Qfghyba5731-22-91 06:00:00Identifier 40695- 6 Result Time 2018-07-12 06:00:00Unknown Test Item Value Reference Range Comments Unknown (test code = 57879-5) 6 mmol/L Unknown 2-11 F Ordering Physician UnknownLaboratory Ucohnok3241-70-26 06:37:00Identifier 72746- 6 Result Time 2018-07-11 06:37:00Unknown Test Item Value Reference Range Comments Unknown (test code = 91065-4) 26.1 seconds Unknown 26.0-36.3 F Ordering Physician UnknownLaboratory Tzhumvu1190-38-83 12:51:00Identifier 36437- 6 Result Time 2018-06-28 12:51:00Unknown Test Item Value Reference Range Comments Unknown (test code = 3024-7) 0.82 ng/dL Unknown 0.61-1.12 F Ordering Physician UnknownLaboratory Dropgdq6308-19-82 12:51:00Identifier 96534- 6 Result Time 2018-06-28 12:51:00Unknown Test Item Value Reference Range Comments Unknown (test code = 3016-3) 2.01 mcIU/mL Unknown 0.34-5.60 F Ordering Physician UnknownLaboratory Yaaeevw5523-70-49 12:51:00Identifier 74820- 6 Result Time 2018-06-28 12:51:00Unknown Test Item Value Reference Range Comments Unknown (test code = 03134-0) 0.7 ng/ml Unknown 0.8-2.0 F Ordering Physician UnknownLaboratory Mzrlrmd4399-37-98 12:51:00Identifier 15714- 6 Result Time 2018-06-28 12:51:00Unknown Test Item Value Reference Range Comments Unknown (test code = 2571-8) 113 mg/dL Unknown Unknown F Ordering Physician UnknownLaboratory Wofxqdl8873-00-47 12:51:00Identifier 88446- 6 Result Time 2018-06-28 12:51:00Unknown Test Item Value Reference Range Comments Unknown (test code = 2885-2) 6.6 g/dL Unknown 6.4-8.9 F Ordering Physician UnknownLaboratory Ibcmldv2513-46-74 12:51:00Identifier 50749- 6 Result Time 2018-06-28 12:51:00Unknown Test Item Value Reference Range Comments Unknown (test code = 1975-2) 0.80 mg/dL Unknown 0.2-1.0 F Ordering Physician UnknownLaboratory Myefavc9814-25-34 12:51:00Identifier 33748- 6 Result Time 2018-06-28 12:51:00Unknown Test Item Value Reference Range Comments Unknown (test code = 2089-1) 97 mg/dL Unknown Unknown F Ordering Physician UnknownLaboratory Dsfwnkc2112-78-07 12:51:00Identifier 41761- 6 Result Time 2018-06-28 12:51:00Unknown Test Item Value Reference Range Comments Unknown (test code = 2085-9) 45.9 mg/dL Unknown Unknown F Ordering Physician UnknownLaboratory Fpttnhv6417-23-79 12:51:00Identifier 84491- 6 Result Time 2018-06-28 12:51:00Unknown Test Item Value Reference Range Comments Unknown (test code = NullTestCode) 2.7 g/dL Unknown 2-4 F Ordering Physician UnknownLaboratory Fjljgwq6897-49-18 12:51:00Identifier 89326- 6 Result Time 2018-06-28 12:51:00Unknown Test Item Value Reference Range Comments Unknown (test code = 2093-3) 165 mg/dL Unknown Unknown F Ordering Physician UnknownLaboratory Odlpdlb1338-07-67 12:51:00Identifier 07079- 6 Result Time 2018-06-28 12:51:00Unknown Test Item Value Reference Range Comments Unknown (test code = 1920-8) 20 U/L Unknown 13-39 F Ordering Physician UnknownLaboratory Dkeetcs0598-31-77 12:51:00Identifier 66221- 6 Result Time 2018-06-28 12:51:00Unknown Test Item Value Reference Range Comments Unknown (test code = 6768-6) 72 U/L Unknown 34-104 F Ordering Physician UnknownLaboratory Haogzvw2987-00-87 12:51:00Identifier 90066- 6 Result Time 2018-06-28 12:51:00Unknown Test Item Value Reference Range Comments Unknown (test code = 1759-0) 1.4 Unknown 1-3 F Ordering Physician UnknownLaboratory Aysavgr6705-95-11 12:51:00Identifier 39489- 6 Result Time 2018-06-28 12:51:00Unknown Test Item Value Reference Range Comments Unknown (test code = 38006-9) 3.9 g/dL Unknown 3.2-5.2 F Ordering Physician UnknownLaboratory Bqtjnbb3940-58-74 12:51:00Identifier 80796- 6 Result Time 2018-06-28 12:51:00Unknown Test Item Value Reference Range Comments Unknown (test code = 1742-6) 18 U/L Unknown 7-52 F Ordering Physician UnknownLaboratory Kvvymaz6744-51-64 12:51:00Identifier 75354- 6 Result Time 2018-06-28 12:51:00Unknown Test Item Value Reference Range Comments Unknown (test code = NullTestCode) 6.0 Unknown 5-9 F Ordering Physician UnknownLaboratory Ljihowy3943-90-27 12:51:00Identifier 29407- 6 Result Time 2018-06-28 12:51:00Unknown Test Item Value Reference Range Comments Unknown (test code = 39385-3) 1.020 Unknown 1.010-1.030 F Ordering Physician UnknownLaboratory Erxgunh9306-06-44 12:51:00Identifier 07245- 6 Result Time 2018-06-28 12:51:00Unknown Test Item Value Reference Range Comments Unknown (test code = 39327-0) 9.5 10^3/ul Unknown 3.5-10.8 F Ordering Physician UnknownLaboratory Jqmksfz5759-32-73 12:51:00Identifier 14745- 6 Result Time 2018-06-28 12:51:00Unknown Test Item Value Reference Range Comments Unknown (test code = 788-0) 13 % Unknown 10.5-15 F Ordering Physician UnknownLaboratory Kyndnng2241-17-08 12:51:00Identifier 70881- 6 Result Time 2018-06-28 12:51:00Unknown Test Item Value Reference Range Comments Unknown (test code = 789-8) 4.97 10^6/ul Unknown 4.00-5.40 F Ordering Physician UnknownLaboratory Baoxeer0384-46-46 12:51:00Identifier 87064- 6 Result Time 2018-06-28 12:51:00Unknown Test Item Value Reference Range Comments Unknown (test code = 87242-0) 0 Unknown Unknown F Ordering Physician UnknownLaboratory Vjsfqdx9543-43-37 12:51:00Identifier 35539- 6 Result Time 2018-06-28 12:51:00Unknown Test Item Value Reference Range Comments Unknown (test code = 771-6) 0 10^3/ul Unknown Unknown F Ordering Physician UnknownLaboratory Olabfdp8744-19-83 12:51:00Identifier 08704- 6 Result Time 2018-06-28 12:51:00Unknown Test Item Value Reference Range Comments Unknown (test code = 770-8) 64.5 % Unknown Unknown F Ordering Physician UnknownLaboratory Sqbjdar3536-02-45 12:51:00Identifier 16140- 6 Result Time 2018-06-28 12:51:00Unknown Test Item Value Reference Range Comments Unknown (test code = 5905-5) 6.6 % Unknown Unknown F Ordering Physician UnknownLaboratory Aludeqr1302-02-08 12:51:00Identifier 30534- 6 Result Time 2018-06-28 12:51:00Unknown Test Item Value Reference Range Comments Unknown (test code = 787-2) 94 fL Unknown 80-97 F Ordering Physician UnknownLaboratory Rpnyoqk2995-75-49 12:51:00Identifier 07758- 6 Result Time 2018-06-28 12:51:00Unknown Test Item Value Reference Range Comments Unknown (test code = 786-4) 34 g/dl Unknown 31-36 F Ordering Physician UnknownLaboratory Qlahjlq1308-65-22 12:51:00Identifier 03768- 6 Result Time 2018-06-28 12:51:00Unknown Test Item Value Reference Range Comments Unknown (test code = 785-6) 32 pg Unknown 27-31 F Ordering Physician UnknownLaboratory Mhjqalo1336-03-72 12:51:00Identifier 88567- 6 Result Time 2018-06-28 12:51:00Unknown Test Item Value Reference Range Comments Unknown (test code = 736-9) 27.1 % Unknown Unknown F Ordering Physician UnknownLaboratory Xaofvfy2060-43-45 12:51:00Identifier 62179- 6 Result Time 2018-06-28 12:51:00Unknown Test Item Value Reference Range Comments Unknown (test code = 713-8) 1.3 % Unknown Unknown F Ordering Physician UnknownLaboratory Llnlafj0618-87-54 12:51:00Identifier 45800- 6 Result Time 2018-06-28 12:51:00Unknown Test Item Value Reference Range Comments Unknown (test code = 706-2) 0.5 % Unknown Unknown F Ordering Physician UnknownLaboratory Rfrkjcq9511-43-49 12:51:00Identifier 06716- 6 Result Time 2018-06-28 12:51:00Unknown Test Item Value Reference Range Comments Unknown (test code = 751-8) 6.1 10^3/ul Unknown 1.5-7.7 F Ordering Physician UnknownLaboratory Rxumwoy7552-61-30 12:51:00Identifier 64495- 6 Result Time 2018-06-28 12:51:00Unknown Test Item Value Reference Range Comments Unknown (test code = 742-7) 0.6 10^3/ul Unknown 0-0.8 F Ordering Physician UnknownLaboratory Kolismq4643-59-62 12:51:00Identifier 42490- 6 Result Time 2018-06-28 12:51:00Unknown Test Item Value Reference Range Comments Unknown (test code = 731-0) 2.6 10^3/ul Unknown 1.0-4.8 F Ordering Physician UnknownLaboratory Baaszxa2267-52-22 12:51:00Identifier 37483- 6 Result Time 2018-06-28 12:51:00Unknown Test Item Value Reference Range Comments Unknown (test code = 711-2) 0.1 10^3/ul Unknown 0-0.6 F Ordering Physician UnknownLaboratory Ivmenbj9817-93-36 12:51:00Identifier 98705- 6 Result Time 2018-06-28 12:51:00Unknown Test Item Value Reference Range Comments Unknown (test code = 704-7) 0 10^3/ul Unknown 0-0.2 F Ordering Physician Unknown
--- OUTSIDE RECORDS SUMMARY | 2019-05-19 20:50 | XMS REPORT ---
:1940 Author Organization [facility] Team Providers Name Role Phone Unavailable [...] Result Comments Laboratory Studies 2018-07-12 06:03:00 Identifier [id number] Result Time Unknown 2018-07-12 06:03:00 Test Item Value Reference Range Comments Unknown (test code = 46733-7) 1.14 Unknown 0.77-1.02 F Ordering Physician UnknownLaboratory Lhnsuxh9066-84-19 06:03:00Identifier 63837- 6 Result Time 2018-07-12 06:03:00Unknown Test Item Value Reference Range Comments Unknown (test code = 777-3) 192 10^3/ul Unknown 150-450 F Ordering Physician UnknownLaboratory Lwcnpyk2517-21-37 06:03:00Identifier 53916- 6 Result Time 2018-07-12 06:03:00Unknown Test Item Value Reference Range Comments Unknown (test code = 91065-2) 9.3 fL Unknown 7.4-10.4 F Ordering Physician UnknownLaboratory Xwcfvya1829-71-44 06:03:00Identifier 70471- 6 Result Time 2018-07-12 06:03:00Unknown Test Item Value Reference Range Comments Unknown (test code = 718-7) 13.8 g/dl Unknown 12.0-16.0 F Ordering Physician UnknownLaboratory Syddeoa6075-43-70 06:03:00Identifier 12769- 6 Result Time 2018-07-12 06:03:00Unknown Test Item Value Reference Range Comments Unknown (test code = 4544-3) 41 % Unknown 35-47 F Ordering Physician UnknownLaboratory Upzhqcw1836-07-56 06:00:00Identifier 03673- 6 Result Time 2018-07-12 06:00:00Unknown Test Item Value Reference Range Comments Unknown (test code = 2951-2) 139 mmol/L Unknown 135-145 F Ordering Physician UnknownLaboratory Ldgqkhe0334-14-17 06:00:00Identifier 50393- 6 Result Time 2018-07-12 06:00:00Unknown Test Item Value Reference Range Comments Unknown (test code = 2823-3) 3.5 mmol/L Unknown 3.5-5.0 F Ordering Physician UnknownLaboratory Vlnvelb3988-72-45 06:00:00Identifier 76135- 6 Result Time 2018-07-12 06:00:00Unknown Test Item Value Reference Range Comments Unknown (test code = 49270-3) 1.7 mg/dL Unknown 1.9-2.7 F Ordering Physician UnknownLaboratory Katetuz7333-36-64 06:00:00Identifier 80156- 6 Result Time 2018-07-12 06:00:00Unknown Test Item Value Reference Range Comments Unknown (test code = 2345-7) 142 mg/dL Unknown 70-100 F Ordering Physician UnknownLaboratory Rfduzcj7301-04-82 06:00:00Identifier 98557- 6 Result Time 2018-07-12 06:00:00Unknown Test Item Value Reference Range Comments Unknown (test code = 85507-0) 94.9 Unknown Unknown F Ordering Physician UnknownLaboratory Zqqcbpc2408-69-66 06:00:00Identifier 32965- 6 Result Time 2018-07-12 06:00:00Unknown Test Item Value Reference Range Comments Unknown (test code = NullTestCode) 114.8 Unknown Unknown F Ordering Physician UnknownLaboratory Ckofluj2164-86-11 06:00:00Identifier 71352- 6 Result Time 2018-07-12 06:00:00Unknown Test Item Value Reference Range Comments Unknown (test code = 2160-0) 0.61 mg/dL Unknown 0.51-0.95 F Ordering Physician UnknownLaboratory Tbfsxeu5045-45-35 06:00:00Identifier 69886- 6 Result Time 2018-07-12 06:00:00Unknown Test Item Value Reference Range Comments Unknown (test code = 2075-0) 104 mmol/L Unknown 101-111 F Ordering Physician UnknownLaboratory Yiswths2126-86-40 06:00:00Identifier 12091- 6 Result Time 2018-07-12 06:00:00Unknown Test Item Value Reference Range Comments Unknown (test code = 2028-9) 29 mmol/L Unknown 22-32 F Ordering Physician UnknownLaboratory Fsrrakb5215-67-09 06:00:00Identifier 45343- 6 Result Time 2018-07-12 06:00:00Unknown Test Item Value Reference Range Comments Unknown (test code = 94625-3) 8.2 mg/dL Unknown 8.6-10.3 F Ordering Physician UnknownLaboratory Jqumnmv3145-02-49 06:00:00Identifier 88477- 6 Result Time 2018-07-12 06:00:00Unknown Test Item Value Reference Range Comments Unknown (test code = 3094-0) 11 mg/dL Unknown 6-24 F Ordering Physician UnknownLaboratory Cgxrdsj0618-32-00 06:00:00Identifier 25252- 6 Result Time 2018-07-12 06:00:00Unknown Test Item Value Reference Range Comments Unknown (test code = 3097-3) 18.0 Unknown 8-20 F Ordering Physician UnknownLaboratory Cqaxvhi0850-36-84 06:00:00Identifier 09222- 6 Result Time 2018-07-12 06:00:00Unknown Test Item Value Reference Range Comments Unknown (test code = 90932-8) 6 mmol/L Unknown 2-11 F Ordering Physician UnknownLaboratory Uvwbpcu1400-45-30 06:37:00Identifier 68577- 6 Result Time 2018-07-11 06:37:00Unknown Test Item Value Reference Range Comments Unknown (test code = 82156-4) 26.1 seconds Unknown 26.0-36.3 F Ordering Physician UnknownLaboratory Whsifyp4031-56-81 12:51:00Identifier 44195- 6 Result Time 2018-06-28 12:51:00Unknown Test Item Value Reference Range Comments Unknown (test code = 3024-7) 0.82 ng/dL Unknown 0.61-1.12 F Ordering Physician UnknownLaboratory Xhcyzbo0018-16-34 12:51:00Identifier 99773- 6 Result Time 2018-06-28 12:51:00Unknown Test Item Value Reference Range Comments Unknown (test code = 3016-3) 2.01 mcIU/mL Unknown 0.34-5.60 F Ordering Physician UnknownLaboratory Aaaywtt3641-90-19 12:51:00Identifier 69204- 6 Result Time 2018-06-28 12:51:00Unknown Test Item Value Reference Range Comments Unknown (test code = 62395-0) 0.7 ng/ml Unknown 0.8-2.0 F Ordering Physician UnknownLaboratory Ikhzvzz5392-68-05 12:51:00Identifier 62228- 6 Result Time 2018-06-28 12:51:00Unknown Test Item Value Reference Range Comments Unknown (test code = 2571-8) 113 mg/dL Unknown Unknown F Ordering Physician UnknownLaboratory Bsiqfwi2172-98-82 12:51:00Identifier 70823- 6 Result Time 2018-06-28 12:51:00Unknown Test Item Value Reference Range Comments Unknown (test code = 2885-2) 6.6 g/dL Unknown 6.4-8.9 F Ordering Physician UnknownLaboratory Qpzuwal4827-82-50 12:51:00Identifier 01945- 6 Result Time 2018-06-28 12:51:00Unknown Test Item Value Reference Range Comments Unknown (test code = 1975-2) 0.80 mg/dL Unknown 0.2-1.0 F Ordering Physician UnknownLaboratory Tgayncc1446-87-07 12:51:00Identifier 59728- 6 Result Time 2018-06-28 12:51:00Unknown Test Item Value Reference Range Comments Unknown (test code = 2089-1) 97 mg/dL Unknown Unknown F Ordering Physician UnknownLaboratory Iwwdjuj1196-65-33 12:51:00Identifier 68168- 6 Result Time 2018-06-28 12:51:00Unknown Test Item Value Reference Range Comments Unknown (test code = 2085-9) 45.9 mg/dL Unknown Unknown F Ordering Physician UnknownLaboratory Yqvsbwh1264-99-40 12:51:00Identifier 72416- 6 Result Time 2018-06-28 12:51:00Unknown Test Item Value Reference Range Comments Unknown (test code = NullTestCode) 2.7 g/dL Unknown 2-4 F Ordering Physician UnknownLaboratory Nbfmivp0919-16-58 12:51:00Identifier 85023- 6 Result Time 2018-06-28 12:51:00Unknown Test Item Value Reference Range Comments Unknown (test code = 2093-3) 165 mg/dL Unknown Unknown F Ordering Physician UnknownLaboratory Cyuamtq1131-90-72 12:51:00Identifier 79643- 6 Result Time 2018-06-28 12:51:00Unknown Test Item Value Reference Range Comments Unknown (test code = 1920-8) 20 U/L Unknown 13-39 F Ordering Physician UnknownLaboratory Vorhayj7885-05-31 12:51:00Identifier 52249- 6 Result Time 2018-06-28 12:51:00Unknown Test Item Value Reference Range Comments Unknown (test code = 6768-6) 72 U/L Unknown 34-104 F Ordering Physician UnknownLaboratory Zyjkjbe7841-27-02 12:51:00Identifier 87219- 6 Result Time 2018-06-28 12:51:00Unknown Test Item Value Reference Range Comments Unknown (test code = 1759-0) 1.4 Unknown 1-3 F Ordering Physician UnknownLaboratory Kevpans4046-13-65 12:51:00Identifier 47433- 6 Result Time 2018-06-28 12:51:00Unknown Test Item Value Reference Range Comments Unknown (test code = 89363-4) 3.9 g/dL Unknown 3.2-5.2 F Ordering Physician UnknownLaboratory Ynchobp0169-66-98 12:51:00Identifier 03928- 6 Result Time 2018-06-28 12:51:00Unknown Test Item Value Reference Range Comments Unknown (test code = 1742-6) 18 U/L Unknown 7-52 F Ordering Physician UnknownLaboratory Xcylgxz3676-43-87 12:51:00Identifier 93337- 6 Result Time 2018-06-28 12:51:00Unknown Test Item Value Reference Range Comments Unknown (test code = NullTestCode) 6.0 Unknown 5-9 F Ordering Physician UnknownLaboratory Qnnvrpd2480-31-80 12:51:00Identifier 86319- 6 Result Time 2018-06-28 12:51:00Unknown Test Item Value Reference Range Comments Unknown (test code = 60036-1) 1.020 Unknown 1.010-1.030 F Ordering Physician UnknownLaboratory Oduxtkt4111-65-73 12:51:00Identifier 11479- 6 Result Time 2018-06-28 12:51:00Unknown Test Item Value Reference Range Comments Unknown (test code = 11244-7) 9.5 10^3/ul Unknown 3.5-10.8 F Ordering Physician UnknownLaboratory Rqyvveg1193-47-71 12:51:00Identifier 68714- 6 Result Time 2018-06-28 12:51:00Unknown Test Item Value Reference Range Comments Unknown (test code = 788-0) 13 % Unknown 10.5-15 F Ordering Physician UnknownLaboratory Wdogxkv9455-36-08 12:51:00Identifier 00112- 6 Result Time 2018-06-28 12:51:00Unknown Test Item Value Reference Range Comments Unknown (test code = 789-8) 4.97 10^6/ul Unknown 4.00-5.40 F Ordering Physician UnknownLaboratory Qfnpzua3175-24-99 12:51:00Identifier 08433- 6 Result Time 2018-06-28 12:51:00Unknown Test Item Value Reference Range Comments Unknown (test code = 66343-4) 0 Unknown Unknown F Ordering Physician UnknownLaboratory Dvhttkl5045-69-17 12:51:00Identifier 93421- 6 Result Time 2018-06-28 12:51:00Unknown Test Item Value Reference Range Comments Unknown (test code = 771-6) 0 10^3/ul Unknown Unknown F Ordering Physician UnknownLaboratory Xxyrgja8912-80-15 12:51:00Identifier 05642- 6 Result Time 2018-06-28 12:51:00Unknown Test Item Value Reference Range Comments Unknown (test code = 770-8) 64.5 % Unknown Unknown F Ordering Physician UnknownLaboratory Jstfkkq2550-40-40 12:51:00Identifier 57709- 6 Result Time 2018-06-28 12:51:00Unknown Test Item Value Reference Range Comments Unknown (test code = 5905-5) 6.6 % Unknown Unknown F Ordering Physician UnknownLaboratory Qcbvcnf9326-50-70 12:51:00Identifier 56835- 6 Result Time 2018-06-28 12:51:00Unknown Test Item Value Reference Range Comments Unknown (test code = 787-2) 94 fL Unknown 80-97 F Ordering Physician UnknownLaboratory Pztxsxh5540-25-42 12:51:00Identifier 12773- 6 Result Time 2018-06-28 12:51:00Unknown Test Item Value Reference Range Comments Unknown (test code = 786-4) 34 g/dl Unknown 31-36 F Ordering Physician UnknownLaboratory Lmduzkg6348-84-72 12:51:00Identifier 31992- 6 Result Time 2018-06-28 12:51:00Unknown Test Item Value Reference Range Comments Unknown (test code = 785-6) 32 pg Unknown 27-31 F Ordering Physician UnknownLaboratory Wsrxtwr6659-53-66 12:51:00Identifier 84874- 6 Result Time 2018-06-28 12:51:00Unknown Test Item Value Reference Range Comments Unknown (test code = 736-9) 27.1 % Unknown Unknown F Ordering Physician UnknownLaboratory Xjxyetw8288-09-84 12:51:00Identifier 15412- 6 Result Time 2018-06-28 12:51:00Unknown Test Item Value Reference Range Comments Unknown (test code = 713-8) 1.3 % Unknown Unknown F Ordering Physician UnknownLaboratory Bdjxhow7185-28-31 12:51:00Identifier 69709- 6 Result Time 2018-06-28 12:51:00Unknown Test Item Value Reference Range Comments Unknown (test code = 706-2) 0.5 % Unknown Unknown F Ordering Physician UnknownLaboratory Mrrxuom6197-98-34 12:51:00Identifier 17763- 6 Result Time 2018-06-28 12:51:00Unknown Test Item Value Reference Range Comments Unknown (test code = 751-8) 6.1 10^3/ul Unknown 1.5-7.7 F Ordering Physician UnknownLaboratory Srsbwnq0462-21-85 12:51:00Identifier 93251- 6 Result Time 2018-06-28 12:51:00Unknown Test Item Value Reference Range Comments Unknown (test code = 742-7) 0.6 10^3/ul Unknown 0-0.8 F Ordering Physician UnknownLaboratory Fnrbzbk2801-26-52 12:51:00Identifier 05155- 6 Result Time 2018-06-28 12:51:00Unknown Test Item Value Reference Range Comments Unknown (test code = 731-0) 2.6 10^3/ul Unknown 1.0-4.8 F Ordering Physician UnknownLaboratory Fwdvjwt6735-43-68 12:51:00Identifier 93194- 6 Result Time 2018-06-28 12:51:00Unknown Test Item Value Reference Range Comments Unknown (test code = 711-2) 0.1 10^3/ul Unknown 0-0.6 F Ordering Physician UnknownLaboratory Vqtvgyu5050-02-43 12:51:00Identifier 30189- 6 Result Time 2018-06-28 12:51:00Unknown Test Item Value Reference Range Comments Unknown (test code = 704-7) 0 10^3/ul Unknown 0-0.2 F Ordering Physician Unknown
--- OUTSIDE RECORDS SUMMARY | 2019-05-19 20:51 | XMS REPORT ---
:1940 Author Organization [facility] Care Team Providers Name Role Phone Unavailable [...] Result Comments Laboratory Studies 2018-07-12 06:03:00 Identifier [id number] Result Time Unknown 2018-07-12 06:03:00 Test Item Value Reference Range Comments Unknown (test code = 52702-3) 1.14 Unknown 0.77-1.02 F Ordering Physician UnknownLaboratory Cktwkrs8816-30-04 06:03:00Identifier [id number]- 6 Result Time 2018-07-12 06:03:00Unknown Test Item Value Reference Range Comments Unknown (test code = 777-3) 192 10^3/ul Unknown 150-450 F Ordering Physician UnknownLaboratory Fnvvowk7372-40-15 06:03:00Identifier 89055- 6 Result Time 2018-07-12 06:03:00Unknown Test Item Value Reference Range Comments Unknown (test code = 77687-8) 9.3 fL Unknown 7.4-10.4 F Ordering Physician UnknownLaboratory Vvbyxfy8768-38-45 06:03:00Identifier 19020- 6 Result Time 2018-07-12 06:03:00Unknown Test Item Value Reference Range Comments Unknown (test code = 718-7) 13.8 g/dl Unknown 12.0-16.0 F Ordering Physician UnknownLaboratory Ajfokge7160-26-25 06:03:00Identifier 44760- 6 Result Time 2018-07-12 06:03:00Unknown Test Item Value Reference Range Comments Unknown (test code = 4544-3) 41 % Unknown 35-47 F Ordering Physician UnknownLaboratory Zbbqyrf5731-50-54 06:00:00Identifier 13164- 6 Result Time 2018-07-12 06:00:00Unknown Test Item Value Reference Range Comments Unknown (test code = 2951-2) 139 mmol/L Unknown 135-145 F Ordering Physician UnknownLaboratory Yxdkyzw0046-68-96 06:00:00Identifier 45525- 6 Result Time 2018-07-12 06:00:00Unknown Test Item Value Reference Range Comments Unknown (test code = 2823-3) 3.5 mmol/L Unknown 3.5-5.0 F Ordering Physician UnknownLaboratory Nfykvyd2707-31-97 06:00:00Identifier 61399- 6 Result Time 2018-07-12 06:00:00Unknown Test Item Value Reference Range Comments Unknown (test code = 22242-9) 1.7 mg/dL Unknown 1.9-2.7 F Ordering Physician UnknownLaboratory Dmilmjw6132-09-15 06:00:00Identifier 04513- 6 Result Time 2018-07-12 06:00:00Unknown Test Item Value Reference Range Comments Unknown (test code = 2345-7) 142 mg/dL Unknown 70-100 F Ordering Physician UnknownLaboratory Igzhfgq6892-70-44 06:00:00Identifier 13286- 6 Result Time 2018-07-12 06:00:00Unknown Test Item Value Reference Range Comments Unknown (test code = 72410-7) 94.9 Unknown Unknown F Ordering Physician UnknownLaboratory Afgyhys3748-47-09 06:00:00Identifier 89817- 6 Result Time 2018-07-12 06:00:00Unknown Test Item Value Reference Range Comments Unknown (test code = NullTestCode) 114.8 Unknown Unknown F Ordering Physician UnknownLaboratory Rofhfie7689-72-84 06:00:00Identifier 58034- 6 Result Time 2018-07-12 06:00:00Unknown Test Item Value Reference Range Comments Unknown (test code = 2160-0) 0.61 mg/dL Unknown 0.51-0.95 F Ordering Physician UnknownLaboratory Tedhakf2655-13-78 06:00:00Identifier 58978- 6 Result Time 2018-07-12 06:00:00Unknown Test Item Value Reference Range Comments Unknown (test code = 2075-0) 104 mmol/L Unknown 101-111 F Ordering Physician UnknownLaboratory Egwujep7842-58-11 06:00:00Identifier 74091- 6 Result Time 2018-07-12 06:00:00Unknown Test Item Value Reference Range Comments Unknown (test code = 2028-9) 29 mmol/L Unknown 22-32 F Ordering Physician UnknownLaboratory Fhvgypj5300-90-54 06:00:00Identifier 31506- 6 Result Time 2018-07-12 06:00:00Unknown Test Item Value Reference Range Comments Unknown (test code = 69065-6) 8.2 mg/dL Unknown 8.6-10.3 F Ordering Physician UnknownLaboratory Uzpcmod2304-03-75 06:00:00Identifier 21808- 6 Result Time 2018-07-12 06:00:00Unknown Test Item Value Reference Range Comments Unknown (test code = 3094-0) 11 mg/dL Unknown 6-24 F Ordering Physician UnknownLaboratory Wenakvs2221-67-79 06:00:00Identifier 39885- 6 Result Time 2018-07-12 06:00:00Unknown Test Item Value Reference Range Comments Unknown (test code = 3097-3) 18.0 Unknown 8-20 F Ordering Physician UnknownLaboratory Qtsryiu6284-94-32 06:00:00Identifier 00729- 6 Result Time 2018-07-12 06:00:00Unknown Test Item Value Reference Range Comments Unknown (test code = 86753-2) 6 mmol/L Unknown 2-11 F Ordering Physician UnknownLaboratory Kaadtkt3435-03-13 06:37:00Identifier 99152- 6 Result Time 2018-07-11 06:37:00Unknown Test Item Value Reference Range Comments Unknown (test code = 02522-0) 26.1 seconds Unknown 26.0-36.3 F Ordering Physician UnknownLaboratory Awffbbt7562-03-62 12:51:00Identifier 34233- 6 Result Time 2018-06-28 12:51:00Unknown Test Item Value Reference Range Comments Unknown (test code = 3024-7) 0.82 ng/dL Unknown 0.61-1.12 F Ordering Physician UnknownLaboratory Hzopwjb3729-02-16 12:51:00Identifier 90361- 6 Result Time 2018-06-28 12:51:00Unknown Test Item Value Reference Range Comments Unknown (test code = 3016-3) 2.01 mcIU/mL Unknown 0.34-5.60 F Ordering Physician UnknownLaboratory Nhkmelf8854-36-14 12:51:00Identifier 70813- 6 Result Time 2018-06-28 12:51:00Unknown Test Item Value Reference Range Comments Unknown (test code = 31631-1) 0.7 ng/ml Unknown 0.8-2.0 F Ordering Physician UnknownLaboratory Cwqclhp8748-30-76 12:51:00Identifier 54589- 6 Result Time 2018-06-28 12:51:00Unknown Test Item Value Reference Range Comments Unknown (test code = 2571-8) 113 mg/dL Unknown Unknown F Ordering Physician UnknownLaboratory Ditgrmu7683-23-39 12:51:00Identifier 93219- 6 Result Time 2018-06-28 12:51:00Unknown Test Item Value Reference Range Comments Unknown (test code = 2885-2) 6.6 g/dL Unknown 6.4-8.9 F Ordering Physician UnknownLaboratory Gbrqecu8098-82-67 12:51:00Identifier 86112- 6 Result Time 2018-06-28 12:51:00Unknown Test Item Value Reference Range Comments Unknown (test code = 1975-2) 0.80 mg/dL Unknown 0.2-1.0 F Ordering Physician UnknownLaboratory Dzuiryl2825-64-78 12:51:00Identifier 89982- 6 Result Time 2018-06-28 12:51:00Unknown Test Item Value Reference Range Comments Unknown (test code = 2089-1) 97 mg/dL Unknown Unknown F Ordering Physician UnknownLaboratory Lbmxtdu0547-14-72 12:51:00Identifier 47203- 6 Result Time 2018-06-28 12:51:00Unknown Test Item Value Reference Range Comments Unknown (test code = 2085-9) 45.9 mg/dL Unknown Unknown F Ordering Physician UnknownLaboratory Tgpojdo0771-20-10 12:51:00Identifier 13200- 6 Result Time 2018-06-28 12:51:00Unknown Test Item Value Reference Range Comments Unknown (test code = NullTestCode) 2.7 g/dL Unknown 2-4 F Ordering Physician UnknownLaboratory Ywenocg7297-00-51 12:51:00Identifier 18024- 6 Result Time 2018-06-28 12:51:00Unknown Test Item Value Reference Range Comments Unknown (test code = 2093-3) 165 mg/dL Unknown Unknown F Ordering Physician UnknownLaboratory Alzrkti4395-52-01 12:51:00Identifier 93660- 6 Result Time 2018-06-28 12:51:00Unknown Test Item Value Reference Range Comments Unknown (test code = 1920-8) 20 U/L Unknown 13-39 F Ordering Physician UnknownLaboratory Qajiahf1267-99-25 12:51:00Identifier 38822- 6 Result Time 2018-06-28 12:51:00Unknown Test Item Value Reference Range Comments Unknown (test code = 6768-6) 72 U/L Unknown 34-104 F Ordering Physician UnknownLaboratory Hppgdln1553-81-47 12:51:00Identifier 20561- 6 Result Time 2018-06-28 12:51:00Unknown Test Item Value Reference Range Comments Unknown (test code = 1759-0) 1.4 Unknown 1-3 F Ordering Physician UnknownLaboratory Rkeqdsg2240-68-21 12:51:00Identifier 53392- 6 Result Time 2018-06-28 12:51:00Unknown Test Item Value Reference Range Comments Unknown (test code = 99144-4) 3.9 g/dL Unknown 3.2-5.2 F Ordering Physician UnknownLaboratory Aqabpug4601-96-43 12:51:00Identifier 34462- 6 Result Time 2018-06-28 12:51:00Unknown Test Item Value Reference Range Comments Unknown (test code = 1742-6) 18 U/L Unknown 7-52 F Ordering Physician UnknownLaboratory Xauwhuc6082-69-16 12:51:00Identifier 97295- 6 Result Time 2018-06-28 12:51:00Unknown Test Item Value Reference Range Comments Unknown (test code = NullTestCode) 6.0 Unknown 5-9 F Ordering Physician UnknownLaboratory Avefzqq1407-88-48 12:51:00Identifier 11173- 6 Result Time 2018-06-28 12:51:00Unknown Test Item Value Reference Range Comments Unknown (test code = 28507-1) 1.020 Unknown 1.010-1.030 F Ordering Physician UnknownLaboratory Vjaazvp2180-72-52 12:51:00Identifier 32850- 6 Result Time 2018-06-28 12:51:00Unknown Test Item Value Reference Range Comments Unknown (test code = 76598-0) 9.5 10^3/ul Unknown 3.5-10.8 F Ordering Physician UnknownLaboratory Dhdioof5586-52-21 12:51:00Identifier 91140- 6 Result Time 2018-06-28 12:51:00Unknown Test Item Value Reference Range Comments Unknown (test code = 788-0) 13 % Unknown 10.5-15 F Ordering Physician UnknownLaboratory Ahshyna8431-32-36 12:51:00Identifier 67592- 6 Result Time 2018-06-28 12:51:00Unknown Test Item Value Reference Range Comments Unknown (test code = 789-8) 4.97 10^6/ul Unknown 4.00-5.40 F Ordering Physician UnknownLaboratory Wpsijin9097-96-06 12:51:00Identifier 07375- 6 Result Time 2018-06-28 12:51:00Unknown Test Item Value Reference Range Comments Unknown (test code = 10807-8) 0 Unknown Unknown F Ordering Physician UnknownLaboratory Nrptopw3635-59-91 12:51:00Identifier 11458- 6 Result Time 2018-06-28 12:51:00Unknown Test Item Value Reference Range Comments Unknown (test code = 771-6) 0 10^3/ul Unknown Unknown F Ordering Physician UnknownLaboratory Bggaaui9215-15-61 12:51:00Identifier 60548- 6 Result Time 2018-06-28 12:51:00Unknown Test Item Value Reference Range Comments Unknown (test code = 770-8) 64.5 % Unknown Unknown F Ordering Physician UnknownLaboratory Uxycxxk5011-48-90 12:51:00Identifier 08238- 6 Result Time 2018-06-28 12:51:00Unknown Test Item Value Reference Range Comments Unknown (test code = 5905-5) 6.6 % Unknown Unknown F Ordering Physician UnknownLaboratory Ztbmjro7628-10-48 12:51:00Identifier 02271- 6 Result Time 2018-06-28 12:51:00Unknown Test Item Value Reference Range Comments Unknown (test code = 787-2) 94 fL Unknown 80-97 F Ordering Physician UnknownLaboratory Uwhiify5345-22-20 12:51:00Identifier 91803- 6 Result Time 2018-06-28 12:51:00Unknown Test Item Value Reference Range Comments Unknown (test code = 786-4) 34 g/dl Unknown 31-36 F Ordering Physician UnknownLaboratory Npvwzdr3692-65-35 12:51:00Identifier 67100- 6 Result Time 2018-06-28 12:51:00Unknown Test Item Value Reference Range Comments Unknown (test code = 785-6) 32 pg Unknown 27-31 F Ordering Physician UnknownLaboratory Avwtfav2240-75-74 12:51:00Identifier 34732- 6 Result Time 2018-06-28 12:51:00Unknown Test Item Value Reference Range Comments Unknown (test code = 736-9) 27.1 % Unknown Unknown F Ordering Physician UnknownLaboratory Glcurbk8954-41-32 12:51:00Identifier 00497- 6 Result Time 2018-06-28 12:51:00Unknown Test Item Value Reference Range Comments Unknown (test code = 713-8) 1.3 % Unknown Unknown F Ordering Physician UnknownLaboratory Frdifbh6078-69-53 12:51:00Identifier 65959- 6 Result Time 2018-06-28 12:51:00Unknown Test Item Value Reference Range Comments Unknown (test code = 706-2) 0.5 % Unknown Unknown F Ordering Physician UnknownLaboratory Mvhhkol5059-03-84 12:51:00Identifier 00002- 6 Result Time 2018-06-28 12:51:00Unknown Test Item Value Reference Range Comments Unknown (test code = 751-8) 6.1 10^3/ul Unknown 1.5-7.7 F Ordering Physician UnknownLaboratory Bftwswb5873-21-48 12:51:00Identifier 32147- 6 Result Time 2018-06-28 12:51:00Unknown Test Item Value Reference Range Comments Unknown (test code = 742-7) 0.6 10^3/ul Unknown 0-0.8 F Ordering Physician UnknownLaboratory Srhyuwl8690-69-34 12:51:00Identifier 63892- 6 Result Time 2018-06-28 12:51:00Unknown Test Item Value Reference Range Comments Unknown (test code = 731-0) 2.6 10^3/ul Unknown 1.0-4.8 F Ordering Physician UnknownLaboratory Gcxpvmb8559-52-47 12:51:00Identifier 60490- 6 Result Time 2018-06-28 12:51:00Unknown Test Item Value Reference Range Comments Unknown (test code = 711-2) 0.1 10^3/ul Unknown 0-0.6 F Ordering Physician UnknownLaboratory Suvvarh1897-06-94 12:51:00Identifier 93280- 6 Result Time 2018-06-28 12:51:00Unknown Test Item Value Reference Range Comments Unknown (test code = 704-7) 0 10^3/ul Unknown 0-0.2 F Ordering Physician Unknown
--- OUTSIDE RECORDS SUMMARY | 2019-05-19 20:51 | XMS REPORT ---
:1940 Author Organization [facility] Care Team Providers Name Role Phone Unavailable [...] Result Comments Laboratory Studies 2018-07-12 06:03:00 Identifier [id number] Result Time Unknown 2018-07-12 06:03:00 Test Item Value Reference Range Comments Unknown (test code = 08133-1) 1.14 Unknown 0.77-1.02 F Ordering Physician UnknownLaboratory Qtnyaxa4834-41-85 06:03:00Identifier 31285- 6 Result Time 2018-07-12 06:03:00Unknown Test Item Value Reference Range Comments Unknown (test code = 777-3) 192 10^3/ul Unknown 150-450 F Ordering Physician UnknownLaboratory Bmabarj7496-74-51 06:03:00Identifier 96535- 6 Result Time 2018-07-12 06:03:00Unknown Test Item Value Reference Range Comments Unknown (test code = 44995-0) 9.3 fL Unknown 7.4-10.4 F Ordering Physician UnknownLaboratory Vgfypfn1056-99-22 06:03:00Identifier 63087- 6 Result Time 2018-07-12 06:03:00Unknown Test Item Value Reference Range Comments Unknown (test code = 718-7) 13.8 g/dl Unknown 12.0-16.0 F Ordering Physician UnknownLaboratory Kxddonf6268-86-95 06:03:00Identifier 47085- 6 Result Time 2018-07-12 06:03:00Unknown Test Item Value Reference Range Comments Unknown (test code = 4544-3) 41 % Unknown 35-47 F Ordering Physician UnknownLaboratory Nyqkdwl9285-43-63 06:00:00Identifier 60898- 6 Result Time 2018-07-12 06:00:00Unknown Test Item Value Reference Range Comments Unknown (test code = 2951-2) 139 mmol/L Unknown 135-145 F Ordering Physician UnknownLaboratory Giwtoiv1193-28-20 06:00:00Identifier 06064- 6 Result Time 2018-07-12 06:00:00Unknown Test Item Value Reference Range Comments Unknown (test code = 2823-3) 3.5 mmol/L Unknown 3.5-5.0 F Ordering Physician UnknownLaboratory Cnhneba2730-61-58 06:00:00Identifier 02029- 6 Result Time 2018-07-12 06:00:00Unknown Test Item Value Reference Range Comments Unknown (test code = 08424-7) 1.7 mg/dL Unknown 1.9-2.7 F Ordering Physician UnknownLaboratory Fgfbtzt2963-18-13 06:00:00Identifier 68995- 6 Result Time 2018-07-12 06:00:00Unknown Test Item Value Reference Range Comments Unknown (test code = 2345-7) 142 mg/dL Unknown 70-100 F Ordering Physician UnknownLaboratory Bruubwl3286-61-98 06:00:00Identifier 26985- 6 Result Time 2018-07-12 06:00:00Unknown Test Item Value Reference Range Comments Unknown (test code = 99264-4) 94.9 Unknown Unknown F Ordering Physician UnknownLaboratory Rsqsmty7635-51-37 06:00:00Identifier 51255- 6 Result Time 2018-07-12 06:00:00Unknown Test Item Value Reference Range Comments Unknown (test code = NullTestCode) 114.8 Unknown Unknown F Ordering Physician UnknownLaboratory Mnarnzz9752-64-56 06:00:00Identifier 01403- 6 Result Time 2018-07-12 06:00:00Unknown Test Item Value Reference Range Comments Unknown (test code = 2160-0) 0.61 mg/dL Unknown 0.51-0.95 F Ordering Physician UnknownLaboratory Rgocnqg9596-81-35 06:00:00Identifier 66151- 6 Result Time 2018-07-12 06:00:00Unknown Test Item Value Reference Range Comments Unknown (test code = 2075-0) 104 mmol/L Unknown 101-111 F Ordering Physician UnknownLaboratory Dadjwrb5725-50-66 06:00:00Identifier 82478- 6 Result Time 2018-07-12 06:00:00Unknown Test Item Value Reference Range Comments Unknown (test code = 2028-9) 29 mmol/L Unknown 22-32 F Ordering Physician UnknownLaboratory Gbyivfy1327-84-34 06:00:00Identifier 58505- 6 Result Time 2018-07-12 06:00:00Unknown Test Item Value Reference Range Comments Unknown (test code = 65836-1) 8.2 mg/dL Unknown 8.6-10.3 F Ordering Physician UnknownLaboratory Sskriby8433-00-30 06:00:00Identifier 69333- 6 Result Time 2018-07-12 06:00:00Unknown Test Item Value Reference Range Comments Unknown (test code = 3094-0) 11 mg/dL Unknown 6-24 F Ordering Physician UnknownLaboratory Dwgrxuj8449-62-93 06:00:00Identifier 87375- 6 Result Time 2018-07-12 06:00:00Unknown Test Item Value Reference Range Comments Unknown (test code = 3097-3) 18.0 Unknown 8-20 F Ordering Physician UnknownLaboratory Uzsbzrw2924-73-68 06:00:00Identifier 48692- 6 Result Time 2018-07-12 06:00:00Unknown Test Item Value Reference Range Comments Unknown (test code = 46444-6) 6 mmol/L Unknown 2-11 F Ordering Physician UnknownLaboratory Erusggx2548-97-41 06:37:00Identifier 94019- 6 Result Time 2018-07-11 06:37:00Unknown Test Item Value Reference Range Comments Unknown (test code = 96180-8) 26.1 seconds Unknown 26.0-36.3 F Ordering Physician UnknownLaboratory Xiyzveg5139-70-55 12:51:00Identifier 06353- 6 Result Time 2018-06-28 12:51:00Unknown Test Item Value Reference Range Comments Unknown (test code = 3024-7) 0.82 ng/dL Unknown 0.61-1.12 F Ordering Physician UnknownLaboratory Mtcevxe1995-19-86 12:51:00Identifier 61654- 6 Result Time 2018-06-28 12:51:00Unknown Test Item Value Reference Range Comments Unknown (test code = 3016-3) 2.01 mcIU/mL Unknown 0.34-5.60 F Ordering Physician UnknownLaboratory Qjuxbdo3654-36-68 12:51:00Identifier 12134- 6 Result Time 2018-06-28 12:51:00Unknown Test Item Value Reference Range Comments Unknown (test code = 86195-9) 0.7 ng/ml Unknown 0.8-2.0 F Ordering Physician UnknownLaboratory Zybicur7644-77-31 12:51:00Identifier 08464- 6 Result Time 2018-06-28 12:51:00Unknown Test Item Value Reference Range Comments Unknown (test code = 2571-8) 113 mg/dL Unknown Unknown F Ordering Physician UnknownLaboratory Mkhmbvy4715-23-24 12:51:00Identifier 75741- 6 Result Time 2018-06-28 12:51:00Unknown Test Item Value Reference Range Comments Unknown (test code = 2885-2) 6.6 g/dL Unknown 6.4-8.9 F Ordering Physician UnknownLaboratory Ucnilba4872-47-69 12:51:00Identifier 16376- 6 Result Time 2018-06-28 12:51:00Unknown Test Item Value Reference Range Comments Unknown (test code = 1975-2) 0.80 mg/dL Unknown 0.2-1.0 F Ordering Physician UnknownLaboratory Cgbdqca6025-19-56 12:51:00Identifier 27200- 6 Result Time 2018-06-28 12:51:00Unknown Test Item Value Reference Range Comments Unknown (test code = 2089-1) 97 mg/dL Unknown Unknown F Ordering Physician UnknownLaboratory Lwwdecs5188-29-82 12:51:00Identifier 13708- 6 Result Time 2018-06-28 12:51:00Unknown Test Item Value Reference Range Comments Unknown (test code = 2085-9) 45.9 mg/dL Unknown Unknown F Ordering Physician UnknownLaboratory Tqigyus0148-84-95 12:51:00Identifier 85677- 6 Result Time 2018-06-28 12:51:00Unknown Test Item Value Reference Range Comments Unknown (test code = NullTestCode) 2.7 g/dL Unknown 2-4 F Ordering Physician UnknownLaboratory Uoybvwq8291-10-30 12:51:00Identifier 62436- 6 Result Time 2018-06-28 12:51:00Unknown Test Item Value Reference Range Comments Unknown (test code = 2093-3) 165 mg/dL Unknown Unknown F Ordering Physician UnknownLaboratory Iefxrkl2130-90-58 12:51:00Identifier 98231- 6 Result Time 2018-06-28 12:51:00Unknown Test Item Value Reference Range Comments Unknown (test code = 1920-8) 20 U/L Unknown 13-39 F Ordering Physician UnknownLaboratory Cnyxncr8907-99-80 12:51:00Identifier 21282- 6 Result Time 2018-06-28 12:51:00Unknown Test Item Value Reference Range Comments Unknown (test code = 6768-6) 72 U/L Unknown 34-104 F Ordering Physician UnknownLaboratory Zxnefnu5034-21-85 12:51:00Identifier 03023- 6 Result Time 2018-06-28 12:51:00Unknown Test Item Value Reference Range Comments Unknown (test code = 1759-0) 1.4 Unknown 1-3 F Ordering Physician UnknownLaboratory Jmbbvss9675-61-36 12:51:00Identifier 44206- 6 Result Time 2018-06-28 12:51:00Unknown Test Item Value Reference Range Comments Unknown (test code = 68096-8) 3.9 g/dL Unknown 3.2-5.2 F Ordering Physician UnknownLaboratory Btcrvnv0428-93-81 12:51:00Identifier 59908- 6 Result Time 2018-06-28 12:51:00Unknown Test Item Value Reference Range Comments Unknown (test code = 1742-6) 18 U/L Unknown 7-52 F Ordering Physician UnknownLaboratory Jcwteeg7270-74-79 12:51:00Identifier 54081- 6 Result Time 2018-06-28 12:51:00Unknown Test Item Value Reference Range Comments Unknown (test code = NullTestCode) 6.0 Unknown 5-9 F Ordering Physician UnknownLaboratory Pifmnna3277-30-62 12:51:00Identifier 63565- 6 Result Time 2018-06-28 12:51:00Unknown Test Item Value Reference Range Comments Unknown (test code = 76701-0) 1.020 Unknown 1.010-1.030 F Ordering Physician UnknownLaboratory Zrxcthj5360-97-63 12:51:00Identifier 57206- 6 Result Time 2018-06-28 12:51:00Unknown Test Item Value Reference Range Comments Unknown (test code = 03141-7) 9.5 10^3/ul Unknown 3.5-10.8 F Ordering Physician UnknownLaboratory Bpwsxnt6039-15-36 12:51:00Identifier 91634- 6 Result Time 2018-06-28 12:51:00Unknown Test Item Value Reference Range Comments Unknown (test code = 788-0) 13 % Unknown 10.5-15 F Ordering Physician UnknownLaboratory Owrwmcs3842-85-55 12:51:00Identifier 17685- 6 Result Time 2018-06-28 12:51:00Unknown Test Item Value Reference Range Comments Unknown (test code = 789-8) 4.97 10^6/ul Unknown 4.00-5.40 F Ordering Physician UnknownLaboratory Qsrkvjm6305-15-33 12:51:00Identifier 34249- 6 Result Time 2018-06-28 12:51:00Unknown Test Item Value Reference Range Comments Unknown (test code = 10565-8) 0 Unknown Unknown F Ordering Physician UnknownLaboratory Uxwgcpw4884-89-79 12:51:00Identifier 84405- 6 Result Time 2018-06-28 12:51:00Unknown Test Item Value Reference Range Comments Unknown (test code = 771-6) 0 10^3/ul Unknown Unknown F Ordering Physician UnknownLaboratory Aqzyilv8406-65-72 12:51:00Identifier 92462- 6 Result Time 2018-06-28 12:51:00Unknown Test Item Value Reference Range Comments Unknown (test code = 770-8) 64.5 % Unknown Unknown F Ordering Physician UnknownLaboratory Uotyzbj2982-89-66 12:51:00Identifier 53082- 6 Result Time 2018-06-28 12:51:00Unknown Test Item Value Reference Range Comments Unknown (test code = 5905-5) 6.6 % Unknown Unknown F Ordering Physician UnknownLaboratory Jbsndcl5581-81-31 12:51:00Identifier 83770- 6 Result Time 2018-06-28 12:51:00Unknown Test Item Value Reference Range Comments Unknown (test code = 787-2) 94 fL Unknown 80-97 F Ordering Physician UnknownLaboratory Rkwlokr1308-49-84 12:51:00Identifier 88552- 6 Result Time 2018-06-28 12:51:00Unknown Test Item Value Reference Range Comments Unknown (test code = 786-4) 34 g/dl Unknown 31-36 F Ordering Physician UnknownLaboratory Vfvcznb4205-14-55 12:51:00Identifier 34635- 6 Result Time 2018-06-28 12:51:00Unknown Test Item Value Reference Range Comments Unknown (test code = 785-6) 32 pg Unknown 27-31 F Ordering Physician UnknownLaboratory Bpamalo8475-99-55 12:51:00Identifier 34459- 6 Result Time 2018-06-28 12:51:00Unknown Test Item Value Reference Range Comments Unknown (test code = 736-9) 27.1 % Unknown Unknown F Ordering Physician UnknownLaboratory Uxqpkud5134-48-78 12:51:00Identifier 03431- 6 Result Time 2018-06-28 12:51:00Unknown Test Item Value Reference Range Comments Unknown (test code = 713-8) 1.3 % Unknown Unknown F Ordering Physician UnknownLaboratory Ovtefhq6375-31-85 12:51:00Identifier 36917- 6 Result Time 2018-06-28 12:51:00Unknown Test Item Value Reference Range Comments Unknown (test code = 706-2) 0.5 % Unknown Unknown F Ordering Physician UnknownLaboratory Rqodzof5519-42-18 12:51:00Identifier 86996- 6 Result Time 2018-06-28 12:51:00Unknown Test Item Value Reference Range Comments Unknown (test code = 751-8) 6.1 10^3/ul Unknown 1.5-7.7 F Ordering Physician UnknownLaboratory Iarpxtg1722-42-35 12:51:00Identifier 05808- 6 Result Time 2018-06-28 12:51:00Unknown Test Item Value Reference Range Comments Unknown (test code = 742-7) 0.6 10^3/ul Unknown 0-0.8 F Ordering Physician UnknownLaboratory Sczcclf8631-37-58 12:51:00Identifier 92281- 6 Result Time 2018-06-28 12:51:00Unknown Test Item Value Reference Range Comments Unknown (test code = 731-0) 2.6 10^3/ul Unknown 1.0-4.8 F Ordering Physician UnknownLaboratory Jaqdzlh0970-77-37 12:51:00Identifier 57541- 6 Result Time 2018-06-28 12:51:00Unknown Test Item Value Reference Range Comments Unknown (test code = 711-2) 0.1 10^3/ul Unknown 0-0.6 F Ordering Physician UnknownLaboratory Ehjxsof8516-35-55 12:51:00Identifier 11177- 6 Result Time 2018-06-28 12:51:00Unknown Test Item Value Reference Range Comments Unknown (test code = 704-7) 0 10^3/ul Unknown 0-0.2 F Ordering Physician Unknown
--- OUTSIDE RECORDS SUMMARY | 2019-05-19 20:51 | XMS REPORT ---
:1940 Author Organization [facility] Care Team Providers Name Role Phone Unavailable [...] Result Comments Laboratory Studies 2018-07-12 06:03:00 Identifier [id number] Result Time Unknown 2018-07-12 06:03:00 Test Item Value Reference Range Comments Unknown (test code = 83667-2) 1.14 Unknown 0.77-1.02 F Ordering Physician UnknownLaboratory Imkbvys3873-87-49 06:03:00Identifier 33881- 6 Result Time 2018-07-12 06:03:00Unknown Test Item Value Reference Range Comments Unknown (test code = 777-3) 192 10^3/ul Unknown 150-450 F Ordering Physician UnknownLaboratory Akotlve1671-56-90 06:03:00Identifier 19478- 6 Result Time 2018-07-12 06:03:00Unknown Test Item Value Reference Range Comments Unknown (test code = 74132-6) 9.3 fL Unknown 7.4-10.4 F Ordering Physician UnknownLaboratory Xwelubt0959-73-66 06:03:00Identifier 90278- 6 Result Time 2018-07-12 06:03:00Unknown Test Item Value Reference Range Comments Unknown (test code = 718-7) 13.8 g/dl Unknown 12.0-16.0 F Ordering Physician UnknownLaboratory Hdjpyfi1312-23-45 06:03:00Identifier 47724- 6 Result Time 2018-07-12 06:03:00Unknown Test Item Value Reference Range Comments Unknown (test code = 4544-3) 41 % Unknown 35-47 F Ordering Physician UnknownLaboratory Avzonrw9642-25-48 06:00:00Identifier 63451- 6 Result Time 2018-07-12 06:00:00Unknown Test Item Value Reference Range Comments Unknown (test code = 2951-2) 139 mmol/L Unknown 135-145 F Ordering Physician UnknownLaboratory Tpurztg5943-07-91 06:00:00Identifier 73141- 6 Result Time 2018-07-12 06:00:00Unknown Test Item Value Reference Range Comments Unknown (test code = 2823-3) 3.5 mmol/L Unknown 3.5-5.0 F Ordering Physician UnknownLaboratory Wbztzpq0443-50-35 06:00:00Identifier 52097- 6 Result Time 2018-07-12 06:00:00Unknown Test Item Value Reference Range Comments Unknown (test code = 85756-6) 1.7 mg/dL Unknown 1.9-2.7 F Ordering Physician UnknownLaboratory Evoqtsx4017-99-41 06:00:00Identifier 46428- 6 Result Time 2018-07-12 06:00:00Unknown Test Item Value Reference Range Comments Unknown (test code = 2345-7) 142 mg/dL Unknown 70-100 F Ordering Physician UnknownLaboratory Wauckge3874-76-61 06:00:00Identifier 58000- 6 Result Time 2018-07-12 06:00:00Unknown Test Item Value Reference Range Comments Unknown (test code = 51116-6) 94.9 Unknown Unknown F Ordering Physician UnknownLaboratory Dbciolz1646-08-35 06:00:00Identifier 62411- 6 Result Time 2018-07-12 06:00:00Unknown Test Item Value Reference Range Comments Unknown (test code = NullTestCode) 114.8 Unknown Unknown F Ordering Physician UnknownLaboratory Ztistbw9197-34-68 06:00:00Identifier 57005- 6 Result Time 2018-07-12 06:00:00Unknown Test Item Value Reference Range Comments Unknown (test code = 2160-0) 0.61 mg/dL Unknown 0.51-0.95 F Ordering Physician UnknownLaboratory Nsjylxk6309-19-68 06:00:00Identifier 01139- 6 Result Time 2018-07-12 06:00:00Unknown Test Item Value Reference Range Comments Unknown (test code = 2075-0) 104 mmol/L Unknown 101-111 F Ordering Physician UnknownLaboratory Ulzzixf3431-42-02 06:00:00Identifier 61570- 6 Result Time 2018-07-12 06:00:00Unknown Test Item Value Reference Range Comments Unknown (test code = 2028-9) 29 mmol/L Unknown 22-32 F Ordering Physician UnknownLaboratory Vorrolw5485-00-75 06:00:00Identifier 55600- 6 Result Time 2018-07-12 06:00:00Unknown Test Item Value Reference Range Comments Unknown (test code = 68848-3) 8.2 mg/dL Unknown 8.6-10.3 F Ordering Physician UnknownLaboratory Xwwvxuo4641-57-68 06:00:00Identifier 52412- 6 Result Time 2018-07-12 06:00:00Unknown Test Item Value Reference Range Comments Unknown (test code = 3094-0) 11 mg/dL Unknown 6-24 F Ordering Physician UnknownLaboratory Pvwwdes2712-51-32 06:00:00Identifier 32330- 6 Result Time 2018-07-12 06:00:00Unknown Test Item Value Reference Range Comments Unknown (test code = 3097-3) 18.0 Unknown 8-20 F Ordering Physician UnknownLaboratory Ettixvl4631-81-06 06:00:00Identifier 56743- 6 Result Time 2018-07-12 06:00:00Unknown Test Item Value Reference Range Comments Unknown (test code = 50695-8) 6 mmol/L Unknown 2-11 F Ordering Physician UnknownLaboratory Kxanbfs7605-63-94 06:37:00Identifier 89392- 6 Result Time 2018-07-11 06:37:00Unknown Test Item Value Reference Range Comments Unknown (test code = 39367-3) 26.1 seconds Unknown 26.0-36.3 F Ordering Physician UnknownLaboratory Seqqoqw6363-98-46 12:51:00Identifier 28087- 6 Result Time 2018-06-28 12:51:00Unknown Test Item Value Reference Range Comments Unknown (test code = 3024-7) 0.82 ng/dL Unknown 0.61-1.12 F Ordering Physician UnknownLaboratory Poipzav9984-37-85 12:51:00Identifier 95100- 6 Result Time 2018-06-28 12:51:00Unknown Test Item Value Reference Range Comments Unknown (test code = 3016-3) 2.01 mcIU/mL Unknown 0.34-5.60 F Ordering Physician UnknownLaboratory Pptclcr5060-90-64 12:51:00Identifier 80876- 6 Result Time 2018-06-28 12:51:00Unknown Test Item Value Reference Range Comments Unknown (test code = 65509-1) 0.7 ng/ml Unknown 0.8-2.0 F Ordering Physician UnknownLaboratory Ozxipio1966-69-99 12:51:00Identifier 63472- 6 Result Time 2018-06-28 12:51:00Unknown Test Item Value Reference Range Comments Unknown (test code = 2571-8) 113 mg/dL Unknown Unknown F Ordering Physician UnknownLaboratory Szpwpzo1872-93-92 12:51:00Identifier 95897- 6 Result Time 2018-06-28 12:51:00Unknown Test Item Value Reference Range Comments Unknown (test code = 2885-2) 6.6 g/dL Unknown 6.4-8.9 F Ordering Physician UnknownLaboratory Nuwzpfs2877-90-59 12:51:00Identifier 86399- 6 Result Time 2018-06-28 12:51:00Unknown Test Item Value Reference Range Comments Unknown (test code = 1975-2) 0.80 mg/dL Unknown 0.2-1.0 F Ordering Physician UnknownLaboratory Gkjkrnm1063-75-44 12:51:00Identifier 58873- 6 Result Time 2018-06-28 12:51:00Unknown Test Item Value Reference Range Comments Unknown (test code = 2089-1) 97 mg/dL Unknown Unknown F Ordering Physician UnknownLaboratory Xyoipyc2445-16-16 12:51:00Identifier 66738- 6 Result Time 2018-06-28 12:51:00Unknown Test Item Value Reference Range Comments Unknown (test code = 2085-9) 45.9 mg/dL Unknown Unknown F Ordering Physician UnknownLaboratory Fwmmzkg6582-70-53 12:51:00Identifier 65446- 6 Result Time 2018-06-28 12:51:00Unknown Test Item Value Reference Range Comments Unknown (test code = NullTestCode) 2.7 g/dL Unknown 2-4 F Ordering Physician UnknownLaboratory Izuvslk0185-56-61 12:51:00Identifier 99784- 6 Result Time 2018-06-28 12:51:00Unknown Test Item Value Reference Range Comments Unknown (test code = 2093-3) 165 mg/dL Unknown Unknown F Ordering Physician UnknownLaboratory Hybvvta0242-16-26 12:51:00Identifier 94094- 6 Result Time 2018-06-28 12:51:00Unknown Test Item Value Reference Range Comments Unknown (test code = 1920-8) 20 U/L Unknown 13-39 F Ordering Physician UnknownLaboratory Relqnxj1815-35-29 12:51:00Identifier 85248- 6 Result Time 2018-06-28 12:51:00Unknown Test Item Value Reference Range Comments Unknown (test code = 6768-6) 72 U/L Unknown 34-104 F Ordering Physician UnknownLaboratory Sifqbzl3294-23-53 12:51:00Identifier 73351- 6 Result Time 2018-06-28 12:51:00Unknown Test Item Value Reference Range Comments Unknown (test code = 1759-0) 1.4 Unknown 1-3 F Ordering Physician UnknownLaboratory Fjptxmd7724-24-12 12:51:00Identifier 95415- 6 Result Time 2018-06-28 12:51:00Unknown Test Item Value Reference Range Comments Unknown (test code = 40373-1) 3.9 g/dL Unknown 3.2-5.2 F Ordering Physician UnknownLaboratory Sjrulpf9687-15-11 12:51:00Identifier 49413- 6 Result Time 2018-06-28 12:51:00Unknown Test Item Value Reference Range Comments Unknown (test code = 1742-6) 18 U/L Unknown 7-52 F Ordering Physician UnknownLaboratory Lejtpgf6058-86-86 12:51:00Identifier 60711- 6 Result Time 2018-06-28 12:51:00Unknown Test Item Value Reference Range Comments Unknown (test code = NullTestCode) 6.0 Unknown 5-9 F Ordering Physician UnknownLaboratory Wcahvno0116-77-72 12:51:00Identifier 16076- 6 Result Time 2018-06-28 12:51:00Unknown Test Item Value Reference Range Comments Unknown (test code = 92172-2) 1.020 Unknown 1.010-1.030 F Ordering Physician UnknownLaboratory Hpkaijk6360-25-94 12:51:00Identifier 96728- 6 Result Time 2018-06-28 12:51:00Unknown Test Item Value Reference Range Comments Unknown (test code = 39596-3) 9.5 10^3/ul Unknown 3.5-10.8 F Ordering Physician UnknownLaboratory Pqayqcs7233-78-14 12:51:00Identifier 74235- 6 Result Time 2018-06-28 12:51:00Unknown Test Item Value Reference Range Comments Unknown (test code = 788-0) 13 % Unknown 10.5-15 F Ordering Physician UnknownLaboratory Kghszwx5809-73-37 12:51:00Identifier 62258- 6 Result Time 2018-06-28 12:51:00Unknown Test Item Value Reference Range Comments Unknown (test code = 789-8) 4.97 10^6/ul Unknown 4.00-5.40 F Ordering Physician UnknownLaboratory Hjuagax3197-19-21 12:51:00Identifier 04651- 6 Result Time 2018-06-28 12:51:00Unknown Test Item Value Reference Range Comments Unknown (test code = 37623-8) 0 Unknown Unknown F Ordering Physician UnknownLaboratory Aasqqqz9895-31-85 12:51:00Identifier 41392- 6 Result Time 2018-06-28 12:51:00Unknown Test Item Value Reference Range Comments Unknown (test code = 771-6) 0 10^3/ul Unknown Unknown F Ordering Physician UnknownLaboratory Hdpbzwt6750-62-59 12:51:00Identifier 14888- 6 Result Time 2018-06-28 12:51:00Unknown Test Item Value Reference Range Comments Unknown (test code = 770-8) 64.5 % Unknown Unknown F Ordering Physician UnknownLaboratory Nyfccsh2116-05-62 12:51:00Identifier 67915- 6 Result Time 2018-06-28 12:51:00Unknown Test Item Value Reference Range Comments Unknown (test code = 5905-5) 6.6 % Unknown Unknown F Ordering Physician UnknownLaboratory Ldapwbv9742-72-96 12:51:00Identifier 50678- 6 Result Time 2018-06-28 12:51:00Unknown Test Item Value Reference Range Comments Unknown (test code = 787-2) 94 fL Unknown 80-97 F Ordering Physician UnknownLaboratory Cxcwywl2944-03-13 12:51:00Identifier 34177- 6 Result Time 2018-06-28 12:51:00Unknown Test Item Value Reference Range Comments Unknown (test code = 786-4) 34 g/dl Unknown 31-36 F Ordering Physician UnknownLaboratory Nojpnvc4691-33-38 12:51:00Identifier 09999- 6 Result Time 2018-06-28 12:51:00Unknown Test Item Value Reference Range Comments Unknown (test code = 785-6) 32 pg Unknown 27-31 F Ordering Physician UnknownLaboratory Pxbzdom9826-98-59 12:51:00Identifier 22526- 6 Result Time 2018-06-28 12:51:00Unknown Test Item Value Reference Range Comments Unknown (test code = 736-9) 27.1 % Unknown Unknown F Ordering Physician UnknownLaboratory Qfenkgx8898-93-12 12:51:00Identifier 96770- 6 Result Time 2018-06-28 12:51:00Unknown Test Item Value Reference Range Comments Unknown (test code = 713-8) 1.3 % Unknown Unknown F Ordering Physician UnknownLaboratory Bneptwv5802-80-43 12:51:00Identifier 92414- 6 Result Time 2018-06-28 12:51:00Unknown Test Item Value Reference Range Comments Unknown (test code = 706-2) 0.5 % Unknown Unknown F Ordering Physician UnknownLaboratory Mdtavbo7934-85-08 12:51:00Identifier 83938- 6 Result Time 2018-06-28 12:51:00Unknown Test Item Value Reference Range Comments Unknown (test code = 751-8) 6.1 10^3/ul Unknown 1.5-7.7 F Ordering Physician UnknownLaboratory Ghliqmm3925-40-25 12:51:00Identifier 58388- 6 Result Time 2018-06-28 12:51:00Unknown Test Item Value Reference Range Comments Unknown (test code = 742-7) 0.6 10^3/ul Unknown 0-0.8 F Ordering Physician UnknownLaboratory Oimybch0880-95-04 12:51:00Identifier 72344- 6 Result Time 2018-06-28 12:51:00Unknown Test Item Value Reference Range Comments Unknown (test code = 731-0) 2.6 10^3/ul Unknown 1.0-4.8 F Ordering Physician UnknownLaboratory Mwurgsj8765-45-22 12:51:00Identifier 08956- 6 Result Time 2018-06-28 12:51:00Unknown Test Item Value Reference Range Comments Unknown (test code = 711-2) 0.1 10^3/ul Unknown 0-0.6 F Ordering Physician UnknownLaboratory Zuwsdhm4513-23-43 12:51:00Identifier 12508- 6 Result Time 2018-06-28 12:51:00Unknown Test Item Value Reference Range Comments Unknown (test code = 704-7) 0 10^3/ul Unknown 0-0.2 F Ordering Physician Unknown
--- OUTSIDE RECORDS SUMMARY | 2019-05-19 20:51 | XMS REPORT ---
:1940 Author Organization [facility] Care Team Providers Name Role Phone Unavailable [...] Result Comments Laboratory Studies 2018-07-12 06:03:00 Identifier 75534-6 Result Time Unknown 2018-07-12 06:03:00 Test Item Value Reference Range Comments Unknown (test code = 53220-2) 1.14 Unknown 0.77-1.02 F Ordering Physician UnknownLaboratory Qykkfjo8856-31-33 06:03:00Identifier 66838- 6 Result Time 2018-07-12 06:03:00Unknown Test Item Value Reference Range Comments Unknown (test code = 777-3) 192 10^3/ul Unknown 150-450 F Ordering Physician UnknownLaboratory Vojymcj5657-65-02 06:03:00Identifier 68298- 6 Result Time 2018-07-12 06:03:00Unknown Test Item Value Reference Range Comments Unknown (test code = 81784-7) 9.3 fL Unknown 7.4-10.4 F Ordering Physician UnknownLaboratory Akokaji7943-81-47 06:03:00Identifier 77332- 6 Result Time 2018-07-12 06:03:00Unknown Test Item Value Reference Range Comments Unknown (test code = 718-7) 13.8 g/dl Unknown 12.0-16.0 F Ordering Physician UnknownLaboratory Qajzoce7660-65-82 06:03:00Identifier 78923- 6 Result Time 2018-07-12 06:03:00Unknown Test Item Value Reference Range Comments Unknown (test code = 4544-3) 41 % Unknown 35-47 F Ordering Physician UnknownLaboratory Hybostu4347-73-55 06:00:00Identifier 33530- 6 Result Time 2018-07-12 06:00:00Unknown Test Item Value Reference Range Comments Unknown (test code = 2951-2) 139 mmol/L Unknown 135-145 F Ordering Physician UnknownLaboratory Ojcjwdy0892-10-85 06:00:00Identifier 97613- 6 Result Time 2018-07-12 06:00:00Unknown Test Item Value Reference Range Comments Unknown (test code = 2823-3) 3.5 mmol/L Unknown 3.5-5.0 F Ordering Physician UnknownLaboratory Iloctqv1681-38-42 06:00:00Identifier 16840- 6 Result Time 2018-07-12 06:00:00Unknown Test Item Value Reference Range Comments Unknown (test code = 50210-9) 1.7 mg/dL Unknown 1.9-2.7 F Ordering Physician UnknownLaboratory Qeaojdd1673-75-39 06:00:00Identifier 00010- 6 Result Time 2018-07-12 06:00:00Unknown Test Item Value Reference Range Comments Unknown (test code = 2345-7) 142 mg/dL Unknown 70-100 F Ordering Physician UnknownLaboratory Jwpckta7778-65-50 06:00:00Identifier 31052- 6 Result Time 2018-07-12 06:00:00Unknown Test Item Value Reference Range Comments Unknown (test code = 03501-3) 94.9 Unknown Unknown F Ordering Physician UnknownLaboratory Lzzktxt6465-35-85 06:00:00Identifier 25455- 6 Result Time 2018-07-12 06:00:00Unknown Test Item Value Reference Range Comments Unknown (test code = NullTestCode) 114.8 Unknown Unknown F Ordering Physician UnknownLaboratory Kkxlfxt3475-53-51 06:00:00Identifier 85277- 6 Result Time 2018-07-12 06:00:00Unknown Test Item Value Reference Range Comments Unknown (test code = 2160-0) 0.61 mg/dL Unknown 0.51-0.95 F Ordering Physician UnknownLaboratory Qwkgwfi6809-34-67 06:00:00Identifier 58549- 6 Result Time 2018-07-12 06:00:00Unknown Test Item Value Reference Range Comments Unknown (test code = 2075-0) 104 mmol/L Unknown 101-111 F Ordering Physician UnknownLaboratory Dljpiuo8175-99-03 06:00:00Identifier 56546- 6 Result Time 2018-07-12 06:00:00Unknown Test Item Value Reference Range Comments Unknown (test code = 2028-9) 29 mmol/L Unknown 22-32 F Ordering Physician UnknownLaboratory Knnwuai4380-80-02 06:00:00Identifier 44522- 6 Result Time 2018-07-12 06:00:00Unknown Test Item Value Reference Range Comments Unknown (test code = 14468-2) 8.2 mg/dL Unknown 8.6-10.3 F Ordering Physician UnknownLaboratory Webvgnx2763-98-11 06:00:00Identifier 24785- 6 Result Time 2018-07-12 06:00:00Unknown Test Item Value Reference Range Comments Unknown (test code = 3094-0) 11 mg/dL Unknown 6-24 F Ordering Physician UnknownLaboratory Vnczhio7144-66-97 06:00:00Identifier 38289- 6 Result Time 2018-07-12 06:00:00Unknown Test Item Value Reference Range Comments Unknown (test code = 3097-3) 18.0 Unknown 8-20 F Ordering Physician UnknownLaboratory Szowxvl0495-78-24 06:00:00Identifier 35074- 6 Result Time 2018-07-12 06:00:00Unknown Test Item Value Reference Range Comments Unknown (test code = 62417-6) 6 mmol/L Unknown 2-11 F Ordering Physician UnknownLaboratory Vwgvohc0676-12-86 06:37:00Identifier 97505- 6 Result Time 2018-07-11 06:37:00Unknown Test Item Value Reference Range Comments Unknown (test code = 34299-4) 26.1 seconds Unknown 26.0-36.3 F Ordering Physician UnknownLaboratory Yshahph1690-41-40 12:51:00Identifier 48059- 6 Result Time 2018-06-28 12:51:00Unknown Test Item Value Reference Range Comments Unknown (test code = 3024-7) 0.82 ng/dL Unknown 0.61-1.12 F Ordering Physician UnknownLaboratory Tipuycp2201-89-13 12:51:00Identifier 28005- 6 Result Time 2018-06-28 12:51:00Unknown Test Item Value Reference Range Comments Unknown (test code = 3016-3) 2.01 mcIU/mL Unknown 0.34-5.60 F Ordering Physician UnknownLaboratory Cjeufso9737-79-52 12:51:00Identifier 08883- 6 Result Time 2018-06-28 12:51:00Unknown Test Item Value Reference Range Comments Unknown (test code = 57839-9) 0.7 ng/ml Unknown 0.8-2.0 F Ordering Physician UnknownLaboratory Qvzattg3257-42-45 12:51:00Identifier 10231- 6 Result Time 2018-06-28 12:51:00Unknown Test Item Value Reference Range Comments Unknown (test code = 2571-8) 113 mg/dL Unknown Unknown F Ordering Physician UnknownLaboratory Zbmxelv3729-80-00 12:51:00Identifier 95099- 6 Result Time 2018-06-28 12:51:00Unknown Test Item Value Reference Range Comments Unknown (test code = 2885-2) 6.6 g/dL Unknown 6.4-8.9 F Ordering Physician UnknownLaboratory Pahmbif6944-99-03 12:51:00Identifier 06198- 6 Result Time 2018-06-28 12:51:00Unknown Test Item Value Reference Range Comments Unknown (test code = 1975-2) 0.80 mg/dL Unknown 0.2-1.0 F Ordering Physician UnknownLaboratory Qqylbpu1123-14-30 12:51:00Identifier 38837- 6 Result Time 2018-06-28 12:51:00Unknown Test Item Value Reference Range Comments Unknown (test code = 2089-1) 97 mg/dL Unknown Unknown F Ordering Physician UnknownLaboratory Qpmsuow0868-13-19 12:51:00Identifier 27821- 6 Result Time 2018-06-28 12:51:00Unknown Test Item Value Reference Range Comments Unknown (test code = 2085-9) 45.9 mg/dL Unknown Unknown F Ordering Physician UnknownLaboratory Imnvxub9345-09-09 12:51:00Identifier 81879- 6 Result Time 2018-06-28 12:51:00Unknown Test Item Value Reference Range Comments Unknown (test code = NullTestCode) 2.7 g/dL Unknown 2-4 F Ordering Physician UnknownLaboratory Qkrgtqo5996-57-68 12:51:00Identifier 52491- 6 Result Time 2018-06-28 12:51:00Unknown Test Item Value Reference Range Comments Unknown (test code = 2093-3) 165 mg/dL Unknown Unknown F Ordering Physician UnknownLaboratory Utqcyfg2441-45-90 12:51:00Identifier 64638- 6 Result Time 2018-06-28 12:51:00Unknown Test Item Value Reference Range Comments Unknown (test code = 1920-8) 20 U/L Unknown 13-39 F Ordering Physician UnknownLaboratory Rebgjbl6829-63-42 12:51:00Identifier 68385- 6 Result Time 2018-06-28 12:51:00Unknown Test Item Value Reference Range Comments Unknown (test code = 6768-6) 72 U/L Unknown 34-104 F Ordering Physician UnknownLaboratory Sqizvtm6419-47-64 12:51:00Identifier 35158- 6 Result Time 2018-06-28 12:51:00Unknown Test Item Value Reference Range Comments Unknown (test code = 1759-0) 1.4 Unknown 1-3 F Ordering Physician UnknownLaboratory Okkdiym5561-33-59 12:51:00Identifier 76989- 6 Result Time 2018-06-28 12:51:00Unknown Test Item Value Reference Range Comments Unknown (test code = 24910-2) 3.9 g/dL Unknown 3.2-5.2 F Ordering Physician UnknownLaboratory Wnaviyw3744-50-89 12:51:00Identifier 57769- 6 Result Time 2018-06-28 12:51:00Unknown Test Item Value Reference Range Comments Unknown (test code = 1742-6) 18 U/L Unknown 7-52 F Ordering Physician UnknownLaboratory Amzxocp4743-88-70 12:51:00Identifier 27667- 6 Result Time 2018-06-28 12:51:00Unknown Test Item Value Reference Range Comments Unknown (test code = NullTestCode) 6.0 Unknown 5-9 F Ordering Physician UnknownLaboratory Spywdet1054-91-80 12:51:00Identifier 20638- 6 Result Time 2018-06-28 12:51:00Unknown Test Item Value Reference Range Comments Unknown (test code = 36991-8) 1.020 Unknown 1.010-1.030 F Ordering Physician UnknownLaboratory Vwrxvxy4142-74-67 12:51:00Identifier 00872- 6 Result Time 2018-06-28 12:51:00Unknown Test Item Value Reference Range Comments Unknown (test code = 72161-0) 9.5 10^3/ul Unknown 3.5-10.8 F Ordering Physician UnknownLaboratory Sbmihxq6101-26-83 12:51:00Identifier 52070- 6 Result Time 2018-06-28 12:51:00Unknown Test Item Value Reference Range Comments Unknown (test code = 788-0) 13 % Unknown 10.5-15 F Ordering Physician UnknownLaboratory Jrwmaqm4003-95-37 12:51:00Identifier 09542- 6 Result Time 2018-06-28 12:51:00Unknown Test Item Value Reference Range Comments Unknown (test code = 789-8) 4.97 10^6/ul Unknown 4.00-5.40 F Ordering Physician UnknownLaboratory Thrlgbs0779-98-98 12:51:00Identifier 59357- 6 Result Time 2018-06-28 12:51:00Unknown Test Item Value Reference Range Comments Unknown (test code = 92831-2) 0 Unknown Unknown F Ordering Physician UnknownLaboratory Fzrwbca9523-80-42 12:51:00Identifier 25632- 6 Result Time 2018-06-28 12:51:00Unknown Test Item Value Reference Range Comments Unknown (test code = 771-6) 0 10^3/ul Unknown Unknown F Ordering Physician UnknownLaboratory Ljthfxa0904-93-49 12:51:00Identifier 86984- 6 Result Time 2018-06-28 12:51:00Unknown Test Item Value Reference Range Comments Unknown (test code = 770-8) 64.5 % Unknown Unknown F Ordering Physician UnknownLaboratory Loxgffk3584-75-53 12:51:00Identifier 88853- 6 Result Time 2018-06-28 12:51:00Unknown Test Item Value Reference Range Comments Unknown (test code = 5905-5) 6.6 % Unknown Unknown F Ordering Physician UnknownLaboratory Cailwen0711-01-78 12:51:00Identifier 35281- 6 Result Time 2018-06-28 12:51:00Unknown Test Item Value Reference Range Comments Unknown (test code = 787-2) 94 fL Unknown 80-97 F Ordering Physician UnknownLaboratory Sgtkzpz3077-04-37 12:51:00Identifier 68568- 6 Result Time 2018-06-28 12:51:00Unknown Test Item Value Reference Range Comments Unknown (test code = 786-4) 34 g/dl Unknown 31-36 F Ordering Physician UnknownLaboratory Yejliqj6087-42-39 12:51:00Identifier 62217- 6 Result Time 2018-06-28 12:51:00Unknown Test Item Value Reference Range Comments Unknown (test code = 785-6) 32 pg Unknown 27-31 F Ordering Physician UnknownLaboratory Znkacpc2771-46-09 12:51:00Identifier 18672- 6 Result Time 2018-06-28 12:51:00Unknown Test Item Value Reference Range Comments Unknown (test code = 736-9) 27.1 % Unknown Unknown F Ordering Physician UnknownLaboratory Zidigks9477-53-83 12:51:00Identifier 06709- 6 Result Time 2018-06-28 12:51:00Unknown Test Item Value Reference Range Comments Unknown (test code = 713-8) 1.3 % Unknown Unknown F Ordering Physician UnknownLaboratory Tqsmnap6106-18-37 12:51:00Identifier 81702- 6 Result Time 2018-06-28 12:51:00Unknown Test Item Value Reference Range Comments Unknown (test code = 706-2) 0.5 % Unknown Unknown F Ordering Physician UnknownLaboratory Moznxgy7270-31-78 12:51:00Identifier 84613- 6 Result Time 2018-06-28 12:51:00Unknown Test Item Value Reference Range Comments Unknown (test code = 751-8) 6.1 10^3/ul Unknown 1.5-7.7 F Ordering Physician UnknownLaboratory Ckvqwgw1895-08-06 12:51:00Identifier 43772- 6 Result Time 2018-06-28 12:51:00Unknown Test Item Value Reference Range Comments Unknown (test code = 742-7) 0.6 10^3/ul Unknown 0-0.8 F Ordering Physician UnknownLaboratory Kueevbw7986-29-17 12:51:00Identifier 07698- 6 Result Time 2018-06-28 12:51:00Unknown Test Item Value Reference Range Comments Unknown (test code = 731-0) 2.6 10^3/ul Unknown 1.0-4.8 F Ordering Physician UnknownLaboratory Glumixz1631-30-48 12:51:00Identifier 27934- 6 Result Time 2018-06-28 12:51:00Unknown Test Item Value Reference Range Comments Unknown (test code = 711-2) 0.1 10^3/ul Unknown 0-0.6 F Ordering Physician UnknownLaboratory Jdzwdoe7553-61-96 12:51:00Identifier 91617- 6 Result Time 2018-06-28 12:51:00Unknown Test Item Value Reference Range Comments Unknown (test code = 704-7) 0 10^3/ul Unknown 0-0.2 F Ordering Physician Unknown
--- OUTSIDE RECORDS SUMMARY | 2019-05-19 20:51 | XMS REPORT ---
:1940 Author Organization [facility] Care Team Providers Name Role Phone Unavailable [...] Result Comments Laboratory Studies 2018-07-12 06:03:00 Identifier [id number] Result Time Unknown 2018-07-12 06:03:00 Test Item Value Reference Range Comments Unknown (test code = 35669-9) 1.14 Unknown 0.77-1.02 F Ordering Physician UnknownLaboratory Nhzaivk3412-66-76 06:03:00Identifier 15644- 6 Result Time 2018-07-12 06:03:00Unknown Test Item Value Reference Range Comments Unknown (test code = 777-3) 192 10^3/ul Unknown 150-450 F Ordering Physician UnknownLaboratory Ydpuyag5404-26-69 06:03:00Identifier 26364- 6 Result Time 2018-07-12 06:03:00Unknown Test Item Value Reference Range Comments Unknown (test code = 66651-4) 9.3 fL Unknown 7.4-10.4 F Ordering Physician UnknownLaboratory Kwhgkqp0018-02-08 06:03:00Identifier 24103- 6 Result Time 2018-07-12 06:03:00Unknown Test Item Value Reference Range Comments Unknown (test code = 718-7) 13.8 g/dl Unknown 12.0-16.0 F Ordering Physician UnknownLaboratory Rxgnufw0644-03-82 06:03:00Identifier 44398- 6 Result Time 2018-07-12 06:03:00Unknown Test Item Value Reference Range Comments Unknown (test code = 4544-3) 41 % Unknown 35-47 F Ordering Physician UnknownLaboratory Laqirpg2961-41-96 06:00:00Identifier 30311- 6 Result Time 2018-07-12 06:00:00Unknown Test Item Value Reference Range Comments Unknown (test code = 2951-2) 139 mmol/L Unknown 135-145 F Ordering Physician UnknownLaboratory Sgktwwf4987-05-63 06:00:00Identifier 54874- 6 Result Time 2018-07-12 06:00:00Unknown Test Item Value Reference Range Comments Unknown (test code = 2823-3) 3.5 mmol/L Unknown 3.5-5.0 F Ordering Physician UnknownLaboratory Kgsatny6637-73-46 06:00:00Identifier 39383- 6 Result Time 2018-07-12 06:00:00Unknown Test Item Value Reference Range Comments Unknown (test code = 95229-1) 1.7 mg/dL Unknown 1.9-2.7 F Ordering Physician UnknownLaboratory Bldzhfx5902-28-35 06:00:00Identifier 15258- 6 Result Time 2018-07-12 06:00:00Unknown Test Item Value Reference Range Comments Unknown (test code = 2345-7) 142 mg/dL Unknown 70-100 F Ordering Physician UnknownLaboratory Dvrzypk5476-86-70 06:00:00Identifier 29192- 6 Result Time 2018-07-12 06:00:00Unknown Test Item Value Reference Range Comments Unknown (test code = 49925-4) 94.9 Unknown Unknown F Ordering Physician UnknownLaboratory Uzyzlqa7280-59-13 06:00:00Identifier 61620- 6 Result Time 2018-07-12 06:00:00Unknown Test Item Value Reference Range Comments Unknown (test code = NullTestCode) 114.8 Unknown Unknown F Ordering Physician UnknownLaboratory Cjdvuvg5489-33-02 06:00:00Identifier 19854- 6 Result Time 2018-07-12 06:00:00Unknown Test Item Value Reference Range Comments Unknown (test code = 2160-0) 0.61 mg/dL Unknown 0.51-0.95 F Ordering Physician UnknownLaboratory Osqrnpo7842-22-91 06:00:00Identifier 32760- 6 Result Time 2018-07-12 06:00:00Unknown Test Item Value Reference Range Comments Unknown (test code = 2075-0) 104 mmol/L Unknown 101-111 F Ordering Physician UnknownLaboratory Tzswioz8799-31-44 06:00:00Identifier 27346- 6 Result Time 2018-07-12 06:00:00Unknown Test Item Value Reference Range Comments Unknown (test code = 2028-9) 29 mmol/L Unknown 22-32 F Ordering Physician UnknownLaboratory Uxsyolq3443-68-60 06:00:00Identifier 14375- 6 Result Time 2018-07-12 06:00:00Unknown Test Item Value Reference Range Comments Unknown (test code = 78183-7) 8.2 mg/dL Unknown 8.6-10.3 F Ordering Physician UnknownLaboratory Eepislu1369-60-52 06:00:00Identifier 03057- 6 Result Time 2018-07-12 06:00:00Unknown Test Item Value Reference Range Comments Unknown (test code = 3094-0) 11 mg/dL Unknown 6-24 F Ordering Physician UnknownLaboratory Gtyuyxr8838-20-02 06:00:00Identifier 96692- 6 Result Time 2018-07-12 06:00:00Unknown Test Item Value Reference Range Comments Unknown (test code = 3097-3) 18.0 Unknown 8-20 F Ordering Physician UnknownLaboratory Jbdlsbw4085-93-67 06:00:00Identifier 30489- 6 Result Time 2018-07-12 06:00:00Unknown Test Item Value Reference Range Comments Unknown (test code = 54464-0) 6 mmol/L Unknown 2-11 F Ordering Physician UnknownLaboratory Gfbtbnv0935-08-21 06:37:00Identifier 37943- 6 Result Time 2018-07-11 06:37:00Unknown Test Item Value Reference Range Comments Unknown (test code = 99555-8) 26.1 seconds Unknown 26.0-36.3 F Ordering Physician UnknownLaboratory Dbyxfzz4967-26-86 12:51:00Identifier 61146- 6 Result Time 2018-06-28 12:51:00Unknown Test Item Value Reference Range Comments Unknown (test code = 3024-7) 0.82 ng/dL Unknown 0.61-1.12 F Ordering Physician UnknownLaboratory Gzlkmpg0452-30-54 12:51:00Identifier 84087- 6 Result Time 2018-06-28 12:51:00Unknown Test Item Value Reference Range Comments Unknown (test code = 3016-3) 2.01 mcIU/mL Unknown 0.34-5.60 F Ordering Physician UnknownLaboratory Yaurwoe6422-04-50 12:51:00Identifier 58966- 6 Result Time 2018-06-28 12:51:00Unknown Test Item Value Reference Range Comments Unknown (test code = 68764-1) 0.7 ng/ml Unknown 0.8-2.0 F Ordering Physician UnknownLaboratory Btgaamt7356-78-64 12:51:00Identifier 10469- 6 Result Time 2018-06-28 12:51:00Unknown Test Item Value Reference Range Comments Unknown (test code = 2571-8) 113 mg/dL Unknown Unknown F Ordering Physician UnknownLaboratory Rxrubpu8787-30-25 12:51:00Identifier 35294- 6 Result Time 2018-06-28 12:51:00Unknown Test Item Value Reference Range Comments Unknown (test code = 2885-2) 6.6 g/dL Unknown 6.4-8.9 F Ordering Physician UnknownLaboratory Wjnprjq5567-83-58 12:51:00Identifier 49588- 6 Result Time 2018-06-28 12:51:00Unknown Test Item Value Reference Range Comments Unknown (test code = 1975-2) 0.80 mg/dL Unknown 0.2-1.0 F Ordering Physician UnknownLaboratory Yusinkt3278-08-13 12:51:00Identifier 60927- 6 Result Time 2018-06-28 12:51:00Unknown Test Item Value Reference Range Comments Unknown (test code = 2089-1) 97 mg/dL Unknown Unknown F Ordering Physician UnknownLaboratory Ifsstff9105-57-69 12:51:00Identifier 98880- 6 Result Time 2018-06-28 12:51:00Unknown Test Item Value Reference Range Comments Unknown (test code = 2085-9) 45.9 mg/dL Unknown Unknown F Ordering Physician UnknownLaboratory Xnxsuzl6249-97-25 12:51:00Identifier 01229- 6 Result Time 2018-06-28 12:51:00Unknown Test Item Value Reference Range Comments Unknown (test code = NullTestCode) 2.7 g/dL Unknown 2-4 F Ordering Physician UnknownLaboratory Xtzlenq0041-44-88 12:51:00Identifier 11747- 6 Result Time 2018-06-28 12:51:00Unknown Test Item Value Reference Range Comments Unknown (test code = 2093-3) 165 mg/dL Unknown Unknown F Ordering Physician UnknownLaboratory Hhltban7107-40-11 12:51:00Identifier 94395- 6 Result Time 2018-06-28 12:51:00Unknown Test Item Value Reference Range Comments Unknown (test code = 1920-8) 20 U/L Unknown 13-39 F Ordering Physician UnknownLaboratory Whkxrzb4685-83-46 12:51:00Identifier 13872- 6 Result Time 2018-06-28 12:51:00Unknown Test Item Value Reference Range Comments Unknown (test code = 6768-6) 72 U/L Unknown 34-104 F Ordering Physician UnknownLaboratory Wjdwapd0890-74-76 12:51:00Identifier 15071- 6 Result Time 2018-06-28 12:51:00Unknown Test Item Value Reference Range Comments Unknown (test code = 1759-0) 1.4 Unknown 1-3 F Ordering Physician UnknownLaboratory Dwcivil1864-05-73 12:51:00Identifier 40175- 6 Result Time 2018-06-28 12:51:00Unknown Test Item Value Reference Range Comments Unknown (test code = 98248-2) 3.9 g/dL Unknown 3.2-5.2 F Ordering Physician UnknownLaboratory Vvmbysg7663-95-54 12:51:00Identifier 39112- 6 Result Time 2018-06-28 12:51:00Unknown Test Item Value Reference Range Comments Unknown (test code = 1742-6) 18 U/L Unknown 7-52 F Ordering Physician UnknownLaboratory Larbvfw0063-07-93 12:51:00Identifier 26836- 6 Result Time 2018-06-28 12:51:00Unknown Test Item Value Reference Range Comments Unknown (test code = NullTestCode) 6.0 Unknown 5-9 F Ordering Physician UnknownLaboratory Rhjowqx4443-53-42 12:51:00Identifier 12055- 6 Result Time 2018-06-28 12:51:00Unknown Test Item Value Reference Range Comments Unknown (test code = 99070-5) 1.020 Unknown 1.010-1.030 F Ordering Physician UnknownLaboratory Eklfyvf9916-48-49 12:51:00Identifier 68366- 6 Result Time 2018-06-28 12:51:00Unknown Test Item Value Reference Range Comments Unknown (test code = 23690-5) 9.5 10^3/ul Unknown 3.5-10.8 F Ordering Physician UnknownLaboratory Qasbdzt8118-38-12 12:51:00Identifier 34038- 6 Result Time 2018-06-28 12:51:00Unknown Test Item Value Reference Range Comments Unknown (test code = 788-0) 13 % Unknown 10.5-15 F Ordering Physician UnknownLaboratory Abspfzd1930-02-53 12:51:00Identifier 06572- 6 Result Time 2018-06-28 12:51:00Unknown Test Item Value Reference Range Comments Unknown (test code = 789-8) 4.97 10^6/ul Unknown 4.00-5.40 F Ordering Physician UnknownLaboratory Qxsxddy6401-00-07 12:51:00Identifier 51168- 6 Result Time 2018-06-28 12:51:00Unknown Test Item Value Reference Range Comments Unknown (test code = 56618-1) 0 Unknown Unknown F Ordering Physician UnknownLaboratory Dburdwz3636-50-72 12:51:00Identifier 55798- 6 Result Time 2018-06-28 12:51:00Unknown Test Item Value Reference Range Comments Unknown (test code = 771-6) 0 10^3/ul Unknown Unknown F Ordering Physician UnknownLaboratory Jijdjpt5859-83-01 12:51:00Identifier 12012- 6 Result Time 2018-06-28 12:51:00Unknown Test Item Value Reference Range Comments Unknown (test code = 770-8) 64.5 % Unknown Unknown F Ordering Physician UnknownLaboratory Qlsoxey8332-07-79 12:51:00Identifier 67928- 6 Result Time 2018-06-28 12:51:00Unknown Test Item Value Reference Range Comments Unknown (test code = 5905-5) 6.6 % Unknown Unknown F Ordering Physician UnknownLaboratory Bdqvhwr3115-12-10 12:51:00Identifier 05903- 6 Result Time 2018-06-28 12:51:00Unknown Test Item Value Reference Range Comments Unknown (test code = 787-2) 94 fL Unknown 80-97 F Ordering Physician UnknownLaboratory Wqymzmp8731-22-96 12:51:00Identifier 31820- 6 Result Time 2018-06-28 12:51:00Unknown Test Item Value Reference Range Comments Unknown (test code = 786-4) 34 g/dl Unknown 31-36 F Ordering Physician UnknownLaboratory Aomoife0305-45-79 12:51:00Identifier 17997- 6 Result Time 2018-06-28 12:51:00Unknown Test Item Value Reference Range Comments Unknown (test code = 785-6) 32 pg Unknown 27-31 F Ordering Physician UnknownLaboratory Uvnlfmt4231-56-79 12:51:00Identifier 86836- 6 Result Time 2018-06-28 12:51:00Unknown Test Item Value Reference Range Comments Unknown (test code = 736-9) 27.1 % Unknown Unknown F Ordering Physician UnknownLaboratory Qhskcko9854-09-16 12:51:00Identifier 84451- 6 Result Time 2018-06-28 12:51:00Unknown Test Item Value Reference Range Comments Unknown (test code = 713-8) 1.3 % Unknown Unknown F Ordering Physician UnknownLaboratory Fmittsq4878-77-50 12:51:00Identifier 88564- 6 Result Time 2018-06-28 12:51:00Unknown Test Item Value Reference Range Comments Unknown (test code = 706-2) 0.5 % Unknown Unknown F Ordering Physician UnknownLaboratory Aspfkdc8833-65-99 12:51:00Identifier 24109- 6 Result Time 2018-06-28 12:51:00Unknown Test Item Value Reference Range Comments Unknown (test code = 751-8) 6.1 10^3/ul Unknown 1.5-7.7 F Ordering Physician UnknownLaboratory Odbtmjk2294-76-62 12:51:00Identifier 50521- 6 Result Time 2018-06-28 12:51:00Unknown Test Item Value Reference Range Comments Unknown (test code = 742-7) 0.6 10^3/ul Unknown 0-0.8 F Ordering Physician UnknownLaboratory Shqoqfb8583-92-73 12:51:00Identifier 67652- 6 Result Time 2018-06-28 12:51:00Unknown Test Item Value Reference Range Comments Unknown (test code = 731-0) 2.6 10^3/ul Unknown 1.0-4.8 F Ordering Physician UnknownLaboratory Tnlzzpc7442-79-12 12:51:00Identifier 96772- 6 Result Time 2018-06-28 12:51:00Unknown Test Item Value Reference Range Comments Unknown (test code = 711-2) 0.1 10^3/ul Unknown 0-0.6 F Ordering Physician UnknownLaboratory Siwfnbc9710-52-22 12:51:00Identifier 96829- 6 Result Time 2018-06-28 12:51:00Unknown Test Item Value Reference Range Comments Unknown (test code = 704-7) 0 10^3/ul Unknown 0-0.2 F Ordering Physician Unknown
--- OUTSIDE RECORDS SUMMARY | 2019-05-19 20:51 | XMS REPORT ---
:1940 Author Organization [facility] Care Team Providers Name Role Phone Unavailable [...] Result Comments Laboratory Studies 2018-07-12 06:03:00 Identifier [id number] Result Time Unknown 2018-07-12 06:03:00 Test Item Value Reference Range Comments Unknown (test code = 02720-4) 1.14 Unknown 0.77-1.02 F Ordering Physician UnknownLaboratory Oyqgkqb7263-89-61 06:03:00Identifier 18875- 6 Result Time 2018-07-12 06:03:00Unknown Test Item Value Reference Range Comments Unknown (test code = 777-3) 192 10^3/ul Unknown 150-450 F Ordering Physician UnknownLaboratory Lemxyqk3930-70-05 06:03:00Identifier 35510- 6 Result Time 2018-07-12 06:03:00Unknown Test Item Value Reference Range Comments Unknown (test code = 13940-6) 9.3 fL Unknown 7.4-10.4 F Ordering Physician UnknownLaboratory Mggnfwm1855-56-74 06:03:00Identifier 64148- 6 Result Time 2018-07-12 06:03:00Unknown Test Item Value Reference Range Comments Unknown (test code = 718-7) 13.8 g/dl Unknown 12.0-16.0 F Ordering Physician UnknownLaboratory Evgvtfr3487-28-91 06:03:00Identifier 37364- 6 Result Time 2018-07-12 06:03:00Unknown Test Item Value Reference Range Comments Unknown (test code = 4544-3) 41 % Unknown 35-47 F Ordering Physician UnknownLaboratory Tqppzoo2621-42-55 06:00:00Identifier 46275- 6 Result Time 2018-07-12 06:00:00Unknown Test Item Value Reference Range Comments Unknown (test code = 2951-2) 139 mmol/L Unknown 135-145 F Ordering Physician UnknownLaboratory Rcfddxb6067-55-00 06:00:00Identifier 75136- 6 Result Time 2018-07-12 06:00:00Unknown Test Item Value Reference Range Comments Unknown (test code = 2823-3) 3.5 mmol/L Unknown 3.5-5.0 F Ordering Physician UnknownLaboratory Ayicbfm2164-65-54 06:00:00Identifier 28323- 6 Result Time 2018-07-12 06:00:00Unknown Test Item Value Reference Range Comments Unknown (test code = 74059-9) 1.7 mg/dL Unknown 1.9-2.7 F Ordering Physician UnknownLaboratory Pcgyxaj8902-73-65 06:00:00Identifier 65811- 6 Result Time 2018-07-12 06:00:00Unknown Test Item Value Reference Range Comments Unknown (test code = 2345-7) 142 mg/dL Unknown 70-100 F Ordering Physician UnknownLaboratory Rngfswf0678-82-16 06:00:00Identifier 80711- 6 Result Time 2018-07-12 06:00:00Unknown Test Item Value Reference Range Comments Unknown (test code = 95057-6) 94.9 Unknown Unknown F Ordering Physician UnknownLaboratory Zkgerth7685-59-88 06:00:00Identifier 67982- 6 Result Time 2018-07-12 06:00:00Unknown Test Item Value Reference Range Comments Unknown (test code = NullTestCode) 114.8 Unknown Unknown F Ordering Physician UnknownLaboratory Qrnifvp3442-64-35 06:00:00Identifier 16394- 6 Result Time 2018-07-12 06:00:00Unknown Test Item Value Reference Range Comments Unknown (test code = 2160-0) 0.61 mg/dL Unknown 0.51-0.95 F Ordering Physician UnknownLaboratory Gjqeklk5608-52-97 06:00:00Identifier 04092- 6 Result Time 2018-07-12 06:00:00Unknown Test Item Value Reference Range Comments Unknown (test code = 2075-0) 104 mmol/L Unknown 101-111 F Ordering Physician UnknownLaboratory Tnrzmfn5443-05-26 06:00:00Identifier 83311- 6 Result Time 2018-07-12 06:00:00Unknown Test Item Value Reference Range Comments Unknown (test code = 2028-9) 29 mmol/L Unknown 22-32 F Ordering Physician UnknownLaboratory Disocro9442-98-55 06:00:00Identifier 28282- 6 Result Time 2018-07-12 06:00:00Unknown Test Item Value Reference Range Comments Unknown (test code = 88413-6) 8.2 mg/dL Unknown 8.6-10.3 F Ordering Physician UnknownLaboratory Lyxudsp0674-81-36 06:00:00Identifier 80515- 6 Result Time 2018-07-12 06:00:00Unknown Test Item Value Reference Range Comments Unknown (test code = 3094-0) 11 mg/dL Unknown 6-24 F Ordering Physician UnknownLaboratory Zaqvjir3961-50-75 06:00:00Identifier 89982- 6 Result Time 2018-07-12 06:00:00Unknown Test Item Value Reference Range Comments Unknown (test code = 3097-3) 18.0 Unknown 8-20 F Ordering Physician UnknownLaboratory Hhfmytw6140-32-80 06:00:00Identifier 50876- 6 Result Time 2018-07-12 06:00:00Unknown Test Item Value Reference Range Comments Unknown (test code = 30761-7) 6 mmol/L Unknown 2-11 F Ordering Physician UnknownLaboratory Htdgaui1744-08-92 06:37:00Identifier 40032- 6 Result Time 2018-07-11 06:37:00Unknown Test Item Value Reference Range Comments Unknown (test code = 09326-1) 26.1 seconds Unknown 26.0-36.3 F Ordering Physician UnknownLaboratory Pesnaim2959-50-36 12:51:00Identifier 91711- 6 Result Time 2018-06-28 12:51:00Unknown Test Item Value Reference Range Comments Unknown (test code = 3024-7) 0.82 ng/dL Unknown 0.61-1.12 F Ordering Physician UnknownLaboratory Xqsyiba4605-11-29 12:51:00Identifier 44734- 6 Result Time 2018-06-28 12:51:00Unknown Test Item Value Reference Range Comments Unknown (test code = 3016-3) 2.01 mcIU/mL Unknown 0.34-5.60 F Ordering Physician UnknownLaboratory Kjjokat3882-83-05 12:51:00Identifier 05379- 6 Result Time 2018-06-28 12:51:00Unknown Test Item Value Reference Range Comments Unknown (test code = 04361-8) 0.7 ng/ml Unknown 0.8-2.0 F Ordering Physician UnknownLaboratory Lkjuqeo3404-34-39 12:51:00Identifier 71238- 6 Result Time 2018-06-28 12:51:00Unknown Test Item Value Reference Range Comments Unknown (test code = 2571-8) 113 mg/dL Unknown Unknown F Ordering Physician UnknownLaboratory Xlyamsg7343-49-85 12:51:00Identifier 63846- 6 Result Time 2018-06-28 12:51:00Unknown Test Item Value Reference Range Comments Unknown (test code = 2885-2) 6.6 g/dL Unknown 6.4-8.9 F Ordering Physician UnknownLaboratory Ozksdxa9824-63-42 12:51:00Identifier 83502- 6 Result Time 2018-06-28 12:51:00Unknown Test Item Value Reference Range Comments Unknown (test code = 1975-2) 0.80 mg/dL Unknown 0.2-1.0 F Ordering Physician UnknownLaboratory Ciypyen3672-68-71 12:51:00Identifier 85618- 6 Result Time 2018-06-28 12:51:00Unknown Test Item Value Reference Range Comments Unknown (test code = 2089-1) 97 mg/dL Unknown Unknown F Ordering Physician UnknownLaboratory Gzkayad5070-15-70 12:51:00Identifier 14283- 6 Result Time 2018-06-28 12:51:00Unknown Test Item Value Reference Range Comments Unknown (test code = 2085-9) 45.9 mg/dL Unknown Unknown F Ordering Physician UnknownLaboratory Iaaprdp0839-65-72 12:51:00Identifier 89706- 6 Result Time 2018-06-28 12:51:00Unknown Test Item Value Reference Range Comments Unknown (test code = NullTestCode) 2.7 g/dL Unknown 2-4 F Ordering Physician UnknownLaboratory Phzywuc9017-59-01 12:51:00Identifier 25199- 6 Result Time 2018-06-28 12:51:00Unknown Test Item Value Reference Range Comments Unknown (test code = 2093-3) 165 mg/dL Unknown Unknown F Ordering Physician UnknownLaboratory Cqmsesg0271-66-10 12:51:00Identifier 21406- 6 Result Time 2018-06-28 12:51:00Unknown Test Item Value Reference Range Comments Unknown (test code = 1920-8) 20 U/L Unknown 13-39 F Ordering Physician UnknownLaboratory Byxisfy8467-84-03 12:51:00Identifier 10701- 6 Result Time 2018-06-28 12:51:00Unknown Test Item Value Reference Range Comments Unknown (test code = 6768-6) 72 U/L Unknown 34-104 F Ordering Physician UnknownLaboratory Rfeydkl0877-64-88 12:51:00Identifier 25132- 6 Result Time 2018-06-28 12:51:00Unknown Test Item Value Reference Range Comments Unknown (test code = 1759-0) 1.4 Unknown 1-3 F Ordering Physician UnknownLaboratory Jogndhh3221-45-72 12:51:00Identifier 17899- 6 Result Time 2018-06-28 12:51:00Unknown Test Item Value Reference Range Comments Unknown (test code = 71699-4) 3.9 g/dL Unknown 3.2-5.2 F Ordering Physician UnknownLaboratory Cmrdjnn2221-34-46 12:51:00Identifier 25010- 6 Result Time 2018-06-28 12:51:00Unknown Test Item Value Reference Range Comments Unknown (test code = 1742-6) 18 U/L Unknown 7-52 F Ordering Physician UnknownLaboratory Pcbybzj7745-62-11 12:51:00Identifier 79760- 6 Result Time 2018-06-28 12:51:00Unknown Test Item Value Reference Range Comments Unknown (test code = NullTestCode) 6.0 Unknown 5-9 F Ordering Physician UnknownLaboratory Bgjmobm6874-43-42 12:51:00Identifier 90751- 6 Result Time 2018-06-28 12:51:00Unknown Test Item Value Reference Range Comments Unknown (test code = 26250-6) 1.020 Unknown 1.010-1.030 F Ordering Physician UnknownLaboratory Lqtdizd7089-42-64 12:51:00Identifier 64439- 6 Result Time 2018-06-28 12:51:00Unknown Test Item Value Reference Range Comments Unknown (test code = 32641-0) 9.5 10^3/ul Unknown 3.5-10.8 F Ordering Physician UnknownLaboratory Rfjihmd2093-57-61 12:51:00Identifier 88945- 6 Result Time 2018-06-28 12:51:00Unknown Test Item Value Reference Range Comments Unknown (test code = 788-0) 13 % Unknown 10.5-15 F Ordering Physician UnknownLaboratory Ibhgzaz7908-86-00 12:51:00Identifier 95309- 6 Result Time 2018-06-28 12:51:00Unknown Test Item Value Reference Range Comments Unknown (test code = 789-8) 4.97 10^6/ul Unknown 4.00-5.40 F Ordering Physician UnknownLaboratory Jfthykd8906-38-33 12:51:00Identifier 33800- 6 Result Time 2018-06-28 12:51:00Unknown Test Item Value Reference Range Comments Unknown (test code = 59343-7) 0 Unknown Unknown F Ordering Physician UnknownLaboratory Esactdg9256-02-91 12:51:00Identifier 61852- 6 Result Time 2018-06-28 12:51:00Unknown Test Item Value Reference Range Comments Unknown (test code = 771-6) 0 10^3/ul Unknown Unknown F Ordering Physician UnknownLaboratory Aluljuq5119-51-70 12:51:00Identifier 08368- 6 Result Time 2018-06-28 12:51:00Unknown Test Item Value Reference Range Comments Unknown (test code = 770-8) 64.5 % Unknown Unknown F Ordering Physician UnknownLaboratory Xbyaoei4978-08-20 12:51:00Identifier 99190- 6 Result Time 2018-06-28 12:51:00Unknown Test Item Value Reference Range Comments Unknown (test code = 5905-5) 6.6 % Unknown Unknown F Ordering Physician UnknownLaboratory Vtltkjg2534-17-83 12:51:00Identifier 32577- 6 Result Time 2018-06-28 12:51:00Unknown Test Item Value Reference Range Comments Unknown (test code = 787-2) 94 fL Unknown 80-97 F Ordering Physician UnknownLaboratory Bksnsor6668-57-16 12:51:00Identifier 20022- 6 Result Time 2018-06-28 12:51:00Unknown Test Item Value Reference Range Comments Unknown (test code = 786-4) 34 g/dl Unknown 31-36 F Ordering Physician UnknownLaboratory Imgihto4382-17-59 12:51:00Identifier 65874- 6 Result Time 2018-06-28 12:51:00Unknown Test Item Value Reference Range Comments Unknown (test code = 785-6) 32 pg Unknown 27-31 F Ordering Physician UnknownLaboratory Uuligop6069-61-28 12:51:00Identifier 77980- 6 Result Time 2018-06-28 12:51:00Unknown Test Item Value Reference Range Comments Unknown (test code = 736-9) 27.1 % Unknown Unknown F Ordering Physician UnknownLaboratory Dijsomk0639-43-47 12:51:00Identifier 29317- 6 Result Time 2018-06-28 12:51:00Unknown Test Item Value Reference Range Comments Unknown (test code = 713-8) 1.3 % Unknown Unknown F Ordering Physician UnknownLaboratory Bpnxaii3562-21-04 12:51:00Identifier 08099- 6 Result Time 2018-06-28 12:51:00Unknown Test Item Value Reference Range Comments Unknown (test code = 706-2) 0.5 % Unknown Unknown F Ordering Physician UnknownLaboratory Zvdvhrb9586-23-98 12:51:00Identifier 15911- 6 Result Time 2018-06-28 12:51:00Unknown Test Item Value Reference Range Comments Unknown (test code = 751-8) 6.1 10^3/ul Unknown 1.5-7.7 F Ordering Physician UnknownLaboratory Ithkyxf6465-67-48 12:51:00Identifier 26306- 6 Result Time 2018-06-28 12:51:00Unknown Test Item Value Reference Range Comments Unknown (test code = 742-7) 0.6 10^3/ul Unknown 0-0.8 F Ordering Physician UnknownLaboratory Xzdorcp6954-58-80 12:51:00Identifier 82283- 6 Result Time 2018-06-28 12:51:00Unknown Test Item Value Reference Range Comments Unknown (test code = 731-0) 2.6 10^3/ul Unknown 1.0-4.8 F Ordering Physician UnknownLaboratory Pbnltwa5076-52-09 12:51:00Identifier 46512- 6 Result Time 2018-06-28 12:51:00Unknown Test Item Value Reference Range Comments Unknown (test code = 711-2) 0.1 10^3/ul Unknown 0-0.6 F Ordering Physician UnknownLaboratory Lemevgc1941-06-90 12:51:00Identifier 24486- 6 Result Time 2018-06-28 12:51:00Unknown Test Item Value Reference Range Comments Unknown (test code = 704-7) 0 10^3/ul Unknown 0-0.2 F Ordering Physician Unknown
--- OUTSIDE RECORDS SUMMARY | 2019-05-19 20:51 | XMS REPORT ---
:1940 Author Organization [facility] Care Team Providers Name Role Phone Unavailable [...] Result Comments Laboratory Studies 2018-07-12 06:03:00 Identifier [id number] Result Time Unknown 2018-07-12 06:03:00 Test Item Value Reference Range Comments Unknown (test code = 75026-3) 1.14 Unknown 0.77-1.02 F Ordering Physician UnknownLaboratory Ezlgqpq1637-74-13 06:03:00Identifier 78410- 6 Result Time 2018-07-12 06:03:00Unknown Test Item Value Reference Range Comments Unknown (test code = 777-3) 192 10^3/ul Unknown 150-450 F Ordering Physician UnknownLaboratory Eqxdngx8864-24-16 06:03:00Identifier 28348- 6 Result Time 2018-07-12 06:03:00Unknown Test Item Value Reference Range Comments Unknown (test code = 71471-2) 9.3 fL Unknown 7.4-10.4 F Ordering Physician UnknownLaboratory Jyrzdmw8990-98-06 06:03:00Identifier 66336- 6 Result Time 2018-07-12 06:03:00Unknown Test Item Value Reference Range Comments Unknown (test code = 718-7) 13.8 g/dl Unknown 12.0-16.0 F Ordering Physician UnknownLaboratory Jnubuzv4804-87-07 06:03:00Identifier 59065- 6 Result Time 2018-07-12 06:03:00Unknown Test Item Value Reference Range Comments Unknown (test code = 4544-3) 41 % Unknown 35-47 F Ordering Physician UnknownLaboratory Cpyutgn6747-54-63 06:00:00Identifier 61199- 6 Result Time 2018-07-12 06:00:00Unknown Test Item Value Reference Range Comments Unknown (test code = 2951-2) 139 mmol/L Unknown 135-145 F Ordering Physician UnknownLaboratory Fxnlgna5155-77-43 06:00:00Identifier 05905- 6 Result Time 2018-07-12 06:00:00Unknown Test Item Value Reference Range Comments Unknown (test code = 2823-3) 3.5 mmol/L Unknown 3.5-5.0 F Ordering Physician UnknownLaboratory Ulrmgft8641-94-93 06:00:00Identifier 21468- 6 Result Time 2018-07-12 06:00:00Unknown Test Item Value Reference Range Comments Unknown (test code = 96260-2) 1.7 mg/dL Unknown 1.9-2.7 F Ordering Physician UnknownLaboratory Usrsyjo5501-93-57 06:00:00Identifier 27301- 6 Result Time 2018-07-12 06:00:00Unknown Test Item Value Reference Range Comments Unknown (test code = 2345-7) 142 mg/dL Unknown 70-100 F Ordering Physician UnknownLaboratory Mqllazr8327-66-06 06:00:00Identifier 79550- 6 Result Time 2018-07-12 06:00:00Unknown Test Item Value Reference Range Comments Unknown (test code = 14941-5) 94.9 Unknown Unknown F Ordering Physician UnknownLaboratory Bijvgtb3965-65-42 06:00:00Identifier 64106- 6 Result Time 2018-07-12 06:00:00Unknown Test Item Value Reference Range Comments Unknown (test code = NullTestCode) 114.8 Unknown Unknown F Ordering Physician UnknownLaboratory Gilzawg9110-27-81 06:00:00Identifier 02591- 6 Result Time 2018-07-12 06:00:00Unknown Test Item Value Reference Range Comments Unknown (test code = 2160-0) 0.61 mg/dL Unknown 0.51-0.95 F Ordering Physician UnknownLaboratory Csomzbq5015-88-65 06:00:00Identifier 92747- 6 Result Time 2018-07-12 06:00:00Unknown Test Item Value Reference Range Comments Unknown (test code = 2075-0) 104 mmol/L Unknown 101-111 F Ordering Physician UnknownLaboratory Twtaney9895-21-44 06:00:00Identifier 38852- 6 Result Time 2018-07-12 06:00:00Unknown Test Item Value Reference Range Comments Unknown (test code = 2028-9) 29 mmol/L Unknown 22-32 F Ordering Physician UnknownLaboratory Uktxhxc5641-84-69 06:00:00Identifier 22169- 6 Result Time 2018-07-12 06:00:00Unknown Test Item Value Reference Range Comments Unknown (test code = 40455-1) 8.2 mg/dL Unknown 8.6-10.3 F Ordering Physician UnknownLaboratory Judakom2121-19-43 06:00:00Identifier 34552- 6 Result Time 2018-07-12 06:00:00Unknown Test Item Value Reference Range Comments Unknown (test code = 3094-0) 11 mg/dL Unknown 6-24 F Ordering Physician UnknownLaboratory Gmjlxrj4451-82-33 06:00:00Identifier 86116- 6 Result Time 2018-07-12 06:00:00Unknown Test Item Value Reference Range Comments Unknown (test code = 3097-3) 18.0 Unknown 8-20 F Ordering Physician UnknownLaboratory Dtnxxtc5047-25-97 06:00:00Identifier 38745- 6 Result Time 2018-07-12 06:00:00Unknown Test Item Value Reference Range Comments Unknown (test code = 76341-8) 6 mmol/L Unknown 2-11 F Ordering Physician UnknownLaboratory Rzlbyne6784-04-03 06:37:00Identifier 65526- 6 Result Time 2018-07-11 06:37:00Unknown Test Item Value Reference Range Comments Unknown (test code = 24192-6) 26.1 seconds Unknown 26.0-36.3 F Ordering Physician UnknownLaboratory Ttxnhqc5703-54-53 12:51:00Identifier 00554- 6 Result Time 2018-06-28 12:51:00Unknown Test Item Value Reference Range Comments Unknown (test code = 3024-7) 0.82 ng/dL Unknown 0.61-1.12 F Ordering Physician UnknownLaboratory Odixoyz8897-22-06 12:51:00Identifier 58938- 6 Result Time 2018-06-28 12:51:00Unknown Test Item Value Reference Range Comments Unknown (test code = 3016-3) 2.01 mcIU/mL Unknown 0.34-5.60 F Ordering Physician UnknownLaboratory Dxhojjd1328-53-69 12:51:00Identifier 09458- 6 Result Time 2018-06-28 12:51:00Unknown Test Item Value Reference Range Comments Unknown (test code = 69100-0) 0.7 ng/ml Unknown 0.8-2.0 F Ordering Physician UnknownLaboratory Juwaisc4290-91-14 12:51:00Identifier 47575- 6 Result Time 2018-06-28 12:51:00Unknown Test Item Value Reference Range Comments Unknown (test code = 2571-8) 113 mg/dL Unknown Unknown F Ordering Physician UnknownLaboratory Pbbewem5219-37-89 12:51:00Identifier 58780- 6 Result Time 2018-06-28 12:51:00Unknown Test Item Value Reference Range Comments Unknown (test code = 2885-2) 6.6 g/dL Unknown 6.4-8.9 F Ordering Physician UnknownLaboratory Sesxhaa8135-62-51 12:51:00Identifier 79295- 6 Result Time 2018-06-28 12:51:00Unknown Test Item Value Reference Range Comments Unknown (test code = 1975-2) 0.80 mg/dL Unknown 0.2-1.0 F Ordering Physician UnknownLaboratory Jpikxah6081-02-93 12:51:00Identifier 01389- 6 Result Time 2018-06-28 12:51:00Unknown Test Item Value Reference Range Comments Unknown (test code = 2089-1) 97 mg/dL Unknown Unknown F Ordering Physician UnknownLaboratory Vlrkzqz8560-75-24 12:51:00Identifier 23566- 6 Result Time 2018-06-28 12:51:00Unknown Test Item Value Reference Range Comments Unknown (test code = 2085-9) 45.9 mg/dL Unknown Unknown F Ordering Physician UnknownLaboratory Xjtjwfh2624-44-13 12:51:00Identifier 98728- 6 Result Time 2018-06-28 12:51:00Unknown Test Item Value Reference Range Comments Unknown (test code = NullTestCode) 2.7 g/dL Unknown 2-4 F Ordering Physician UnknownLaboratory Wzgwwfk4133-69-93 12:51:00Identifier 07115- 6 Result Time 2018-06-28 12:51:00Unknown Test Item Value Reference Range Comments Unknown (test code = 2093-3) 165 mg/dL Unknown Unknown F Ordering Physician UnknownLaboratory Kqboyqr2218-39-57 12:51:00Identifier 86870- 6 Result Time 2018-06-28 12:51:00Unknown Test Item Value Reference Range Comments Unknown (test code = 1920-8) 20 U/L Unknown 13-39 F Ordering Physician UnknownLaboratory Tupmnye9780-60-13 12:51:00Identifier 22796- 6 Result Time 2018-06-28 12:51:00Unknown Test Item Value Reference Range Comments Unknown (test code = 6768-6) 72 U/L Unknown 34-104 F Ordering Physician UnknownLaboratory Fmyuqgr4237-41-44 12:51:00Identifier 86088- 6 Result Time 2018-06-28 12:51:00Unknown Test Item Value Reference Range Comments Unknown (test code = 1759-0) 1.4 Unknown 1-3 F Ordering Physician UnknownLaboratory Tibyuiw2535-64-14 12:51:00Identifier 85445- 6 Result Time 2018-06-28 12:51:00Unknown Test Item Value Reference Range Comments Unknown (test code = 20767-9) 3.9 g/dL Unknown 3.2-5.2 F Ordering Physician UnknownLaboratory Zllfoni7445-38-82 12:51:00Identifier 17196- 6 Result Time 2018-06-28 12:51:00Unknown Test Item Value Reference Range Comments Unknown (test code = 1742-6) 18 U/L Unknown 7-52 F Ordering Physician UnknownLaboratory Gaceisp0662-66-89 12:51:00Identifier 34433- 6 Result Time 2018-06-28 12:51:00Unknown Test Item Value Reference Range Comments Unknown (test code = NullTestCode) 6.0 Unknown 5-9 F Ordering Physician UnknownLaboratory Wsoacrc9354-93-30 12:51:00Identifier 99505- 6 Result Time 2018-06-28 12:51:00Unknown Test Item Value Reference Range Comments Unknown (test code = 00816-9) 1.020 Unknown 1.010-1.030 F Ordering Physician UnknownLaboratory Ycwkltf6571-21-84 12:51:00Identifier 80885- 6 Result Time 2018-06-28 12:51:00Unknown Test Item Value Reference Range Comments Unknown (test code = 16551-7) 9.5 10^3/ul Unknown 3.5-10.8 F Ordering Physician UnknownLaboratory Bxcydtf3966-89-41 12:51:00Identifier 18302- 6 Result Time 2018-06-28 12:51:00Unknown Test Item Value Reference Range Comments Unknown (test code = 788-0) 13 % Unknown 10.5-15 F Ordering Physician UnknownLaboratory Kpurlyc7408-25-15 12:51:00Identifier 53026- 6 Result Time 2018-06-28 12:51:00Unknown Test Item Value Reference Range Comments Unknown (test code = 789-8) 4.97 10^6/ul Unknown 4.00-5.40 F Ordering Physician UnknownLaboratory Kewftlq4491-36-04 12:51:00Identifier 62989- 6 Result Time 2018-06-28 12:51:00Unknown Test Item Value Reference Range Comments Unknown (test code = 55396-1) 0 Unknown Unknown F Ordering Physician UnknownLaboratory Jbixhae2451-92-74 12:51:00Identifier 01854- 6 Result Time 2018-06-28 12:51:00Unknown Test Item Value Reference Range Comments Unknown (test code = 771-6) 0 10^3/ul Unknown Unknown F Ordering Physician UnknownLaboratory Nydqzug7702-64-33 12:51:00Identifier 69244- 6 Result Time 2018-06-28 12:51:00Unknown Test Item Value Reference Range Comments Unknown (test code = 770-8) 64.5 % Unknown Unknown F Ordering Physician UnknownLaboratory Gwsdnaw5788-92-36 12:51:00Identifier 98330- 6 Result Time 2018-06-28 12:51:00Unknown Test Item Value Reference Range Comments Unknown (test code = 5905-5) 6.6 % Unknown Unknown F Ordering Physician UnknownLaboratory Pixqqrq4245-64-85 12:51:00Identifier 49831- 6 Result Time 2018-06-28 12:51:00Unknown Test Item Value Reference Range Comments Unknown (test code = 787-2) 94 fL Unknown 80-97 F Ordering Physician UnknownLaboratory Dnwwjrh6018-28-61 12:51:00Identifier 48742- 6 Result Time 2018-06-28 12:51:00Unknown Test Item Value Reference Range Comments Unknown (test code = 786-4) 34 g/dl Unknown 31-36 F Ordering Physician UnknownLaboratory Xagmcuz2792-11-84 12:51:00Identifier 62209- 6 Result Time 2018-06-28 12:51:00Unknown Test Item Value Reference Range Comments Unknown (test code = 785-6) 32 pg Unknown 27-31 F Ordering Physician UnknownLaboratory Fqdtiul4047-66-90 12:51:00Identifier 84116- 6 Result Time 2018-06-28 12:51:00Unknown Test Item Value Reference Range Comments Unknown (test code = 736-9) 27.1 % Unknown Unknown F Ordering Physician UnknownLaboratory Wagfdhx5818-68-26 12:51:00Identifier 23952- 6 Result Time 2018-06-28 12:51:00Unknown Test Item Value Reference Range Comments Unknown (test code = 713-8) 1.3 % Unknown Unknown F Ordering Physician UnknownLaboratory Ypswovs5039-80-06 12:51:00Identifier 82269- 6 Result Time 2018-06-28 12:51:00Unknown Test Item Value Reference Range Comments Unknown (test code = 706-2) 0.5 % Unknown Unknown F Ordering Physician UnknownLaboratory Lhrrury7972-73-88 12:51:00Identifier 34723- 6 Result Time 2018-06-28 12:51:00Unknown Test Item Value Reference Range Comments Unknown (test code = 751-8) 6.1 10^3/ul Unknown 1.5-7.7 F Ordering Physician UnknownLaboratory Uykwbmw9179-90-80 12:51:00Identifier 95640- 6 Result Time 2018-06-28 12:51:00Unknown Test Item Value Reference Range Comments Unknown (test code = 742-7) 0.6 10^3/ul Unknown 0-0.8 F Ordering Physician UnknownLaboratory Epqmmrg3003-20-75 12:51:00Identifier 77795- 6 Result Time 2018-06-28 12:51:00Unknown Test Item Value Reference Range Comments Unknown (test code = 731-0) 2.6 10^3/ul Unknown 1.0-4.8 F Ordering Physician UnknownLaboratory Uunzseh8334-86-06 12:51:00Identifier 85533- 6 Result Time 2018-06-28 12:51:00Unknown Test Item Value Reference Range Comments Unknown (test code = 711-2) 0.1 10^3/ul Unknown 0-0.6 F Ordering Physician UnknownLaboratory Ykgrfvw9704-70-34 12:51:00Identifier 62486- 6 Result Time 2018-06-28 12:51:00Unknown Test Item Value Reference Range Comments Unknown (test code = 704-7) 0 10^3/ul Unknown 0-0.2 F Ordering Physician Unknown
--- OUTSIDE RECORDS SUMMARY | 2019-05-19 20:51 | XMS REPORT ---
:1940 Author Organization [facility] Care Team Providers Name Role Phone Unavailable [...] Unknown Unknown Unknown 50 mg 50 mg 07-05 tablet tablet digoxin 250 digoxin 250 2017-06 [...] Result Comments Laboratory Studies 2018-07-12 06:03:00 Identifier [id number] Result Time Unknown 2018-07-12 06:03:00 Test Item Value Reference Range Comments Unknown (test code = 29021-9) 1.14 Unknown 0.77-1.02 F Ordering Physician UnknownLaboratory Dobdsdy5209-36-17 06:03:00Identifier [id number]- 6 Result Time 2018-07-12 06:03:00Unknown Test Item Value Reference Range Comments Unknown (test code = 777-3) 192 10^3/ul Unknown 150-450 F Ordering Physician UnknownLaboratory Rgjmrvr3458-42-09 06:03:00Identifier [id number]- 6 Result Time 2018-07-12 06:03:00Unknown Test Item Value Reference Range Comments Unknown (test code = 00181-3) 9.3 fL Unknown 7.4-10.4 F Ordering Physician UnknownLaboratory Gdgasdl0989-07-46 06:03:00Identifier [id number]- 6 Result Time 2018-07-12 06:03:00Unknown Test Item Value Reference Range Comments Unknown (test code = 718-7) 13.8 g/dl Unknown 12.0-16.0 F Ordering Physician UnknownLaboratory Lgkgovd4902-14-96 06:03:00Identifier 27360- 6 Result Time 2018-07-12 06:03:00Unknown Test Item Value Reference Range Comments Unknown (test code = 4544-3) 41 % Unknown 35-47 F Ordering Physician UnknownLaboratory Fpegrhm7142-98-27 06:00:00Identifier 79600- 6 Result Time 2018-07-12 06:00:00Unknown Test Item Value Reference Range Comments Unknown (test code = 2951-2) 139 mmol/L Unknown 135-145 F Ordering Physician UnknownLaboratory Bkxysuh5201-97-41 06:00:00Identifier 20038- 6 Result Time 2018-07-12 06:00:00Unknown Test Item Value Reference Range Comments Unknown (test code = 2823-3) 3.5 mmol/L Unknown 3.5-5.0 F Ordering Physician UnknownLaboratory Yhzxpir4863-89-92 06:00:00Identifier 43057- 6 Result Time 2018-07-12 06:00:00Unknown Test Item Value Reference Range Comments Unknown (test code = 11662-3) 1.7 mg/dL Unknown 1.9-2.7 F Ordering Physician UnknownLaboratory Zxdifvb6676-45-14 06:00:00Identifier 52533- 6 Result Time 2018-07-12 06:00:00Unknown Test Item Value Reference Range Comments Unknown (test code = 2345-7) 142 mg/dL Unknown 70-100 F Ordering Physician UnknownLaboratory Psjeddr5928-54-55 06:00:00Identifier 63218- 6 Result Time 2018-07-12 06:00:00Unknown Test Item Value Reference Range Comments Unknown (test code = 69930-2) 94.9 Unknown Unknown F Ordering Physician UnknownLaboratory Hsarfjc5897-95-99 06:00:00Identifier 60075- 6 Result Time 2018-07-12 06:00:00Unknown Test Item Value Reference Range Comments Unknown (test code = NullTestCode) 114.8 Unknown Unknown F Ordering Physician UnknownLaboratory Ppmqfau9678-78-94 06:00:00Identifier 70343- 6 Result Time 2018-07-12 06:00:00Unknown Test Item Value Reference Range Comments Unknown (test code = 2160-0) 0.61 mg/dL Unknown 0.51-0.95 F Ordering Physician UnknownLaboratory Ypepxvd9330-12-28 06:00:00Identifier 79503- 6 Result Time 2018-07-12 06:00:00Unknown Test Item Value Reference Range Comments Unknown (test code = 2075-0) 104 mmol/L Unknown 101-111 F Ordering Physician UnknownLaboratory Vmismad4075-63-26 06:00:00Identifier 08140- 6 Result Time 2018-07-12 06:00:00Unknown Test Item Value Reference Range Comments Unknown (test code = 2028-9) 29 mmol/L Unknown 22-32 F Ordering Physician UnknownLaboratory Dhcwdlg9842-96-60 06:00:00Identifier 91681- 6 Result Time 2018-07-12 06:00:00Unknown Test Item Value Reference Range Comments Unknown (test code = 30067-5) 8.2 mg/dL Unknown 8.6-10.3 F Ordering Physician UnknownLaboratory Lvnbtia5669-17-36 06:00:00Identifier 62299- 6 Result Time 2018-07-12 06:00:00Unknown Test Item Value Reference Range Comments Unknown (test code = 3094-0) 11 mg/dL Unknown 6-24 F Ordering Physician UnknownLaboratory Wgrrgjz9869-73-02 06:00:00Identifier 95965- 6 Result Time 2018-07-12 06:00:00Unknown Test Item Value Reference Range Comments Unknown (test code = 3097-3) 18.0 Unknown 8-20 F Ordering Physician UnknownLaboratory Mgrgqpx1031-44-99 06:00:00Identifier 21574- 6 Result Time 2018-07-12 06:00:00Unknown Test Item Value Reference Range Comments Unknown (test code = 68796-6) 6 mmol/L Unknown 2-11 F Ordering Physician UnknownLaboratory Wggntot2152-35-90 06:37:00Identifier 10040- 6 Result Time 2018-07-11 06:37:00Unknown Test Item Value Reference Range Comments Unknown (test code = 70489-5) 26.1 seconds Unknown 26.0-36.3 F Ordering Physician UnknownLaboratory Gofgnkj4543-68-66 12:51:00Identifier 96934- 6 Result Time 2018-06-28 12:51:00Unknown Test Item Value Reference Range Comments Unknown (test code = 3024-7) 0.82 ng/dL Unknown 0.61-1.12 F Ordering Physician UnknownLaboratory Vefuley2084-44-16 12:51:00Identifier 54007- 6 Result Time 2018-06-28 12:51:00Unknown Test Item Value Reference Range Comments Unknown (test code = 3016-3) 2.01 mcIU/mL Unknown 0.34-5.60 F Ordering Physician UnknownLaboratory Jtmlkik4496-22-23 12:51:00Identifier 06277- 6 Result Time 2018-06-28 12:51:00Unknown Test Item Value Reference Range Comments Unknown (test code = 96599-6) 0.7 ng/ml Unknown 0.8-2.0 F Ordering Physician UnknownLaboratory Afjnnom0677-71-83 12:51:00Identifier 80494- 6 Result Time 2018-06-28 12:51:00Unknown Test Item Value Reference Range Comments Unknown (test code = 2571-8) 113 mg/dL Unknown Unknown F Ordering Physician UnknownLaboratory Nvonocs2967-01-06 12:51:00Identifier 94388- 6 Result Time 2018-06-28 12:51:00Unknown Test Item Value Reference Range Comments Unknown (test code = 2885-2) 6.6 g/dL Unknown 6.4-8.9 F Ordering Physician UnknownLaboratory Tnqipan7661-90-61 12:51:00Identifier 44149- 6 Result Time 2018-06-28 12:51:00Unknown Test Item Value Reference Range Comments Unknown (test code = 1975-2) 0.80 mg/dL Unknown 0.2-1.0 F Ordering Physician UnknownLaboratory Nixkemy0615-07-19 12:51:00Identifier 93807- 6 Result Time 2018-06-28 12:51:00Unknown Test Item Value Reference Range Comments Unknown (test code = 2089-1) 97 mg/dL Unknown Unknown F Ordering Physician UnknownLaboratory Vghawqr5493-10-58 12:51:00Identifier 68938- 6 Result Time 2018-06-28 12:51:00Unknown Test Item Value Reference Range Comments Unknown (test code = 2085-9) 45.9 mg/dL Unknown Unknown F Ordering Physician UnknownLaboratory Okwbbjb7547-62-90 12:51:00Identifier 71677- 6 Result Time 2018-06-28 12:51:00Unknown Test Item Value Reference Range Comments Unknown (test code = NullTestCode) 2.7 g/dL Unknown 2-4 F Ordering Physician UnknownLaboratory Rezrqlk4384-71-67 12:51:00Identifier 98090- 6 Result Time 2018-06-28 12:51:00Unknown Test Item Value Reference Range Comments Unknown (test code = 2093-3) 165 mg/dL Unknown Unknown F Ordering Physician UnknownLaboratory Tjbgydt6318-57-33 12:51:00Identifier 71314- 6 Result Time 2018-06-28 12:51:00Unknown Test Item Value Reference Range Comments Unknown (test code = 1920-8) 20 U/L Unknown 13-39 F Ordering Physician UnknownLaboratory Jxmnqgn7738-64-03 12:51:00Identifier 48613- 6 Result Time 2018-06-28 12:51:00Unknown Test Item Value Reference Range Comments Unknown (test code = 6768-6) 72 U/L Unknown 34-104 F Ordering Physician UnknownLaboratory Fksqwmt6288-23-23 12:51:00Identifier 40545- 6 Result Time 2018-06-28 12:51:00Unknown Test Item Value Reference Range Comments Unknown (test code = 1759-0) 1.4 Unknown 1-3 F Ordering Physician UnknownLaboratory Fbrrjdu0858-27-02 12:51:00Identifier 34751- 6 Result Time 2018-06-28 12:51:00Unknown Test Item Value Reference Range Comments Unknown (test code = 85088-4) 3.9 g/dL Unknown 3.2-5.2 F Ordering Physician UnknownLaboratory Pfbxejv9974-00-70 12:51:00Identifier 68357- 6 Result Time 2018-06-28 12:51:00Unknown Test Item Value Reference Range Comments Unknown (test code = 1742-6) 18 U/L Unknown 7-52 F Ordering Physician UnknownLaboratory Kgvsmab0709-01-50 12:51:00Identifier 53383- 6 Result Time 2018-06-28 12:51:00Unknown Test Item Value Reference Range Comments Unknown (test code = NullTestCode) 6.0 Unknown 5-9 F Ordering Physician UnknownLaboratory Wdzxmpp7239-43-11 12:51:00Identifier 05276- 6 Result Time 2018-06-28 12:51:00Unknown Test Item Value Reference Range Comments Unknown (test code = 27753-7) 1.020 Unknown 1.010-1.030 F Ordering Physician UnknownLaboratory Tphptbg1972-55-07 12:51:00Identifier 59929- 6 Result Time 2018-06-28 12:51:00Unknown Test Item Value Reference Range Comments Unknown (test code = 01493-5) 9.5 10^3/ul Unknown 3.5-10.8 F Ordering Physician UnknownLaboratory Kgzbgeq9815-43-95 12:51:00Identifier 41561- 6 Result Time 2018-06-28 12:51:00Unknown Test Item Value Reference Range Comments Unknown (test code = 788-0) 13 % Unknown 10.5-15 F Ordering Physician UnknownLaboratory Vgmohvh6450-14-57 12:51:00Identifier 77879- 6 Result Time 2018-06-28 12:51:00Unknown Test Item Value Reference Range Comments Unknown (test code = 789-8) 4.97 10^6/ul Unknown 4.00-5.40 F Ordering Physician UnknownLaboratory Mendvrg5142-41-40 12:51:00Identifier 28684- 6 Result Time 2018-06-28 12:51:00Unknown Test Item Value Reference Range Comments Unknown (test code = 36739-6) 0 Unknown Unknown F Ordering Physician UnknownLaboratory Mqulqxt7868-96-14 12:51:00Identifier 46357- 6 Result Time 2018-06-28 12:51:00Unknown Test Item Value Reference Range Comments Unknown (test code = 771-6) 0 10^3/ul Unknown Unknown F Ordering Physician UnknownLaboratory Jfrcwyh9830-31-75 12:51:00Identifier 81701- 6 Result Time 2018-06-28 12:51:00Unknown Test Item Value Reference Range Comments Unknown (test code = 770-8) 64.5 % Unknown Unknown F Ordering Physician UnknownLaboratory Ukmeqjf6771-45-90 12:51:00Identifier 92424- 6 Result Time 2018-06-28 12:51:00Unknown Test Item Value Reference Range Comments Unknown (test code = 5905-5) 6.6 % Unknown Unknown F Ordering Physician UnknownLaboratory Vpbaqww5924-36-65 12:51:00Identifier 39171- 6 Result Time 2018-06-28 12:51:00Unknown Test Item Value Reference Range Comments Unknown (test code = 787-2) 94 fL Unknown 80-97 F Ordering Physician UnknownLaboratory Jhhuasa6390-91-81 12:51:00Identifier 30174- 6 Result Time 2018-06-28 12:51:00Unknown Test Item Value Reference Range Comments Unknown (test code = 786-4) 34 g/dl Unknown 31-36 F Ordering Physician UnknownLaboratory Hbkencj5104-14-20 12:51:00Identifier 95601- 6 Result Time 2018-06-28 12:51:00Unknown Test Item Value Reference Range Comments Unknown (test code = 785-6) 32 pg Unknown 27-31 F Ordering Physician UnknownLaboratory Tsyonyf9968-39-17 12:51:00Identifier 89336- 6 Result Time 2018-06-28 12:51:00Unknown Test Item Value Reference Range Comments Unknown (test code = 736-9) 27.1 % Unknown Unknown F Ordering Physician UnknownLaboratory Hntzzmc6162-32-13 12:51:00Identifier 53616- 6 Result Time 2018-06-28 12:51:00Unknown Test Item Value Reference Range Comments Unknown (test code = 713-8) 1.3 % Unknown Unknown F Ordering Physician UnknownLaboratory Mikdsgy0656-21-33 12:51:00Identifier 81116- 6 Result Time 2018-06-28 12:51:00Unknown Test Item Value Reference Range Comments Unknown (test code = 706-2) 0.5 % Unknown Unknown F Ordering Physician UnknownLaboratory Obanxas0938-67-77 12:51:00Identifier 45775- 6 Result Time 2018-06-28 12:51:00Unknown Test Item Value Reference Range Comments Unknown (test code = 751-8) 6.1 10^3/ul Unknown 1.5-7.7 F Ordering Physician UnknownLaboratory Ubfbkvj8878-62-97 12:51:00Identifier 36040- 6 Result Time 2018-06-28 12:51:00Unknown Test Item Value Reference Range Comments Unknown (test code = 742-7) 0.6 10^3/ul Unknown 0-0.8 F Ordering Physician UnknownLaboratory Cwfqqup2746-73-83 12:51:00Identifier 38443- 6 Result Time 2018-06-28 12:51:00Unknown Test Item Value Reference Range Comments Unknown (test code = 731-0) 2.6 10^3/ul Unknown 1.0-4.8 F Ordering Physician UnknownLaboratory Chshbts8296-22-77 12:51:00Identifier 91154- 6 Result Time 2018-06-28 12:51:00Unknown Test Item Value Reference Range Comments Unknown (test code = 711-2) 0.1 10^3/ul Unknown 0-0.6 F Ordering Physician UnknownLaboratory Wodwolt4773-13-32 12:51:00Identifier 76020- 6 Result Time 2018-06-28 12:51:00Unknown Test Item Value Reference Range Comments Unknown (test code = 704-7) 0 10^3/ul Unknown 0-0.2 F Ordering Physician Unknown
--- OUTSIDE RECORDS SUMMARY | 2019-05-19 20:51 | XMS REPORT ---
:1940 Author Organization [facility] Care Team Providers Name Role Phone [...] Result Comments Laboratory Studies 2018-07-12 06:03:00 Identifier [id number] Result Time Unknown 2018-07-12 06:03:00 Test Item Value Reference Range Comments Unknown (test code = 16561-4) 1.14 Unknown 0.77-1.02 F Ordering Physician UnknownLaboratory Zoktbfr4617-72-26 06:03:00Identifier [id number] 6 Result Time 2018-07-12 06:03:00Unknown Test Item Value Reference Range Comments Unknown (test code = 777-3) 192 10^3/ul Unknown 150-450 F Ordering Physician UnknownLaboratory Vpmtojc0572-25-99 06:03:00Identifier [id number]- 6 Result Time 2018-07-12 06:03:00Unknown Test Item Value Reference Range Comments Unknown (test code = 82616-1) 9.3 fL Unknown 7.4-10.4 F Ordering Physician UnknownLaboratory Ehryumy5416-89-63 06:03:00Identifier [id number]- 6 Result Time 2018-07-12 06:03:00Unknown Test Item Value Reference Range Comments Unknown (test code = 718-7) 13.8 g/dl Unknown 12.0-16.0 F Ordering Physician UnknownLaboratory Kfnvsns0333-45-66 06:03:00Identifier [id number]- 6 Result Time 2018-07-12 06:03:00Unknown Test Item Value Reference Range Comments Unknown (test code = 4544-3) 41 % Unknown 35-47 F Ordering Physician UnknownLaboratory Qriitws1626-04-99 06:00:00Identifier 62931- 6 Result Time 2018-07-12 06:00:00Unknown Test Item Value Reference Range Comments Unknown (test code = 2951-2) 139 mmol/L Unknown 135-145 F Ordering Physician UnknownLaboratory Nnnkxty8478-22-92 06:00:00Identifier 36407- 6 Result Time 2018-07-12 06:00:00Unknown Test Item Value Reference Range Comments Unknown (test code = 2823-3) 3.5 mmol/L Unknown 3.5-5.0 F Ordering Physician UnknownLaboratory Tsxfzzn1216-51-99 06:00:00Identifier 04051- 6 Result Time 2018-07-12 06:00:00Unknown Test Item Value Reference Range Comments Unknown (test code = 79848-2) 1.7 mg/dL Unknown 1.9-2.7 F Ordering Physician UnknownLaboratory Tjpigwk9093-95-50 06:00:00Identifier 30609- 6 Result Time 2018-07-12 06:00:00Unknown Test Item Value Reference Range Comments Unknown (test code = 2345-7) 142 mg/dL Unknown 70-100 F Ordering Physician UnknownLaboratory Xdbojeb4299-04-59 06:00:00Identifier [id number]- 6 Result Time 2018-07-12 06:00:00Unknown Test Item Value Reference Range Comments Unknown (test code = 18204-4) 94.9 Unknown Unknown F Ordering Physician UnknownLaboratory Ngumrva9461-84-29 06:00:00Identifier 78841- 6 Result Time 2018-07-12 06:00:00Unknown Test Item Value Reference Range Comments Unknown (test code = NullTestCode) 114.8 Unknown Unknown F Ordering Physician UnknownLaboratory Lqlhwtp9897-63-50 06:00:00Identifier 15581- 6 Result Time 2018-07-12 06:00:00Unknown Test Item Value Reference Range Comments Unknown (test code = 2160-0) 0.61 mg/dL Unknown 0.51-0.95 F Ordering Physician UnknownLaboratory Hzjixzn3053-57-81 06:00:00Identifier 03210- 6 Result Time 2018-07-12 06:00:00Unknown Test Item Value Reference Range Comments Unknown (test code = 2075-0) 104 mmol/L Unknown 101-111 F Ordering Physician UnknownLaboratory Olwuuhu8522-56-98 06:00:00Identifier 48033- 6 Result Time 2018-07-12 06:00:00Unknown Test Item Value Reference Range Comments Unknown (test code = 2028-9) 29 mmol/L Unknown 22-32 F Ordering Physician UnknownLaboratory Dubzqdn5140-62-38 06:00:00Identifier 78106- 6 Result Time 2018-07-12 06:00:00Unknown Test Item Value Reference Range Comments Unknown (test code = 87004-9) 8.2 mg/dL Unknown 8.6-10.3 F Ordering Physician UnknownLaboratory Oggnwin4437-73-96 06:00:00Identifier 92727- 6 Result Time 2018-07-12 06:00:00Unknown Test Item Value Reference Range Comments Unknown (test code = 3094-0) 11 mg/dL Unknown 6-24 F Ordering Physician UnknownLaboratory Gynhtzo3687-04-99 06:00:00Identifier 43645- 6 Result Time 2018-07-12 06:00:00Unknown Test Item Value Reference Range Comments Unknown (test code = 3097-3) 18.0 Unknown 8-20 F Ordering Physician UnknownLaboratory Ngzpbey6013-13-98 06:00:00Identifier 81350- 6 Result Time 2018-07-12 06:00:00Unknown Test Item Value Reference Range Comments Unknown (test code = 26132-2) 6 mmol/L Unknown 2-11 F Ordering Physician UnknownLaboratory Bnztugv7223-81-77 06:37:00Identifier 94012- 6 Result Time 2018-07-11 06:37:00Unknown Test Item Value Reference Range Comments Unknown (test code = 53790-4) 26.1 seconds Unknown 26.0-36.3 F Ordering Physician UnknownLaboratory Qyicefo7242-62-03 12:51:00Identifier 97213- 6 Result Time 2018-06-28 12:51:00Unknown Test Item Value Reference Range Comments Unknown (test code = 3024-7) 0.82 ng/dL Unknown 0.61-1.12 F Ordering Physician UnknownLaboratory Usjasjz8394-02-98 12:51:00Identifier 84601- 6 Result Time 2018-06-28 12:51:00Unknown Test Item Value Reference Range Comments Unknown (test code = 3016-3) 2.01 mcIU/mL Unknown 0.34-5.60 F Ordering Physician UnknownLaboratory Gcqlyhp2147-92-60 12:51:00Identifier 74044- 6 Result Time 2018-06-28 12:51:00Unknown Test Item Value Reference Range Comments Unknown (test code = 37365-3) 0.7 ng/ml Unknown 0.8-2.0 F Ordering Physician UnknownLaboratory Rftqqrx8068-02-59 12:51:00Identifier 05174- 6 Result Time 2018-06-28 12:51:00Unknown Test Item Value Reference Range Comments Unknown (test code = 2571-8) 113 mg/dL Unknown Unknown F Ordering Physician UnknownLaboratory Mxweppj5430-15-12 12:51:00Identifier 67068- 6 Result Time 2018-06-28 12:51:00Unknown Test Item Value Reference Range Comments Unknown (test code = 2885-2) 6.6 g/dL Unknown 6.4-8.9 F Ordering Physician UnknownLaboratory Syssjla9094-53-35 12:51:00Identifier 23002- 6 Result Time 2018-06-28 12:51:00Unknown Test Item Value Reference Range Comments Unknown (test code = 1975-2) 0.80 mg/dL Unknown 0.2-1.0 F Ordering Physician UnknownLaboratory Oujtevz8067-34-62 12:51:00Identifier 61296- 6 Result Time 2018-06-28 12:51:00Unknown Test Item Value Reference Range Comments Unknown (test code = 2089-1) 97 mg/dL Unknown Unknown F Ordering Physician UnknownLaboratory Cmxesta1102-54-44 12:51:00Identifier 52548- 6 Result Time 2018-06-28 12:51:00Unknown Test Item Value Reference Range Comments Unknown (test code = 2085-9) 45.9 mg/dL Unknown Unknown F Ordering Physician UnknownLaboratory Eufqrnw2919-74-61 12:51:00Identifier 62336- 6 Result Time 2018-06-28 12:51:00Unknown Test Item Value Reference Range Comments Unknown (test code = NullTestCode) 2.7 g/dL Unknown 2-4 F Ordering Physician UnknownLaboratory Xqbyymx4662-44-41 12:51:00Identifier 73162- 6 Result Time 2018-06-28 12:51:00Unknown Test Item Value Reference Range Comments Unknown (test code = 2093-3) 165 mg/dL Unknown Unknown F Ordering Physician UnknownLaboratory Yqtaizt8742-32-37 12:51:00Identifier 01836- 6 Result Time 2018-06-28 12:51:00Unknown Test Item Value Reference Range Comments Unknown (test code = 1920-8) 20 U/L Unknown 13-39 F Ordering Physician UnknownLaboratory Ohlkeic2468-56-22 12:51:00Identifier 94858- 6 Result Time 2018-06-28 12:51:00Unknown Test Item Value Reference Range Comments Unknown (test code = 6768-6) 72 U/L Unknown 34-104 F Ordering Physician UnknownLaboratory Ytcqypn7224-74-55 12:51:00Identifier 88356- 6 Result Time 2018-06-28 12:51:00Unknown Test Item Value Reference Range Comments Unknown (test code = 1759-0) 1.4 Unknown 1-3 F Ordering Physician UnknownLaboratory Ggihmyi2782-49-82 12:51:00Identifier 14314- 6 Result Time 2018-06-28 12:51:00Unknown Test Item Value Reference Range Comments Unknown (test code = 48542-7) 3.9 g/dL Unknown 3.2-5.2 F Ordering Physician UnknownLaboratory Cifmtry7152-94-49 12:51:00Identifier 86816- 6 Result Time 2018-06-28 12:51:00Unknown Test Item Value Reference Range Comments Unknown (test code = 1742-6) 18 U/L Unknown 7-52 F Ordering Physician UnknownLaboratory Evqmpyy7201-71-29 12:51:00Identifier 15101- 6 Result Time 2018-06-28 12:51:00Unknown Test Item Value Reference Range Comments Unknown (test code = NullTestCode) 6.0 Unknown 5-9 F Ordering Physician UnknownLaboratory Eyzsodw8759-59-46 12:51:00Identifier 56309- 6 Result Time 2018-06-28 12:51:00Unknown Test Item Value Reference Range Comments Unknown (test code = 51086-1) 1.020 Unknown 1.010-1.030 F Ordering Physician UnknownLaboratory Wigcwax4454-24-10 12:51:00Identifier 30089- 6 Result Time 2018-06-28 12:51:00Unknown Test Item Value Reference Range Comments Unknown (test code = 41109-3) 9.5 10^3/ul Unknown 3.5-10.8 F Ordering Physician UnknownLaboratory Topidsc2772-04-23 12:51:00Identifier 58244- 6 Result Time 2018-06-28 12:51:00Unknown Test Item Value Reference Range Comments Unknown (test code = 788-0) 13 % Unknown 10.5-15 F Ordering Physician UnknownLaboratory Axxptqm6277-48-18 12:51:00Identifier 75700- 6 Result Time 2018-06-28 12:51:00Unknown Test Item Value Reference Range Comments Unknown (test code = 789-8) 4.97 10^6/ul Unknown 4.00-5.40 F Ordering Physician UnknownLaboratory Iatxxcd5357-38-74 12:51:00Identifier 10188- 6 Result Time 2018-06-28 12:51:00Unknown Test Item Value Reference Range Comments Unknown (test code = 58624-6) 0 Unknown Unknown F Ordering Physician UnknownLaboratory Zfghfja6155-02-91 12:51:00Identifier 44143- 6 Result Time 2018-06-28 12:51:00Unknown Test Item Value Reference Range Comments Unknown (test code = 771-6) 0 10^3/ul Unknown Unknown F Ordering Physician UnknownLaboratory Fkydpvi3312-50-14 12:51:00Identifier 59397- 6 Result Time 2018-06-28 12:51:00Unknown Test Item Value Reference Range Comments Unknown (test code = 770-8) 64.5 % Unknown Unknown F Ordering Physician UnknownLaboratory Wqfumcm0275-67-72 12:51:00Identifier 91380- 6 Result Time 2018-06-28 12:51:00Unknown Test Item Value Reference Range Comments Unknown (test code = 5905-5) 6.6 % Unknown Unknown F Ordering Physician UnknownLaboratory Bdcevdl1102-16-73 12:51:00Identifier 62401- 6 Result Time 2018-06-28 12:51:00Unknown Test Item Value Reference Range Comments Unknown (test code = 787-2) 94 fL Unknown 80-97 F Ordering Physician UnknownLaboratory Ounzyrg0178-89-89 12:51:00Identifier 29467- 6 Result Time 2018-06-28 12:51:00Unknown Test Item Value Reference Range Comments Unknown (test code = 786-4) 34 g/dl Unknown 31-36 F Ordering Physician UnknownLaboratory Lanzgoi8231-17-81 12:51:00Identifier 38441- 6 Result Time 2018-06-28 12:51:00Unknown Test Item Value Reference Range Comments Unknown (test code = 785-6) 32 pg Unknown 27-31 F Ordering Physician UnknownLaboratory Axxxzzt9725-71-33 12:51:00Identifier 97315- 6 Result Time 2018-06-28 12:51:00Unknown Test Item Value Reference Range Comments Unknown (test code = 736-9) 27.1 % Unknown Unknown F Ordering Physician UnknownLaboratory Kwcvdeb0700-40-39 12:51:00Identifier 51335- 6 Result Time 2018-06-28 12:51:00Unknown Test Item Value Reference Range Comments Unknown (test code = 713-8) 1.3 % Unknown Unknown F Ordering Physician UnknownLaboratory Qhxbkjy2116-39-71 12:51:00Identifier 75140- 6 Result Time 2018-06-28 12:51:00Unknown Test Item Value Reference Range Comments Unknown (test code = 706-2) 0.5 % Unknown Unknown F Ordering Physician UnknownLaboratory Ruthqkm6664-90-04 12:51:00Identifier 18702- 6 Result Time 2018-06-28 12:51:00Unknown Test Item Value Reference Range Comments Unknown (test code = 751-8) 6.1 10^3/ul Unknown 1.5-7.7 F Ordering Physician UnknownLaboratory Cicsyos4774-17-83 12:51:00Identifier 19517- 6 Result Time 2018-06-28 12:51:00Unknown Test Item Value Reference Range Comments Unknown (test code = 742-7) 0.6 10^3/ul Unknown 0-0.8 F Ordering Physician UnknownLaboratory Hxweyph0067-08-97 12:51:00Identifier 31557- 6 Result Time 2018-06-28 12:51:00Unknown Test Item Value Reference Range Comments Unknown (test code = 731-0) 2.6 10^3/ul Unknown 1.0-4.8 F Ordering Physician UnknownLaboratory Jpleusx3889-97-59 12:51:00Identifier 90695- 6 Result Time 2018-06-28 12:51:00Unknown Test Item Value Reference Range Comments Unknown (test code = 711-2) 0.1 10^3/ul Unknown 0-0.6 F Ordering Physician UnknownLaboratory Fqxldyh8329-99-17 12:51:00Identifier 03639- 6 Result Time 2018-06-28 12:51:00Unknown Test Item Value Reference Range Comments Unknown (test code = 704-7) 0 10^3/ul Unknown 0-0.2 F Ordering Physician Unknown
--- NOTE | 2019-05-19 20:56 | ED ---
Lower Extremity - HPI Summary HPI Summary: Patient is a 78 y/o F presenting to the ED for a chief complaint of right thigh and knee pain. Patient states that after a right knee replacement in July [address] Trinidad, she was asymptomatic. She felt improved after her surgery, but in February 2019, her right leg began to swell and bruise. She takes Coumadin and Warfarin after which she states her right LE becomes purple and has swelling. She reports her symptoms improved after this episode, but has intermittently had swelling, bruising, and pain in the right thigh and knee since February 2019. She denies any fall or trauma to the area. PMHx is significant for atrial fibrillation. - History of Current Complaint Chief Complaint: EDExtremityLower Stated Complaint: R LEG PAIN PER PT Time Seen by Provider: 05/19/19 20:52 Hx Obtained From: Patient Mechanism Of Injury: Other - None Onset of Pain: Days Onset/Duration: Still Present Severity Initially: Severe Severity Currently: Severe Pain Intensity: 9 Pain Scale Used: 0-10 Numeric Timing: Intermittent Location: Is Discrete @ - Right thigh and knee Associated Signs And Symptoms: Positive: Swelling - Right thigh and right knee, Bruising - Right thigh and right knee, Knee Pain - Right Aggravating Factor(s): Nothing Alleviating Factor(s): Nothing - Allergies/Home Medications Allergies/Adverse Reactions: Allergies Allergy/AdvReac Type Severity Reaction Status Date / Time No Known Allergies Allergy Verified 05/19/19 20:42 PMH/Surg Hx/FS Hx/Imm Hx Previously Healthy: Yes Endocrine/Hematology History: Denies: Hx Diabetes, Hx Thyroid Disease Cardiovascular History: Reports: Hx Congestive Heart Failure - 8 yrs ago, Hx Coronary Artery Disease, Hx Hypertension, Other Cardiovascular Problems/ Disorders - a fib Denies: Hx Pacemaker/ICD Respiratory History: Denies: Hx Asthma, Hx Chronic Obstructive Pulmonary Disease (COPD), Hx Pulmonary Embolism, Other Respiratory Problems/Disorders GI History: Denies: Hx Ulcer Musculoskeletal History: Reports: Hx Arthritis - right knee, Hx Osteoporosis Denies: Other Musculoskeletal History Sensory History: Reports: Hx Cataracts - BILAT, Hx Contacts or Glasses - glasses Denies: Hx Glaucoma, Hx Legally Blind, Hx Deafness, Hx Hearing Aid Opthamlomology History: Reports: Hx Cataracts - BILAT, Hx Contacts or Glasses - glasses Denies: Hx Glaucoma, Hx Legally Blind EENT History: Denies: Hx Deafness Neurological History: Denies: Other Neuro Impairments/Disorders Psychiatric History: Denies: Other Psychiatric Issues/Disorders - Surgical History Surgical History: Yes Surgery Procedure, Year, and Place: anal polyp removal. Tonsil removal Hx Anesthesia Reactions: No Infectious Disease History: No Infectious Disease History: Denies: Hx Clostridium Difficile, Hx Hepatitis, Hx Human Immunodeficiency Virus (HIV), Hx of Known/Suspected MRSA, Hx Shingles, Hx Tuberculosis, Hx Known/ Suspected VRE, Hx Known/Suspected VRSA, History Other Infectious Disease, Traveled Outside the [place] in Last 30 Days - Family History Known Family History: Positive: Cardiac Disease - Social History Occupation: Retired Lives: With Family Alcohol Use: Rare Alcohol Amount: 2 drinks per year Hx Substance Use: No Substance Use Type: Reports: None Hx Tobacco Use: No Smoking Status (MU): Never Smoked Tobacco Review of Systems Positive: Myalgia - Right thigh and right knee, Edema - Right thigh and right knee Positive: Bruising - Right thigh and right knee All Other Systems Reviewed And Are Negative: Yes Physical Exam - Summary Physical Exam Summary: Appearance: Well-appearing, Well-nourished, lying in bed comfortably Skin: Warm, dry, no obvious rash Eyes: sclera anicteric, no conjunctival pallor ENT: mucous membranes moist, pharynx appears normal Neck: Supple, nontender Respiratory: Clear to auscultation, no signs of respiratory distress Cardiovascular: Normal S1, S2. No murmurs. Normal distal pulses in tibial and radial bilaterally. Abdomen: Soft, nontender, normal active bowel sounds present Musculoskeletal: Strength/ROM Intact. Fairly large ecchymosis on the lateral medical thigh that does not extend to the posterior thigh with some associated induration, but no signs of cellulitis or hematoma. Neurological: A&Ox3, awake and alert, mentation is normal, speech is fluent and appropriate Psychiatric: affect is normal, does not appear anxious or depressed Triage Information Reviewed: Yes Vital Signs On Initial Exam: Initial Vitals Temp Pulse Resp BP Pulse Ox 99.3 F 91 15 152/88 98 05/19/19 20:39 05/19/19 20:39 05/19/19 20:39 05/19/19 20:39 05/19/19 20:39 Vital Signs Reviewed: Yes Procedures - Sedation Patient Received Moderate/Deep Sedation with Procedure: No Diagnostics - Vital Signs Vital Signs Temp Pulse Resp BP Pulse Ox 05/19/19 20:39 99.3 F 91 15 152/88 98 - Laboratory Result Diagrams: 05/19/19 21:11 05/19/19 21:11 Lab Statement: Any lab studies that have been ordered have been reviewed, and results considered in the medical decision making process. - Ultrasound Venous Doppler Study Ultrasound Interpretation Completed By: Radiologist Summary of Ultrasound Findings: Venous Doppler Study IMPRESSION: 1. No right lower extremity deep vein thrombosis. 2. Anterior thigh subcutaneous hematoma. Reviewed by Dr. Kay. Lower Extremity Course/Dx - Course Course Of Treatment: Patient is a 78 y/o F presenting to the ED for a chief complaint of right thigh and knee pain. Patient states that after a right knee replacement in July [address] Trinidad, she was asymptomatic. She felt improved after her surgery, but in February 2019, her right leg began to swell and bruise. She takes Coumadin and Warfarin after which she states her right LE becomes purple and has swelling. She reports her symptoms improved after this episode, but has intermittently had swelling, bruising, and pain in the right thigh and knee since February 2019. She denies any fall or trauma to the area. PMHx is significant for atrial fibrillation. On exam, fairly large ecchymosis on the lateral medical thigh that does not extend to the posterior thigh with some associated induration, but no signs of cellulitis or hematoma. In the ED course, patient was given oxycodone 5 mg PO. Laboratory abnormal findings: WBC 12.7, RBC 3.39, Hgb 11.3, Hct 33, MCH 33, absolute neuts 10.0, INR 2.50, BUN/Creatinine ratio 25.3, glucose 164, calcium 8.5, total bilirubin 1.80. Venous Doppler Study IMPRESSION: 1. No right lower extremity deep vein thrombosis. 2. Anterior thigh subcutaneous hematoma. Patient will be discharged with a diagnosis of hematoma. Follow up with PCP within 2-3 days. - Diagnoses Provider Diagnoses: Hematoma Discharge ED - Sign-Out/Discharge Documenting (check all that apply): Patient Departure - Discharge - Discharge Plan Condition: Good Disposition: HOME Patient Education Materials: Hematoma (ED) Referrals: Garo Donohue MD [Primary Care Provider] - Additional Instructions: The discomfort and discoloration is from bruising in the thigh. This could have happened just from minor unrecognized trauma, being that you are on the warfarin. Why this has become more of a problem for you recently is not clear. Your INR (coumadin test) is spot on where it should be, so for now nothing specific needs be done. Your body will gradually absorb the bruising over a few weeks. - Billing Disposition and Condition Condition: GOOD Disposition: Home - Attestation Statements Document Initiated by Eyad: Yes Documenting Scribe: Nancy Goins Provider For Whom Eyad is Documenting (Include Credential): Amari Kay MD Scribe Attestation: I, Nancy Goins, scribed for Amari Kay MD on 05/20/19 at 0136. Scribe Documentation Reviewed: Yes Provider Attestation: The documentation as recorded by the Nancy anders accurately reflects the service I personally performed and the decisions made by me, Amari Kay MD Status of Scrkellye Document: Viewed
[2019-05-19 21:18] LABS: ABS Basophils 0.1 10^3/ul (0-0.2); ABS Eosinophils 0.3 10^3/ul (0-0.6); ABS Lymphocytes 1.6 10^3/ul (1.0-4.8); ABS Monocytes 0.7 10^3/ul (0-0.8); Eosinophil % 2.2 %; Hematocrit 33 % (35-47); Hemoglobin 11.3 g/dL (12.0-16.0); Lymphocyte % 12.4 %; Mean Corpuscular HGB Conc 35 g/dL (31-36); Mean Corpuscular Hemoglobin 33 pg (27-31); Mean Corpuscular Volume 97 fL (80-97); Platelet Count 304 10^3/uL (150-450); Red Blood Count 3.39 10^6 /uL (3.70-4.87); Red Cell Distribution Width 14 % (10-15); White Blood Count 12.7 10^3/uL (3.5-10.8)
[2019-05-19 21:24] LABS: INR 2.5 (0.82-1.09)
[2019-05-19] MEDS ORDERED: oxyCODONE TAB* 5 MG TAB PO ONE (21:24)
[2019-05-19 21:35] LABS: Albumin 3.7 g/dL (3.2-5.2); Albumin/Globulin Ratio 1.2 (1-3); BUN/Creatinine Ratio 25.3 (8-20); Calcium 8.5 mg/dL (8.6-10.3); EGFR African American 90.4 (>60); EGFR Non-African American 74.7 (>60); Potassium 3.8 mmol/L (3.5-5.0); Total Bilirubin 1.8 mg/dL (0.2-1.0); Total Protein 6.7 g/dL (6.4-8.9)
[2019-05-19 22:50] VITALS: BP 167/95
== END 2019-05-19 22:50 | disposition home or self-care (01) ==
LOC: ED 20:38
DX: S70.11XA Contusion of right thigh, initial encounter (principal); X58.XXXA Exposure to other specified factors, initial encounter; Y92.9 Unspecified place or not applicable; R60.0 Localized edema; I48.91 Unspecified atrial fibrillation; Z79.01 Long term (current) use of anticoagulants; I25.10 Atherosclerotic heart disease of native coronary artery without angina pectoris; I10 Essential (primary) hypertension; Z96.651 Presence of right artificial knee joint
CPT/HCPCS: 36415; 80053; 85025; 85610; 99282; A9270-GY

== ENCOUNTER 2022-01-20 19:50 | Inpatient (IN) ==
[2022-01-20 20:02] LABS: ABS Eosinophils 0.2 10^3/ul (0-0.6); ABS Lymphocytes 1.8 10^3/ul (1.0-4.8); ABS Monocytes 0.5 10^3/ul (0-0.8); ABS Neutrophils 5.8 10^3/ul (1.5-7.7); Eosinophil % 2.3 %; Hematocrit 45 % (35-47); Hemoglobin 15.3 g/dL (12.0-16.0); Lymphocyte % 21.6 %; Mean Corpuscular HGB Conc 34 g/dL (31-36); Mean Corpuscular Hemoglobin 32 pg (27-31); Mean Corpuscular Volume 93 fL (80-97); Nucleated Red Blood Cells % 0.1; Platelet Count 179 10^3/uL (150-450); Red Blood Count 4.81 10^6 /uL (3.70-4.87); Red Cell Distribution Width 13 % (10-15); White Blood Count 8.3 10^3/uL (3.5-10.8)
[2022-01-20] MEDS ORDERED: Ondansetron 4 mg VIAL 2 MG/ML 2 ml VIAL IV ONE (20:09)
[2022-01-20 20:15] LABS: Activated Partial Thrombo Time 40.3 seconds (26.0-38.0); INR 2.11 (0.89-1.11)
[2022-01-20] MEDS ORDERED: Iodixanol (CONTRAST) 320 MG/ML 100 ML SDV IV ONE (20:28)
[2022-01-20 20:35] LABS: Albumin 4.2 g/dL (3.2-5.2); Albumin/Globulin Ratio 1.5 (1-3); Globulin 2.8 g/dL (2-4); HDL Cholesterol 45.3 mg/dL; Potassium 3.9 mmol/L (3.5-5.0); Total Bilirubin 0.9 mg/dL (0.2-1.0); eGFR CKD-EPI 75.1 (>60)
[2022-01-21 06:16] LABS: HDL Cholesterol 48.9 mg/dL
[2022-01-21 08:06] LABS: Digoxin 0.8 ng/ml (0.8-2.0)
[2022-01-21 15:43] LABS: INR 1.91 (0.89-1.11)
[2022-01-21] MEDS ORDERED: Warfarin DAILY REMINDER **NOTE FOLLOW UP SCH (17:00)
[2022-01-22 05:45] LABS: INR 1.89 (0.89-1.11)
[2022-01-25] MEDS ORDERED: Polyethylene Glycol 3350 17 GM PACKET PO PRN (15:49)
[2022-01-26 08:17] LABS: ABS Eosinophils 0.1 10^3/ul (0-0.6); ABS Lymphocytes 1.8 10^3/ul (1.0-4.8); ABS Monocytes 0.9 10^3/ul (0-0.8); Eosinophil % 0.9 %; Hematocrit 48 % (35-47); Hemoglobin 16.3 g/dL (12.0-16.0); Lymphocyte % 16.9 %; Mean Corpuscular HGB Conc 34 g/dL (31-36); Mean Corpuscular Hemoglobin 32 pg (27-31); Mean Corpuscular Volume 94 fL (80-97); Mean Platelet Volume 9.3 fL (7.4-10.4); Platelet Count 225 10^3/uL (150-450); Red Blood Count 5.08 10^6 /uL (3.70-4.87); Red Cell Distribution Width 13 % (10-15); White Blood Count 10.8 10^3/uL (3.5-10.8)
[2022-01-26 08:23] LABS: INR 1.25 (0.89-1.11)
[2022-01-26 08:43] LABS: Calcium 8.7 mg/dL (8.6-10.3); Potassium 3.7 mmol/L (3.5-5.0); eGFR CKD-EPI 89.4 (>60)
[2022-01-27 08:41] VITALS: BP 135/79
== END 2022-01-27 10:56 | DRG 65 ==
LOC: ED 19:50 → SUATTDRO 23:00 → EDHOLD 23:00 → MEDTELE 01-21 01:50
PROVIDERS: ADMIT Hospitalist; ATTEND Internal Medicine

== ENCOUNTER 2022-01-27 08:30 | Inpatient (IN) ==
[2022-01-27] MEDS ORDERED: Senna TAB 8.6 mg TAB PO PRN (15:54)
[2022-01-28] MEDS: Magnesium Hydroxide LIQ 30 ML UDC PO PRN (13:56)
[2022-01-29 06:04] LABS: ABS Eosinophils 0.2 10^3/ul (0-0.6); ABS Lymphocytes 2.1 10^3/ul (1.0-4.8); ABS Monocytes 0.8 10^3/ul (0-0.8); ABS Neutrophils 7.8 10^3/ul (1.5-7.7); ABS Nucleated RBC 0.1 10^3/ul; Eosinophil % 1.7 %; Hematocrit 49 % (35-47); Hemoglobin 16.5 g/dL (12.0-16.0); Lymphocyte % 18.9 %; Mean Corpuscular HGB Conc 34 g/dL (31-36); Mean Corpuscular Hemoglobin 32 pg (27-31); Mean Corpuscular Volume 94 fL (80-97); Mean Platelet Volume 8.9 fL (7.4-10.4); Nucleated Red Blood Cells % 0.4; Platelet Count 274 10^3/uL (150-450); Red Blood Count 5.19 10^6 /uL (3.70-4.87); Red Cell Distribution Width 13 % (10-15); White Blood Count 10.9 10^3/uL (3.5-10.8)
[2022-01-29 06:27] LABS: Albumin/Globulin Ratio 1.3 (1-3); Calcium 9.2 mg/dL (8.6-10.3); Globulin 3.2 g/dL (2-4); Potassium 4.1 mmol/L (3.5-5.0); Total Bilirubin 1.2 mg/dL (0.2-1.0); Total Protein 7.2 g/dL (6.4-8.9); eGFR CKD-EPI 75.1 (>60)
[2022-01-30] MEDS: Magnesium Hydroxide LIQ 30 ML UDC PO PRN (16:11)
[2022-02-05 06:24] LABS: ABS Basophils 0.1 10^3/ul (0-0.2); ABS Eosinophils 0.4 10^3/ul (0-0.6); ABS Lymphocytes 2.7 10^3/ul (1.0-4.8); ABS Monocytes 0.7 10^3/ul (0-0.8); ABS Neutrophils 7.1 10^3/ul (1.5-7.7); Eosinophil % 3.4 %; Hematocrit 44 % (35-47); Hemoglobin 15.3 g/dL (12.0-16.0); Lymphocyte % 24.3 %; Mean Corpuscular HGB Conc 35 g/dL (31-36); Mean Corpuscular Hemoglobin 33 pg (27-31); Mean Corpuscular Volume 94 fL (80-97); Mean Platelet Volume 9.7 fL (7.4-10.4); Nucleated Red Blood Cells % 0.2; Platelet Count 246 10^3/uL (150-450); Red Blood Count 4.62 10^6 /uL (3.70-4.87); Red Cell Distribution Width 13 % (10-15)
[2022-02-05 07:07] LABS: Albumin 3.7 g/dL (3.2-5.2); Albumin/Globulin Ratio 1.4 (1-3); Globulin 2.6 g/dL (2-4); Potassium 4.2 mmol/L (3.5-5.0); Total Bilirubin 1.1 mg/dL (0.2-1.0); Total Protein 6.3 g/dL (6.4-8.9); eGFR CKD-EPI 79.9 (>60)
[2022-02-05 14:23] LABS: Urine Appearance Clear; Urine Bilirubin 1+ (Small) (Negative); Urine Blood Negative (Negative); Urine Color Amber; Urine Glucose Negative (Negative); Urine Ketones Negative (Negative); Urine Nitrite Negative (Negative); Urine Protein Negative (Negative); Urine Specific Gravity 1.023 (1.002-1.030); Urine Urobilinogen 1.0 (Negative) (Negative); Urine pH 5.5 (5.0-9.0)
[2022-02-06] MEDS ORDERED: Polyethylene Glycol 3350 17 GM PACKET PO ONE (09:06)
[2022-02-06] MEDS: Magnesium Hydroxide LIQ 30 ML UDC PO PRN (14:55)
[2022-02-06] MEDS: Senna TAB 8.6 mg TAB PO SCH (20:05)
[2022-02-07] MEDS: Senna TAB 8.6 mg TAB PO SCH (21:14)
[2022-02-08] MEDS: Senna TAB 8.6 mg TAB PO SCH (19:50)
[2022-02-09] MEDS: Senna TAB 8.6 mg TAB PO SCH (20:07)
[2022-02-10] MEDS: Senna TAB 8.6 mg TAB PO SCH (20:53)
[2022-02-11] MEDS: Senna TAB 8.6 mg TAB PO SCH (20:00)
[2022-02-12 06:17] LABS: ABS Eosinophils 0.4 10^3/ul (0-0.6); ABS Lymphocytes 1.5 10^3/ul (1.0-4.8); ABS Monocytes 0.5 10^3/ul (0-0.8); ABS Neutrophils 5.9 10^3/ul (1.5-7.7); Eosinophil % 5.1 %; Hematocrit 44 % (35-47); Hemoglobin 15.1 g/dL (12.0-16.0); Lymphocyte % 18.1 %; Mean Corpuscular HGB Conc 34 g/dL (31-36); Mean Corpuscular Hemoglobin 32 pg (27-31); Mean Corpuscular Volume 93 fL (80-97); Mean Platelet Volume 9.1 fL (7.4-10.4); Platelet Count 198 10^3/uL (150-450); Red Blood Count 4.74 10^6 /uL (3.70-4.87); Red Cell Distribution Width 13 % (10-15); White Blood Count 8.5 10^3/uL (3.5-10.8)
[2022-02-12 06:54] LABS: Albumin 3.6 g/dL (3.2-5.2); Albumin/Globulin Ratio 1.4 (1-3); Calcium 8.9 mg/dL (8.6-10.3); Globulin 2.5 g/dL (2-4); Potassium 3.7 mmol/L (3.5-5.0); Total Bilirubin 1.2 mg/dL (0.2-1.0); Total Protein 6.1 g/dL (6.4-8.9); eGFR CKD-EPI 87.4 (>60)
[2022-02-12] MEDS: Polyethylene Glycol 3350 17 GM PACKET PO PRN (07:26)
[2022-02-12] MEDS: Senna TAB 8.6 mg TAB PO SCH (20:02)
[2022-02-13] MEDS: Senna TAB 8.6 mg TAB PO SCH (19:45)
[2022-02-14] MEDS: Senna TAB 8.6 mg TAB PO SCH (20:07)
[2022-02-15 06:39] LABS: Albumin 3.4 g/dL (3.2-5.2); Albumin/Globulin Ratio 1.4 (1-3); Calcium 8.7 mg/dL (8.6-10.3); Globulin 2.4 g/dL (2-4); Potassium 3.8 mmol/L (3.5-5.0); Total Bilirubin 2.2 mg/dL (0.2-1.0); Total Protein 5.8 g/dL (6.4-8.9); eGFR CKD-EPI 83.9 (>60)
[2022-02-15] MEDS: Senna TAB 8.6 mg TAB PO SCH (20:29)
[2022-02-16 13:27] LABS: Hepatitis B Surface Antigen Nonreactive (Nonreactive)
[2022-02-16 13:33] LABS: Hepatitis B Core IgM Nonreactive (Nonreactive)
[2022-02-16 13:44] LABS: Hepatitis C Antibody Negative (Negative)
[2022-02-16 13:51] LABS: Hepatitis A Ab IgM Negative (Negative)
[2022-02-16] MEDS: Senna TAB 8.6 mg TAB PO SCH ×2 (22:03→22:06)
[2022-02-17 06:01] LABS: ABS Eosinophils 0.3 10^3/ul (0-0.6); ABS Lymphocytes 1.6 10^3/ul (1.0-4.8); ABS Monocytes 0.6 10^3/ul (0-0.8); ABS Neutrophils 4.2 10^3/ul (1.5-7.7); Eosinophil % 4.5 %; Hematocrit 44 % (35-47); Hemoglobin 14.8 g/dL (12.0-16.0); Lymphocyte % 23.5 %; Mean Corpuscular HGB Conc 34 g/dL (31-36); Mean Corpuscular Hemoglobin 32 pg (27-31); Mean Corpuscular Volume 95 fL (80-97); Mean Platelet Volume 9.6 fL (7.4-10.4); Nucleated Red Blood Cells % 0.1; Platelet Count 158 10^3/uL (150-450); Red Blood Count 4.64 10^6 /uL (3.70-4.87); Red Cell Distribution Width 14 % (10-15); White Blood Count 6.7 10^3/uL (3.5-10.8)
[2022-02-17 06:46] LABS: Albumin 3.4 g/dL (3.2-5.2); Albumin/Globulin Ratio 1.4 (1-3); Calcium 8.7 mg/dL (8.6-10.3); Globulin 2.5 g/dL (2-4); Potassium 3.7 mmol/L (3.5-5.0); Total Bilirubin 1.7 mg/dL (0.2-1.0); Total Protein 5.9 g/dL (6.4-8.9); eGFR CKD-EPI 85.4 (>60)
[2022-02-17] MEDS: Enoxaparin 80 MG/0.8 ML SYR SUBCUT SCH ×2 (12:50→23:37)
[2022-02-17] MEDS: Senna TAB 8.6 mg TAB PO SCH (19:58)
[2022-02-18 06:07] LABS: ABS Eosinophils 0.2 10^3/ul (0-0.6); ABS Lymphocytes 1.7 10^3/ul (1.0-4.8); ABS Monocytes 0.5 10^3/ul (0-0.8); ABS Neutrophils 3.5 10^3/ul (1.5-7.7); Eosinophil % 4.1 %; Hematocrit 44 % (35-47); Hemoglobin 14.7 g/dL (12.0-16.0); Mean Corpuscular HGB Conc 34 g/dL (31-36); Mean Corpuscular Hemoglobin 32 pg (27-31); Mean Corpuscular Volume 94 fL (80-97); Mean Platelet Volume 9.4 fL (7.4-10.4); Nucleated Red Blood Cells % 0.1; Platelet Count 162 10^3/uL (150-450); Red Blood Count 4.64 10^6 /uL (3.70-4.87); Red Cell Distribution Width 14 % (10-15); White Blood Count 5.9 10^3/uL (3.5-10.8)
[2022-02-18 07:05] LABS: Albumin 3.4 g/dL (3.2-5.2); Albumin/Globulin Ratio 1.4 (1-3); Calcium 8.7 mg/dL (8.6-10.3); Globulin 2.5 g/dL (2-4); Potassium 3.7 mmol/L (3.5-5.0); Total Bilirubin 1.3 mg/dL (0.2-1.0); Total Protein 5.9 g/dL (6.4-8.9); eGFR CKD-EPI 89.1 (>60)
[2022-02-18] MEDS: Enoxaparin 80 MG/0.8 ML SYR SUBCUT SCH ×2 (11:13→23:27)
[2022-02-18] MEDS: Senna TAB 8.6 mg TAB PO SCH (21:22)
[2022-02-19 06:27] LABS: ABS Eosinophils 0.3 10^3/ul (0-0.6); ABS Lymphocytes 1.5 10^3/ul (1.0-4.8); ABS Monocytes 0.4 10^3/ul (0-0.8); ABS Neutrophils 2.7 10^3/ul (1.5-7.7); Eosinophil % 5.2 %; Hematocrit 43 % (35-47); Hemoglobin 14.5 g/dL (12.0-16.0); Mean Corpuscular HGB Conc 34 g/dL (31-36); Mean Corpuscular Hemoglobin 32 pg (27-31); Mean Corpuscular Volume 95 fL (80-97); Platelet Count 161 10^3/uL (150-450); Red Blood Count 4.48 10^6 /uL (3.70-4.87); Red Cell Distribution Width 14 % (10-15); White Blood Count 4.8 10^3/uL (3.5-10.8)
[2022-02-19 06:44] LABS: Albumin 3.6 g/dL (3.2-5.2); Albumin/Globulin Ratio 1.4 (1-3); Calcium 8.7 mg/dL (8.6-10.3); Globulin 2.6 g/dL (2-4); Potassium 3.4 mmol/L (3.5-5.0); Total Bilirubin 1.3 mg/dL (0.2-1.0); Total Protein 6.2 g/dL (6.4-8.9); eGFR CKD-EPI 89.1 (>60)
[2022-02-19] MEDS: Enoxaparin 80 MG/0.8 ML SYR SUBCUT SCH ×2 (11:12→21:41)
[2022-02-19] MEDS: Potassium Chlor 20 meq TAB.ER PO SCH ×2 (12:11→20:04)
[2022-02-19] MEDS: Senna TAB 8.6 mg TAB PO SCH (20:04)
[2022-02-20] MEDS: Potassium Chlor 20 meq TAB.ER PO SCH ×2 (08:44→20:49)
[2022-02-20] MEDS: Enoxaparin 80 MG/0.8 ML SYR SUBCUT SCH ×2 (08:55→20:51)
[2022-02-20] MEDS: Senna TAB 8.6 mg TAB PO SCH (20:51)
[2022-02-21 07:19] LABS: ABS Eosinophils 0.2 10^3/ul (0-0.6); ABS Lymphocytes 1.9 10^3/ul (1.0-4.8); ABS Monocytes 0.4 10^3/ul (0-0.8); ABS Neutrophils 3.2 10^3/ul (1.5-7.7); Eosinophil % 3.9 %; Hematocrit 44 % (35-47); Hemoglobin 14.3 g/dL (12.0-16.0); Mean Corpuscular HGB Conc 33 g/dL (31-36); Mean Corpuscular Hemoglobin 32 pg (27-31); Mean Corpuscular Volume 96 fL (80-97); Mean Platelet Volume 9.8 fL (7.4-10.4); Platelet Count 160 10^3/uL (150-450); Red Blood Count 4.56 10^6 /uL (3.70-4.87); Red Cell Distribution Width 14 % (10-15); White Blood Count 5.8 10^3/uL (3.5-10.8)
[2022-02-21 07:50] LABS: Albumin 3.4 g/dL (3.2-5.2); Albumin/Globulin Ratio 1.4 (1-3); Globulin 2.5 g/dL (2-4); Potassium 4.8 mmol/L (3.5-5.0); Total Bilirubin 0.9 mg/dL (0.2-1.0); Total Protein 5.9 g/dL (6.4-8.9)
[2022-02-21] MEDS: Polyethylene Glycol 3350 17 GM PACKET PO PRN (08:39)
[2022-02-21] MEDS: Potassium Chlor 20 meq TAB.ER PO SCH (08:39)
[2022-02-21] MEDS: Enoxaparin 80 MG/0.8 ML SYR SUBCUT SCH ×2 (08:42→20:26)
[2022-02-21] MEDS: Senna TAB 8.6 mg TAB PO SCH (20:27)
[2022-02-22] MEDS: Enoxaparin 80 MG/0.8 ML SYR SUBCUT SCH (08:48)
[2022-02-22] MEDS: Senna TAB 8.6 mg TAB PO SCH (19:56)
[2022-02-23] MEDS: Senna TAB 8.6 mg TAB PO SCH (20:20)
[2022-02-24 06:33] LABS: ABS Eosinophils 0.2 10^3/ul (0-0.6); ABS Lymphocytes 1.7 10^3/ul (1.0-4.8); ABS Monocytes 0.4 10^3/ul (0-0.8); ABS Neutrophils 3.2 10^3/ul (1.5-7.7); Hematocrit 42 % (35-47); Hemoglobin 14.2 g/dL (12.0-16.0); Lymphocyte % 30.2 %; Mean Corpuscular HGB Conc 34 g/dL (31-36); Mean Corpuscular Hemoglobin 32 pg (27-31); Mean Corpuscular Volume 96 fL (80-97); Mean Platelet Volume 9.3 fL (7.4-10.4); Nucleated Red Blood Cells % 0.1; Platelet Count 158 10^3/uL (150-450); Red Blood Count 4.39 10^6 /uL (3.70-4.87); Red Cell Distribution Width 14 % (10-15); White Blood Count 5.6 10^3/uL (3.5-10.8)
[2022-02-24 06:49] LABS: Albumin 3.6 g/dL (3.2-5.2); Albumin/Globulin Ratio 1.4 (1-3); Calcium 8.8 mg/dL (8.6-10.3); Globulin 2.5 g/dL (2-4); Total Bilirubin 0.8 mg/dL (0.2-1.0); Total Protein 6.1 g/dL (6.4-8.9); eGFR CKD-EPI 81.2 (>60)
[2022-02-24] MEDS: Senna TAB 8.6 mg TAB PO SCH (19:48)
[2022-02-25] MEDS: Senna TAB 8.6 mg TAB PO SCH (19:51)
[2022-02-26] MEDS: Senna TAB 8.6 mg TAB PO SCH (21:07)
[2022-02-27] MEDS: Polyethylene Glycol 3350 17 GM PACKET PO PRN (18:13)
[2022-02-27] MEDS: Senna TAB 8.6 mg TAB PO SCH (22:46)
[2022-02-28] MEDS: Senna TAB 8.6 mg TAB PO SCH (19:46)
[2022-03-01 04:23] VITALS: BP 146/87
== END 2022-03-01 11:45 | DRG 57 ==
LOC: PMRU 11:14
PROVIDERS: ADMIT Physical Medicine & Rehabilitation; ATTEND Physical Medicine & Rehabilitation

== ENCOUNTER 2023-06-14 18:54 | Observation (INO) ==
[2023-06-14 19:20] LABS: ABS Eosinophils 0.2 10^3/uL (0.0-0.5); ABS Lymphocytes 2.3 10^3/uL (1.0-4.8); ABS Monocytes 0.7 10^3/uL (0.0-0.9); ABS Neutrophils 5.5 10^3/uL (1.5-7.6); ABS Nucleated RBC 0.01 10^3/ul; Eosinophil % 2.4 %; Hematocrit 44.4 % (35-45); Lymphocyte % 25.8 %; Mean Corpuscular Hgb Conc 33.7 g/dL (31-36); Mean Corpuscular Volume 95.2 fL (80-97); Mean Platelet Volume 8.9 fL (7.5-11.2); Nucleated Red Blood Cells % 0.1 %/100WBC (0.0-0.8); Platelet Count 219 10^3/uL (150-450); Red Blood Count 4.67 10^6/uL (3.63-4.92); Red Cell Distribution Width 13.9 % (12-17); White Blood Count 8.7 10^3/uL (3.8-11.8)
[2023-06-14] MEDS ORDERED: Iodixanol (CONTRAST) 320 MG/ML 100 ML SDV IV ONE (19:29)
[2023-06-14 19:31] LABS: Activated Partial Thrombo Time 35.6 seconds (26.0-38.0); INR 1.44 (0.83-1.13)
[2023-06-14 19:39] LABS: Albumin 3.8 g/dL (3.2-5.2); Albumin/Globulin Ratio 1.3 (1-3); Calcium 8.6 mg/dL (8.6-10.3); Creatinine, Serum 1.08 mg/dL (0.51-0.95); Direct Bilirubin 0.2 mg/dL (0.03-0.18); Globulin 2.9 g/dL (2-4); HDL Cholesterol 54.7 mg/dL; Indirect Bilirubin 0.5 mg/dL (0.3-1.0); Potassium 3.9 mmol/L (3.5-5.0); Total Bilirubin 0.7 mg/dL (0.2-1.0); Total Protein 6.7 g/dL (6.4-8.9)
[2023-06-14 20:01] LABS: Digoxin 0.6 ng/ml (0.8-2.0)
[2023-06-15 05:30] LABS: Urine Appearance Clear; Urine Bilirubin Negative (Negative); Urine Blood Negative (Negative); Urine Color Yellow; Urine Glucose Negative (Negative); Urine Ketones Negative (Negative); Urine Nitrite Negative (Negative); Urine Protein Negative (Negative); Urine Specific Gravity 1.021 (1.002-1.030); Urine Urobilinogen Negative (Negative)
[2023-06-15 06:13] LABS: TSH Ultra Thyroid Stim Horm 1.89 mcIU/mL (0.34-5.60)
[2023-06-15 07:42] LABS: ABS Eosinophils 0.2 10^3/uL (0.0-0.5); ABS Lymphocytes 2.1 10^3/uL (1.0-4.8); ABS Monocytes 0.7 10^3/uL (0.0-0.9); ABS Neutrophils 4.6 10^3/uL (1.5-7.6); ABS Nucleated RBC 0.01 10^3/ul; Eosinophil % 2.4 %; Hematocrit 42.2 % (35-45); Hemoglobin 14.4 g/dL (11.5-14.3); Lymphocyte % 27.7 %; Mean Corpuscular Hemoglobin 32.3 pg (27-33); Mean Corpuscular Hgb Conc 34.2 g/dL (31-36); Mean Corpuscular Volume 94.5 fL (80-97); Mean Platelet Volume 8.8 fL (7.5-11.2); Nucleated Red Blood Cells % 0.1 %/100WBC (0.0-0.8); Platelet Count 196 10^3/uL (150-450); Red Blood Count 4.47 10^6/uL (3.63-4.92); Red Cell Distribution Width 13.4 % (12-17); White Blood Count 7.6 10^3/uL (3.8-11.8)
[2023-06-15] MEDS ORDERED: Lactated Ringers 1000 ml BAG 1,000 ML IV SCH (08:00)
[2023-06-15 08:03] LABS: Calcium 8.4 mg/dL (8.6-10.3); Creatinine, Serum 0.76 mg/dL (0.51-0.95); Potassium 3.4 mmol/L (3.5-5.0); eGFR CKD-EPI 77.7 (>60)
[2023-06-15] MEDS ORDERED: Potassium Chlor 20 meq TAB.ER PO ONE (08:04)
[2023-06-15 09:48] LABS: Magnesium 1.7 mg/dL (1.9-2.7)
[2023-06-15] MEDS ORDERED: Magnesium Sulfate IV 1GM/100ML 1 GM/100 ML BAG IV ONE (13:46)
[2023-06-17 06:00] VITALS: BP 145/96
== END 2023-06-17 11:10 | disposition home or self-care (01) ==
LOC: EDHOLD 18:54 → ED 18:54 → SUATTDRO 21:30 → MEDTELE 06-15 05:34
PROVIDERS: ADMIT Student in an Organized Health Care Education/Training Program; ATTEND Hospitalist

== ENCOUNTER 2023-06-24 05:43 | Observation (INO) ==
[2023-06-24 06:29] LABS: ABS Lymphocytes 1.7 10^3/uL (1.0-4.8); ABS Monocytes 0.9 10^3/uL (0.0-0.9); ABS Neutrophils 9.4 10^3/uL (1.5-7.6); ABS Nucleated RBC 0.05 10^3/ul; Eosinophil % 0.3 %; Hematocrit 50.2 % (35-45); Hemoglobin 17.4 g/dL (11.5-14.3); Lymphocyte % 13.9 %; Mean Corpuscular Hemoglobin 32.5 pg (27-33); Mean Corpuscular Hgb Conc 34.8 g/dL (31-36); Mean Corpuscular Volume 93.5 fL (80-97); Mean Platelet Volume 8.7 fL (7.5-11.2); Nucleated Red Blood Cells % 0.4 %/100WBC (0.0-0.8); Platelet Count 238 10^3/uL (150-450); Red Blood Count 5.36 10^6/uL (3.63-4.92); Red Cell Distribution Width 13.5 % (12-17); White Blood Count 11.9 10^3/uL (3.8-11.8)
[2023-06-24 06:51] LABS: C Reactive Protein 160.83 mg/L (<8.01); Calcium 9.1 mg/dL (8.6-10.3); Creatinine, Serum 0.78 mg/dL (0.51-0.95); Potassium 3.4 mmol/L (3.5-5.0); Total Bilirubin 1.7 mg/dL (0.2-1.0); eGFR CKD-EPI 75.3 (>60)
[2023-06-24 06:57] LABS: Rapid COVID-19 Molecular Undetected (Undetected)
[2023-06-24 08:02] LABS: High Sensitivity Troponin 1 Hr 20 pg/mL (<15)
[2023-06-24] MEDS ORDERED: Iohexol 350 (CONTRAST) 500 ML MDV IV ONE (08:19)
[2023-06-24] MEDS ORDERED: Potassium Chlor 20 meq TAB.ER PO ONE (09:10)
[2023-06-24 11:28] LABS: Urine Appearance Clear; Urine Bilirubin Negative (Negative); Urine Blood Negative (Negative); Urine Color Amber; Urine Glucose Negative (Negative); Urine Ketones Negative (Negative); Urine Nitrite Negative (Negative); Urine Protein 2+(100 mg/dL) (Negative); Urine Specific Gravity 1.024 (1.002-1.030); Urine Urobilinogen Positive (Negative)
[2023-06-24 11:52] LABS: Urine Bacteria Absent (Absent); Urine Red Blood Cell 1+(3-5/hpf) (Absent); Urine Squamous Epithelial Cell Present (Absent); Urine White Blood Cell Trace(0-5/hpf) (Absent)
[2023-06-24 12:25] LABS: Influenza A Molecular Negative (Negative); Influenza B Molecular Negative (Negative)
[2023-06-24] MEDS ORDERED: Nystatin TOP POWDER 15 GM BTL TOPICAL PRN (14:00)
[2023-06-24] MEDS ORDERED: NS 0.9% 1000 ml BAG 1,000 ML IV SCH (14:15)
[2023-06-25 11:54] LABS: Hematocrit 45.6 % (35-45); Hemoglobin 15.6 g/dL (11.5-14.3); Mean Corpuscular Hemoglobin 32.3 pg (27-33); Mean Corpuscular Hgb Conc 34.3 g/dL (31-36); Mean Corpuscular Volume 94.3 fL (80-97); Mean Platelet Volume 8.8 fL (7.5-11.2); Platelet Count 262 10^3/uL (150-450); Red Blood Count 4.83 10^6/uL (3.63-4.92); Red Cell Distribution Width 13.6 % (12-17); White Blood Count 12.9 10^3/uL (3.8-11.8)
[2023-06-25 12:13] LABS: Albumin 3.5 g/dL (3.2-5.2); Calcium 8.6 mg/dL (8.6-10.3); Creatinine, Serum 0.86 mg/dL (0.51-0.95); Globulin 3.4 g/dL (2-4); Magnesium 1.9 mg/dL (1.9-2.7); Total Bilirubin 1.1 mg/dL (0.2-1.0); Total Protein 6.9 g/dL (6.4-8.9)
[2023-06-25] MEDS ORDERED: Polyethylene Glycol 3350 17 GM PACKET PO PRN (14:25)
[2023-06-26 10:15] LABS: Hematocrit 44.6 % (35-45); Hemoglobin 15.5 g/dL (11.5-14.3); Mean Corpuscular Hemoglobin 32.4 pg (27-33); Mean Corpuscular Hgb Conc 34.7 g/dL (31-36); Mean Corpuscular Volume 93.3 fL (80-97); Mean Platelet Volume 8.6 fL (7.5-11.2); Platelet Count 264 10^3/uL (150-450); Red Blood Count 4.78 10^6/uL (3.63-4.92); Red Cell Distribution Width 13.5 % (12-17); White Blood Count 13.8 10^3/uL (3.8-11.8)
[2023-06-26 10:34] LABS: Albumin 3.5 g/dL (3.2-5.2); Calcium 8.5 mg/dL (8.6-10.3); Creatinine, Serum 0.62 mg/dL (0.51-0.95); Globulin 3.5 g/dL (2-4); Potassium 4.1 mmol/L (3.5-5.0); Total Bilirubin 1.2 mg/dL (0.2-1.0); eGFR CKD-EPI 88.3 (>60)
[2023-06-26 18:40] LABS: Urine Appearance Cloudy; Urine Bilirubin Negative (Negative); Urine Blood Negative (Negative); Urine Color Yellow; Urine Glucose Negative (Negative); Urine Ketones Negative (Negative); Urine Nitrite Negative (Negative); Urine Protein Negative (Negative); Urine Specific Gravity 1.013 (1.002-1.030); Urine Urobilinogen Positive (Negative)
[2023-06-26 18:47] LABS: Urine Bacteria 1+ (Absent); Urine Red Blood Cell 2+(6-10/hpf) (Absent); Urine Squamous Epithelial Cell Present (Absent); Urine White Blood Cell 2+(11-20/hpf) (Absent)
[2023-06-27 07:43] LABS: Hematocrit 43.4 % (35-45); Hemoglobin 14.7 g/dL (11.5-14.3); Mean Corpuscular Hgb Conc 33.9 g/dL (31-36); Mean Corpuscular Volume 94.1 fL (80-97); Mean Platelet Volume 8.3 fL (7.5-11.2); Platelet Count 242 10^3/uL (150-450); Red Blood Count 4.61 10^6/uL (3.63-4.92); Red Cell Distribution Width 13.3 % (12-17); White Blood Count 7.5 10^3/uL (3.8-11.8)
[2023-06-27 07:58] LABS: Albumin 3.1 g/dL (3.2-5.2); Calcium 8.1 mg/dL (8.6-10.3); Creatinine, Serum 0.68 mg/dL (0.51-0.95); Globulin 3.1 g/dL (2-4); Potassium 3.7 mmol/L (3.5-5.0); Total Bilirubin 0.7 mg/dL (0.2-1.0); Total Protein 6.2 g/dL (6.4-8.9); eGFR CKD-EPI 86.4 (>60)
[2023-06-29 10:07] VITALS: BP 144/78
== END 2023-06-29 13:55 ==
LOC: EDHOLD 05:43 → ED 05:43 → SUATTDRO 13:59 → MED 15:47
PROVIDERS: ADMIT Student in an Organized Health Care Education/Training Program; ATTEND Hospitalist

== ENCOUNTER 2023-08-29 18:32 | Inpatient (IN) ==
[2023-08-29] MEDS ORDERED: Lorazepam PYXIS KEY PRN (18:36)
[2023-08-29] MEDS ORDERED: Midazolam 5 mg/ml concentrated 5 mg/ml 1 ml VIAL ONE (18:40)
[2023-08-29] MEDS: Iodixanol (CONTRAST) 320 MG/ML 100 ML SDV IV ONE (18:46)
[2023-08-29] MEDS ORDERED: LORazepam 2 MG/ML 1 mL Syringe ONE (18:59)
[2023-08-29 19:25] LABS: Activated Partial Thrombo Time 31.4 seconds (26.0-38.0); INR 1.28 (0.83-1.13)
[2023-08-29] MEDS ORDERED: levETIRAcetam 1000MG IVPREMIX 1,000 MG/100 ML BAG ONE (19:25)
[2023-08-29 19:26] LABS: ABS Basophils 0.1 10^3/uL (0.0-0.1); ABS Eosinophils 0.2 10^3/uL (0.0-0.5); ABS Lymphocytes 4.2 10^3/uL (1.0-4.8); ABS Monocytes 0.8 10^3/uL (0.0-0.9); ABS Neutrophils 7.9 10^3/uL (1.5-7.6); ABS Nucleated RBC 0.01 10^3/ul; Eosinophil % 1.5 %; Hematocrit 43.6 % (35-45); Hemoglobin 14.9 g/dL (11.5-14.3); Mean Corpuscular Hemoglobin 32.5 pg (27-33); Mean Corpuscular Hgb Conc 34.2 g/dL (31-36); Mean Corpuscular Volume 94.9 fL (80-97); Nucleated Red Blood Cells % 0.1 %/100WBC (0.0-0.8); Platelet Count 251 10^3/uL (150-450); Red Cell Distribution Width 14.2 % (12-17); White Blood Count 13.1 10^3/uL (3.8-11.8)
[2023-08-29] MEDS: levETIRAcetam 1000MG IVPREMIX 1,000 MG/100 ML BAG IVPB ONE (19:28)
[2023-08-29] MEDS: LORazepam 2 mg VIAL 1 ml IV PUSH ONE (19:41)
[2023-08-29 19:45] LABS: Albumin 4.1 g/dL (3.2-5.2); Calcium 8.9 mg/dL (8.6-10.3); Creatinine, Serum 0.78 mg/dL (0.51-0.95); Potassium 3.8 mmol/L (3.5-5.0); Total Protein 7.1 g/dL (6.4-8.9); eGFR CKD-EPI 75.3 (>60)
[2023-08-29 19:46] LABS: Albumin/Globulin Ratio 1.4 (1-3); Digoxin 0.7 ng/ml (0.8-2.0); Direct Bilirubin 0.1 mg/dL (0.03-0.18); HDL Cholesterol 60.8 mg/dL; Indirect Bilirubin 0.6 mg/dL (0.3-1.0); Total Bilirubin 0.7 mg/dL (0.2-1.0)
[2023-08-29] MEDS: niCARdipine 0.1MG/ML IVPREMIX 20 MG/200 ML BAG IV SCH (20:04)
[2023-08-29] MEDS: Midazolam 5 mg/5 ml VIAL 1 mg/ml 5 ml VIAL (5 mg) IV SLOW PU ONE ×2 (20:15→21:19)
[2023-08-29] MEDS: levETIRAcetam 500 MG IVPREMIX 500 MG/100 ML BAG IVPB ONE (20:21)
[2023-08-29] MEDS ORDERED: Propofol 10 mg/ml 100 ML BTL 1,000 MG/100 ML BTL ONE (21:20)
[2023-08-29] MEDS: Succinylcholine 200 mg VIAL 20 mg/ml 10 ml VIAL (200 mg) IV ONE (21:20)
[2023-08-29] MEDS: Lactated Ringers 1000 ml BAG 1,000 ML IV ONE (21:35)
[2023-08-29] MEDS: Propofol 10 mg/ml 100 ML BTL 1,000 MG/100 ML BTL IV SCH ×4 (21:37→22:48)
[2023-08-29] MEDS: Midazolam PREMIXBAG 1 MG/ML NS 100 ML IV SCH (21:47)
[2023-08-29] MEDS ORDERED: Polyethylene Glycol 3350 17 GM PACKET NG TUBE PRN (22:08)
[2023-08-29 22:34] LABS: Magnesium 1.8 mg/dL (1.9-2.7)
[2023-08-29] MEDS: levETIRAcetam IV 1,500 MG in NS 0.9% 100 ml BAG 100 ML IVPB ONE (22:54)
[2023-08-29] MEDS: Enoxaparin 80 MG/0.8 ML SYR SUBCUT SCH (23:42)
[2023-08-29] MEDS: Pantoprazole VIAL 40 MG VIAL IV SCH (23:42)
[2023-08-29] MEDS: Chlorhexidine MOUTHWASH 0.12% 15 ML UDC TOPICAL SCH (23:42)
[2023-08-30 00:40] LABS: Urine Appearance Clear; Urine Bilirubin Negative (Negative); Urine Blood Negative (Negative); Urine Color Yellow; Urine Glucose Negative (Negative); Urine Ketones Trace (Negative); Urine Nitrite Negative (Negative); Urine Protein 2+ (>=100 mg/dL) (Negative); Urine Urobilinogen Negative (Negative)
[2023-08-30 00:42] LABS: Urine Bacteria Absent /HPF (Absent); Urine Red Blood Cell Trace(0-2/hpf) /HPF (0-Trace); Urine Squamous Epithelial Cell Present /HPF (Absent); Urine White Blood Cell Trace(0-5/hpf) /HPF (0-Trace)
[2023-08-30] MEDS: Magnesium Sulfate 2 gm BAG 2 GM/50 ML BAG IVPB ONE (00:46)
[2023-08-30] MEDS: Potassium Chloride LIQUID 20 MEQ/15 ML LIQUID PO ONE (00:46)
[2023-08-30] MEDS: NS 0.9% 1000 ml BAG 1,000 ML IV SCH (02:56)
[2023-08-30 05:14] LABS: ABS Lymphocytes 1.8 10^3/uL (1.0-4.8); ABS Monocytes 0.5 10^3/uL (0.0-0.9); ABS Neutrophils 8.4 10^3/uL (1.5-7.6); ABS Nucleated RBC 0.01 10^3/ul; Eosinophil % 0.4 %; Hematocrit 37.3 % (35-45); Hemoglobin 13.2 g/dL (11.5-14.3); Lymphocyte % 16.8 %; Mean Corpuscular Hemoglobin 32.9 pg (27-33); Mean Corpuscular Hgb Conc 35.4 g/dL (31-36); Mean Corpuscular Volume 93.1 fL (80-97); Mean Platelet Volume 8.7 fL (7.5-11.2); Nucleated Red Blood Cells % 0.1 %/100WBC (0.0-0.8); Platelet Count 219 10^3/uL (150-450); Red Blood Count 4.01 10^6/uL (3.63-4.92); Red Cell Distribution Width 14.1 % (12-17); White Blood Count 10.8 10^3/uL (3.8-11.8)
[2023-08-30 05:52] LABS: Anion Gap 11 mmol/L (2-16); Blood Urea Nitrogen 12 mg/dL (6-24); C Reactive Protein 17.13 mg/L (<8.01); CO2 Carbon Dioxide 27 mmol/L (22-32); Calcium 8.2 mg/dL (8.6-10.3); Chloride 99 mmol/L (101-111); Creatinine, Serum 0.86 mg/dL (0.51-0.95); Glucose 154 mg/dL (70-100); Magnesium 2.4 mg/dL (1.9-2.7); Sodium 137 mmol/L (135-145)
[2023-08-30] MEDS: KCL 20 MEQ/100 ML IVPREMIX 20 MEQ/100 ML BAG IV SCH (08:58)
[2023-08-30] MEDS: levETIRAcetam 1000MG IVPREMIX 1,000 MG/100 ML BAG IVPB SCH (09:06)
[2023-08-30] MEDS: Propofol 10 mg/ml 100 ML BTL 1,000 MG/100 ML BTL IV SCH (15:40)
[2023-08-31 01:02] LABS: Calcium 7.8 mg/dL (8.6-10.3); Creatinine, Serum 0.89 mg/dL (0.51-0.95); Potassium 3.6 mmol/L (3.5-5.0); eGFR CKD-EPI 64.3 (>60)
[2023-08-31] MEDS: Furosemide 20 mg/2 ml IV VIAL IV ONE (03:21)
[2023-08-31 05:22] LABS: ABS Eosinophils 0.1 10^3/uL (0.0-0.5); ABS Lymphocytes 1.6 10^3/uL (1.0-4.8); ABS Monocytes 0.6 10^3/uL (0.0-0.9); ABS Neutrophils 7.8 10^3/uL (1.5-7.6); ABS Nucleated RBC 0.01 10^3/ul; Hematocrit 39.4 % (35-45); Hemoglobin 13.7 g/dL (11.5-14.3); Lymphocyte % 15.9 %; Mean Corpuscular Hemoglobin 32.5 pg (27-33); Mean Corpuscular Hgb Conc 34.7 g/dL (31-36); Mean Corpuscular Volume 93.7 fL (80-97); Mean Platelet Volume 8.8 fL (7.5-11.2); Nucleated Red Blood Cells % 0.1 %/100WBC (0.0-0.8); Platelet Count 206 10^3/uL (150-450); Red Blood Count 4.21 10^6/uL (3.63-4.92); Red Cell Distribution Width 14.3 % (12-17); White Blood Count 10.1 10^3/uL (3.8-11.8)
[2023-08-31 06:16] LABS: Calcium 7.8 mg/dL (8.6-10.3); Creatinine, Serum 0.83 mg/dL (0.51-0.95); Potassium 3.5 mmol/L (3.5-5.0); eGFR CKD-EPI 69.9 (>60)
[2023-08-31] MEDS: Potassium Chloride LIQUID 20 MEQ/15 ML LIQUID NG TUBE ONE (07:51)
[2023-08-31] MEDS: KCL 20 MEQ/100 ML IVPREMIX 20 MEQ/100 ML BAG IV ONE (08:31)
[2023-08-31] MEDS: Dexmedetomidine 1,000 MCG in NS 0.9% 250 ml 240 ML IV SCH (23:02)
[2023-09-01 04:25] LABS: ABS Lymphocytes 1.1 10^3/uL (1.0-4.8); ABS Monocytes 0.7 10^3/uL (0.0-0.9); ABS Neutrophils 10.9 10^3/uL (1.5-7.6); ABS Nucleated RBC 0.01 10^3/ul; Eosinophil % 0.1 %; Hematocrit 36.8 % (35-45); Hemoglobin 12.8 g/dL (11.5-14.3); Lymphocyte % 8.6 %; Mean Corpuscular Hemoglobin 32.4 pg (27-33); Mean Corpuscular Hgb Conc 34.7 g/dL (31-36); Mean Corpuscular Volume 93.4 fL (80-97); Mean Platelet Volume 8.5 fL (7.5-11.2); Nucleated Red Blood Cells % 0.1 %/100WBC (0.0-0.8); Platelet Count 169 10^3/uL (150-450); Red Blood Count 3.94 10^6/uL (3.63-4.92); Red Cell Distribution Width 14.3 % (12-17); White Blood Count 12.7 10^3/uL (3.8-11.8)
[2023-09-01 04:45] LABS: Calcium 7.3 mg/dL (8.6-10.3); Creatinine, Serum 0.71 mg/dL (0.51-0.95); Magnesium 1.6 mg/dL (1.9-2.7); Potassium 3.2 mmol/L (3.5-5.0); eGFR CKD-EPI 84.3 (>60)
[2023-09-01] MEDS: Magnesium Sulfate 2 gm BAG 2 GM/50 ML BAG IVPB ONE ×2 (05:06→13:43)
[2023-09-01] MEDS: KCL 20 MEQ/100 ML IVPREMIX 20 MEQ/100 ML BAG IV SCH (06:23)
[2023-09-01] MEDS: Metoprolol Tartrate 5 mg VIAL 5 ml VIAL (1 mg/ml) IV ONE (18:12)
[2023-09-01] MEDS: Furosemide 40 mg/4 ml IV VIAL IV SLOW PU ONE (21:21)
[2023-09-01 23:02] LABS: Venous Bicarbonate HCO3 26.8 mmol/L (24-28)
[2023-09-01 23:20] LABS: Calcium 7.9 mg/dL (8.6-10.3); Creatinine, Serum 0.63 mg/dL (0.51-0.95); Potassium 3.2 mmol/L (3.5-5.0)
[2023-09-02] MEDS: KCL 20 MEQ/100 ML IVPREMIX 20 MEQ/100 ML BAG IV SCH (01:21)
[2023-09-02] MEDS: Ondansetron 4 mg VIAL 2 MG/ML 2 ml VIAL IV PRN (04:07)
[2023-09-02 04:58] LABS: ABS Basophils 0.1 10^3/uL (0.0-0.1); ABS Eosinophils 0.1 10^3/uL (0.0-0.5); ABS Lymphocytes 1.7 10^3/uL (1.0-4.8); ABS Monocytes 0.7 10^3/uL (0.0-0.9); ABS Neutrophils 12.1 10^3/uL (1.5-7.6); Eosinophil % 0.7 %; Hematocrit 36.1 % (35-45); Hemoglobin 12.5 g/dL (11.5-14.3); Lymphocyte % 11.5 %; Mean Corpuscular Hemoglobin 32.2 pg (27-33); Mean Corpuscular Hgb Conc 34.6 g/dL (31-36); Mean Platelet Volume 8.7 fL (7.5-11.2); Platelet Count 178 10^3/uL (150-450); Red Blood Count 3.88 10^6/uL (3.63-4.92); Red Cell Distribution Width 14.2 % (12-17); White Blood Count 14.7 10^3/uL (3.8-11.8)
[2023-09-02 05:39] LABS: Calcium 7.6 mg/dL (8.6-10.3); Creatinine, Serum 0.56 mg/dL (0.51-0.95); Magnesium 1.9 mg/dL (1.9-2.7); Potassium 3.7 mmol/L (3.5-5.0); eGFR CKD-EPI 90.5 (>60)
[2023-09-02] MEDS: Potassium Chlor 20 meq TAB.ER PO ONE (13:34)
[2023-09-02 13:39] LABS: Urine Appearance Turbid; Urine Bacteria Absent /HPF (Absent); Urine Bilirubin Negative (Negative); Urine Blood 2+ (Negative); Urine Color Yellow; Urine Glucose Negative (Negative); Urine Ketones 2+ (Negative); Urine Nitrite Negative (Negative); Urine Protein 1+ (>=30 mg/dL) (Negative); Urine Red Blood Cell 3+(>10/hpf) /HPF (0-Trace); Urine Specific Gravity 1.019 (1.002-1.030); Urine Squamous Epithelial Cell Present /HPF (Absent); Urine Urobilinogen 3+ (Negative); Urine White Blood Cell 3+(>20/hpf) /HPF (0-Trace)
[2023-09-02] MEDS: KCL 10 MEQ/50 ML IVPREMIX 10 MEQ/50 ML BAG IV SCH (14:35)
[2023-09-02] MEDS: Nystatin TOP POWDER 15 GM BTL TOPICAL PRN (14:40)
[2023-09-03 06:11] LABS: ABS Basophils 0.1 10^3/uL (0.0-0.1); ABS Eosinophils 0.2 10^3/uL (0.0-0.5); ABS Lymphocytes 1.4 10^3/uL (1.0-4.8); ABS Monocytes 0.7 10^3/uL (0.0-0.9); ABS Neutrophils 9.1 10^3/uL (1.5-7.6); Eosinophil % 1.6 %; Hematocrit 36.3 % (35-45); Hemoglobin 12.4 g/dL (11.5-14.3); Lymphocyte % 12.1 %; Mean Corpuscular Hemoglobin 32.1 pg (27-33); Mean Corpuscular Hgb Conc 34.3 g/dL (31-36); Mean Corpuscular Volume 93.4 fL (80-97); Mean Platelet Volume 8.9 fL (7.5-11.2); Platelet Count 190 10^3/uL (150-450); Red Blood Count 3.88 10^6/uL (3.63-4.92); White Blood Count 11.4 10^3/uL (3.8-11.8)
[2023-09-03 06:36] LABS: Creatinine, Serum 0.62 mg/dL (0.51-0.95); Magnesium 1.6 mg/dL (1.9-2.7); Potassium 3.5 mmol/L (3.5-5.0); eGFR CKD-EPI 88.3 (>60)
[2023-09-04 05:34] LABS: ABS Eosinophils 0.3 10^3/uL (0.0-0.5); ABS Lymphocytes 1.5 10^3/uL (1.0-4.8); ABS Monocytes 0.6 10^3/uL (0.0-0.9); ABS Neutrophils 6.3 10^3/uL (1.5-7.6); Hemoglobin 12.9 g/dL (11.5-14.3); Lymphocyte % 17.8 %; Mean Corpuscular Hemoglobin 32.3 pg (27-33); Mean Corpuscular Hgb Conc 34.8 g/dL (31-36); Mean Corpuscular Volume 92.9 fL (80-97); Mean Platelet Volume 8.8 fL (7.5-11.2); Nucleated Red Blood Cells % 0.1 %/100WBC (0.0-0.8); Platelet Count 225 10^3/uL (150-450); Red Blood Count 3.98 10^6/uL (3.63-4.92); Red Cell Distribution Width 13.9 % (12-17); White Blood Count 8.7 10^3/uL (3.8-11.8)
[2023-09-04 05:48] LABS: Calcium 8.2 mg/dL (8.6-10.3); Creatinine, Serum 0.61 mg/dL (0.51-0.95); Magnesium 1.6 mg/dL (1.9-2.7); Potassium 3.2 mmol/L (3.5-5.0); eGFR CKD-EPI 88.7 (>60)
[2023-09-04] MEDS: Magnesium Sulfate 2 gm BAG 2 GM/50 ML BAG IVPB ONE (08:54)
[2023-09-04] MEDS: Potassium Chlor 20 meq TAB.ER PO ONE (11:17)
[2023-09-06 08:39] LABS: Calcium 8.6 mg/dL (8.6-10.3); Creatinine, Serum 0.6 mg/dL (0.51-0.95); Magnesium 1.6 mg/dL (1.9-2.7); Potassium 3.5 mmol/L (3.5-5.0)
[2023-09-06] MEDS: Magnesium Sulfate 2 gm BAG 2 GM/50 ML BAG IVPB ONE (09:50)
[2023-09-06] MEDS: Magnesium Sulfate IV 1GM/100ML 1 GM/100 ML BAG IV ONE (12:42)
[2023-09-06] MEDS: Senna TAB 8.6 mg TAB PO PRN (21:44)
[2023-09-07 12:29] LABS: Calcium 8.6 mg/dL (8.6-10.3); Creatinine, Serum 0.61 mg/dL (0.51-0.95); Magnesium 1.9 mg/dL (1.9-2.7); eGFR CKD-EPI 88.7 (>60)
[2023-09-07] MEDS: Polyethylene Glycol 3350 17 GM PACKET PO PRN (17:40)
[2023-09-09] MEDS ORDERED: hydrALAZINE 20 mg/ml 1 ML Vial IV IV SLOW PU PRN (18:12)
[2023-09-10] MEDS: Lidocaine PATCH 5% PATCH TRANSDERM PRN (19:58)
[2023-09-12 10:15] VITALS: BP 145/82
== END 2023-09-12 13:00 | DRG 101 ==
LOC: ED 18:32 → SUATTDRO 21:29 → EDHOLD 21:29 → ICU 21:57 → MED 09-02 18:22
PROVIDERS: ADMIT Internal Medicine; ATTEND Internal Medicine